=== PATIENT | female | born 1955 | race Caucasian/White ===

== ENCOUNTER 2016-09-22 21:54 | Inpatient (IN) | payer MEDICAID ==
[~2016-09-22] VITALS: Ht 162.6 cm; Wt 63.5 kg
[~2016-09-22 21:54] MED LIST: ADVAIR 100-501 EACH IH; ALBUTEROL2.5 MG/3 M INH; ALBUTEROL25 GM INH; CYCLOBENZAPRINE10 MG ORAL; LEVOTHYROXINE200 MCG PO; LEVOTHYROXINE25 MCG ORAL; TRAMADOL HCL50 MG ORAL; VICODIN ES 7.51 EACH PO
[2016-09-22 22:01] VITALS: BP 138/69
[2016-09-22 22:26] LABS: EOSINOPHILS % (AUTO) 0.8 % (0.0-3.0); LYMPHOCYTES % (AUTO) 44.9 % (20.0-45.0); MEAN CORPUSCULAR HEMOGLOBIN 31.4 PG (27.0-31.0); MEAN CORPUSCULAR VOLUME 95 FL (80-99); MEAN PLATELET VOLUME 6.4 FL (6.5-10.1); MONOCYTES % (AUTO) 6.9 % (1.0-10.0); NEUTROPHILS % (AUTO) 46.4 % (45.0-75.0); PLATELET COUNT 199 K/UL (150-450); RED BLOOD COUNT 4.17 M/UL (4.20-5.40); RED CELL DISTRIBUTION WIDTH 12.1 % (11.6-14.8); WHITE BLOOD COUNT 9.4 K/UL (4.8-10.8)
[2016-09-22] MEDS ORDERED: LORazepam Inj 2mg/ml 1ml IV ONE (22:30)
[2016-09-22] MEDS ORDERED: Ketorolac 30mg Inj IV ONE (22:30)
--- NOTE | 2016-09-22 22:43 | Emergency Room Report ---
History of Present Illness General Chief Complaint: Chest Pain Source: Patient, EMS Present Illness HPI Patient presents with complaints of chest pain and heaviness Patient was getting out of work and going into her car about 2 hours prior to arrival when she began having the heaviness Describes it as 5/10 Denies any shortness of breath there is some radiation to the left arm as well Patient denies any previous heart problems Is unaware of any previous testing Denies any vomiting or diarrhea denies any fall or trauma Denies any change of position Allergies: Coded Allergies: CODEINE (Verified Adverse Reaction, Intermediate, 05/05/12) N/V Patient History Past Medical History: see triage record Pertinent Family History: none Now: No Reviewed Nursing Documentation: PMH: Agreed, PSxH: Agreed Nursing Documentation-PMH Past Medical History: No History, Except For Hx Hypertension: No Hx Pacemaker: No Hx Asthma: Yes Hx COPD: Yes Hx Diabetes: No Hx Cancer: No Hx Gastrointestinal Problems: Yes - GASTRITIS Hx Dialysis: No Hx Neurological Problems: No Hx Cerebrovascular Accident: No Hx Seizures: No Review of Systems All Other Systems: negative except mentioned in HPI Physical Exam Vital Signs Date Time Temp Pulse Resp B/P Pulse Ox O2 Delivery O2 Flow Rate FiO2 09/22/16 21:47 98.2 65 16 143/91 99 Room Air Sp02 EP Interpretation: reviewed, normal General Appearance: no apparent distress - However patient appears mildly uncomfortable holding her chest somewhat tearful Head: normocephalic, atraumatic Eyes: bilateral eye EOMI, bilateral eye PERRL ENT: hearing grossly normal, normal pharynx, TMs + canals normal, uvula midline Neck: full range of motion, supple, no meningismus, no bony tend Respiratory: lungs clear, normal breath sounds, no rhonchi, no respiratory distress, no retraction, no accessory muscle use Cardiovascular #1: normal peripheral pulses, regular rate, rhythm, no edema, no gallop, no JVD, no murmur Gastrointestinal: normal bowel sounds, non tender, soft, no mass, no organomegaly, non-distended, no guarding, no hernia, no pulsatile mass, no rebound Genitourinary: no CVA tenderness Musculoskeletal: normal inspection Neurologic: oriented x3, 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, 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, motor strength/ tone normal, sensory intact Psychiatric: mood/affect normal Skin: normal color, no rash, warm/dry, palpation normal Lymphatic: normal inspection, no adenopathy Medical Decision Making Diagnostic Impression: Primary Impression: ACS (acute coronary syndrome) ER Course Patient is a fairly complex patient with multiple differential to consideration including but not limited to cardiac cardiopulmonary and vascular emergencies Patient's initial blood work along with chest x-ray and EKG are at baseline levels patient has done better at this time received aspirin in the field and admitted for further inpatient care Labs Test 09/22/16 22:07 White Blood Count 9.4 K/UL (4.8-10.8) Red Blood Count 4.17 M/UL (4.20-5.40) Hemoglobin 13.1 G/DL (12.0-16.0) Hematocrit 39.7 % (37.0-47.0) Mean Corpuscular Volume 95 FL (80-99) Mean Corpuscular Hemoglobin 31.4 PG (27.0-31.0) Mean Corpuscular Hemoglobin Concent 33.0 G/DL (32.0-36.0) Red Cell Distribution Width 12.1 % (11.6-14.8) Platelet Count 199 K/UL (150-450) Mean Platelet Volume 6.4 FL (6.5-10.1) Neutrophils (%) (Auto) 46.4 % (45.0-75.0) Lymphocytes (%) (Auto) 44.9 % (20.0-45.0) Monocytes (%) (Auto) 6.9 % (1.0-10.0) Eosinophils (%) (Auto) 0.8 % (0.0-3.0) Basophils (%) (Auto) 1.0 % (0.0-2.0) Sodium Level 142 mEQ/L (135-145) Potassium Level 3.8 mEQ/L (3.4-4.9) Chloride Level 100 mEQ/L (98-107) Carbon Dioxide Level 23 mEQ/L (20-30) Anion Gap 19 (5-15) Blood Urea Nitrogen 11 mg/dL (7-23) Creatinine 0.7 mg/dL (0.5-0.9) Estimat Glomerular Filtration Rate > 60 mL/min (>60) Glucose Level 102 mg/dL (74-106) Calcium Level 9.4 mg/dL (8.6-10.2) Total Bilirubin 0.6 mg/dL (0.0-1.2) Aspartate Amino Transf (AST/SGOT) 23 U/L (5-40) Alanine Aminotransferase (ALT/SGPT) 12 U/L (3-33) Alkaline Phosphatase 91 U/L (35-104) Total Creatine Kinase 253 U/L (26-140) Creatine Kinase MB 3.7 ng/mL (< 3.8) Creatine Kinase MB Relative Index 1.4 Troponin I < 0.30 ng/mL (<=0.30) Total Protein 7.5 g/dL (6.6-8.7) Albumin 4.3 g/dL (3.5-5.2) Globulin 3.2 g/dL Albumin/Globulin Ratio 1.3 (1.0-2.7) Lipase 31 U/L (< 60) EKG Diagnostic Results Rate: normal Rhythm: NSR ST Segments: other - Nonspecific ST and T-wave changes Rhythm Strip Diag. Results EP Interpretation: yes Rate: 65 Rhythm: NSR, no PVC's, no ectopy Chest X-Ray Diagnostic Results EP Interpretation: Yes Findings: no consolidation, no effusion, no pneumothorax Number of Views: 1 Last Vital Signs Date Time Temp Pulse Resp B/P Pulse Ox O2 Delivery O2 Flow Rate FiO2 09/22/16 22:36 57 12 Room Air 09/22/16 22:01 98.2 138/69 98 Status: improved Disposition: ADMITTED INPATIENT Condition: Serious DESIRAE LATHAM D.O. Sep 22, 2016 22:43
[2016-09-22 22:46] LABS: TROPONIN I < 0.30 ng/mL (<=0.30)
[2016-09-22 22:48] LABS: ALANINE AMINOTRANSFERASE 12 U/L (3-33); ALBUMIN/GLOBULIN RATIO 1.3 (1.0-2.7); ANION GAP 19 (5-15); ASPARTATE AMINO TRANSFERASE 23 U/L (5-40); CALCIUM 9.4 mg/dL (8.6-10.2); CARBON DIOXIDE 23 mEQ/L (20-30); CHLORIDE 100 mEQ/L (98-107); CREATININE 0.7 mg/dL (0.5-0.9); GLOMERULAR FILTRATION RATE > 60 mL/min (>60); HEMOLYSIS 36; LIPASE 31 U/L (< 60); POTASSIUM 3.8 mEQ/L (3.4-4.9); SODIUM 142 mEQ/L (135-145); TOTAL PROTEIN 7.5 g/dL (6.6-8.7)
[2016-09-22 22:55] LABS: CKMB 3.7 ng/mL (< 3.8)
[2016-09-23] VITALS (8 sets, daily range): BP systolic 120–182; BP diastolic 54–72
[2016-09-23] MEDS ORDERED: Cyclobenzaprine 10mg Tab ORAL PRN (05:45)
[2016-09-23] MEDS ORDERED: DuoNeb 0.5-3(2.5)mg/3ml neb HHN PRN (05:45)
[2016-09-23] MEDS ORDERED: Miralax 17gm pkt ORAL PRN (05:45)
[2016-09-23] MEDS ORDERED: Enalaprilat 2.5mg/2ml Inj IV PRN (05:45)
[2016-09-23] MEDS ORDERED: Diltiazem 25mg/5ml IV PRN (05:45)
[2016-09-23] MEDS ORDERED: traMADol 50mg tab ORAL PRN (05:45)
[2016-09-23] MEDS ORDERED: Ketorolac 30mg Inj IV PRN (05:45)
[2016-09-23] MEDS ORDERED: Aspirin Baby 81mg ORAL SCH (09:00)
[2016-09-23] MEDS: Levothyroxine 25mcg tab ORAL SCH (09:21)
[2016-09-23] MEDS: Heparin 5000 units/ml inj SUBQ SCH ×2 (09:22→23:11)
[2016-09-23 09:28] LABS: TROPONIN I < 0.30 ng/mL (<=0.30)
[2016-09-23] MEDS: Nitroglycerin Subl 0.4mg tab (Bottle Of 25) SL PRN ×2 (11:20→11:48)
[2016-09-23] MEDS: Morphine Sulfate 2mg/ml Inj IVP PRN ×3 (11:49→23:20)
--- NOTE | 2016-09-23 12:31 | Diagnostic Imaging Report ---
Indications: Chest pain Technique: Portable AP chest Findings: Comparison: 09/13/15 Cardiac silhouette remains normal in size. Pulmonary vasculature remains within normal limits. Small calcified nodule in right lung base unchanged. Lungs and pleura remain otherwise clear. Mild calcification and elongation of the thoracic aorta, fixation hardware in left humeral head again noted.. IMPRESSION: No evidence of acute disease, unchanged Stable chronic changes as described
--- NOTE | 2016-09-23 13:17 | History and Physical ---
History of Present Illness General Date patient seen: Sep 23, 2016 Reason for Hospitalization: Chest Pain Present Illness HPI 61 year old patient with hx of COPD, hypothyroid, presented to ER with complaints of shart chest pain and heaviness Patient was getting out of work and going into her car about 2 hours prior to arrival when she began having the heaviness She report that her SBP was 220. She doesn't have any history of HTN. Allergies: Coded Allergies: CODEINE (Verified Adverse Reaction, Intermediate, 05/05/12) N/V Medication History Scheduled Fluticasone/Salmeterol (Advair 100-50 Diskus), 1 EACH IH BID, (Reported) Levothyroxine Sodium* (Levothyroxine Sodium), 200 MCG PO DAILY, (Reported) Levothyroxine Sodium* (Levothyroxine Sodium*), 25 MCG ORAL DAILY, (Reported) Scheduled PRN Albuterol (Albuterol), 2 PUFFS INH Q4HR PRN, (Reported) Albuterol Sulfate* (Albuterol Sulfate Hhn*), 3 ML INH Q4H PRN for Shortness of Breath, (Reported) Cyclobenzaprine Hcl* (Flexeril*), 10 MG ORAL TID PRN for Muscle Spasm Tramadol Hcl* (Ultram*), 50 MG ORAL Q6H PRN for For Pain Patient History Healthcare decision maker Resuscitation status Advanced Directive on File Past Medical/Surgical History Past Medical/Surgical History: (1) Hypothyroidism Review of Systems Cardiovascular: Reports: chest pain Physical Exam General Appearance: WD/WN Lines, tubes and drains: peripheral HEENT: normocephalic, atraumatic Respiratory/Chest: chest wall non-tender, lungs clear Cardiovascular/Chest: normal peripheral pulses Abdomen: normal bowel sounds Genitourinary/Rectal: normal genital exam Last 24 Hour Vital Signs Date Time Temp Pulse Resp B/P Pulse Ox O2 Delivery O2 Flow Rate FiO2 09/23/16 12:52 98.1 53 18 126/62 97 Nasal Cannula 2.0 09/23/16 11:48 126/62 09/23/16 11:30 182/72 09/23/16 11:21 182/82 09/23/16 11:20 182/82 09/23/16 08:00 97.0 53 18 120/54 98 Room Air 09/23/16 08:00 52 09/23/16 04:34 53 09/23/16 04:20 97.2 55 18 122/58 98 Room Air 09/23/16 03:57 97.2 55 18 122/58 98 Room Air 09/23/16 01:22 97.2 71 16 145/60 99 Room Air 09/23/16 00:03 97.2 59 11 143/66 99 Room Air 09/22/16 22:52 98.2 09/22/16 22:36 57 12 Room Air 09/22/16 22:01 98.2 57 12 138/69 98 Room Air 09/22/16 21:47 98.2 65 16 143/91 99 Room Air Intake and Output 09/22/16 09/23/16 19:00 07:00 Intake Total 60 ml Balance 60 ml Intake Oral 60 ml Laboratory Tests Test 09/22/16 22:07 09/23/16 08:45 White Blood Count 9.4 K/UL (4.8-10.8) Red Blood Count 4.17 M/UL (4.20-5.40) L Hemoglobin 13.1 G/DL (12.0-16.0) Hematocrit 39.7 % (37.0-47.0) Mean Corpuscular Volume 95 FL (80-99) Mean Corpuscular Hemoglobin 31.4 PG (27.0-31.0) H Mean Corpuscular Hemoglobin Concent 33.0 G/DL (32.0-36.0) Red Cell Distribution Width 12.1 % (11.6-14.8) Platelet Count 199 K/UL (150-450) Mean Platelet Volume 6.4 FL (6.5-10.1) L Neutrophils (%) (Auto) 46.4 % (45.0-75.0) Lymphocytes (%) (Auto) 44.9 % (20.0-45.0) Monocytes (%) (Auto) 6.9 % (1.0-10.0) Eosinophils (%) (Auto) 0.8 % (0.0-3.0) Basophils (%) (Auto) 1.0 % (0.0-2.0) Sodium Level 142 mEQ/L (135-145) Potassium Level 3.8 mEQ/L (3.4-4.9) Chloride Level 100 mEQ/L (98-107) Carbon Dioxide Level 23 mEQ/L (20-30) Anion Gap 19 (5-15) H Blood Urea Nitrogen 11 mg/dL (7-23) Creatinine 0.7 mg/dL (0.5-0.9) Estimat Glomerular Filtration Rate > 60 mL/min (>60) Glucose Level 102 mg/dL (74-106) Calcium Level 9.4 mg/dL (8.6-10.2) Total Bilirubin 0.6 mg/dL (0.0-1.2) Aspartate Amino Transf (AST/SGOT) 23 U/L (5-40) Alanine Aminotransferase (ALT/SGPT) 12 U/L (3-33) Alkaline Phosphatase 91 U/L (35-104) Total Creatine Kinase 253 U/L (26-140) H Creatine Kinase MB 3.7 ng/mL (< 3.8) Creatine Kinase MB Relative Index 1.4 Troponin I < 0.30 ng/mL (<=0.30) < 0.30 ng/mL (<=0.30) Total Protein 7.5 g/dL (6.6-8.7) Albumin 4.3 g/dL (3.5-5.2) Globulin 3.2 g/dL Albumin/Globulin Ratio 1.3 (1.0-2.7) Lipase 31 U/L (< 60) Height (Feet): 5 Height (Inches): 4.00 Weight (Pounds): 140 Medications Current Medications Medications (Trade) Dose Ordered Sig/Angela Route PRN Reason Start Time Stop Time Status Last Admin Dose Admin Acetaminophen (Tylenol) 650 mg Q4H PRN ORAL FEVER 09/23/16 05:45 10/23/16 05:44 Albuterol/ Ipratropium (DuoNeb 0.5-3(2.5)mg/3ml) 3 ml EVERY 4 HOURS PRN HHN Shortness of Breath 09/23/16 05:45 09/28/16 05:44 Aspirin (ASA) 162 mg DAILY ORAL 09/23/16 09:00 10/23/16 08:59 09/23/16 09:21 Cyclobenzaprine HCl (Flexeril) 10 mg TID PRN ORAL Muscle Spasm 09/23/16 05:45 10/23/16 05:44 Diltiazem HCl (Cardizem) 10 mg EVERY HOUR PRN IV heart rate more than 120, 09/23/16 05:45 10/23/16 05:44 Enalaprilat (Vasotec) 2.5 mg EVERY 6 HOURS PRN IV sbp more than 160 09/23/16 05:45 10/23/16 05:44 09/23/16 11:21 Heparin Sodium (Porcine) (Heparin 5000 units/ml) 5,000 units EVERY 12 HOURS SUBQ 09/23/16 09:00 10/23/16 08:59 09/23/16 09:22 Ketorolac Tromethamine (Toradol 30mg) 30 mg Q6HR PRN IV moderate pain ( 4-6) 09/23/16 05:45 09/28/16 05:44 Levothyroxine Sodium (Synthroid) 25 mcg DAILY ORAL 09/23/16 09:00 10/23/16 08:59 09/23/16 09:21 Morphine Sulfate (Morphine Sulfate) 2 mg EVERY 4 HOURS PRN IVP severe Pain (Pain Scale 7-10) 09/23/16 05:45 09/30/16 05:44 09/23/16 11:49 Nitroglycerin (Ntg) 0.4 mg PRN PRN SL Prn Chest Pain 09/23/16 05:45 10/23/16 05:44 09/23/16 11:48 Ondansetron HCl (Zofran) 4 mg Q6H PRN IVP Nausea & Vomiting 09/23/16 05:45 10/23/16 05:44 09/23/16 12:06 Pantoprazole (Protonix) 40 mg DAILY ORAL 09/23/16 09:00 10/23/16 08:59 09/23/16 09:21 Polyethylene Glycol (Miralax) 17 gm DAILYPRN PRN ORAL Constipation 09/23/16 05:45 10/23/16 05:44 Temazepam (Restoril) 15 mg HSPRN PRN ORAL Insomnia 09/23/16 05:45 09/30/16 05:44 Tramadol HCl (Ultram) 50 mg Q6H PRN ORAL For Pain 09/23/16 05:45 09/30/16 05:44 Assessment/Plan Problem List: (1) Hypothyroidism ICD Codes: E03.9 - Hypothyroidism, unspecified SNOMED: 27476436 (2) ACS (acute coronary syndrome) ICD Codes: I24.9 - Acute ischemic heart disease, unspecified SNOMED: 042592143 (3) Costochondral chest pain ICD Codes: R07.1 - Chest pain on breathing SNOMED: 674220922 (4) Uncontrolled hypertension ICD Codes: I10 - Essential (primary) hypertension SNOMED: 66491286 Assessment/Plan serial ekg, troponin cardio/Gi evaluation monitor bp KATE DENT Sep 23, 2016 13:17
--- NOTE | 2016-09-23 16:44 | GI Initial Consult Note ---
History of Present Illness General Date patient seen: Sep 23, 2016 Time patient seen: 16:34 Reason for Hospitalization: Chest Pain Referring physician: KATE STOCKTON Reason for Consultation: NAUSEA Present Illness HPI Patient presents with complaints of chest pain and heaviness Patient was getting out of work and going into her car about 2 hours prior to arrival when she began having the heaviness Describes it as 5/10 Denies any shortness of breath there is some radiation to the left arm as well Patient denies any previous heart problems Is unaware of any previous testing Denies any vomiting or diarrhea denies any fall or trauma Denies any change of position GI CONSULT: HPI as noted above. GI consulted for nausea, pt denies vomiting. Pt seen on floor, awake A&Ox4 NAD with active signs of N/V at this time. According to the patient she had an episode prior to admission where she c/o of LUE numbness and pain that had radiated to left side of her neck and face. She continue to c/o of nausea inpatient with relief from zofran prn. Denies any vomiting. Denies any diarrhea/constipation or abdominal pain at this time. Pt is an ex tobacco user 50+ years quit x 1 year. Occasion ETOH use. Pt stated she had an EGD/colonoscopy last yea with dx of gastritis and 1 colonic polyp, unable to recall location of outpatient clinic. CBC, LFTS, lipase unremarkable. Troponin negative x 2. CXR unremarkable. Home Meds Active Scripts Cyclobenzaprine Hcl* (FLEXERIL*) 10 Mg Tablet, 10 MG ORAL TID Y for Muscle Spasm , #20 TAB Prov:MARIANO BECKFORD P.A. 09/13/15 Tramadol Hcl* (ULTRAM*) 50 Mg Tablet, 50 MG ORAL Q6H Y for For Pain, #20 TAB Prov:MARIANO BECKFORD P.A. 09/13/15 Reported Medications Albuterol Sulfate* (ALBUTEROL SULFATE HHN*) 2.5 Mg/3 Ml Vial.neb, 3 ML INH Q4H Y for Shortness of Breath, EA 09/22/16 Levothyroxine Sodium* (LEVOTHYROXINE SODIUM*) 25 Mcg Tablet, 25 MCG ORAL DAILY, TAB Take in the morning on an empty stomach, at least 30 minutes before food. 09/22/16 Levothyroxine Sodium* (LEVOTHYROXINE SODIUM) 200 Mcg Vial, 200 MCG PO DAILY 05/05/12 Albuterol (ALBUTEROL) 25 Gm Powder, 2 PUFFS INH Q4HR Y 05/05/12 Fluticasone/Salmeterol (Advair 100-50 Diskus) 1 Each Disk.w.dev, 1 EACH IH BID 05/05/12 Med list reviewed/reconciled: Yes Allergies: Coded Allergies: CODEINE (Verified Adverse Reaction, Intermediate, 05/05/12) N/V Patient History History Provided By: Patient, Medical Record PMH Narrative Past Medical History: see triage record Pertinent Family History: none Now: No Reviewed Nursing Documentation: PMH: Agreed, PSxH: Agreed Nursing Documentation-PMH Past Medical History: No History, Except For Hx Hypertension: No Hx Pacemaker: No Hx Asthma: Yes Hx COPD: Yes Hx Diabetes: No Hx Cancer: No Hx Gastrointestinal Problems: Yes - GASTRITIS Hx Dialysis: No Hx Neurological Problems: No Hx Cerebrovascular Accident: No Hx Seizures: No Social History: Reports: smoking - quit x 1 year Review of Systems All Other Systems: negative except mentioned in HPI Physical Exam Vital Signs Date Time Temp Pulse Resp B/P Pulse Ox O2 Delivery O2 Flow Rate FiO2 09/22/16 21:47 98.2 65 16 143/91 99 Room Air 09/23/16 12:52 2.0 Sp02 EP Interpretation: reviewed Labs Laboratory Tests Test 09/22/16 22:07 09/23/16 08:45 White Blood Count 9.4 K/UL (4.8-10.8) Red Blood Count 4.17 M/UL (4.20-5.40) L Hemoglobin 13.1 G/DL (12.0-16.0) Hematocrit 39.7 % (37.0-47.0) Mean Corpuscular Volume 95 FL (80-99) Mean Corpuscular Hemoglobin 31.4 PG (27.0-31.0) H Mean Corpuscular Hemoglobin Concent 33.0 G/DL (32.0-36.0) Red Cell Distribution Width 12.1 % (11.6-14.8) Platelet Count 199 K/UL (150-450) Mean Platelet Volume 6.4 FL (6.5-10.1) L Neutrophils (%) (Auto) 46.4 % (45.0-75.0) Lymphocytes (%) (Auto) 44.9 % (20.0-45.0) Monocytes (%) (Auto) 6.9 % (1.0-10.0) Eosinophils (%) (Auto) 0.8 % (0.0-3.0) Basophils (%) (Auto) 1.0 % (0.0-2.0) Sodium Level 142 mEQ/L (135-145) Potassium Level 3.8 mEQ/L (3.4-4.9) Chloride Level 100 mEQ/L (98-107) Carbon Dioxide Level 23 mEQ/L (20-30) Anion Gap 19 (5-15) H Blood Urea Nitrogen 11 mg/dL (7-23) Creatinine 0.7 mg/dL (0.5-0.9) Estimat Glomerular Filtration Rate > 60 mL/min (>60) Glucose Level 102 mg/dL (74-106) Calcium Level 9.4 mg/dL (8.6-10.2) Total Bilirubin 0.6 mg/dL (0.0-1.2) Aspartate Amino Transf (AST/SGOT) 23 U/L (5-40) Alanine Aminotransferase (ALT/SGPT) 12 U/L (3-33) Alkaline Phosphatase 91 U/L (35-104) Total Creatine Kinase 253 U/L (26-140) H Creatine Kinase MB 3.7 ng/mL (< 3.8) Creatine Kinase MB Relative Index 1.4 Troponin I < 0.30 ng/mL (<=0.30) < 0.30 ng/mL (<=0.30) Total Protein 7.5 g/dL (6.6-8.7) Albumin 4.3 g/dL (3.5-5.2) Globulin 3.2 g/dL Albumin/Globulin Ratio 1.3 (1.0-2.7) Lipase 31 U/L (< 60) General Appearance: no apparent distress, alert Head: normocephalic EENT: normal ENT inspection Neck: other - c/o of left neck numbness and sharp pain Respiratory: normal breath sounds, no respiratory distress Cardiovascular: normal rate Gastrointestinal: normal inspection, soft, normal bowel sounds, tenderness - mild epigastric tenderness on palpation Rectal: deferred Genitourinary: no CVA tenderness Musculoskeletal: normal inspection Neurologic: normal inspection, alert, oriented x3, responsive Psychiatric: normal inspection, judgement/insight normal Skin: normal inspection, normal color, no rash, warm/dry Lymphatic: normal inspection, no adenopathy Current Medications Current Medications Medications (Trade) Dose Ordered Sig/Angela Route PRN Reason Start Time Stop Time Status Last Admin Dose Admin Acetaminophen (Tylenol) 650 mg Q4H PRN ORAL FEVER 09/23/16 05:45 10/23/16 05:44 Albuterol/ Ipratropium (DuoNeb 0.5-3(2.5)mg/3ml) 3 ml EVERY 4 HOURS PRN HHN Shortness of Breath 09/23/16 05:45 09/28/16 05:44 Aspirin (ASA) 162 mg DAILY ORAL 09/23/16 09:00 10/23/16 08:59 09/23/16 09:21 Cyclobenzaprine HCl (Flexeril) 10 mg TID PRN ORAL Muscle Spasm 09/23/16 05:45 10/23/16 05:44 Diltiazem HCl (Cardizem) 10 mg EVERY HOUR PRN IV heart rate more than 120, 09/23/16 05:45 10/23/16 05:44 Enalaprilat (Vasotec) 2.5 mg EVERY 6 HOURS PRN IV sbp more than 160 09/23/16 05:45 10/23/16 05:44 09/23/16 11:21 Heparin Sodium (Porcine) (Heparin 5000 units/ml) 5,000 units EVERY 12 HOURS SUBQ 09/23/16 09:00 10/23/16 08:59 09/23/16 09:22 Ketorolac Tromethamine (Toradol 30mg) 30 mg Q6HR PRN IV moderate pain ( 4-6) 09/23/16 05:45 09/28/16 05:44 Levothyroxine Sodium (Synthroid) 25 mcg DAILY ORAL 09/23/16 09:00 10/23/16 08:59 09/23/16 09:21 Morphine Sulfate (Morphine Sulfate) 2 mg EVERY 4 HOURS PRN IVP severe Pain (Pain Scale 7-10) 09/23/16 05:45 09/30/16 05:44 09/23/16 11:49 Nitroglycerin (Ntg) 0.4 mg PRN PRN SL Prn Chest Pain 09/23/16 05:45 10/23/16 05:44 09/23/16 11:48 Ondansetron HCl (Zofran) 4 mg Q6H PRN IVP Nausea & Vomiting 09/23/16 05:45 10/23/16 05:44 09/23/16 12:06 Pantoprazole (Protonix) 40 mg DAILY ORAL 09/23/16 09:00 10/23/16 08:59 09/23/16 09:21 Polyethylene Glycol (Miralax) 17 gm DAILYPRN PRN ORAL Constipation 09/23/16 05:45 10/23/16 05:44 Temazepam (Restoril) 15 mg HSPRN PRN ORAL Insomnia 09/23/16 05:45 09/30/16 05:44 Tramadol HCl (Ultram) 50 mg Q6H PRN ORAL For Pain 09/23/16 05:45 09/30/16 05:44 GI: Plan Problems: (1) Nausea alone (2) Hypothyroidism (3) Uncontrolled hypertension (4) Acid reflux Plan nausea most likely from hypertensive crisis symptomatic treatment at this time zofran prn bp mgmt cont ppi regular diet fu thyroid panel fu labs Discussed with Dr. Nobles. Thank you for referring this patient, we will follow. Madelaine Luque N.P. Sep 23, 2016 16:44
--- NOTE | 2016-09-23 19:03 | Cardiology Progress Note ---
Assessment/Plan Assessment/Plan chest p ain likely shest wall syndrome asthma near syncope hypothyroid echo rib and sternla series nsaid for pain will follow [id number] Objective Last 24 Hour Vital Signs Date Time Temp Pulse Resp B/P Pulse Ox O2 Delivery O2 Flow Rate FiO2 09/23/16 16:00 97.9 52 18 141/66 Nasal Cannula 2.0 99 09/23/16 12:52 98.1 53 18 126/62 97 Nasal Cannula 2.0 09/23/16 11:48 126/62 09/23/16 11:30 182/72 09/23/16 11:21 182/82 09/23/16 11:20 182/82 09/23/16 08:00 97.0 53 18 120/54 98 Room Air 09/23/16 08:00 52 09/23/16 04:34 53 09/23/16 04:20 97.2 55 18 122/58 98 Room Air 09/23/16 03:57 97.2 55 18 122/58 98 Room Air 09/23/16 01:22 97.2 71 16 145/60 99 Room Air 09/23/16 00:03 97.2 59 11 143/66 99 Room Air 09/22/16 22:52 98.2 09/22/16 22:36 57 12 Room Air 09/22/16 22:01 98.2 57 12 138/69 98 Room Air 09/22/16 21:47 98.2 65 16 143/91 99 Room Air Intake and Output 09/22/16 09/23/16 19:00 07:00 Intake Total 60 ml Balance 60 ml Intake Oral 60 ml Laboratory Tests Test 09/22/16 22:07 09/23/16 08:45 White Blood Count 9.4 K/UL (4.8-10.8) Red Blood Count 4.17 M/UL (4.20-5.40) L Hemoglobin 13.1 G/DL (12.0-16.0) Hematocrit 39.7 % (37.0-47.0) Mean Corpuscular Volume 95 FL (80-99) Mean Corpuscular Hemoglobin 31.4 PG (27.0-31.0) H Mean Corpuscular Hemoglobin Concent 33.0 G/DL (32.0-36.0) Red Cell Distribution Width 12.1 % (11.6-14.8) Platelet Count 199 K/UL (150-450) Mean Platelet Volume 6.4 FL (6.5-10.1) L Neutrophils (%) (Auto) 46.4 % (45.0-75.0) Lymphocytes (%) (Auto) 44.9 % (20.0-45.0) Monocytes (%) (Auto) 6.9 % (1.0-10.0) Eosinophils (%) (Auto) 0.8 % (0.0-3.0) Basophils (%) (Auto) 1.0 % (0.0-2.0) Sodium Level 142 mEQ/L (135-145) Potassium Level 3.8 mEQ/L (3.4-4.9) Chloride Level 100 mEQ/L (98-107) Carbon Dioxide Level 23 mEQ/L (20-30) Anion Gap 19 (5-15) H Blood Urea Nitrogen 11 mg/dL (7-23) Creatinine 0.7 mg/dL (0.5-0.9) Estimat Glomerular Filtration Rate > 60 mL/min (>60) Glucose Level 102 mg/dL (74-106) Calcium Level 9.4 mg/dL (8.6-10.2) Total Bilirubin 0.6 mg/dL (0.0-1.2) Aspartate Amino Transf (AST/SGOT) 23 U/L (5-40) Alanine Aminotransferase (ALT/SGPT) 12 U/L (3-33) Alkaline Phosphatase 91 U/L (35-104) Total Creatine Kinase 253 U/L (26-140) H Creatine Kinase MB 3.7 ng/mL (< 3.8) Creatine Kinase MB Relative Index 1.4 Troponin I < 0.30 ng/mL (<=0.30) < 0.30 ng/mL (<=0.30) Total Protein 7.5 g/dL (6.6-8.7) Albumin 4.3 g/dL (3.5-5.2) Globulin 3.2 g/dL Albumin/Globulin Ratio 1.3 (1.0-2.7) Lipase 31 U/L (< 60) CHRISTOPHER JON Sep 23, 2016 19:03
[2016-09-23] MEDS: Meloxicam 15 MG TAB ORAL SCH (23:19)
[2016-09-24] VITALS: BP 142/57
[2016-09-24 04:30] VITALS: BP 122/56
[2016-09-24] MEDS: Morphine Sulfate 2mg/ml Inj IVP PRN ×2 (06:06→12:38)
[2016-09-24 07:06] LABS: PROTHROMBIN TIME 10.3 SEC (9.30-11.50)
[2016-09-24 07:13] LABS: MEAN CORPUSCULAR HEMOGLOBIN 32.9 PG (27.0-31.0); MEAN CORPUSCULAR HGB CONC 34.5 G/DL (32.0-36.0); MEAN CORPUSCULAR VOLUME 95 FL (80-99); MEAN PLATELET VOLUME 8.5 FL (6.5-10.1); PLATELET COUNT 204 K/UL (150-450); RED CELL DISTRIBUTION WIDTH 12.5 % (11.6-14.8); WHITE BLOOD COUNT 6.3 K/UL (4.8-10.8)
[2016-09-24 07:37] LABS: TROPONIN I < 0.30 ng/mL (<=0.30)
[2016-09-24 08:08] LABS: CHOLESTEROL 164 mg/dL (< 200); CRP QUANT < 0.3 mg/dL (< 0.5); HEMOLYSIS 6; LDL CHOLESTEROL (CALC.) 89 mg/dL (60-99)
[2016-09-24 08:41] VITALS: BP 144/69
[2016-09-24 09:45] LABS: ALANINE AMINOTRANSFERASE 9 U/L (3-33); ALBUMIN/GLOBULIN RATIO 1.7 (1.0-2.7); ANION GAP 20 (5-15); ASPARTATE AMINO TRANSFERASE 18 U/L (5-40); CALCIUM 8.9 mg/dL (8.6-10.2); CARBON DIOXIDE 22 mEQ/L (20-30); CHLORIDE 100 mEQ/L (98-107); CREATININE 0.7 mg/dL (0.5-0.9); GLOMERULAR FILTRATION RATE > 60 mL/min (>60); HEMOLYSIS 9; POTASSIUM 4.2 mEQ/L (3.4-4.9); SODIUM 142 mEQ/L (135-145); TOTAL PROTEIN 6.3 g/dL (6.6-8.7)
[2016-09-24 09:54] LABS: BAND NEUTROPHILS % (MANUAL) 1 % (0-8); BASOPHILS % (MANUAL) 0 % (0-2); EOSINOPHILS % (MANUAL) 2 % (0-3); LYMPHOCYTES % (MANUAL) 49 % (20-45); NEUTROPHILS % (MANUAL) 41 % (45-75); PLATELET ESTIMATE ADEQUATE; TOTAL CELLS COUNTED 100
[2016-09-24] MEDS: Meloxicam 15 MG TAB ORAL SCH (09:54)
[2016-09-24] MEDS: Levothyroxine 25mcg tab ORAL SCH (09:54)
[2016-09-24 09:55] LABS: PLATELET MORPHOLOGY NORMAL
[2016-09-24] MEDS: Heparin 5000 units/ml inj SUBQ SCH ×2 (09:55→22:21)
--- NOTE | 2016-09-24 10:29 | Diagnostic Imaging Report ---
Indication: Chest pain Technique: Multiple views of the sternum Comparison: None Findings: Sternum is intact. No evidence of retrosternal hematoma. Impression: Negative
--- NOTE | 2016-09-24 10:32 | Diagnostic Imaging Report ---
Indication: Chest pain Technique: Multiple views of the bilateral ribs Comparison: None Findings: No acute rib fracture demonstrated. No gross pneumothorax. There are cholecystectomy clips incidentally noted. A calcified granuloma is present at the right lung base. Impression: No acute process
--- NOTE | 2016-09-24 11:07 | Pulmonology Progress Note ---
Assessment/Plan Assessment/Plan ASSESSMENT chest pain r/o ACS chest wall pain costochondritis bradycardia near syncope- vasovagal /orthostatic changes /dehydration hypothyroidism with elevated TSH PLAN OF CARE tele hydrate with IVF, BP stable, still bardy, not on any blocking agents, tele-SB cardio follows ECHO pending check orthostatic x 1 now troponin 3 negative , ECG no ST change,s thus r/o for acute [place] chest pain appears to be chest wall pain, reproducible on palpation rib series and sternum X ray negative CXR negative O2 HHN prn, stable respiratory status pain management with NSAIDs continue ASA lipid panel stable increase Levothyroxine dose DVT, GI prophylaxis case discussed and evaluated by supervising physician Subjective Allergies: Coded Allergies: CODEINE (Verified Adverse Reaction, Intermediate, 05/05/12) N/V Subjective reports chest wall pain, no SOB, no dizziness, no palliations SB on tele no headache, no lightheadedness Objective Last 24 Hour Vital Signs Date Time Temp Pulse Resp B/P Pulse Ox O2 Delivery O2 Flow Rate FiO2 09/24/16 08:41 97.3 66 18 144/69 100 Nasal Cannula 3.0 09/24/16 08:00 49 09/24/16 06:51 68 16 Nasal Cannula 2.0 28 09/24/16 06:36 97.5 09/24/16 04:30 97.5 50 20 122/56 99 Room Air 09/24/16 04:00 51 09/24/16 00:00 97.9 51 20 142/57 100 Room Air 09/24/16 00:00 54 09/23/16 20:00 55 09/23/16 20:00 97.9 54 20 135/61 100 Room Air 09/23/16 16:00 57 09/23/16 16:00 97.9 52 18 141/66 Nasal Cannula 2.0 99 09/23/16 12:52 98.1 53 18 126/62 97 Nasal Cannula 2.0 09/23/16 11:48 126/62 09/23/16 11:30 182/72 09/23/16 11:21 182/82 09/23/16 11:20 182/82 Intake and Output 09/23/16 09/24/16 18:59 06:59 Intake Total 120 ml 765 ml Balance 120 ml 765 ml Intake Oral 120 ml IV Total 765 ml # Voids 1 1 General Appearance: WD/WN, no acute distress HEENT: normocephalic, atraumatic, anicteric, mucous membranes moist Respiratory/Chest: lungs clear, no respiratory distress, no accessory muscle use, other - chest wall TTP Cardiovascular: regular rhythm, no JVD, bradycardia Abdomen: normal bowel sounds, soft, non tender, non distended Genitourinary: normal external genitalia Extremities: no edema, pedal pulses normal Neurologic/Psychiatric: no motor/sensory deficits, alert, oriented x 3, responsive Lymphatic: no neck adenopathy Musculoskeletal: normal muscle bulk Laboratory Tests 09/24/16 06:25: White Blood Count 6.3, Red Blood Count 3.90L, Hemoglobin 12.8, Hematocrit 37.2, Mean Corpuscular Volume 95, Mean Corpuscular Hemoglobin 32.9H, Mean Corpuscular Hemoglobin Concent 34.5, Red Cell Distribution Width 12.5, Platelet Count 204, Mean Platelet Volume 8.5, Neutrophils (%) (Auto) , Lymphocytes (%) (Auto) , Monocytes (%) (Auto) , Eosinophils (%) (Auto) , Basophils (%) (Auto) , Differential Total Cells Counted 100, Neutrophils % (Manual) 41L, Lymphocytes % (Manual) 49H, Monocytes % (Manual) 7, Eosinophils % (Manual) 2, Basophils % ( Manual) 0, Band Neutrophils 1, Platelet Estimate Adequate, Platelet Morphology Normal, Red Blood Cell Morphology Normal, Prothrombin Time 10.3, Prothromb Time International Ratio 1.0, Activated Partial Thromboplast Time 28, Sodium Level 142, Potassium Level 4.2, Chloride Level 100, Carbon Dioxide Level 22, Anion Gap 20H, Blood Urea Nitrogen 10, Creatinine 0.7, Estimat Glomerular Filtration Rate > 60, Glucose Level 86, Calcium Level 8.9, Total Bilirubin 0.8, Aspartate Amino Transf (AST/SGOT) 18, Alanine Aminotransferase (ALT/SGPT) 9, Alkaline Phosphatase 78, Troponin I < 0.30, C-Reactive Protein, Quantitative < 0.3, Total Protein 6.3L, Albumin 4.0, Globulin 2.3, Albumin/Globulin Ratio 1.7, Triglycerides Level 106, Cholesterol Level 164, LDL Cholesterol 89, HDL Cholesterol 54, Cholesterol/HDL Ratio 3.0L, Thyroid Stimulating Hormone (TSH) 7.130H, Free Thyroxine 1.27 Current Medications Medications (Trade) Dose Ordered Sig/Angela Route PRN Reason Start Time Stop Time Status Last Admin Dose Admin Acetaminophen (Tylenol) 650 mg Q4H PRN ORAL FEVER 09/23/16 05:45 10/23/16 05:44 Albuterol/ Ipratropium (DuoNeb 0.5-3(2.5)mg/3ml) 3 ml EVERY 4 HOURS PRN HHN Shortness of Breath 09/23/16 05:45 09/28/16 05:44 Cyclobenzaprine HCl (Flexeril) 10 mg TID PRN ORAL Muscle Spasm 09/23/16 05:45 10/23/16 05:44 Diltiazem HCl (Cardizem) 10 mg EVERY HOUR PRN IV heart rate more than 120, 09/23/16 05:45 10/23/16 05:44 Enalaprilat (Vasotec) 2.5 mg EVERY 6 HOURS PRN IV sbp more than 160 09/23/16 05:45 10/23/16 05:44 09/23/16 11:21 Heparin Sodium (Porcine) (Heparin 5000 units/ml) 5,000 units EVERY 12 HOURS SUBQ 09/23/16 09:00 10/23/16 08:59 09/24/16 09:55 Ketorolac Tromethamine (Toradol 30mg) 30 mg Q6HR PRN IV moderate pain ( 4-6) 09/23/16 05:45 09/28/16 05:44 Levothyroxine Sodium (Synthroid) 25 mcg DAILY ORAL 09/23/16 09:00 10/23/16 08:59 09/24/16 09:54 Meloxicam 15 mg 15 mg DAILY ORAL 09/23/16 20:00 10/23/16 19:59 09/24/16 09:54 Morphine Sulfate (Morphine Sulfate) 2 mg EVERY 4 HOURS PRN IVP severe Pain (Pain Scale 7-10) 09/23/16 05:45 09/30/16 05:44 09/24/16 06:06 Nitroglycerin (Ntg) 0.4 mg PRN PRN SL Prn Chest Pain 09/23/16 05:45 10/23/16 05:44 09/23/16 11:48 Ondansetron HCl (Zofran) 4 mg Q6H PRN IVP Nausea & Vomiting 09/23/16 05:45 10/23/16 05:44 09/24/16 06:47 Pantoprazole (Protonix) 40 mg DAILY ORAL 09/23/16 09:00 10/23/16 08:59 09/24/16 09:54 Polyethylene Glycol (Miralax) 17 gm DAILYPRN PRN ORAL Constipation 09/23/16 05:45 10/23/16 05:44 Sodium Chloride (Sodium Chloride 1000ml bag) 1,000 ml @ 75 mls/hr [id number] IV 09/23/16 19:30 10/23/16 19:29 09/23/16 20:41 Temazepam (Restoril) 15 mg HSPRN PRN ORAL Insomnia 09/23/16 05:45 09/30/16 05:44 Tramadol HCl (Ultram) 50 mg Q6H PRN ORAL For Pain 09/23/16 05:45 09/30/16 05:44 [facility] NP Sep 24, 2016 11:07
[2016-09-24 12:00] VITALS: BP 136/59
--- NOTE | 2016-09-24 12:29 | GI Progress Note ---
Assessment/Plan Problems: (1) Acid reflux ICD Codes: K21.9 - Gastro-esophageal reflux disease without esophagitis SNOMED: 353155367 (2) Nausea alone ICD Codes: R11.0 - Nausea SNOMED: 948501163 (3) Uncontrolled hypertension ICD Codes: I10 - Essential (primary) hypertension SNOMED: 60543151 (4) Hypothyroidism ICD Codes: E03.9 - Hypothyroidism, unspecified SNOMED: 06877018 Status: unchanged Status Narrative Discussed with Dr. Nobles. Assessment/Plan nausea most likely from hypertensive crisis, improved with zofran symptomatic treatment at this time zofran prn bp mgmt cont ppi regular diet fu labs Subjective Gastrointestinal/Abdominal: Reports: nausea - improved Objective Last 24 Hour Vital Signs Date Time Temp Pulse Resp B/P Pulse Ox O2 Delivery O2 Flow Rate FiO2 09/24/16 09:10 56 09/24/16 09:05 57 09/24/16 09:00 54 09/24/16 08:41 97.3 66 18 144/69 100 Nasal Cannula 3.0 09/24/16 08:00 49 09/24/16 06:51 68 16 Nasal Cannula 2.0 28 09/24/16 06:36 97.5 09/24/16 04:30 97.5 50 20 122/56 99 Room Air 09/24/16 04:00 51 09/24/16 00:00 97.9 51 20 142/57 100 Room Air 09/24/16 00:00 54 09/23/16 20:00 55 09/23/16 20:00 97.9 54 20 135/61 100 Room Air 09/23/16 16:00 57 09/23/16 16:00 97.9 52 18 141/66 Nasal Cannula 2.0 99 09/23/16 12:52 98.1 53 18 126/62 97 Nasal Cannula 2.0 Intake and Output 09/23/16 09/24/16 19:00 07:00 Intake Total 120 ml 840 ml Balance 120 ml 840 ml Intake Oral 120 ml IV Total 840 ml # Voids 1 1 Laboratory Tests Test 09/24/16 06:25 White Blood Count 6.3 K/UL (4.8-10.8) Red Blood Count 3.90 M/UL (4.20-5.40) L Hemoglobin 12.8 G/DL (12.0-16.0) Hematocrit 37.2 % (37.0-47.0) Mean Corpuscular Volume 95 FL (80-99) Mean Corpuscular Hemoglobin 32.9 PG (27.0-31.0) H Mean Corpuscular Hemoglobin Concent 34.5 G/DL (32.0-36.0) Red Cell Distribution Width 12.5 % (11.6-14.8) Platelet Count 204 K/UL (150-450) Mean Platelet Volume 8.5 FL (6.5-10.1) Neutrophils (%) (Auto) % (45.0-75.0) Lymphocytes (%) (Auto) % (20.0-45.0) Monocytes (%) (Auto) % (1.0-10.0) Eosinophils (%) (Auto) % (0.0-3.0) Basophils (%) (Auto) % (0.0-2.0) Differential Total Cells Counted 100 Neutrophils % (Manual) 41 % (45-75) L Lymphocytes % (Manual) 49 % (20-45) H Monocytes % (Manual) 7 % (1-10) Eosinophils % (Manual) 2 % (0-3) Basophils % (Manual) 0 % (0-2) Band Neutrophils 1 % (0-8) Platelet Estimate Adequate Platelet Morphology Normal Red Blood Cell Morphology Normal Prothrombin Time 10.3 SEC (9.30-11.50) Prothromb Time International Ratio 1.0 (0.9-1.1) Activated Partial Thromboplast Time 28 SEC (23-33) Sodium Level 142 mEQ/L (135-145) Potassium Level 4.2 mEQ/L (3.4-4.9) Chloride Level 100 mEQ/L (98-107) Carbon Dioxide Level 22 mEQ/L (20-30) Anion Gap 20 (5-15) H Blood Urea Nitrogen 10 mg/dL (7-23) Creatinine 0.7 mg/dL (0.5-0.9) Estimat Glomerular Filtration Rate > 60 mL/min (>60) Glucose Level 86 mg/dL (74-106) Calcium Level 8.9 mg/dL (8.6-10.2) Total Bilirubin 0.8 mg/dL (0.0-1.2) Aspartate Amino Transf (AST/SGOT) 18 U/L (5-40) Alanine Aminotransferase (ALT/SGPT) 9 U/L (3-33) Alkaline Phosphatase 78 U/L (35-104) Troponin I < 0.30 ng/mL (<=0.30) C-Reactive Protein, Quantitative < 0.3 mg/dL (< 0.5) Total Protein 6.3 g/dL (6.6-8.7) L Albumin 4.0 g/dL (3.5-5.2) Globulin 2.3 g/dL Albumin/Globulin Ratio 1.7 (1.0-2.7) Triglycerides Level 106 mg/dL (< 150) Cholesterol Level 164 mg/dL (< 200) LDL Cholesterol 89 mg/dL (60-99) HDL Cholesterol 54 mg/dL (> 60) Cholesterol/HDL Ratio 3.0 (3.3-4.4) L Thyroid Stimulating Hormone (TSH) 7.130 uIU/mL (0.300-4.500) Free Thyroxine 1.27 ng/dL (0.86-1.85) Height (Feet): 5 Height (Inches): 4.00 Weight (Pounds): 140 General Appearance: no apparent distress, alert Cardiovascular: normal rate Respiratory/Chest: normal breath sounds, no respiratory distress Abdominal Exam: normal bowel sounds, non tender, soft Extremities: normal range of motion Madelaine Luque N.P. Sep 24, 2016 12:29
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
[2016-09-24 16:13] VITALS: BP 125/77
[2016-09-24 20:22] VITALS: BP 130/58
--- NOTE | 2016-09-24 20:42 | Cardiology Progress Note ---
Assessment/Plan Assessment/Plan chest p ain likely shest wall syndrome asthma near syncope hypothyroid echo rib and sternla series neg nsaid for pain seem better hoeprully damaris etomorrow to reviwee echo Subjective Cardiovascular: Reports: chest pain - but appear better , Denies: lightheadedness Gastrointestinal/Abdominal: Reports: nausea Genitourinary: Denies: burning Objective Last 24 Hour Vital Signs Date Time Temp Pulse Resp B/P Pulse Ox O2 Delivery O2 Flow Rate FiO2 09/24/16 20:22 98.6 52 19 130/58 94 Room Air 09/24/16 19:31 100 Nasal Cannula 3.0 09/24/16 19:30 Nasal Cannula 3.0 09/24/16 17:10 58 09/24/16 17:05 56 09/24/16 17:00 52 09/24/16 16:13 98.2 52 18 125/77 98 Nasal Cannula 3.0 09/24/16 12:00 58 09/24/16 12:00 97.5 54 18 136/59 100 Nasal Cannula 3.0 09/24/16 09:10 56 09/24/16 09:05 57 09/24/16 09:00 54 09/24/16 08:41 97.3 66 18 144/69 100 Nasal Cannula 3.0 09/24/16 08:00 49 09/24/16 06:51 68 16 Nasal Cannula 2.0 28 09/24/16 06:36 97.5 09/24/16 04:30 97.5 50 20 122/56 99 Room Air 09/24/16 04:00 51 09/24/16 00:00 97.9 51 20 142/57 100 Room Air 09/24/16 00:00 54 General Appearance: no apparent distress, alert, other - she is able to sit up faster in bed than yes Neck: supple Cardiovascular: normal rate, regular rhythm Respiratory/Chest: lungs clear, normal breath sounds, other - chest wll tender Abdomen: non tender, soft Extremities: no swelling Intake and Output 09/23/16 09/24/16 19:00 07:00 Intake Total 120 ml 840 ml Balance 120 ml 840 ml Intake Oral 120 ml IV Total 840 ml # Voids 1 1 Laboratory Tests Test 09/24/16 06:25 White Blood Count 6.3 K/UL (4.8-10.8) Red Blood Count 3.90 M/UL (4.20-5.40) L Hemoglobin 12.8 G/DL (12.0-16.0) Hematocrit 37.2 % (37.0-47.0) Mean Corpuscular Volume 95 FL (80-99) Mean Corpuscular Hemoglobin 32.9 PG (27.0-31.0) H Mean Corpuscular Hemoglobin Concent 34.5 G/DL (32.0-36.0) Red Cell Distribution Width 12.5 % (11.6-14.8) Platelet Count 204 K/UL (150-450) Mean Platelet Volume 8.5 FL (6.5-10.1) Neutrophils (%) (Auto) % (45.0-75.0) Lymphocytes (%) (Auto) % (20.0-45.0) Monocytes (%) (Auto) % (1.0-10.0) Eosinophils (%) (Auto) % (0.0-3.0) Basophils (%) (Auto) % (0.0-2.0) Differential Total Cells Counted 100 Neutrophils % (Manual) 41 % (45-75) L Lymphocytes % (Manual) 49 % (20-45) H Monocytes % (Manual) 7 % (1-10) Eosinophils % (Manual) 2 % (0-3) Basophils % (Manual) 0 % (0-2) Band Neutrophils 1 % (0-8) Platelet Estimate Adequate Platelet Morphology Normal Red Blood Cell Morphology Normal Prothrombin Time 10.3 SEC (9.30-11.50) Prothromb Time International Ratio 1.0 (0.9-1.1) Activated Partial Thromboplast Time 28 SEC (23-33) Sodium Level 142 mEQ/L (135-145) Potassium Level 4.2 mEQ/L (3.4-4.9) Chloride Level 100 mEQ/L (98-107) Carbon Dioxide Level 22 mEQ/L (20-30) Anion Gap 20 (5-15) H Blood Urea Nitrogen 10 mg/dL (7-23) Creatinine 0.7 mg/dL (0.5-0.9) Estimat Glomerular Filtration Rate > 60 mL/min (>60) Glucose Level 86 mg/dL (74-106) Calcium Level 8.9 mg/dL (8.6-10.2) Total Bilirubin 0.8 mg/dL (0.0-1.2) Aspartate Amino Transf (AST/SGOT) 18 U/L (5-40) Alanine Aminotransferase (ALT/SGPT) 9 U/L (3-33) Alkaline Phosphatase 78 U/L (35-104) Troponin I < 0.30 ng/mL (<=0.30) C-Reactive Protein, Quantitative < 0.3 mg/dL (< 0.5) Total Protein 6.3 g/dL (6.6-8.7) L Albumin 4.0 g/dL (3.5-5.2) Globulin 2.3 g/dL Albumin/Globulin Ratio 1.7 (1.0-2.7) Triglycerides Level 106 mg/dL (< 150) Cholesterol Level 164 mg/dL (< 200) LDL Cholesterol 89 mg/dL (60-99) HDL Cholesterol 54 mg/dL (> 60) Cholesterol/HDL Ratio 3.0 (3.3-4.4) L Thyroid Stimulating Hormone (TSH) 7.130 uIU/mL (0.300-4.500) Free Thyroxine 1.27 ng/dL (0.86-1.85) CHRISTOPHER JON Sep 24, 2016 20:42
[2016-09-25] VITALS: BP 139/50
[2016-09-25] MEDS: Morphine Sulfate 2mg/ml Inj IVP PRN ×2 (00:55→12:41)
[2016-09-25 04:00] VITALS: BP 118/51
[2016-09-25 08:00] VITALS: BP 131/56
[2016-09-25 08:07] LABS: BASOPHILS % (AUTO) 0.8 % (0.0-2.0); EOSINOPHILS % (AUTO) 1.2 % (0.0-3.0); LYMPHOCYTES % (AUTO) 42.9 % (20.0-45.0); MEAN CORPUSCULAR HEMOGLOBIN 31.8 PG (27.0-31.0); MEAN CORPUSCULAR HGB CONC 33.3 G/DL (32.0-36.0); MEAN CORPUSCULAR VOLUME 96 FL (80-99); MEAN PLATELET VOLUME 7.5 FL (6.5-10.1); MONOCYTES % (AUTO) 7.8 % (1.0-10.0); NEUTROPHILS % (AUTO) 47.2 % (45.0-75.0); PLATELET COUNT 188 K/UL (150-450); RED BLOOD COUNT 4.05 M/UL (4.20-5.40); RED CELL DISTRIBUTION WIDTH 12.9 % (11.6-14.8); WHITE BLOOD COUNT 6.1 K/UL (4.8-10.8)
[2016-09-25 08:33] LABS: ANION GAP 13 (5-15); CARBON DIOXIDE 26 mEQ/L (20-30); CHLORIDE 103 mEQ/L (98-107); CREATININE 0.6 mg/dL (0.5-0.9); GLOMERULAR FILTRATION RATE > 60 mL/min (>60); HEMOLYSIS 3; SODIUM 142 mEQ/L (135-145); TROPONIN I < 0.30 ng/mL (<=0.30)
[2016-09-25] MEDS: Heparin 5000 units/ml inj SUBQ SCH (09:17)
[2016-09-25] MEDS: Meloxicam 15 MG TAB ORAL SCH (09:21)
[2016-09-25 12:00] VITALS: BP 136/48
--- NOTE | 2016-09-25 12:05 | Pulmonology Progress Note ---
Assessment/Plan Assessment/Plan ASSESSMENT chest pain r/o ACS chest wall pain costochondritis bradycardia near syncope- vasovagal /orthostatic changes /dehydration hypothyroidism with elevated TSH PLAN OF CARE tele hydrate with IVF, BP stable, still calvin, not on any blocking agents, tele-SB cardio follows ECHO with preserved EF 50-55% and RVSP of 21, no evidence of LVH or valvular disease check orthostatic x 1 now troponin 3 negative , ECG no ST change,s thus r/o for acute [place] chest pain appears to be chest wall pain, reproducible on palpation rib series and sternum X ray negative CXR negative O2 HHN prn, stable respiratory status pain management with NSAIDs continue ASA lipid panel stable increased Levothyroxine dose ( elevated TSH) DVT, GI prophylaxis dc plan for today if cleared by cardio case discussed and evaluated by supervising physician Subjective Allergies: Coded Allergies: CODEINE (Verified Adverse Reaction, Intermediate, 05/05/12) N/V Subjective reports chest wall pain, no SOB, no dizziness, no palliations SB on tele no headache, no lightheadedness Objective Last 24 Hour Vital Signs Date Time Temp Pulse Resp B/P Pulse Ox O2 Delivery O2 Flow Rate FiO2 09/25/16 08:00 50 09/25/16 08:00 97.7 50 20 131/56 99 Room Air 09/25/16 07:30 100 Nasal Cannula 3.0 09/25/16 07:30 Nasal Cannula 3.0 32 09/25/16 04:00 53 09/25/16 04:00 97.7 65 20 118/51 100 Room Air 09/25/16 02:10 53 51 57 09/25/16 00:00 99.0 50 20 139/50 94 Room Air 09/25/16 00:00 54 09/24/16 20:22 98.6 52 19 130/58 94 Room Air 09/24/16 20:00 52 09/24/16 19:31 100 Nasal Cannula 3.0 09/24/16 19:30 Nasal Cannula 3.0 09/24/16 17:10 58 09/24/16 17:05 56 09/24/16 17:00 52 09/24/16 16:13 98.2 52 18 125/77 98 Nasal Cannula 3.0 09/24/16 16:00 55 Intake and Output 09/24/16 09/25/16 19:00 07:00 Intake Total 427 ml 430 ml Balance 427 ml 430 ml Intake Oral 240 ml IV Total 187 ml 430 ml # Voids 2 2 Objective General Appearance: WD/WN, no acute distress HEENT: normocephalic, atraumatic, anicteric, mucous membranes moist Respiratory/Chest: lungs clear, no respiratory distress, no accessory muscle use, other - chest wall TTP Cardiovascular: regular rhythm, no JVD, bradycardia Abdomen: normal bowel sounds, soft, non tender, non distended Genitourinary: normal external genitalia Extremities: no edema, pedal pulses normal Neurologic/Psychiatric: no motor/sensory deficits, alert, oriented x 3, responsive Lymphatic: no neck adenopathy Musculoskeletal: normal muscle bulk Laboratory Tests 09/25/16 07:25: White Blood Count 6.1, Red Blood Count 4.05L, Hemoglobin 12.9, Hematocrit 38.7, Mean Corpuscular Volume 96, Mean Corpuscular Hemoglobin 31.8H, Mean Corpuscular Hemoglobin Concent 33.3, Red Cell Distribution Width 12.9, Platelet Count 188, Mean Platelet Volume 7.5, Neutrophils (%) (Auto) 47.2, Lymphocytes (%) (Auto) 42.9, Monocytes (%) (Auto) 7.8, Eosinophils (%) (Auto) 1.2, Basophils (%) (Auto ) 0.8, Sodium Level 142, Potassium Level 4.0, Chloride Level 103, Carbon Dioxide Level 26, Anion Gap 13, Blood Urea Nitrogen 8, Creatinine 0.6, Estimat Glomerular Filtration Rate > 60, Glucose Level 89, Calcium Level 9.0, Troponin I < 0.30 Current Medications Medications (Trade) Dose Ordered Sig/Angela Route PRN Reason Start Time Stop Time Status Last Admin Dose Admin Acetaminophen (Tylenol) 650 mg Q4H PRN ORAL FEVER 09/23/16 05:45 10/23/16 05:44 Albuterol/ Ipratropium (DuoNeb 0.5-3(2.5)mg/3ml) 3 ml EVERY 4 HOURS PRN HHN Shortness of Breath 09/23/16 05:45 09/28/16 05:44 Cyclobenzaprine HCl (Flexeril) 10 mg TID PRN ORAL Muscle Spasm 09/23/16 05:45 10/23/16 05:44 Diltiazem HCl (Cardizem) 10 mg EVERY HOUR PRN IV heart rate more than 120, 09/23/16 05:45 10/23/16 05:44 Enalaprilat (Vasotec) 2.5 mg EVERY 6 HOURS PRN IV sbp more than 160 09/23/16 05:45 10/23/16 05:44 09/23/16 11:21 Heparin Sodium (Porcine) (Heparin 5000 units/ml) 5,000 units EVERY 12 HOURS SUBQ 09/23/16 09:00 10/23/16 08:59 09/25/16 09:17 Ketorolac Tromethamine (Toradol 30mg) 30 mg Q6HR PRN IV moderate pain ( 4-6) 09/23/16 05:45 09/28/16 05:44 09/25/16 09:15 Levothyroxine Sodium (Synthroid) 50 mcg DAILY@0630 ORAL 09/25/16 06:30 10/25/16 06:29 09/25/16 06:14 Meloxicam 15 mg 15 mg DAILY ORAL 09/23/16 20:00 10/23/16 19:59 09/25/16 09:21 Morphine Sulfate (Morphine Sulfate) 2 mg EVERY 4 HOURS PRN IVP severe Pain (Pain Scale 7-10) 09/23/16 05:45 09/30/16 05:44 09/25/16 00:55 Nitroglycerin (Ntg) 0.4 mg PRN PRN SL Prn Chest Pain 09/23/16 05:45 10/23/16 05:44 09/23/16 11:48 Ondansetron HCl (Zofran) 4 mg Q6H PRN IVP Nausea & Vomiting 09/23/16 05:45 10/23/16 05:44 09/25/16 09:15 Pantoprazole (Protonix) 40 mg DAILY ORAL 09/23/16 09:00 10/23/16 08:59 09/25/16 09:14 Polyethylene Glycol (Miralax) 17 gm DAILYPRN PRN ORAL Constipation 09/23/16 05:45 10/23/16 05:44 09/25/16 09:20 Sodium Chloride (Sodium Chloride 1000ml bag) 1,000 ml @ 75 mls/hr [id number] IV 09/23/16 19:30 3/4/17 19:29 09/24/16 22:16 Temazepam (Restoril) 15 mg HSPRN PRN ORAL Insomnia 09/23/16 05:45 09/30/16 05:44 09/24/16 22:17 Tramadol HCl (Ultram) 50 mg Q6H PRN ORAL For Pain 09/23/16 05:45 09/30/16 05:44 09/24/16 22:17 Luis ([facility])Carmita NP Sep 25, 2016 12:05
[2016-09-25] MEDS ORDERED: PROTONIX40 MG ORAL (12:08)
[2016-09-25] MEDS ORDERED: MELOXICAM15 MG ORAL (12:08)
--- NOTE | 2016-09-25 12:10 | Discharge Instructions ---
Discharge Instructions Discharge Instructions Follow up with: PMD Call MD/Return to Hospital if: SOB, chest pain, dizziness, lightheadness, blasckouts. diaphoresis, Diet: regular Activity: resume normal activities, as tolerated For Congestive Heart Failure Reminder Report to your physician any weight gain of 5 pounds or more in one week. Luis ([facility]),Carmita GELLER Sep 25, 2016 12:10
[2016-09-25] MEDS ORDERED: SYNTHROID125 MCG ORAL (13:19)
[2016-09-25] MEDS ORDERED: Influenza Virus Vaccine 0.5ml IM ONE (14:30)
[2016-09-25] MEDS ORDERED: NS 275ml ONE (14:34)
--- NOTE | 2016-09-25 16:08 | Cardiology Report ---
APPROVED REPORT EKG Measurement Heart [id number] Sinus bradycardia Cannot rule out Anterior infarct, age undetermined Abnormal ECG
--- NOTE | 2016-09-27 07:50 | Discharge Summary ---
Discharge Summary Hospital Course Date of Admission Sep 23, 2016 at 00:45 Date of Discharge Sep 25, 2016 at 14:35 Admitting Diagnosis ACS HPI Renee oJse is a 61 year old female who was admitted on Sep 23, 2016 at 00: 45 for Acute Coronary Syndrome Hospital Course dc summary dictated #[id number] Discharge Medications New Medications: Meloxicam* (Meloxicam*) 15 Mg Tablet 15 MG ORAL DAILY, #20 TAB Pantoprazole* (Protonix*) 40 Mg Tablet.dr 40 MG ORAL DAILY, #20 TAB Continued Medications: Levothyroxine Sodium* (Synthroid*) 125 Mcg Tablet 125 MCG ORAL DAILY, TAB Take in the morning on an empty stomach, at least 30 minutes before food. Discontinued Medications: Albuterol (Albuterol) 25 Gm Powder 2 PUFFS INH Q4HR PRN Albuterol Sulfate* (Albuterol Sulfate Hhn*) 2.5 Mg/3 Ml Vial.neb 3 ML INH Q4H PRN for Shortness of Breath, EA Cyclobenzaprine Hcl* (Flexeril*) 10 Mg Tablet 10 MG ORAL TID PRN for Muscle Spasm, #20 TAB Fluticasone/Salmeterol (Advair 100-50 Diskus) 1 Each Disk.w.dev 1 EACH IH BID Levothyroxine Sodium* (Levothyroxine Sodium) 200 Mcg Vial 200 MCG PO DAILY Levothyroxine Sodium* (Levothyroxine Sodium*) 25 Mcg Tablet 25 MCG ORAL DAILY, TAB Take in the morning on an empty stomach, at least 30 minutes before food. Tramadol Hcl* (Ultram*) 50 Mg Tablet 50 MG ORAL Q6H PRN for For Pain, #20 TAB Discharge Discharge Disposition Patient was discharged to Home () Discharge Diagnoses: Discharge Instructions Discharge Instructions Follow up with: PMD Call MD/Return to Hospital if: SOB, chest pain, dizziness, lightheadness, blasckouts. diaphoresis, Activity: resume normal activities, as tolerated Carmita Smith NP ([facility]) Sep 27, 2016 07:50
--- NOTE | 2016-09-27 20:59 | Discharge Summary 2 SIG ---
DATE OF ADMISSION: 09/23/2016 DATE OF DISCHARGE: 09/25/2016 REASON FOR ADMISSION AND HISTORY OF PRESENT ILLNESS: This is a 61 years old patient with a history of COPD and hypothyroidism, presented to the emergency room with a complaint of sharp chest pain and heaviness. The patient was about to get out of work and go to her car prior to arrival when she began having chest pain. She denied any trauma or injury. She denied any history of coronary artery disease. Pain was described as 5 to 10 and there was some radiation to the left arm. There was no shortness of breath and no dyspnea. At that time dizziness, lightheadedness, but denies passing out. In the emergency room, the patient's first troponin was negative. The patient had no leukocytosis. Hemoglobin and hematocrit were stable. Electrolytes were stable. EKG shows normal sinus rhythm with nonspecific ST and T-wave changes. No ectopy. No PVC. Chest x-ray shows no consolidation, no effusion, and no pneumothorax. The patient was admitted with the chest pain to rule out acute coronary syndrome. ADMITTING DIAGNOSIS: Chest pain rule out acute coronary syndrome. near syncope COURSE OF STAY: The patient was admitted on telemetry floor. The patient was hydrated with IV fluids. Patient felt better after IV hydration. Blood pressure was stable. On telemetry, she was sinus bradycardia. The patient at home not on any blocking agents. Heart rate was in 50s. Patient denied dizziness, no lightheadedness, no blackouts, and no diaphoresis. Compliance Lead followed the patient. Echocardiogram revealed preserved ejection fraction of 65% and right ventricular systolic pressure of 21. There was no evidence of left ventricular hypertrophy or valvular disease. Blood pressure was negative for orthostatic changes. Troponin x3 was negative. EKG revealed no ST-changes. Thus, she was ruled out for acute VT . Chest pain, appeared to be chest wall pain, reproducible upon palpation. Rib series and sternum x-rays were negative for any evidence of fracture or other trauma. Pulmonary toilet and supplemental oxygen were provided as needed. The respiratory status was stable. Pulse oximetry was stable on room air. Pain management was provided with nonsteroid anti-inflammatory agents. Lipid panel was stable. Levothyroxine continued, dose increased due to elevated TSH. DVT and GI prophylaxes were provided. Compliance Lead cleared for discharge. DISCHARGE DIAGNOSES: 1. Chest wall pain. 2. Costochondritis. 3. Bradycardia. 4. Near syncope likely -vasovagal, due to dehydration 5. Hypothyroidism with elevated thyroid-stimulating hormone. DISCHARGE MEDICATIONS: See medication reconciliation list. DISCHARGE INSTRUCTIONS: The patient is to follow up with the primary medical doctor. Reinforce compliance with medications. Alexandria Underwood M.D. Carmita RobertsCentral Islip Psychiatric CenterMagro NAjit DR: Pieter JOB#: [id number] CC: JESUS
--- NOTE | 2016-09-28 20:27 | Cardiology Report ---
APPROVED REPORT EKG Measurement Heart [id number] [place] [id number] Sinus bradycardia Otherwise normal ECG
--- NOTE | 2016-10-12 14:19 | Cardiology Report ---
APPROVED REPORT EXAM: Two-dimensional and M-mode echocardiogram with Doppler and color Doppler. INDICATION Left Ventricular Function M-Mode DIMENSIONS IVSd1.0 (0.7-1.1cm)Left Atrium (MM)3.2 (1.6-4.0cm) LVDd4.9 (3.5-5.6cm)Aortic Root2.6 (2.0-3.7cm) PWd.7 (0.7-1.1cm)Aortic Cusp Exc.1.7 (1.5-2.0cm) LVDs3.1 (2.5-4.0cm) PWs1.4 cm Normal left ventricular chamber size, systolic function and wall motion. Left ventricular ejection fraction estimated to be 60-65 %. No evidence of ventricular hypertrophy. Anterior Echo-free space, may be due to pericardial fat or effusion. No evidence of pericardial effusion. All other cardiac chamber sizes are within normal limits. Mild focal aortic valve sclerosis with adequate cusp excursion. Mildly thickened mitral valve leaflets with normal excursion. Mild mitral annulus and aortic root calcification. Pulmonic valve not well visualized. Normal tricuspid valve structure. IVC normal 2.1cm with physiologic collapse. A color flow and spectral Doppler study was performed and revealed: No aortic regurgitation. Trace mitral regurgitation. Mitral inflow velocities indicates normal left ventricular diastolic function. Trace tricuspid regurgitation. Tricuspid systolic velocities suggests peak right ventricular systolic pressure of 21 mmHg. No pulmonic regurgitation present.
== END 2016-09-25 14:35 | disposition home or self-care (01) | DRG 203 ==
LOC: EDBD 21:54 → EMR 23:48 → 2E 09-23 00:45 → EDBEDREQ 09-23 02:28 → 2E 09-23 03:59
DX: M94.0 Chondrocostal junction syndrome [Tietze] (principal); J44.9 Chronic obstructive pulmonary disease, unspecified; I16.9 Hypertensive crisis, unspecified; E03.9 Hypothyroidism, unspecified; R55 Syncope and collapse; R00.1 Bradycardia, unspecified; Z88.6 Allergy status to analgesic agent; K21.9 Gastro-esophageal reflux disease without esophagitis; R07.89 Other chest pain; J45.909 Unspecified asthma, uncomplicated
CPT/HCPCS: 36415; 71010; 71110; 71120; 80048; 80053; 80061; 82550; 82553; 83690; 84439; 84443; 84484; 85007; 85025; 85610; 85730; 86140; 93005; 93306; 94664; 94760; J2405; Q2036

== ENCOUNTER 2016-10-15 04:22 | Emergency (ER) | payer MEDICAID ==
[~2016-10-15] VITALS: Ht 165.1 cm; Wt 60.8 kg
[~2016-10-15 04:22] MED LIST changes: +MELOXICAM15 MG ORAL; +PROTONIX40 MG ORAL; +SYNTHROID125 MCG ORAL
--- NOTE | 2016-10-15 04:47 | Emergency Room Report ---
History of Present Illness General Chief Complaint: Fever Source: Patient Present Illness HPI 61 YO F presents with subjective fever at home, dysuria, "whole body pain." Took Tylenol. History of asthma. Denies chest pain, SOB, wheezing, abd pain, headache. Allergies: Coded Allergies: CODEINE (Verified Adverse Reaction, Intermediate, 05/05/12) N/V Patient History Past Medical History: asthma Past Surgical History: none Pertinent Family History: none Social History: Reports: smoking, Denies: alcohol use, drug use Now: No Immunizations: UTD Reviewed Nursing Documentation: PMH: Agreed, PSxH: Agreed Nursing Documentation-PMH Hx Cardiac Problems: Yes - Thyroid Problem Hx Hypertension: No Hx Pacemaker: No Hx Asthma: Yes Hx COPD: Yes Hx Diabetes: No Hx Cancer: No Hx Gastrointestinal Problems: Yes - GASTRITIS Hx Dialysis: No Hx Neurological Problems: No Hx Cerebrovascular Accident: No Hx Seizures: No Review of Systems All Other Systems: negative except mentioned in HPI Physical Exam Vital Signs Date Time Temp Pulse Resp B/P Pulse Ox O2 Delivery O2 Flow Rate FiO2 10/15/16 04:25 99.7 85 16 144/74 94 Room Air Sp02 EP Interpretation: reviewed, normal General Appearance: normal inspection, well appearing, no apparent distress, alert, GCS 15, non-toxic Head: normocephalic, atraumatic Eyes: bilateral eye EOMI, bilateral eye PERRL ENT: normal ENT inspection, hearing grossly normal, normal voice Neck: normal inspection, full range of motion, supple, no bony tend Respiratory: normal inspection, lungs clear, normal breath sounds, no respiratory distress, no retraction, no wheezing Cardiovascular #1: regular rate, rhythm, no edema Gastrointestinal: normal inspection, normal bowel sounds, non tender, soft, no guarding, no hernia Genitourinary: no CVA tenderness Musculoskeletal: normal inspection, back normal, normal range of motion, Ryder' s Sign negative Neurologic: normal inspection, alert, oriented x3, responsive, 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 10/15/16 RASTA SANCHEZ M.D. Oct 15, 2016 04:47
[2016-10-15 04:49] VITALS: BP 144/74
[2016-10-15 05:00] LABS: APPEARANCE,URINE CLEAR; KETONES,URINE NEGATIVE (NEGATIVE); NITRITE,URINE NEGATIVE (NEGATIVE); PH,URINE 6.5 (4.5-8.0); PROTEIN,URINE 1+ (NEGATIVE); UROBILINOGEN,URINE NORMAL MG/DL (0.0-1.0)
[2016-10-15 05:07] LABS: LEUKOCYTE ESTERASE ,URINE 1+ (NEGATIVE)
[2016-10-15 05:08] LABS: BACTERIA,URINE FEW /HPF; RBC,URINE TNTC /HPF (0 - 2); SQUAMOUS EPITHELIAL CELL,UR FEW /LPF (NONE/OCC)
[2016-10-15 05:09] LABS: MUCUS,URINE FEW /LPF (NONE/OCC)
[2016-10-15] MEDS ORDERED: NITROFURANTOIN100 M2 ORAL (05:16)
[2016-10-15 05:25] VITALS: BP 141/74
== END 2016-10-15 05:25 | disposition home or self-care (01) ==
LOC: EMR 04:50
DX: N39.0 Urinary tract infection, site not specified (principal); J44.9 Chronic obstructive pulmonary disease, unspecified; J45.909 Unspecified asthma, uncomplicated; Z87.19 Personal history of other diseases of the digestive system; F17.200 Nicotine dependence, unspecified, uncomplicated; Z88.6 Allergy status to analgesic agent
CPT/HCPCS: 81003; 99283

== ENCOUNTER 2017-01-03 09:09 | Emergency (ER) | payer MEDICAID ==
[~2017-01-03] VITALS: Ht 165.1 cm; Wt 59.0 kg
[~2017-01-03 09:09] MED LIST changes: +NITROFURANTOIN100 M2 ORAL
[2017-01-03 09:24] VITALS: BP 126/69
--- NOTE | 2017-01-03 09:28 | Emergency Room Report ---
History of Present Illness General Chief Complaint: Fever Source: Patient Present Illness HPI Patient presents with complaints of low-grade fever sore throat And left ear pain Denies any cough or congestion Denies any headache denies any visual changes Pain is 6/10 worse with swallowing Denies any posterior neck pain Denies any vomiting or diarrhea denies any recent travel Symptoms ongoing for the past several days Allergies: Coded Allergies: CODEINE (Verified Adverse Reaction, Intermediate, 05/05/12) N/V Patient History Past Medical History: see triage record Pertinent Family History: none Reviewed Nursing Documentation: PMH: Agreed, PSxH: Agreed Nursing Documentation-PMH Hx Hypertension: No Hx Pacemaker: No Hx Asthma: Yes Hx COPD: Yes Hx Diabetes: No Hx Cancer: No Hx Gastrointestinal Problems: Yes - GASTRITIS Hx Dialysis: No Hx Neurological Problems: No Hx Cerebrovascular Accident: No Hx Seizures: No Review of Systems All Other Systems: negative except mentioned in HPI Physical Exam Vital Signs Date Time Temp Pulse Resp B/P Pulse Ox O2 Delivery O2 Flow Rate FiO2 01/03/17 09:14 99.3 74 16 126/69 96 Room Air Sp02 EP Interpretation: reviewed, normal General Appearance: well appearing, no apparent distress Head: normocephalic, atraumatic Eyes: bilateral eye EOMI, bilateral eye PERRL ENT: no angioedema, TMs + canals normal, pharyngeal erythema Neck: supple, no meningismus Respiratory: lungs clear, normal breath sounds Cardiovascular #1: regular rate, rhythm, no edema Gastrointestinal: non tender, soft Musculoskeletal: normal inspection Neurologic: alert, oriented x3, responsive Skin: no rash, warm/dry Lymphatic: other - Tender lymph node left submental region Medical Decision Making Diagnostic Impression: Primary Impression: Pharyngitis ER Course Patient's clinical exam is in line with pharyngitis Given the erythematous findings and the patient's discomfort she is placed on oral antibiotics Is provided anti-inflammatory medicine and requires close outpatient followup Last Vital Signs Date Time Temp Pulse Resp B/P Pulse Ox O2 Delivery O2 Flow Rate FiO2 01/03/17 09:24 99.3 74 16 126/69 96 Room Air Status: unchanged Disposition: HOME, SELF-CARE Condition: Stable Additional Instructions: Patient is provided with the discharge instructions notified to follow up with primary doctor in the next 2-3 days otherwise return to the er with any worsening symptoms. Please note that this report is being documented using Tamago technology. This can lead to erroneous entry secondary to incorrect interpretation by the dictating instrument. DESIRAE LATHAM D.O. January 03, 2017 09:28
[2017-01-03] MEDS ORDERED: AMOXICILLIN500 MG ORAL (09:29)
[2017-01-03] MEDS ORDERED: IBUPROFEN600 MG ORAL (09:29)
[2017-01-03] MEDS ORDERED: PREDNISONE20 MG ORAL (09:29)
[2017-01-03 09:52] VITALS: BP 126/69
== END 2017-01-03 09:54 | disposition home or self-care (01) ==
LOC: EMR 09:26
DX: J02.9 Acute pharyngitis, unspecified (principal); Z88.6 Allergy status to analgesic agent; J45.909 Unspecified asthma, uncomplicated; J44.9 Chronic obstructive pulmonary disease, unspecified
CPT/HCPCS: 99284

== ENCOUNTER 2017-01-06 11:08 | Emergency (ER) | payer MEDICAID ==
[~2017-01-06] VITALS: Ht 165.1 cm; Wt 61.2 kg
[~2017-01-06 11:08] MED LIST changes: +AMOXICILLIN500 MG ORAL; +IBUPROFEN600 MG ORAL; +PREDNISONE20 MG ORAL
--- NOTE | 2017-01-06 11:33 | Emergency Room Report ---
History of Present Illness General Chief Complaint: knee pain Source: Patient Present Illness HPI Patient present with complaints of left knee pain She reports falling onto her knee yesterday while at work Essentially missing a step falling forward Pain is 8/10 localized to the left knee Worse with attempts of ambulation Patient feels the pain radiates up towards her left hip and down towards the ankle Denies any chest pain or shortness of breath denies any lapse of consciousness Allergies: Coded Allergies: CODEINE (Verified Adverse Reaction, Intermediate, 05/05/12) N/V Patient History Past Medical History: see triage record Pertinent Family History: none Reviewed Nursing Documentation: PMH: Agreed, PSxH: Agreed Nursing Documentation-PMH Hx Hypertension: No Hx Pacemaker: No Hx Asthma: Yes Hx COPD: Yes Hx Diabetes: No Hx Cancer: No Hx Gastrointestinal Problems: Yes - GASTRITIS Hx Dialysis: No Hx Neurological Problems: No Hx Cerebrovascular Accident: No Hx Seizures: No Review of Systems All Other Systems: negative except mentioned in HPI Physical Exam Sp02 EP Interpretation: reviewed - 99% on room air, normal General Appearance: well appearing, no apparent distress Head: normocephalic, atraumatic Eyes: bilateral eye EOMI, bilateral eye PERRL ENT: hearing grossly normal, normal pharynx, TMs + canals normal, uvula midline Neck: full range of motion, supple, no meningismus, no bony tend Respiratory: lungs clear, normal breath sounds, no rhonchi, no respiratory distress, no retraction, no accessory muscle use Cardiovascular #1: normal peripheral pulses, regular rate, rhythm, no edema, no gallop, no JVD, no murmur Gastrointestinal: normal bowel sounds, non tender, soft, no mass, no organomegaly, non-distended, no guarding, no hernia, no pulsatile mass, no rebound Genitourinary: no CVA tenderness Musculoskeletal: other - Arthritic appearing changes to the left knee, no obvious ecchymosis or bruising, tender on any palpation Neurologic: oriented x3, 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, 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, sensory intact Psychiatric: mood/affect normal Skin: warm/dry, palpation normal Lymphatic: normal inspection, no adenopathy Medical Decision Making Diagnostic Impression: Primary Impression: Contusion, knee ER Course Given the patient's history of fall x-ray imaging was obtained No obvious acute fractures are identified Patient had Aaron wrap applied for improved sensation This is not a splint And the patient is stable for close outpatient followup Other X-Ray Diagnostic Results Other X-Ray Diagnostic Results : EP Interpretation: Yes Findings: no fractures, no dislocation, no soft tissue swelling, other Number of Views: 4 - left knee Status: improved Disposition: HOME, SELF-CARE Condition: Improved Scripts Ibuprofen* (MOTRIN*) 600 Mg Tablet 600 MG ORAL Q8H Y for For Pain, #20 TAB 0 Refills Prov: DESIRAE LATHAM D.O. 01/06/17 Additional Instructions: Patient is provided with the discharge instructions notified to follow up with primary doctor in the next 2-3 days otherwise return to the er with any worsening symptoms. Please note that this report is being documented using DRAGON technology. This can lead to erroneous entry secondary to incorrect interpretation by the dictating instrument. DESIRAE LATHAM D.O. January 06, 2017 11:33
[2017-01-06] MEDS ORDERED: IBUPROFEN600 MG ORAL (12:19)
[2017-01-06 12:29] VITALS: BP 151/76
--- NOTE | 2017-01-06 13:05 | Diagnostic Imaging Report ---
Indications: Left knee pain Technique: 3 views left knee. Findings: Comparison: None Suprapatellar bursa is mildly distended and increased attenuation. No associated fat fluid level demonstrated. No fracture, dislocation, joint space widening , lytic destruction, periosteal reaction , surrounding soft tissue swelling/foreign body/gas, or other acute changes are identified. Small spurs emanate from the superior pole of patella in region of quadriceps tendon insertion in from the femoral medial epicondyles in region of medial collateral ligament insertion. No other chronic changes are demonstrated. IMPRESSION: Small suprapatellar effusion, nonspecific No other evidence of acute abnormality of the left knee Patellar and femoral enthesophytes.
== END 2017-01-06 12:31 | disposition home or self-care (01) ==
LOC: EMR 12:06
DX: S80.02XA Contusion of left knee, initial encounter (principal); W19.XXXA Unspecified fall, initial encounter; Y92.89 Other specified places as the place of occurrence of the external cause; M25.462 Effusion, left knee; Z88.6 Allergy status to analgesic agent; J45.909 Unspecified asthma, uncomplicated; J44.9 Chronic obstructive pulmonary disease, unspecified
CPT/HCPCS: 29530; 99283

== ENCOUNTER 2017-01-09 18:35 | Emergency (ER) | payer MEDICAID ==
[~2017-01-09] VITALS: Ht 165.1 cm; Wt 59.0 kg
--- NOTE | 2017-01-09 19:10 | Emergency Room Report ---
History of Present Illness General Chief Complaint: Multiple Trauma/Fall Source: Patient Present Illness HPI 61 y/o female c/o left sided body pain, neck pain and headache s/p fall out of a window at 5ft x 7 hours ago. Was in [place] and was told to go to the window to get a kings[place], lost her footing and fell down onto the grass patio 5ft below. States she laid down there and didn't remember what happened at first. Has pain all down left side of her body including her neck, ribs, and head as she landed on her left side. Worse with movement and no relieving factors. Has not taken any medication for her pain. Patient denies any numbness, tingling, pressure, paralysis, cyanosis, bruising, loss of sensation, or loss of range of motion. Allergies: Coded Allergies: CODEINE (Verified Adverse Reaction, Intermediate, 05/05/12) N/V Patient History Past Medical History: see triage record Past Surgical History: none Pertinent Family History: none Now: No Reviewed Nursing Documentation: PMH: Agreed, PSxH: Agreed Nursing Documentation-PMH Hx Hypertension: No Hx Pacemaker: No Hx Asthma: Yes Hx COPD: Yes Hx Diabetes: No Hx Cancer: No Hx Gastrointestinal Problems: Yes - GASTRITIS Hx Dialysis: No Hx Neurological Problems: No Hx Cerebrovascular Accident: No Hx Seizures: No Review of Systems All Other Systems: negative except mentioned in HPI Physical Exam Vital Signs Date Time Temp Pulse Resp B/P Pulse Ox O2 Delivery O2 Flow Rate FiO2 01/09/17 18:41 98.2 73 20 181/73 100 Room Air Sp02 EP Interpretation: reviewed, normal General Appearance: no apparent distress, alert, GCS 15, non-toxic Head: normocephalic, atraumatic Eyes: bilateral eye EOMI, bilateral eye PERRL, bilateral eye normal inspection ENT: hearing grossly normal, normal pharynx, no angioedema, normal voice, TMs + canals normal, other - turbinates normal w/o blood or fluid Neck: full range of motion, supple/symm/no masses, tender midline Respiratory: chest non-tender, lungs clear, normal breath sounds, speaking full sentences, other - left chest wall TTP w/o any signs of flail chest or echymosis Cardiovascular #1: regular rate, rhythm, no edema Musculoskeletal: normal range of motion, swelling - Left wrist and ankle, other - Antalgic gait, tender - alont left shoulder, left rib, left wrist, left femur, left ankle Neurologic: alert, oriented x3, responsive, 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 Medina my supervising physician with whom patient management has been discussed with. Diagnostic Impression: Primary Impression: Multiple injuries due to trauma ER Course Patient was given [place] 10 and sent for imaging. CT pending. Report was given to Dr. Medina who took over care for the patient. Last Vital Signs Date Time Temp Pulse Resp B/P Pulse Ox O2 Delivery O2 Flow Rate FiO2 01/09/17 18:41 98.2 73 20 181/73 100 Room Air CARLOS SHORE January 09, 2017 19:09
[2017-01-09 19:15] VITALS: BP 185/77
[2017-01-09] MEDS ORDERED: Norco 10mg/325mg tab ORAL ONE (19:15)
[2017-01-09 19:45] VITALS: BP 132/52
[2017-01-09] MEDS ORDERED: Morphine Sulfate 4mg/ml Inj IM ONE (21:30)
[2017-01-09] MEDS ORDERED: Ketorolac 30mg Inj IM ONE (21:30)
[2017-01-09] MEDS ORDERED: CYCLOBENZAPRINE10 MG ORAL (21:32)
[2017-01-09] MEDS ORDERED: IBUPROFEN600 MG ORAL (21:32)
[2017-01-09] MEDS ORDERED: NORCO 5-325 TA1 EACH ORAL (21:32)
[2017-01-09 21:45] VITALS: BP 145/58
--- NOTE | 2017-01-10 09:09 | Diagnostic Imaging Report ---
Indication: PAIN, status post 4 foot fall from a window to the ground Technique: Spiral acquisitions obtained through the cervical spine. No IV contrast utilized. Multiplanar reconstructions were generated. Total dose length product 237 mGycm. CTDIvol(s) 12 mGy. Dose reduction achieved using automated exposure control Comparison: 09/13/2015 Findings: Bony alignment is normal. No acute fractures. No dislocations. Vertebral body heights are preserved. Disc spaces are preserved. There is degenerative narrowing of the anterior axial joints. There is bilateral left greater than right facet degeneration at C2-3. No significant disc bulge or protrusion, spinal stenosis, or neural foraminal stenosis. At C3-4, there is bilateral right greater than left facet degeneration. There is severe neural foraminal stenosis on the right, mild/moderate on the left. No significant disc bulge or protrusion or spinal stenosis. At C4-5, there is bilateral mild facet degeneration. There is severe right and mild to moderate left neural foraminal stenosis. No significant disc bulge. At C5-6, there is moderate to severe bilateral neural foraminal stenosis due to facet degeneration. No significant disc bulge or protrusion or spinal stenosis. At C6-7 and C7-T1, no significant disc bulging or protrusion, spinal stenosis, or neural foraminal narrowing. The included extraspinal soft tissues are remarkable for some scarring at the lung apices. Compared to the prior exam, degenerative changes progressed slightly Impression: No acute bony trauma Degenerative changes, as detailed on a level by level basis above This agrees with the preliminary interpretation provided overnight by [facility]. The CT scanner at [facility] is accredited by the [employer] and the scans are performed using protocols designed to limit radiation exposure to as low as reasonably achievable to attain images of sufficient resolution adequate for diagnostic evaluation.
--- NOTE | 2017-01-10 09:39 | Diagnostic Imaging Report ---
Indication: PAIN, status post 4 foot fall from window to the ground, loss of consciousness for a few minutes, head trauma, blurry vision of left eye Technique: Continuous helical CT scanning of the head was performed without intravenous contrast material. Axial and coronal 5 mm sections were generated. Radiation dose was minimized using automated exposure control Dose: Total Dose Length Product - DLP [address] Dose Index - CTDIvol(s) 70.3 mGy. Comparison: 09/13/2015 Findings: The ventricular system is normal in size and configuration. There is no shift of midline structures. No abnormal extra-axial fluid collections are noted. There is no evidence of intracerebral bleeding. No other abnormal high or low density areas are noted within the brain. Impression: Normal CT scan of the head without contrast material. This agrees with the preliminary interpretation provided overnight by [facility]. The CT scanner at [facility] is accredited by the [employer] and the scans are performed using protocols designed to limit radiation exposure to as low as reasonably achievable to attain images of sufficient resolution adequate for diagnostic evaluation.
--- NOTE | 2017-01-10 09:39 | Diagnostic Imaging Report ---
Indication: PAIN, status post 4 foot fall from a window to the ground Technique: Noncontrast spiral acquisitions obtained through the pelvis. Multiplanar reconstructions generated. Total dose length product 316 mGycm. CTDIvol(s) 11 mGy. Dose reduction achieved using automated exposure control Comparison: None Findings: No acute fractures. No dislocations. There are mild degenerative changes of the lumbosacral junction. The joint spaces are preserved. No evidence of significant soft tissue contusion. The included pelvic viscera are remarkable for the presence of colonic diverticulosis. Impression: No acute bony trauma Incidental finding colonic diverticulosis This agrees with the preliminary interpretation provided overnight by [facility]erad[facility] service. The CT scanner at [facility] is accredited by the [employer] and the scans are performed using protocols designed to limit radiation exposure to as low as reasonably achievable to attain images of sufficient resolution adequate for diagnostic evaluation.
--- NOTE | 2017-01-10 10:21 | Diagnostic Imaging Report ---
Indications: PAIN, status post fall Technique: Two views of the left femur Comparison: None Findings: No acute fractures. No dislocations. Joint spaces are preserved Impression: Negative
--- NOTE | 2017-01-10 10:23 | Diagnostic Imaging Report ---
Indication: PAIN trauma, status post 4 foot fall out of the window Technique: 3 views of the left ankle Comparison: none Findings: No acute fractures. No dislocations. Joint spaces are preserved Impression: Negative This agrees with the preliminary interpretation provided by the emergency room physician
--- NOTE | 2017-01-10 10:25 | Diagnostic Imaging Report ---
Clinical Indication:PAIN, trauma, fell from a window to the ground 4 feet Technique: 3 views of the left wrist Comparison: None Findings: No acute fractures. No dislocations. Joint spaces are preserved Impression: Negative This agrees with the preliminary interpretation provided by the emergency room physician
--- NOTE | 2017-01-10 10:49 | Diagnostic Imaging Report ---
Indication: PAIN Technique: 3 views of the left shoulder Comparison: none Findings: There is evidence of prior rotator cuff repair. No acute fractures. No dislocations. Joint spaces are preserved. Impression:No acute process This agrees with the preliminary interpretation provided by the emergency room physician
--- NOTE | 2017-01-10 14:23 | Diagnostic Imaging Report ---
Indication: PAIN Technique: One view of the chest, multiple views of the left ribs Comparison: 09/23/2016 Findings: No evidence of acute fracture. No gross pneumothorax. Incidentally noted are cholecystectomy clips. The heart size is normal. Aorta is tortuous and calcified. There is a calcified granuloma in the right lung. Impression: No acute bony trauma Incidental finding of old granulomatous disease
== END 2017-01-09 21:45 | disposition home or self-care (01) ==
LOC: EMR 19:10
DX: S19.80XA Other specified injuries of unspecified part of neck, initial encounter (principal); S09.8XXA Other specified injuries of head, initial encounter; S60.212A Contusion of left wrist, initial encounter; S49.82XA Other specified injuries of left shoulder and upper arm, initial encounter; S29.8XXA Other specified injuries of thorax, initial encounter; S99.812A Other specified injuries of left ankle, initial encounter; W17.89XA Other fall from one level to another, initial encounter; Y92.89 Other specified places as the place of occurrence of the external cause; J44.9 Chronic obstructive pulmonary disease, unspecified; M48.02 Spinal stenosis, cervical region; M47.812 Spondylosis without myelopathy or radiculopathy, cervical region; K57.30 Diverticulosis of large intestine without perforation or abscess without bleeding; R51 Headache; Z88.6 Allergy status to analgesic agent
CPT/HCPCS: 70450; 71101; 72125; 72192; 73030; 73110; 73552; 73610; 96372; 99284; J1885; J2270

== ENCOUNTER 2017-11-08 07:20 | Emergency (ER) | payer MEDICAID ==
[~2017-11-08] VITALS: Ht 165.1 cm; Wt 63.5 kg
[~2017-11-08 07:20] MED LIST changes: +NORCO 5-325 TA1 EACH ORAL
[2017-11-08 07:35] VITALS: BP 118/80
--- NOTE | 2017-11-08 07:42 | Emergency Room Report ---
History of Present Illness General Chief Complaint: Dyspnea/Respdistress Source: Patient Present Illness HPI 62-year-old female with history of asthma p/w SOB and wheezing for 3 days. Patient states SOB began when she was exposed to her niece who has a cold. SOB occurs both at rest and on exertion. + non productive cough. Denies chest pain. Patient has been using albuterol inhaler and nebulizer every 6 hours. No recent steroid use. Pt states that this episode is similar to other episodes of asthma exacerbation. Denies fever, chills. Patient denies history of ICU admissions, intubations, or usage of BIPAP for asthma. Allergies: Coded Allergies: CODEINE (Verified Adverse Reaction, Intermediate, 05/05/12) N/V Patient History Past Medical History: see triage record Past Surgical History: none Pertinent Family History: none Last Menstrual Period: na Reviewed Nursing Documentation: PMH: Agreed, PSxH: Agreed Nursing Documentation-PMH Past Medical History: No History, Except For Hx Hypertension: No Hx Pacemaker: No Hx Asthma: Yes Hx COPD: Yes Hx Diabetes: No Hx Cancer: No Hx Gastrointestinal Problems: Yes - GASTRITIS, hysterectomy Hx Dialysis: No Hx Neurological Problems: No Hx Cerebrovascular Accident: No Hx Seizures: No Review of Systems All Other Systems: negative except mentioned in HPI Physical Exam Vital Signs Date Time Temp Pulse Resp B/P (MAP) Pulse Ox O2 Delivery O2 Flow Rate FiO2 11/08/17 07:22 98.9 74 18 149/69 95 Room Air 99.0 Sp02 EP Interpretation: reviewed, normal General Appearance: alert, GCS 15, non-toxic, mild distress Head: normocephalic, atraumatic Eyes: bilateral eye normal inspection, bilateral eye PERRL, bilateral eye EOMI ENT: normal ENT inspection, normal pharynx, normal voice, moist mucus membranes Neck: normal inspection, full range of motion, supple Respiratory: speaking full sentences, wheezing, expiration Cardiovascular #1: normal inspection, regular rate, rhythm, no edema, normal capillary refill Cardiovascular #2: 2+ radial (R), 2+ radial (L) Gastrointestinal: normal inspection, non tender, soft, non-distended, no guarding Musculoskeletal: normal inspection, back normal, normal range of motion, non- tender Neurologic: normal inspection, alert, oriented x3, responsive, motor strength/ tone normal, sensory intact, normal gait, speech normal Psychiatric: normal inspection, judgement/insight normal, memory normal Skin: normal inspection, normal color, no rash, warm/dry, well hydrated, normal turgor Medical Decision Making Diagnostic Impression: Primary Impression: Asthma exacerbation ER Course 62-year-old female with history of asthma p/w SOB DDX: Asthma exacerbation, pneumonia, upper respiratory infection/viral syndrome Plan: Combivent nebulizer treatment x 3, steroids ER Course: Patient has been treated with combivent x 3, steroids CXR reveals no acute infiltrate Patient's overall respiratory status has improved in ED. Patient states improvement of symptoms. Patient continues to speak in complete sentences and is not in respiratory distress. Repeat lung auscultation: good air entry with minimal/no wheezing. Repeat VS reveals normal RR and SpO2. Disposition: Patient will be discharged to home with course of steroids Patient is instructed to use albuterol inhaler as needed. Strict precautions are discussed with patient on when to emergently return to the ED including: persistent or worsening SOB, chest pain, fever, chills, which could indicate severe illness. Patient verbalized understanding. Patient is to follow up with her/his PMD within 5 days. Patient agrees with plan. Please note that this Emergency Department Report was dictated using [employer] advisor technology software, occasionally this can lead to erroneous entry secondary to interpretation by the dictation equipment. EKG Diagnostic Results EP Interpretation: Yes Rate: normal Rhythm: NSR ST Segments: No acute changes ASA given to patient: No Rhythm Strip EP Interpretation: Yes Rate: 70 Rhythm: NSR, no PVCs, no ectopy Chest X-ray CXR: Ordered: Yes 1 view Indication: SOB EP interpretation: Yes Interpretation: No consolidation, no effusion, no PTX, no acute cardiopulmonary disease Impression: No acute disease Electronically signed by Shabbir Carrasco MD Last Vital Signs Date Time Temp Pulse Resp B/P (MAP) Pulse Ox O2 Delivery O2 Flow Rate FiO2 11/08/17 07:35 65 18 Room Air 11/08/17 07:35 98.9 118/80 95 98.9 Disposition: HOME, SELF-CARE Condition: Improved Scripts Albuterol Sulfate* (ALBUTEROL SULFATE HHN*) 2.5 Mg/3 Ml Vial.neb 2.5 MG HHN Q4H Y for Shortness of Breath, #25 VIAL Prov: Shabbir Carrasco M.D. 11/08/17 Prednisone* (PREDNISONE*) 20 Mg Tablet 40 MG ORAL DAILY for 5 Days, #10 TAB Prov: Shabbir Carrasco M.D. 11/08/17 Referrals: [facility],REFERRING (PCP) Shabbir Carrasco M.D. Nov 08, 2017 07:42
[2017-11-08] MEDS ORDERED: VENTOLIN HFA18 GM INH (07:43)
[2017-11-08] MEDS: Ipratropium 0.02% Inh Soln 2.5ml UD HHN SCH ×2 (08:10→08:11)
[2017-11-08] MEDS: Albuterol ud Inhalation HHN SCH ×3 (08:11→10:29)
[2017-11-08] MEDS ORDERED: ALBUTEROL2.5 MG/3 M HHN (08:25)
[2017-11-08] MEDS ORDERED: PREDNISONE20 MG ORAL (08:25)
[2017-11-08 09:00] VITALS: BP 141/71
[2017-11-08 11:04] VITALS: BP 127/55
[2017-11-08 11:43] VITALS: BP 130/55
--- NOTE | 2017-11-08 12:07 | Diagnostic Imaging Report ---
Indication: Shortness of breath Technique: One view of the chest Comparison: To 09/10/2016 Findings: No acute infiltrates, effusions, or congestion. Calcific granuloma is seen in the right midlung. Tortuous calcified aorta. Normal heart size. Upper mediastinum unremarkable. Cholecystectomy clips are demonstrated Impression: No acute process.
--- NOTE | 2017-11-09 17:01 | Cardiology Report ---
APPROVED REPORT EKG Measurement Heart [id number] Sinus bradycardia Otherwise normal ECG
== END 2017-11-08 11:42 | disposition home or self-care (01) ==
LOC: EMR 07:31
DX: J45.901 Unspecified asthma with (acute) exacerbation (principal); J44.9 Chronic obstructive pulmonary disease, unspecified; Z88.5 Allergy status to narcotic agent
CPT/HCPCS: 71045; 93005; 94640; 94664; 99284; J7512

== ENCOUNTER 2017-12-12 11:01 | Emergency (ER) | payer MEDICAID ==
[~2017-12-12] VITALS: Ht 165.1 cm; Wt 63.5 kg
[~2017-12-12 11:01] MED LIST changes: +ALBUTEROL2.5 MG/3 M HHN; +VENTOLIN HFA18 GM INH
[2017-12-12 11:11] VITALS: BP 161/78
[2017-12-12] MEDS ORDERED: BACTRIM DS TAB1 EAC1 ORAL (12:25)
--- NOTE | 2017-12-12 12:29 | Emergency Room Report ---
History of Present Illness General Chief Complaint: Skin Rash/Abscess Source: Patient Present Illness HPI 62-year-old female complains of left superior gluteal region redness pain and swelling for the past couple weeks, she took a course of Bactrim but was sent by her doctor for abscess I&D Patient denies fevers, diarrhea, abdominal pain, any other complaints Allergies: Coded Allergies: CODEINE (Verified Adverse Reaction, Intermediate, 05/05/12) N/V Patient History Past Medical History: see triage record Last Menstrual Period: hyst Now: No Reviewed Nursing Documentation: PMH: Agreed; PSxH: Agreed Nursing Documentation-PMH Past Medical History: No History, Except For Hx Hypertension: No Hx Pacemaker: No Hx Asthma: Yes Hx COPD: Yes Hx Diabetes: No Hx Cancer: No Hx Gastrointestinal Problems: Yes - GASTRITIS, hysterectomy Hx Dialysis: No Hx Neurological Problems: No Hx Cerebrovascular Accident: No Hx Seizures: No Review of Systems All Other Systems: negative except mentioned in HPI Physical Exam Vital Signs Date Time Temp Pulse Resp B/P (MAP) Pulse Ox O2 Delivery O2 Flow Rate FiO2 12/12/17 11:04 98.5 63 18 161/78 98 Room Air 98.4 Sp02 EP Interpretation: reviewed, normal General Appearance: no apparent distress, alert, non-toxic Head: normocephalic Eyes: bilateral eye normal inspection, bilateral eye PERRL, bilateral eye EOMI ENT: normal ENT inspection, hearing grossly normal, normal pharynx, no angioedema, normal voice, moist mucus membranes Neck: normal inspection, full range of motion, supple, supple/symm/no masses Respiratory: chest non-tender, lungs clear, normal breath sounds, chest symmetrical, palpation of chest normal Cardiovascular #1: normal peripheral pulses, regular rate, rhythm Cardiovascular #2: 2+ radial (R), 2+ radial (L) Gastrointestinal: normal inspection, non tender, soft, no mass, no guarding, no rebound Rectal: deferred Genitourinary: normal inspection, no CVA tenderness Musculoskeletal: back normal, gait/station normal, normal range of motion, non- tender, no calf tenderness Neurologic: alert, responsive, reproduction machine loader III-XII nml as tested, motor strength/tone normal, sensory intact, speech normal Psychiatric: judgement/insight normal, memory normal, mood/affect normal, no suicidal/homicidal ideation Skin: normal color, no rash, warm/dry, normal turgor, other - Left superior gluteal fold with recent by 3 cm area erythema warmth and tenderness and fluctuance consistent with abscess And surrounding cellulitis Lymphatic: no adenopathy Procedures Incision and Drainage Incision and Drainage : Consent: Verbal Site: L buttock Blade Size: 11 I & D Procedure: betadine prep, sterile drapes applied, sterile dressing applied, gauze wick placed Wound Location: back Patient Tolerated: Well Complications: Other - ebl 1cc Medical Decision Making Reaction to Intervention: Improved Diagnostic Impression: Primary Impression: Abscess and cellulitis of gluteal region ER Course Abscess I&D performed, discharged with Bactrim DS 2 tabs by mouth twice a day for 7 days, packing placed patient tolerated procedure well, follow-up with PMD in 2-3 days Last Vital Signs Date Time Temp Pulse Resp B/P (MAP) Pulse Ox O2 Delivery O2 Flow Rate FiO2 12/12/17 11:11 98.4 18 161/78 98 Room Air 98.4 12/12/17 11:04 63 Disposition: HOME, SELF-CARE Condition: Improved Scripts Trimethoprim/Sulfamethoxazole 160/800* (BACTRIM DS TABLET*) 1 Each Tablet 2 TAB ORAL Q12H for 7 Days, #28 TAB 0 Refills Prov: PAUL MELTON M.D 12/12/17 Patient Instructions: Abscess PAUL MELTON M.D Dec 12, 2017 12:29
[2017-12-12 12:46] VITALS: BP 147/72
== END 2017-12-12 13:00 | disposition home or self-care (01) ==
LOC: EMR 11:40
DX: L02.31 Cutaneous abscess of buttock (principal); L03.317 Cellulitis of buttock; J44.9 Chronic obstructive pulmonary disease, unspecified
CPT/HCPCS: 10060; 99284

== ENCOUNTER 2018-02-05 11:31 | Emergency (ER) | payer MEDICAID ==
[~2018-02-05] VITALS: Ht 165.1 cm; Wt 63.5 kg
[~2018-02-05 11:31] MED LIST changes: +BACTRIM DS TAB1 EAC1 ORAL
[2018-02-05 11:41] VITALS: BP 164/74
[2018-02-05 11:45] VITALS: BP 164/74
--- NOTE | 2018-02-06 15:07 | Emergency Room Report ---
History of Present Illness General Chief Complaint: Pain Source: Patient Present Illness Allergies: Coded Allergies: CODEINE (Verified Adverse Reaction, Intermediate, 05/05/12) N/V Nursing Documentation-PMH Past Medical History: No History, Except For Hx Hypertension: No Hx Pacemaker: No Hx Asthma: Yes Hx COPD: Yes Hx Diabetes: No Hx Cancer: No Hx Gastrointestinal Problems: Yes - GASTRITIS, hysterectomy Hx Dialysis: No Hx Neurological Problems: No Hx Cerebrovascular Accident: No Hx Seizures: No Physical Exam Vital Signs Date Time Temp Pulse Resp B/P (MAP) Pulse Ox O2 Delivery O2 Flow Rate FiO2 02/05/18 11:35 98.1 65 22 164/74 95 Room Air 98.1 Medical Decision Making Diagnostic Impression: Primary Impression: Pain ER Course Patient left prior to being seen.patient was signed up for attempted to be seen within 14 minutes Last Vital Signs Date Time Temp Pulse Resp B/P (MAP) Pulse Ox O2 Delivery O2 Flow Rate FiO2 02/05/18 11:45 98.1 22 164/74 95 Room Air 98.1 02/05/18 11:35 65 Disposition: LEFT W/OUT BEING SEEN Condition: Unknown Referrals: NOT CHOSEN [facility],REFERRING (PCP) Esteban Thayer DO Feb 06, 2018 15:07
== END 2018-02-05 11:45 | disposition left against medical advice (07) ==
LOC: EMR 11:45
DX: R07.81 Pleurodynia (principal); Z53.21 Procedure and treatment not carried out due to patient leaving prior to being seen by health care provider
CPT/HCPCS: 99281

== ENCOUNTER 2018-03-03 10:05 | Inpatient (IN) | payer MEDICAID ==
[~2018-03-03] VITALS: Ht 162.6 cm; Wt 77.1 kg
[2018-03-03] MEDS ORDERED: Metoclopramide 10mg/2ml Inj IVP ONE (10:15)
[2018-03-03] MEDS ORDERED: DiphenhydrAMINE 50mg/ml Inj IVP ONE (10:15)
[2018-03-03 10:28] VITALS: BP 173/65
[2018-03-03 10:31] LABS: HEMATOCRIT 45.4 % (37.0-47.0); HEMOGLOBIN 15.3 G/DL (12.0-16.0); MEAN CORPUSCULAR VOLUME 92 FL (80-99); PLATELET COUNT 239 K/UL (150-450); RED BLOOD COUNT 4.92 M/UL (4.20-5.40); RED CELL DISTRIBUTION WIDTH 11.5 % (11.6-14.8)
--- NOTE | 2018-03-03 10:35 | Emergency Room Report ---
History of Present Illness General Chief Complaint: Dyspnea/Respdistress Source: Patient Present Illness HPI Patient presents via EMS for several complaints. One is vomiting and diarrhea. This been going on for several days. When paramedics got there the patient was less responsive. She states that she had passed out at that time. She was sitting and this was not preceded with nausea or vomiting. She claims that she' s been passing dark stool. She denies vomiting blood. She denies alcohol use. She says her doctors told her she has a hiatal hernia (post surgery). In the past she has also had colitis with rectal bleeding. Distribution of pain is more epigastric. The third problem is that she had bronchospasm and was treated with albuterol on the way in. She states this only arose when paramedics were present. She denies productive cough, chest pain, FRIED. She has a h/o asthma. She is improved after tx in field. She has epigastric pain which has been constant, not radiating, rated 5/10, sharp and pressure. No medicines taken for the pain. No dysuria, rashes, headache. Some depression and anxiety. Allergies: Coded Allergies: CODEINE (Verified Adverse Reaction, Intermediate, 05/05/12) N/V Patient History Past Medical History: see triage record Past Surgical History: margret, hysterectomy, other - hiatal hernia Social History: Denies: smoking - prior, alcohol use Social History Narrative at home Reviewed Nursing Documentation: PMH: Agreed; PSxH: Agreed Nursing Documentation-PMH Hx Cardiac Problems: Yes - thyroid Hx Hypertension: No Hx Pacemaker: No Hx Asthma: Yes Hx COPD: Yes Hx Diabetes: No Hx Cancer: No Hx Gastrointestinal Problems: Yes - GASTRITIS, hysterectomy Hx Dialysis: No Hx Neurological Problems: No Hx Cerebrovascular Accident: No Hx Seizures: No Review of Systems All Other Systems: negative except mentioned in HPI Physical Exam Vital Signs Date Time Temp Pulse Resp B/P (MAP) Pulse Ox O2 Delivery O2 Flow Rate FiO2 03/03/18 10:03 98.2 71 20 173/65 99 Room Air 98.2 Sp02 EP Interpretation: reviewed, normal General Appearance: alert, GCS 15, mild distress Head: normocephalic Eyes: bilateral eye normal inspection, bilateral eye PERRL ENT: moist mucus membranes Neck: supple Respiratory: wheezing, expiration - minimal - mostly clear Cardiovascular #1: regular rate, rhythm Cardiovascular #2: 2+ radial (R) Gastrointestinal: normal inspection, normal bowel sounds, no mass, non- distended, no rebound, guarding - epigastric and midline, tenderness Rectal: heme positive stool - brown and loose Genitourinary: no CVA tenderness Musculoskeletal: back normal, gait/station normal, normal range of motion, no calf tenderness Neurologic: alert, oriented x3, grossly normal Psychiatric: depressed affect Skin: normal inspection, warm/dry Medical Decision Making Diagnostic Impression: Primary Impression: GI bleed Qualified Codes: K92.2 - Gastrointestinal hemorrhage, unspecified Additional Impressions: Syncope Qualified Codes: R55 - Syncope and collapse Abdominal pain Qualified Codes: R10.9 - Unspecified abdominal pain NSTEMI (non-ST elevated myocardial infarction) Bronchospasm ER Course Patient presents with syncope, abdominal pain and bronchospasm. The latter has greatly improved with treatment in the field. With abdominal pain, consideration for possible vasovagal episode for syncope, however, arrhythmia and AMI need to be excluded. Patient has abdominal pain and evidence of GI bleed. Based on color of stool and lack of hematemesis, mid to lower GI bleed suspect with possible colitis, mass, diverticulitis/osis amongst others. Patient evaluated with EKG, CXR, labs. Treatment with hydration, reglan, benadryl and pepcid. Still vomiting. Zofran given as well as morphine. Improved with less pain with treatment. EKG without acute injury. CXR clear. WBC elevated. H/H normal or high suggesting some volume depletion. CMP essentially normal. + troponin called. Aspirin ordered. Because of GI bleed, lovenox/heparin not ordered. Consideration of metoprolol if BP elevated. Antibiotics begun for elevated WBC. CT abdomen pelvis ordered as pain persists. Discussed with Dr. Ghosh @ 13:00. Examined by him in ED. CT with dilated small bowel without evidence of SBO. No evidence of surgical pathology at this time. Improved with treatment. Admit SDU due to + troponin. Laboratory Tests Test 03/03/18 10:15 03/03/18 12:03 White Blood Count 17.0 K/UL (4.8-10.8) H Red Blood Count 4.92 M/UL (4.20-5.40) Hemoglobin 15.3 G/DL (12.0-16.0) Hematocrit 45.4 % (37.0-47.0) Mean Corpuscular Volume 92 FL (80-99) Mean Corpuscular Hemoglobin 31.1 PG (27.0-31.0) H Mean Corpuscular Hemoglobin Concent 33.7 G/DL (32.0-36.0) Red Cell Distribution Width 11.5 % (11.6-14.8) L Platelet Count 239 K/UL (150-450) Mean Platelet Volume 7.0 FL (6.5-10.1) Neutrophils (%) (Auto) % (45.0-75.0) Lymphocytes (%) (Auto) % (20.0-45.0) Monocytes (%) (Auto) % (1.0-10.0) Eosinophils (%) (Auto) % (0.0-3.0) Basophils (%) (Auto) % (0.0-2.0) Differential Total Cells Counted 100 Neutrophils % (Manual) 85 % (45-75) H Lymphocytes % (Manual) 8 % (20-45) L Monocytes % (Manual) 6 % (1-10) Eosinophils % (Manual) 0 % (0-3) Basophils % (Manual) 0 % (0-2) Band Neutrophils 1 % (0-8) Platelet Estimate Adequate Platelet Morphology Normal Prothrombin Time 10.7 SEC (9.30-11.50) Prothrombin Time INR 1.0 (0.9-1.1) PTT 27 SEC (23-33) Sodium Level 140 MMOL/L (136-145) Potassium Level 3.6 MMOL/L (3.5-5.1) Chloride Level 104 MMOL/L (98-107) Carbon Dioxide Level 26 MMOL/L (21-32) Anion Gap 10 mmol/L (5-15) Blood Urea Nitrogen 19 mg/dL (7-18) H Creatinine 0.6 MG/DL (0.55-1.30) Estimate Glomerular Filtration Rate > 60 mL/min (>60) Glucose Level 103 MG/DL (74-106) Calcium Level 9.1 MG/DL (8.5-10.1) Total Bilirubin 1.4 MG/DL (0.2-1.0) H Direct Bilirubin 0.2 MG/DL (0.0-0.3) Aspartate Amino Transferase (AST) 20 U/L (15-37) Alanine Aminotransferase (ALT) 21 U/L (12-78) Alkaline Phosphatase 81 U/L (46-116) Total Creatine Kinase 81 U/L (26-308) Troponin I 0.076 ng/mL (0.000-0.056) Pro-B-Type Natriuretic Peptide 154 pg/mL (0-125) H Total Protein 7.9 G/DL (6.4-8.2) Albumin 4.0 G/DL (3.4-5.0) Globulin 3.9 g/dL Albumin/Globulin Ratio 1.0 (1.0-2.7) Lipase 132 U/L (73-393) Thyroid Stimulating Hormone (TSH) 1.249 uiU/mL (0.358-3.740) Salicylates Level < 0.2 ug/mL (2.8-20) L Acetaminophen Level < 2 MCG/ML (10-30) L Serum Alcohol 3 mg/dL Urine Color Pale yellow Urine Appearance Clear Urine pH 6 (4.5-8.0) Urine Specific [place] 1.010 (1.005-1.035) Urine Protein Negative (NEGATIVE) Urine Glucose (UA) Negative (NEGATIVE) Urine Ketones Negative (NEGATIVE) Urine Occult Blood 4+ (NEGATIVE) H Urine Nitrite Negative (NEGATIVE) Urine Bilirubin Negative (NEGATIVE) Urine Urobilinogen Normal MG/DL (0.0-1.0) Urine Leukocyte Esterase Negative (NEGATIVE) Urine RBC 2-4 /HPF (0 - 2) H Urine WBC 0-2 /HPF (0 - 2) Urine Squamous Epithelial Cells Moderate /LPF (NONE/OCC) H Urine Bacteria Few /HPF (NONE) Urine Opiates Screen Negative (NEGATIVE) Urine Barbiturates Screen Negative (NEGATIVE) Phencyclidine (PCP) Screen Negative (NEGATIVE) Urine Amphetamines Screen Negative (NEGATIVE) Urine Benzodiazepines Screen Negative (NEGATIVE) Urine Cocaine Screen Negative (NEGATIVE) Urine Marijuana (THC) Screen Negative (NEGATIVE) EKG Diagnostic Results Rate: normal Rhythm: NSR ST Segments: no acute changes Rhythm Strip Diag. Results EP Interpretation: yes Rhythm: NSR, no PVC's, no ectopy Chest X-Ray Diagnostic Results Chest X-Ray Diagnostic Results : Chest X-Ray Ordered: Yes Indication: Other EP Interpretation: Yes Interpretation: no consolidation, no effusion, no pneumothorax, other - globular cor Impression: Other Electronically Signed by: Electronically signed by Fahad Conway MD CT/MRI/US Diagnostic Results CT/MRI/US Diagnostic Results : Imaging Test Ordered: abd/pelvis Impression Findings: Very mild dependent atelectasis noted in the lower lobes, left greater than right. Heart size within normal limits. No pericardial effusion. The patient is status post cholecystectomy. There is mild prominence of the common bile duct and some central intrahepatic ducts which is likely related to postcholecystectomy state. Hepatic contour is smooth. Hepatic veins and portal veins are patent. Spleen, adrenal glands and pancreas unremarkable. Kidneys enhance symmetrically. There is no urinary tract stone or hydronephrosis bilaterally. There is some small well-circumscribed subcentimeter lesions bilaterally which are too small to fully characterize but likely represent simple cysts. The bladder is unremarkable. Patient is status post hysterectomy. There is no free intraperitoneal air or fluid. The stomach is moderately distended. Duodenum is normal in caliber. There is mild distention of a proximal jejunal loop up to 2.2 cm diameter. An additional small bowel loop in the right mid abdomen measures up to 2.8 cm in diameter. Remainder of the small bowel loops are normal in caliber but contain fluid attenuation and there lumen and the smith are somewhat hyperenhancing. These findings may be related to a enteritis versus a very low- grade small bowel obstruction although no definitive transition point is identified. There is colonic diverticulosis without evidence to suggest acute diverticulitis. Atherosclerotic calcifications noted within a normal caliber abdominal aorta. No pathologically enlarged lymphadenopathy. Tiny fat-containing umbilical hernia. Mild degenerative change in the spine. No acute osseous abnormality. IMPRESSION: Mild distention and hyperenhancement of multiple small bowel loops with fluid attenuation in the lumens. Findings may be related to an enteritis/diarrheal illness. The possibility of a early/low-grade bowel obstruction not entirely excluded although no transition point is identified. Clinical correlation/follow-up recommended. Status post cholecystectomy. Mild prominence of the common bile duct up to 1 cm likely related to postcholecystectomy state. Correlate with LFTs. Diverticulosis without evidence of diverticulitis. Last Vital Signs Date Time Temp Pulse Resp B/P (MAP) Pulse Ox O2 Delivery O2 Flow Rate FiO2 03/03/18 16:32 Room Air 03/03/18 15:24 98.0 20 147/58 99 98.0 03/03/18 10:28 71 Status: improved Disposition: ADMITTED INPATIENT Condition: Serious Referrals: NON PHYSICIAN (PCP) Fahad Conway M.D. Mar 03, 2018 10:35
[2018-03-03] MEDS ORDERED: Morphine Sulfate 4mg/ml Inj IVP ONE ×2 (10:45→12:15)
[2018-03-03 11:01] LABS: ANION GAP 10 mmol/L (5-15); BLOOD UREA NITROGEN 19 mg/dL (7-18); CALCIUM 9.1 MG/DL (8.5-10.1); CARBON DIOXIDE 26 MMOL/L (21-32); CHLORIDE 104 MMOL/L (98-107); CREATININE 0.6 MG/DL (0.55-1.30); POTASSIUM 3.6 MMOL/L (3.5-5.1); SODIUM 140 MMOL/L (136-145)
[2018-03-03 11:13] LABS: ALANINE AMINOTRANSFERASE 21 U/L (12-78); ALKALINE PHOSPHATASE 81 U/L (46-116); ASPARTATE AMINO TRANSFERASE 20 U/L (15-37); BILIRUBIN,TOTAL 1.4 MG/DL (0.2-1.0); CREATINE KINASE 81 U/L (26-308)
[2018-03-03 11:15] LABS: BILIRUBIN,DIRECT 0.2 MG/DL (0.0-0.3)
[2018-03-03] MEDS ORDERED: Nitroglycerin 2% oint pkt TOPIC ONE (11:15)
[2018-03-03] MEDS ORDERED: Isovue-300 100ml vial INJ PRN (11:15)
[2018-03-03] MEDS ORDERED: Cefepime HCl 1 GM in D5W 55 ML IVPB ONE (11:15)
--- NOTE | 2018-03-03 11:54 | Diagnostic Imaging Report ---
Indication: Chest pain Technique: XRAY Chest 1v Comparison: None Findings: Heart size and mediastinal contours are within stable compared to the prior exam. Atherosclerotic calcifications again noted in the aorta. There is no focal consolidation, pneumothorax or pleural effusion. A calcified granulomas again noted in the right lung. Osseous structures demonstrate no acute abnormality. A suture anchor again noted projecting over the left humeral head. Impression: No radiographic evidence of acute cardiopulmonary disease.
[2018-03-03 12:29] LABS: APPEARANCE,URINE CLEAR; BILIRUBIN, URINE NEGATIVE (NEGATIVE); COLOR,URINE PALE YELLOW; GLUCOSE, URINE (UA) NEGATIVE (NEGATIVE); KETONES,URINE NEGATIVE (NEGATIVE); LEUKOCYTE ESTERASE ,URINE NEGATIVE (NEGATIVE); NITRITE,URINE NEGATIVE (NEGATIVE); PH,URINE 6 (4.5-8.0); PROTEIN,URINE NEGATIVE (NEGATIVE); UROBILINOGEN,URINE NORMAL MG/DL (0.0-1.0)
[2018-03-03 13:18] VITALS: BP 147/58
--- NOTE | 2018-03-03 14:11 | Diagnostic Imaging Report ---
Indication: Abdominal pain Technique: CT of the abdomen and pelvis utilizing automated exposure control with intravenous contrast. Venous scanning performed. Axial, sagittal and coronal reformats presented. CT dose: Total DLP 712.82 mGycm; CTDI vol 14.56 mGy Comparison: None Findings: Very mild dependent atelectasis noted in the lower lobes, left greater than right. Heart size within normal limits. No pericardial effusion. The patient is status post cholecystectomy. There is mild prominence of the common bile duct and some central intrahepatic ducts which is likely related to postcholecystectomy state. Hepatic contour is smooth. Hepatic veins and portal veins are patent. Spleen, adrenal glands and pancreas unremarkable. Kidneys enhance symmetrically. There is no urinary tract stone or hydronephrosis bilaterally. There is some small well-circumscribed subcentimeter lesions bilaterally which are too small to fully characterize but likely represent simple cysts. The bladder is unremarkable. Patient is status post hysterectomy. There is no free intraperitoneal air or fluid. The stomach is moderately distended. Duodenum is normal in caliber. There is mild distention of a proximal jejunal loop up to 2.2 cm diameter. An additional small bowel loop in the right mid abdomen measures up to 2.8 cm in diameter. Remainder of the small bowel loops are normal in caliber but contain fluid attenuation and there lumen and the smith are somewhat hyperenhancing. These findings may be related to a enteritis versus a very low-grade small bowel obstruction although no definitive transition point is identified. There is colonic diverticulosis without evidence to suggest acute diverticulitis. Atherosclerotic calcifications noted within a normal caliber abdominal aorta. No pathologically enlarged lymphadenopathy. Tiny fat-containing umbilical hernia. Mild degenerative change in the spine. No acute osseous abnormality. IMPRESSION: Mild distention and hyperenhancement of multiple small bowel loops with fluid attenuation in the lumens. Findings may be related to an enteritis/diarrheal illness. The possibility of a early/low-grade bowel obstruction not entirely excluded although no transition point is identified. Clinical correlation/follow-up recommended. Status post cholecystectomy. Mild prominence of the common bile duct up to 1 cm likely related to postcholecystectomy state. Correlate with LFTs. Diverticulosis without evidence of diverticulitis. Additional incidental findings as above. The CT scanner at [facility] is accredited by the [employer] and the scans are performed using protocols designed to limit radiation exposure to as low as reasonably achievable to attain images of sufficient resolution adequate for diagnostic evaluation.
[2018-03-03] MEDS ORDERED: Morphine Sulfate 4mg/ml Inj IVP PRN (14:15)
--- NOTE | 2018-03-03 14:50 | Infectious Diseases Prog Note ---
Assessment/Plan Problems: (1) Leukocytosis Assessment & Plan: rule out sepsis , will send blood culture, start ceftriaxone and metronidazole (2) Colitis with rectal bleeding Assessment & Plan: ischemic bowel VS GI BLD , will send stool culture and C diff toxin, start ceftriaxone and metronidazole , recommend GI consult (3) GI bleed Assessment & Plan: monitor H/H transfuse as needed , consult GI (4) Abdominal pain Assessment & Plan: due to the above, continue paian management as per primary Subjective Allergies: Coded Allergies: CODEINE (Verified Adverse Reaction, Intermediate, 05/05/12) N/V Objective Vital Signs Last 24 Hour Vital Signs Date Time Temp Pulse Resp B/P (MAP) Pulse Ox O2 Delivery O2 Flow Rate FiO2 03/03/18 13: 98.0 20 147/58 99 Room Air 98.0 03/03/18 12:31 98.2 03/03/18 11:54 172/99 03/03/18 10:38 98.2 03/03/18 10:28 98.2 20 173/65 99 Room Air 98.2 03/03/18 10:28 71 20 Room Air 03/03/18 10:03 98.2 71 20 173/65 99 Room Air 98.2 Height (Feet): 5 Height (Inches): 5.00 Weight (Pounds): 170 Laboratory Tests Test 03/03/18 10:15 03/03/18 12:03 White Blood Count 17.0 K/UL (4.8-10.8) H Red Blood Count 4.92 M/UL (4.20-5.40) Hemoglobin 15.3 G/DL (12.0-16.0) Hematocrit 45.4 % (37.0-47.0) Mean Corpuscular Volume 92 FL (80-99) Mean Corpuscular Hemoglobin 31.1 PG (27.0-31.0) H Mean Corpuscular Hemoglobin Concent 33.7 G/DL (32.0-36.0) Red Cell Distribution Width 11.5 % (11.6-14.8) L Platelet Count 239 K/UL (150-450) Mean Platelet Volume 7.0 FL (6.5-10.1) Neutrophils (%) (Auto) % (45.0-75.0) Lymphocytes (%) (Auto) % (20.0-45.0) Monocytes (%) (Auto) % (1.0-10.0) Eosinophils (%) (Auto) % (0.0-3.0) Basophils (%) (Auto) % (0.0-2.0) Differential Total Cells Counted 100 Neutrophils % (Manual) 85 % (45-75) H Lymphocytes % (Manual) 8 % (20-45) L Monocytes % (Manual) 6 % (1-10) Eosinophils % (Manual) 0 % (0-3) Basophils % (Manual) 0 % (0-2) Band Neutrophils 1 % (0-8) Platelet Estimate Adequate Platelet Morphology Normal Prothrombin Time 10.7 SEC (9.30-11.50) Prothromb Time International Ratio 1.0 (0.9-1.1) Activated Partial Thromboplast Time 27 SEC (23-33) Sodium Level 140 MMOL/L (136-145) Potassium Level 3.6 MMOL/L (3.5-5.1) Chloride Level 104 MMOL/L (98-107) Carbon Dioxide Level 26 MMOL/L (21-32) Anion Gap 10 mmol/L (5-15) Blood Urea Nitrogen 19 mg/dL (7-18) H Creatinine 0.6 MG/DL (0.55-1.30) Estimat Glomerular Filtration Rate > 60 mL/min (>60) Glucose Level 103 MG/DL (74-106) Calcium Level 9.1 MG/DL (8.5-10.1) Total Bilirubin 1.4 MG/DL (0.2-1.0) H Direct Bilirubin 0.2 MG/DL (0.0-0.3) Aspartate Amino Transf (AST/SGOT) 20 U/L (15-37) Alanine Aminotransferase (ALT/SGPT) 21 U/L (12-78) Alkaline Phosphatase 81 U/L (46-116) Total Creatine Kinase 81 U/L (26-308) Troponin I 0.076 ng/mL (0.000-0.056) Pro-B-Type Natriuretic Peptide 154 pg/mL (0-125) H Total Protein 7.9 G/DL (6.4-8.2) Albumin 4.0 G/DL (3.4-5.0) Globulin 3.9 g/dL Albumin/Globulin Ratio 1.0 (1.0-2.7) Lipase 132 U/L (73-393) Thyroid Stimulating Hormone (TSH) 1.249 uiU/mL (0.358-3.740) Salicylates Level < 0.2 ug/mL (2.8-20) L Acetaminophen Level < 2 MCG/ML (10-30) L Serum Alcohol 3 mg/dL Urine Color Pale yellow Urine Appearance Clear Urine pH 6 (4.5-8.0) Urine Specific [place] 1.010 (1.005-1.035) Urine Protein Negative (NEGATIVE) Urine Glucose (UA) Negative (NEGATIVE) Urine Ketones Negative (NEGATIVE) Urine Occult Blood 4+ (NEGATIVE) H Urine Nitrite Negative (NEGATIVE) Urine Bilirubin Negative (NEGATIVE) Urine Urobilinogen Normal MG/DL (0.0-1.0) Urine Leukocyte Esterase Negative (NEGATIVE) Urine RBC 2-4 /HPF (0 - 2) H Urine WBC 0-2 /HPF (0 - 2) Urine Squamous Epithelial Cells Moderate /LPF (NONE/OCC) H Urine Bacteria Few /HPF (NONE) Urine Opiates Screen Negative (NEGATIVE) Urine Barbiturates Screen Negative (NEGATIVE) Phencyclidine (PCP) Screen Negative (NEGATIVE) Urine Amphetamines Screen Negative (NEGATIVE) Urine Benzodiazepines Screen Negative (NEGATIVE) Urine Cocaine Screen Negative (NEGATIVE) Urine Marijuana (THC) Screen Negative (NEGATIVE) Current Medications Medications (Trade) Dose Ordered Sig/Angela Route PRN Reason Start Time Stop Time Status Last Admin Dose Admin Acetaminophen (Tylenol) 650 mg Q4H PRN ORAL Mild Pain (Pain Scale 1-3) 03/03/18 14:15 04/02/18 14:14 Barium Sulfate (Readi-Cat 2) 450 ea NOW PRN ORAL Radiology Procedure 03/03/18 11:15 03/05/18 11:13 Dextrose (Dextrose 50%) 25 ml STAT PRN IV Hypoglycemia 03/03/18 14:15 04/02/18 14:14 Dextrose (Dextrose 50%) 50 ml STAT PRN IV Hypoglycemia 03/03/18 14:15 04/02/18 14:14 Enoxaparin Sodium (Lovenox) 40 mg Q24H SUBQ 03/03/18 15:15 04/02/18 15:14 Iopamidol (Isovue-300 100ml) 100 ml NOW PRN INJ Radiology Procedure 03/03/18 11:15 Levothyroxine Sodium (Synthroid) 125 mcg DAILY@0630 ORAL 03/04/18 06:30 04/03/18 06:29 Sodium Chloride 1,000 ml @ 75 mls/hr [id number] IVLG 03/03/18 15:08 04/02/18 15:07 Vimal Arias M.D. Mar 03, 2018 14:50
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
[2018-03-03] MEDS ORDERED: Enoxaparin 40mg Inj SUBQ SCH (15:15)
--- NOTE | 2018-03-03 15:18 | GI Initial Consult Note ---
History of Present Illness General Date patient seen: Mar 03, 2018 Time patient seen: 15:15 Reason for Hospitalization: Dyspnea/Respdistress Referring physician: DARRYL AGUILERA Reason for Consultation: N/V/D Present Illness HPI Patient presents via EMS for several complaints. One is vomiting and diarrhea. This been going on for several days. When paramedics got there the patient was less responsive. She states that she had passed out at that time. She claims that she's been passing dark stool. She denies vomiting blood. She denies alcohol use. She says her doctors told her she has a hiatal hernia. The third problem is that she had bronchospasm and was treated with albuterol on the way in. GI consulted for N/V/D. Pt seen, awake A&Ox4 NAD with no active s/sx of N/V/D. Per patient, had semi solid stool formed this morning. Patient had previous admission with N/V 2/2 to hypertensive crisis back in September this year. 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 At this time, she has c/o of nausea only. Epigastric tenderness. No abdominal distention. Labs reviewed >> leukocytosis and troponin elevation. No anemia, no transaminitis, no lipase elevation. Denies any IVDA/ETOH/drug use. No recent travels. No sudden weight loss. Last EGD/colonoscopy stated was done approximately 2 years ago at an endoscopy center with normal results. Home Meds Active Scripts Trimethoprim/Sulfamethoxazole 160/800* (BACTRIM DS TABLET*) 1 Each Tablet, 2 TAB ORAL Q12H for 7 Days, #28 TAB 0 Refills Prov:PAUL MELTON M.D 12/12/17 Albuterol Sulfate* (ALBUTEROL SULFATE HHN*) 2.5 Mg/3 Ml Vial.neb, 2.5 MG HHN Q4H PRN for Shortness of Breath, #25 VIAL Prov:Retino,Clairose M.D. 11/08/17 Prednisone* (PREDNISONE*) 20 Mg Tablet, 40 MG ORAL DAILY for 5 Days, #10 TAB Prov:Retino,Clairose M.D. 11/08/17 Reported Medications Albuterol Sulfate (VENTOLIN HFA) 18 Gm Hfa.aer.ad, 2 PUFFS INH EVERY 6 HOURS, # 18 GM 0 Refills 11/08/17 Levothyroxine Sodium* (SYNTHROID*) 125 Mcg Tablet, 125 MCG ORAL DAILY, TAB Take in the morning on an empty stomach, at least 30 minutes before food. 09/25/16 Med list reviewed/reconciled: Yes Allergies: Coded Allergies: CODEINE (Verified Adverse Reaction, Intermediate, 05/05/12) N/V Patient History History Provided By: Patient, Medical Record PMH Narrative Past Medical History: see triage record Social History: Denies: smoking - prior, alcohol use Social History Narrative at home Reviewed Nursing Documentation: PMH: Agreed; PSxH: Agreed Nursing Documentation-PMH Hx Cardiac Problems: Yes - thyroid Hx Hypertension: No Hx Pacemaker: No Hx Asthma: Yes Hx COPD: Yes Hx Diabetes: No Hx Cancer: No Hx Gastrointestinal Problems: Yes - GASTRITIS, hysterectomy Hx Dialysis: No Hx Neurological Problems: No Hx Cerebrovascular Accident: No Hx Seizures: No Social History: Denies: smoking, alcohol use, drug use, other Review of Systems All Other Systems: negative except mentioned in HPI Physical Exam Vital Signs Date Time Temp Pulse Resp B/P (MAP) Pulse Ox O2 Delivery O2 Flow Rate FiO2 03/03/18 10:03 98.2 71 20 173/65 99 Room Air 98.2 Sp02 EP Interpretation: reviewed, normal Labs Laboratory Tests Test 03/03/18 10:15 03/03/18 12:03 White Blood Count 17.0 K/UL (4.8-10.8) H Red Blood Count 4.92 M/UL (4.20-5.40) Hemoglobin 15.3 G/DL (12.0-16.0) Hematocrit 45.4 % (37.0-47.0) Mean Corpuscular Volume 92 FL (80-99) Mean Corpuscular Hemoglobin 31.1 PG (27.0-31.0) H Mean Corpuscular Hemoglobin Concent 33.7 G/DL (32.0-36.0) Red Cell Distribution Width 11.5 % (11.6-14.8) L Platelet Count 239 K/UL (150-450) Mean Platelet Volume 7.0 FL (6.5-10.1) Neutrophils (%) (Auto) % (45.0-75.0) Lymphocytes (%) (Auto) % (20.0-45.0) Monocytes (%) (Auto) % (1.0-10.0) Eosinophils (%) (Auto) % (0.0-3.0) Basophils (%) (Auto) % (0.0-2.0) Differential Total Cells Counted 100 Neutrophils % (Manual) 85 % (45-75) H Lymphocytes % (Manual) 8 % (20-45) L Monocytes % (Manual) 6 % (1-10) Eosinophils % (Manual) 0 % (0-3) Basophils % (Manual) 0 % (0-2) Band Neutrophils 1 % (0-8) Platelet Estimate Adequate Platelet Morphology Normal Prothrombin Time 10.7 SEC (9.30-11.50) Prothromb Time International Ratio 1.0 (0.9-1.1) Activated Partial Thromboplast Time 27 SEC (23-33) Sodium Level 140 MMOL/L (136-145) Potassium Level 3.6 MMOL/L (3.5-5.1) Chloride Level 104 MMOL/L (98-107) Carbon Dioxide Level 26 MMOL/L (21-32) Anion Gap 10 mmol/L (5-15) Blood Urea Nitrogen 19 mg/dL (7-18) H Creatinine 0.6 MG/DL (0.55-1.30) Estimat Glomerular Filtration Rate > 60 mL/min (>60) Glucose Level 103 MG/DL (74-106) Calcium Level 9.1 MG/DL (8.5-10.1) Total Bilirubin 1.4 MG/DL (0.2-1.0) H Direct Bilirubin 0.2 MG/DL (0.0-0.3) Aspartate Amino Transf (AST/SGOT) 20 U/L (15-37) Alanine Aminotransferase (ALT/SGPT) 21 U/L (12-78) Alkaline Phosphatase 81 U/L (46-116) Total Creatine Kinase 81 U/L (26-308) Troponin I 0.076 ng/mL (0.000-0.056) Pro-B-Type Natriuretic Peptide 154 pg/mL (0-125) H Total Protein 7.9 G/DL (6.4-8.2) Albumin 4.0 G/DL (3.4-5.0) Globulin 3.9 g/dL Albumin/Globulin Ratio 1.0 (1.0-2.7) Lipase 132 U/L (73-393) Thyroid Stimulating Hormone (TSH) 1.249 uiU/mL (0.358-3.740) Salicylates Level < 0.2 ug/mL (2.8-20) L Acetaminophen Level < 2 MCG/ML (10-30) L Serum Alcohol 3 mg/dL Urine Color Pale yellow Urine Appearance Clear Urine pH 6 (4.5-8.0) Urine Specific [place] 1.010 (1.005-1.035) Urine Protein Negative (NEGATIVE) Urine Glucose (UA) Negative (NEGATIVE) Urine Ketones Negative (NEGATIVE) Urine Occult Blood 4+ (NEGATIVE) H Urine Nitrite Negative (NEGATIVE) Urine Bilirubin Negative (NEGATIVE) Urine Urobilinogen Normal MG/DL (0.0-1.0) Urine Leukocyte Esterase Negative (NEGATIVE) Urine RBC 2-4 /HPF (0 - 2) H Urine WBC 0-2 /HPF (0 - 2) Urine Squamous Epithelial Cells Moderate /LPF (NONE/OCC) H Urine Bacteria Few /HPF (NONE) Urine Opiates Screen Negative (NEGATIVE) Urine Barbiturates Screen Negative (NEGATIVE) Phencyclidine (PCP) Screen Negative (NEGATIVE) Urine Amphetamines Screen Negative (NEGATIVE) Urine Benzodiazepines Screen Negative (NEGATIVE) Urine Cocaine Screen Negative (NEGATIVE) Urine Marijuana (THC) Screen Negative (NEGATIVE) General Appearance: well appearing, no apparent distress, alert, obese Head: normocephalic EENT: PERRL/EOMI, normal ENT inspection Neck: supple Respiratory: normal breath sounds, no respiratory distress Cardiovascular: normal rate Gastrointestinal: normal inspection, non tender, soft, normal bowel sounds, non -distended Rectal: deferred Genitourinary: no CVA tenderness Musculoskeletal: normal inspection, back normal Neurologic: normal inspection, alert, oriented x3, responsive Psychiatric: normal inspection, judgement/insight normal, memory normal Skin: normal inspection, normal color, no rash, warm/dry, palpation normal, well hydrated Lymphatic: normal inspection, no adenopathy Current Medications Current Medications Medications (Trade) Dose Ordered Sig/Angela Route PRN Reason Start Time Stop Time Status Last Admin Dose Admin Acetaminophen (Tylenol) 650 mg Q4H PRN ORAL Mild Pain (Pain Scale 1-3) 03/03/18 14:15 04/02/18 14:14 Barium Sulfate (Readi-Cat 2) 450 ea NOW PRN ORAL Radiology Procedure 03/03/18 11:15 03/05/18 11:13 Ceftriaxone Sodium 2 gm/ Dextrose 55 ml @ 110 mls/hr Q24H IVPB 03/03/18 17:00 03/10/18 16:59 Dextrose (Dextrose 50%) 25 ml STAT PRN IV Hypoglycemia 03/03/18 14:15 04/02/18 14:14 Dextrose (Dextrose 50%) 50 ml STAT PRN IV Hypoglycemia 03/03/18 14:15 04/02/18 14:14 Enoxaparin Sodium (Lovenox) 40 mg Q24H SUBQ 03/03/18 15:15 04/02/18 15:14 Iopamidol (Isovue-300 100ml) 100 ml NOW PRN INJ Radiology Procedure 03/03/18 11:15 Levothyroxine Sodium (Synthroid) 125 mcg DAILY@0630 ORAL 03/04/18 06:30 04/03/18 06:29 Metronidazole 100 ml @ 100 mls/hr Q8H IVPB 03/03/18 20:00 03/10/18 19:59 Sodium Chloride 1,000 ml @ 75 mls/hr [id number] IVLG 03/03/18 15:08 04/02/18 15:07 GI: Plan Problems: (1) GERD (gastroesophageal reflux disease) (2) Uncontrolled hypertension (3) Abdominal pain (4) Leukocytosis (5) Acid reflux Plan nausea most likely from hypertensive crisis symptomatic treatment at this time zofran prn, compazine for severe nausea cdiff / stool culture >> abx prophylaxis per ID bp mgmt PPI cardiac diet fu labs needs repeat GI procedures in [address] Nobles. Thank you for this patient referral, we will follow. The patient was seen and examined at bedside and all new and available data was reviewed in the patients chart. I agree with the above findings, impression and plan. (Patient seen earlier today. Signature stamp does not reflect patient encounter time.). - MD Ene Wei,Diamond Children'S Medical CenterMaude IT PORTFOLIO MANAGER Mar 03, 2018 15:17
[2018-03-03] MEDS ORDERED: Prochlorperazine 10mg tab ORAL PRN (15:30)
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
[2018-03-03] MEDS ORDERED: cefTRIAXone 2 GM in D5W 55 ML IVPB SCH (17:00)
[2018-03-03 20:00] VITALS: BP 143/68
--- NOTE | 2018-03-03 22:16 | History and Physical Report ---
DATE OF ADMISSION: 03/03/2018 REASON FOR ADMISSION: 1. Nausea and vomiting with diarrhea. 2. Abdominal pain. HISTORY OF PRESENT ILLNESS: The patient presented emergency room complaining of nausea, vomiting, and diarrhea since last evening. The patient has had abdominal pain chronically in the past and has been diagnosed with a hiatal hernia. However, she says since she started having nausea and vomiting, this abdominal pain has gotten worse than comparable to what was once diagnosed for hiatal hernia. She is just returning from CT scan for evaluation of her abdominal pain. She noted that possibly passing some darker color stools than before. She has no current chest pain. Troponins are elevated. ALLERGIES: Codeine. PAST MEDICAL HISTORY: 1. Hiatal hernia. 2. Hypothyroidism. SOCIAL HISTORY: The patient denies tobacco, alcohol, or illicit drug use. FAMILY HISTORY: Noncontributory. REVIEW OF SYSTEMS: NEUROLOGIC: The patient denies headache, change in vision, syncope, or presyncopal episodes. CARDIOVASCULAR: No current chest pain, palpitations, or angina. PULMONARY: No difficulty breathing, productive cough, or sputum. GASTROINTESTINAL/GENITOURINARY: The patient is having nausea, vomiting, and diarrhea. ENDOCRINOLOGY: No night sweats, fevers, or chills. MUSCULOSKELETAL: The patient is feeling weak, tired, and fatigued with abdominal pain. PHYSICAL EXAMINATION: VITAL SIGNS: Blood pressure 147/58, respiratory rate 20, temperature 98.0, and 99% oxygen on room air. GENERAL: The patient is awake, alert, not otherwise in distress. HEENT: Extraocular muscles intact. No lymphadenopathy noted. CARDIOVASCULAR: S1, S2. No rubs or gallops. PULMONARY: Clear to auscultation bilaterally. No rales, rhonchi, or wheezes. ABDOMEN: Nondistended, nontender. Good bowel sounds EXTREMITIES: No edema noted. LABORATORY DATA: Laboratories dated 03/03/2018, troponin 0.076. Sodium 140, potassium 3.6, BUN 19, and creatinine 0.6. Normal LFTs. Hemoglobin 15.3, white cell count 17.8, and platelet count 239,000. Calcium 7.2. ASSESSMENT AND PLAN: 1. Acute coronary syndrome, non ST-segment elevation infarction with elevated troponin. At this time, Cardiology has been consulted. We will trend troponins and defer management to Cardiology. 2. Abdominal pain, nausea, vomiting, and diarrhea. Await CT scan results. General Surgery, Dr. Kenny has been consulted for further evaluation and management. Possible enteristis vs PSBO 3. Diarrhea with nausea and vomiting. At this time with elevated white count, antibiotics have been initiated with consultation for Infectious Disease to manage antibiotics and Gastroenterology to make recommendations. 4. Hypothyroidism. Continue Synthroid. 5. DVT prophylaxis with Lovenox. Philip Durham MD DR: GREGORIO JOB#: [id number] CC: JESUS
[2018-03-04] VITALS: BP 136/63
--- NOTE | 2018-03-04 01:01 | Consultation ---
DATE OF CONSULTATION: 03/03/2018 INFECTIOUS DISEASE CONSULTATION REQUESTING PHYSICIAN: Philip Durham M.D. REASON FOR CONSULTATION: Leukocytosis and possible sepsis with colitis. Recommendation for antibiotics treatment. HISTORY OF PRESENT ILLNESS: The patient is a 62-year-old female with past medical history of cardiac disease, hypertension, asthma, COPD, gastritis, and thyroid problem, presented to [facility] for abdominal pain, nausea, vomiting, and diarrhea with melena. It all started yesterday when she ate hamburger from [employer]. She started having abdominal pain and vomited all what she ate. There was no blood in her vomits, but she developed diarrhea multiple episodes, which looked dark, tarry stools to her. Did not see fresh blood though she had vomiting several times yesterday and became dehydrated. She was less responsive when the paramedics arrived and almost passed out. The patient was brought into the emergency room at [facility] for further evaluation and management. She was found to be in the emergency room with temperature of 98.2 degrees. Her white count was elevated around 17,000. CT scan of the abdomen and pelvis showed evidence of colitis and enteritis. So, Infectious Disease consultation was requested for antibiotics treatment and further management. The patient denied any recent travel or sick contact. PAST MEDICAL HISTORY: Significant for coronary artery disease, thyroid problem, asthma, COPD, and gastritis. PAST SURGICAL HISTORY: Significant for hysterectomy. MEDICATIONS: The patient received cefepime and metronidazole in the emergency room. For the rest of her medications, please refer to [facility]. ALLERGIES: She is allergic to codeine with nausea and vomiting. SOCIAL HISTORY: The patient lives at home. Denied using any drugs, tobacco, or alcohol. REVIEW OF SYSTEMS: A 14-point of system reviewed were all negative apart from the one I mentioned above in my History and Physical. PHYSICAL EXAMINATION: VITAL SIGNS: Temperature 98 degrees, pulse 71, respirations 20, blood pressure 147/58, and saturation 99% on room air. GENERAL: A middle-aged female, obese, lying in bed, awake, alert, oriented, not in acute distress. HEENT: Normocephalic and atraumatic. Pupils are reactive to light equally. Moist oral mucosa. No exudate. NECK: Supple. No lymphadenopathy. CARDIOVASCULAR: She has regular rate and rhythm. Mild systolic murmur in the mitral valve area. LUNGS: She had wheezing at the bases with diminished breathing sound. Normal breathing effort. ABDOMEN: Soft, obese, distended, tender mainly on the left side. No rebound. No organomegaly. EXTREMITIES: No edema. No cyanosis. SKIN: No rash. No hives. LABORATORY AND DIAGNOSTIC DATA: Showed white count of 17,000, hemoglobin of 15.3, and platelet count of 239,000. BUN of 19 and creatinine of 0.6. Urinalysis showed negative leukocyte esterase, negative nitrate, and bacteria few. Imaging, chest x-ray showed no radiographic evidence of acute cardiopulmonary disease. CT scan abdomen and pelvis showed distention and hyperenhancement of multiple small bowel loops with fluid attenuation in the lumen. Finding may be related to enteritis, diarrheal illness with possible early low-grade bowel obstruction, status post cholecystectomy, mild prominence of the common bile duct up to 1 cm, and diverticulosis without evidence of diverticulitis. ASSESSMENT AND RECOMMENDATION: 1. Leukocytosis, rule out sepsis. We will send blood culture. Start ceftriaxone and metronidazole empiric coverage pending culture. 2. Colitis with rectal bleeding, ischemic bowel versus gastrointestinal bleeding. We will send stool culture and Clostridium difficile toxin. Start ceftriaxone and metronidazole. Recommend GI consult. 3. Gastrointestinal bleeding, source unclear. Monitor hemoglobin and hematocrit. Transfuse as needed. Consult Gastroenterology for endoscopy. 4. Abdominal pain due to the above. Continue pain management as per primary team. Thank you for the consultation. Infectious Disease will continue to follow. Vimal Arias M.D. DR: Rosemarie JOB#: [id number] CC:
[2018-03-04 04:00] VITALS: BP 150/78
[2018-03-04 04:30] LABS: BASOPHILS % (AUTO) 1.3 % (0.0-2.0); EOSINOPHILS % (AUTO) 0.8 % (0.0-3.0); HEMATOCRIT 40.5 % (37.0-47.0); HEMOGLOBIN 14.2 G/DL (12.0-16.0); LYMPHOCYTES % (AUTO) 29.9 % (20.0-45.0); MEAN CORPUSCULAR VOLUME 93 FL (80-99); MONOCYTES % (AUTO) 7.4 % (1.0-10.0); NEUTROPHILS % (AUTO) 60.6 % (45.0-75.0); PLATELET COUNT 208 K/UL (150-450); RED BLOOD COUNT 4.35 M/UL (4.20-5.40); RED CELL DISTRIBUTION WIDTH 11.8 % (11.6-14.8); WHITE BLOOD COUNT 6.5 K/UL (4.8-10.8)
[2018-03-04 04:48] LABS: ANION GAP 5 mmol/L (5-15); BLOOD UREA NITROGEN 10 mg/dL (7-18); CALCIUM 8.3 MG/DL (8.5-10.1); CARBON DIOXIDE 28 MMOL/L (21-32); CHLORIDE 106 MMOL/L (98-107); CREATININE 0.7 MG/DL (0.55-1.30); SODIUM 139 MMOL/L (136-145)
[2018-03-04] MEDS ORDERED: Levothyroxine 125mcg tab ORAL SCH (06:30)
[2018-03-04 08:00] VITALS: BP 136/63
--- NOTE | 2018-03-04 08:17 | Nephrology Progress Note ---
Assessment/Plan Assessment/Plan 1. Abd Pain- enteritis - NPO, IVF's and Abx - monitor. Appreciate Gen surg 2. Diarrhea- secondary to enteritis. Abx per ID 3. Hypokalemia- IV replacement 4. DVT prophylaxsis with lovenox 5. Elevated Trop I- trend, appreciate cardiology evaluation Subjective Date patient seen: Mar 04, 2018 Time patient seen: 08:15 ROS Limited/Unobtainable: No Gastrointestinal/Abdominal: Reports: abdominal pain Allergies: Coded Allergies: CODEINE (Verified Adverse Reaction, Intermediate, 05/05/12) N/V All Systems: reviewed and negative except above Subjective Patient still having abdominal pain and diarrhea Objective Last 24 Hour Vital Signs Date Time Temp Pulse Resp B/P (MAP) Pulse Ox O2 Delivery O2 Flow Rate FiO2 03/04/18 04:00 58 03/04/18 04:00 Room Air 03/04/18 04:00 98.2 58 20 150/78 (102) 98 98.2 03/04/18 00:00 65 03/04/18 00:00 97.5 60 20 136/63 (87) 98 97.5 03/04/18 00:00 Room Air 03/03/18 20:00 73 03/03/18 20:00 Room Air 03/03/18 20:00 98.1 70 20 143/68 (93) 98 98.1 03/03/18 16:32 Room Air 03/03/18 16:00 76 03/03/18 15:28 Room Air 03/03/18 15:24 98.0 20 147/58 99 Room Air 98.0 03/03/18 13:18 98.0 20 147/58 99 Room Air 98.0 03/03/18 12:31 98.2 03/03/18 11:54 172/99 03/03/18 10:38 98.2 03/03/18 10:28 98.2 20 173/65 99 Room Air 98.2 03/03/18 10:28 71 20 Room Air 03/03/18 10:03 98.2 71 20 173/65 99 Room Air 98.2 Intake and Output 03/03/18 03/04/18 19:00 07:00 Intake Total 315 ml 1355 ml Output Total 161 ml Balance 154 ml 1355 ml Intake Oral 240 ml 200 ml IV Total 75 ml 1155 ml Output Stool Total 1 ml Emesis 160 ml # Voids 1 5 # Bowel Movements 2 6 Laboratory Tests 03/03/18 10:15: White Blood Count 17.0H, Red Blood Count 4.92, Hemoglobin 15.3, Hematocrit 45.4 , Mean Corpuscular Volume 92, Mean Corpuscular Hemoglobin 31.1H, Mean Corpuscular Hemoglobin Concent 33.7, Red Cell Distribution Width 11.5L, Platelet Count 239, Mean Platelet Volume 7.0, Neutrophils (%) (Auto) , Lymphocytes (%) (Auto) , Monocytes (%) (Auto) , Eosinophils (%) (Auto) , Basophils (%) (Auto) , Differential Total Cells Counted 100, Neutrophils % ( Manual) 85H, Lymphocytes % (Manual) 8L, Monocytes % (Manual) 6, Eosinophils % ( Manual) 0, Basophils % (Manual) 0, Band Neutrophils 1, Platelet Estimate Adequate, Platelet Morphology Normal, Prothrombin Time 10.7, Prothromb Time International Ratio 1.0, Activated Partial Thromboplast Time 27, Sodium Level 140, Potassium Level 3.6, Chloride Level 104, Carbon Dioxide Level 26, Anion Gap 10, Blood Urea Nitrogen 19H, Creatinine 0.6, Estimat Glomerular Filtration Rate > 60, Glucose Level 103, Calcium Level 9.1, Total Bilirubin 1.4H, Direct Bilirubin 0.2, Aspartate Amino Transf (AST/SGOT) 20, Alanine Aminotransferase ( ALT/SGPT) 21, Alkaline Phosphatase 81, Total Creatine Kinase 81, Troponin I 0.076H, Pro-B-Type Natriuretic Peptide 154H, Total Protein 7.9, Albumin 4.0, Globulin 3.9, Albumin/Globulin Ratio 1.0, Lipase 132, Thyroid Stimulating Hormone (TSH) 1.249, Salicylates Level < 0.2L, Acetaminophen Level < 2L, Serum Alcohol 3 03/03/18 12:03: Urine Color Pale yellow, Urine Appearance Clear, Urine pH 6, Urine Specific [place] 1.010, Urine Protein Negative, Urine Glucose (UA) Negative, Urine Ketones Negative, Urine Occult Blood 4+H, Urine Nitrite Negative, Urine Bilirubin Negative, Urine Urobilinogen Normal, Urine Leukocyte Esterase Negative , Urine RBC 2-4H, Urine WBC 0-2, Urine Squamous Epithelial Cells ModerateH, Urine Bacteria Few, Urine Opiates Screen Negative, Urine Barbiturates Screen Negative, Phencyclidine (PCP) Screen Negative, Urine Amphetamines Screen Negative, Urine Benzodiazepines Screen Negative, Urine Cocaine Screen Negative, Urine Marijuana (THC) Screen Negative 03/04/18 03:40: White Blood Count 6.5#, Red Blood Count 4.35, Hemoglobin 14.2, Hematocrit 40.5, Mean Corpuscular Volume 93, Mean Corpuscular Hemoglobin 32.7H, Mean Corpuscular Hemoglobin Concent 35.1, Red Cell Distribution Width 11.8, Platelet Count 208, Mean Platelet Volume 7.2, Neutrophils (%) (Auto) 60.6, Lymphocytes (%) (Auto) 29.9, Monocytes (%) (Auto) 7.4, Eosinophils (%) (Auto) 0.8, Basophils (%) (Auto ) 1.3, Sodium Level 139, Potassium Level 3.0L, Chloride Level 106, Carbon Dioxide Level 28, Anion Gap 5, Blood Urea Nitrogen 10, Creatinine 0.7, Estimat Glomerular Filtration Rate > 60, Glucose Level 87, Calcium Level 8.3L, Thyroid Stimulating Hormone (TSH) 1.762 Height (Feet): 5 Height (Inches): 4.00 Weight (Pounds): 170 General Appearance: no apparent distress, alert EENT: normal ENT inspection Neck: non-tender, normal alignment, supple Cardiovascular: normal rate, regular rhythm Respiratory/Chest: lungs clear, normal breath sounds Abdomen: non tender, soft Edema: no edema noted Arm (L), no edema noted Arm (R), no edema noted Leg (L), no edema noted Leg (R), no edema noted Pedal (L), no edema noted Pedal (R), no edema noted Generalized Philip Durham M.D. Mar 04, 2018 08:17
[2018-03-04] MEDS ORDERED: Pantoprazole Inj IVP SCH (09:00)
[2018-03-04] MEDS ORDERED: Isovue-300 100ml vial INJ PRN (11:30)
[2018-03-04 12:00] VITALS: BP 145/69
[2018-03-04] MEDS ORDERED: Albuterol/Ipratropium 3ml neb HHN PRN (14:30)
--- NOTE | 2018-03-04 15:03 | Infectious Diseases Prog Note ---
Assessment/Plan Problems: (1) Leukocytosis Assessment & Plan: rule out sepsis , await blood culture, continue ceftriaxone and metronidazole empirically (2) Colitis with rectal bleeding Assessment & Plan: ischemic bowel VS GI BLD due to diverticulosis , will send stool culture and C diff toxin, start ceftriaxone and metronidazole , GI is following (3) GI bleed Assessment & Plan: monitor H/H transfuse as needed , may need endoscopy, GI is following (4) Abdominal pain Assessment & Plan: due to the above, continue paian management as per primary Subjective Constitutional: Reports: fatigue, anorexia HEENT: Reports: no symptoms Respiratory: Reports: no symptoms Breasts: Reports: no symptoms Cardiovascular: Reports: no symptoms Gastrointestinal/Abdominal: Reports: diarrhea, bloating Genitourinary: Reports: no symptoms Neurologic: Reports: headache Psychiatric: Reports: no symptoms Skin: Reports: no symptoms Endocrine: Reports: no symptoms Hematologic: Reports: no symptoms Musculoskeletal: Reports: no symptoms Allergies: Coded Allergies: CODEINE (Verified Adverse Reaction, Intermediate, 05/05/12) N/V Objective Vital Signs Last 24 Hour Vital Signs Date Time Temp Pulse Resp B/P (MAP) Pulse Ox O2 Delivery O2 Flow Rate FiO2 03/04/18 12:00 98.9 60 20 145/69 (94) 96 98.9 03/04/18 08:00 97.7 55 20 136/63 (87) 98 97.7 03/04/18 08:00 Room Air 03/04/18 08:00 56 03/04/18 04:00 58 03/04/18 04:00 Room Air 03/04/18 04:00 98.2 58 20 150/78 (102) 98 98.2 03/04/18 00:00 65 03/04/18 00:00 97.5 60 20 136/63 (87) 98 97.5 03/04/18 00:00 Room Air 03/03/18 20:00 73 03/03/18 20:00 Room Air 03/03/18 20:00 98.1 70 20 143/68 (93) 98 98.1 03/03/18 16:32 Room Air 03/03/18 16:00 76 03/03/18 15:28 Room Air 03/03/18 15:24 98.0 20 147/58 99 Room Air 98.0 Height (Feet): 5 Height (Inches): 4.00 Weight (Pounds): 170 General Appearance: WD/WN, no acute distress HEENT: normocephalic, atraumatic, anicteric, mucous membranes moist, PERRL Respiratory/Chest: chest wall non-tender, lungs clear, normal breath sounds, no respiratory distress, no accessory muscle use Cardiovascular: normal peripheral pulses, normal rate, regular rhythm, no gallop/murmur, no JVD Abdomen: no organomegaly, no mass, hyperactive bowel sounds, distended, tender Genitourinary: normal external genitalia Extremities: no cyanosis, no clubbing Skin: no rash, no lesions, no ulcers Neurologic/Psychiatric: alert, oriented x 3 Lymphatic: no neck adenopathy, no groin adenopathy Laboratory Tests Test 03/04/18 03:40 White Blood Count 6.5 K/UL (4.8-10.8) # Red Blood Count 4.35 M/UL (4.20-5.40) Hemoglobin 14.2 G/DL (12.0-16.0) Hematocrit 40.5 % (37.0-47.0) Mean Corpuscular Volume 93 FL (80-99) Mean Corpuscular Hemoglobin 32.7 PG (27.0-31.0) H Mean Corpuscular Hemoglobin Concent 35.1 G/DL (32.0-36.0) Red Cell Distribution Width 11.8 % (11.6-14.8) Platelet Count 208 K/UL (150-450) Mean Platelet Volume 7.2 FL (6.5-10.1) Neutrophils (%) (Auto) 60.6 % (45.0-75.0) Lymphocytes (%) (Auto) 29.9 % (20.0-45.0) Monocytes (%) (Auto) 7.4 % (1.0-10.0) Eosinophils (%) (Auto) 0.8 % (0.0-3.0) Basophils (%) (Auto) 1.3 % (0.0-2.0) Sodium Level 139 MMOL/L (136-145) Potassium Level 3.0 MMOL/L (3.5-5.1) L Chloride Level 106 MMOL/L (98-107) Carbon Dioxide Level 28 MMOL/L (21-32) Anion Gap 5 mmol/L (5-15) Blood Urea Nitrogen 10 mg/dL (7-18) Creatinine 0.7 MG/DL (0.55-1.30) Estimat Glomerular Filtration Rate > 60 mL/min (>60) Glucose Level 87 MG/DL (74-106) Calcium Level 8.3 MG/DL (8.5-10.1) L Thyroid Stimulating Hormone (TSH) 1.762 uiU/mL (0.358-3.740) Current Medications Medications (Trade) Dose Ordered Sig/Angela Route PRN Reason Start Time Stop Time Status Last Admin Dose Admin Acetaminophen (Tylenol) 650 mg Q4H PRN ORAL Mild Pain (Pain Scale 1-3) 03/04/18 14:15 04/02/18 14:14 Albuterol/ Ipratropium (Albuterol/ Ipratropium) 3 ml Q6HRT PRN HHN Shortness of Breath 03/04/18 14:30 03/09/18 14:29 Barium Sulfate (Readi-Cat 2) 450 ea 03/05/18 PRN ORAL Radiology Procedure 03/04/18 11:30 03/05/18 11:13 Ceftriaxone Sodium 2 gm/ Dextrose 55 ml @ 110 mls/hr Q24H IVPB 03/04/18 17:00 03/10/18 16:59 Dextrose (Dextrose 50%) 25 ml STAT PRN IV Hypoglycemia 03/04/18 14:15 04/02/18 14:14 Dextrose (Dextrose 50%) 50 ml STAT PRN IV Hypoglycemia 03/04/18 14:15 04/02/18 14:14 Enoxaparin Sodium (Lovenox) 40 mg Q24H SUBQ 03/04/18 15:15 04/02/18 15:14 Iopamidol (Isovue-300 100ml) 100 ml 03/05/18 PRN INJ Radiology Procedure 03/04/18 11:30 03/05/18 11:14 Levothyroxine Sodium (Synthroid) 125 mcg DAILY@0630 ORAL 03/05/18 06:30 04/03/18 06:29 Metronidazole 100 ml @ 100 mls/hr Q8H IVPB 03/04/18 12:00 03/10/18 19:59 03/04/18 12:55 Ondansetron HCl (Zofran) 4 mg Q6H PRN IVP Nausea & Vomiting 7/14/18 15:30 04/02/18 15:29 Pantoprazole (Protonix) 40 mg DAILY IVP 03/05/18 09:00 04/03/18 08:59 Prochlorperazine (Compazine) 10 mg Q6H PRN ORAL Severe Nausea or vomiting 03/04/18 15:30 04/02/18 15:29 Sodium Chloride 1,000 ml @ 75 mls/hr [id number] IVLG 03/04/18 12:00 04/02/18 11:59 03/04/18 12:32 Vimal Arias M.D. Mar 04, 2018 15:03
[2018-03-04] MEDS ORDERED: Tubing IV Secondary IV ONE (15:20)
[2018-03-04] MEDS: Enoxaparin 40mg Inj SUBQ SCH (15:28)
[2018-03-04] MEDS ORDERED: Prochlorperazine 10mg tab ORAL PRN (15:30)
[2018-03-04 15:37] VITALS: BP 139/78
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
[2018-03-04] MEDS: cefTRIAXone 2 GM in D5W 55 ML IVPB SCH (17:35)
[2018-03-04] MEDS: Morphine Sulfate 2mg/ml Inj IVP PRN (19:02)
[2018-03-04 20:00] VITALS: BP 132/64
[2018-03-05] VITALS: BP 133/66
[2018-03-05 04:00] VITALS: BP 111/54
[2018-03-05] MEDS: Levothyroxine 125mcg tab ORAL SCH (05:44)
[2018-03-05 08:00] VITALS: BP 132/62
[2018-03-05] MEDS: Pantoprazole Inj IVP SCH (08:26)
[2018-03-05 08:41] LABS: BASOPHILS % (AUTO) 0.5 % (0.0-2.0); EOSINOPHILS % (AUTO) 0.6 % (0.0-3.0); HEMATOCRIT 38.2 % (37.0-47.0); HEMOGLOBIN 13.3 G/DL (12.0-16.0); LYMPHOCYTES % (AUTO) 34.1 % (20.0-45.0); MEAN CORPUSCULAR VOLUME 92 FL (80-99); MONOCYTES % (AUTO) 10.2 % (1.0-10.0); NEUTROPHILS % (AUTO) 54.6 % (45.0-75.0); PLATELET COUNT 197 K/UL (150-450); RED BLOOD COUNT 4.17 M/UL (4.20-5.40); RED CELL DISTRIBUTION WIDTH 11.7 % (11.6-14.8); WHITE BLOOD COUNT 6.7 K/UL (4.8-10.8)
[2018-03-05 09:09] LABS: ANION GAP 12 mmol/L (5-15); BLOOD UREA NITROGEN 8 mg/dL (7-18); CALCIUM 8.6 MG/DL (8.5-10.1); CARBON DIOXIDE 24 MMOL/L (21-32); CHLORIDE 103 MMOL/L (98-107); CREATININE 0.6 MG/DL (0.55-1.30); POTASSIUM 3.2 MMOL/L (3.5-5.1); SODIUM 139 MMOL/L (136-145)
--- NOTE | 2018-03-05 10:33 | Nephrology Progress Note ---
Assessment/Plan Assessment/Plan 1. Abd Pain- enteritis/diverticulitis - NPO, IVF's and Abx until cleared by GI to advance diet 2. Diarrhea- secondary to enteritis/diverticulitis. Abx per ID - WBC much improved 3. Hypokalemia- IV replacement today again. Due to diarrhea 4. DVT prophylaxsis with lovenox 5. Elevated Trop I- trend, appreciate cardiology assistance 6. ? AAA- US ordered - abd pain and hernia also assisted by Gen surgery Subjective Date patient seen: Mar 05, 2018 Time patient seen: 10:30 ROS Limited/Unobtainable: No Gastrointestinal/Abdominal: Reports: abdominal pain Allergies: Coded Allergies: CODEINE (Verified Adverse Reaction, Intermediate, 05/05/12) N/V All Systems: reviewed and negative except above Subjective Patient abd pain better and diarrhea improved Objective Last 24 Hour Vital Signs Date Time Temp Pulse Resp B/P (MAP) Pulse Ox O2 Delivery O2 Flow Rate FiO2 03/05/18 08:11 Room Air 03/05/18 08:00 98.1 55 20 132/62 (85) 97 98.1 03/05/18 04:00 97.0 54 20 111/54 (73) 97 97.0 03/05/18 00:00 98.1 61 19 133/66 (88) 98 98.1 03/04/18 21:00 Room Air 03/04/18 20:40 68 18 Room Air 03/04/18 20:00 98.6 67 18 132/64 (86) 96 98.6 03/04/18 18:48 99.6 03/04/18 16:15 64 20 95 Room Air 03/04/18 16:13 64 20 Room Air 03/04/18 15:37 99.6 61 19 139/78 (98) 96 99.6 03/04/18 12:00 98.9 60 20 145/69 (94) 96 98.9 Intake and Output 03/04/18 03/05/18 19:00 07:00 Intake Total 455 ml 945 ml Balance 455 ml 945 ml IV Total 455 ml 945 ml # Voids 3 2 # Bowel Movements 4 3 Laboratory Tests 03/05/18 06:52: White Blood Count 6.7, Red Blood Count 4.17L, Hemoglobin 13.3, Hematocrit 38.2, Mean Corpuscular Volume 92, Mean Corpuscular Hemoglobin 32.0H, Mean Corpuscular Hemoglobin Concent 34.8, Red Cell Distribution Width 11.7, Platelet Count 197, Mean Platelet Volume 7.3, Neutrophils (%) (Auto) 54.6, Lymphocytes (%) (Auto) 34.1, Monocytes (%) (Auto) 10.2H, Eosinophils (%) (Auto) 0.6, Basophils (%) ( Auto) 0.5, Sodium Level 139, Potassium Level 3.2L, Chloride Level 103, Carbon Dioxide Level 24, Anion Gap 12, Blood Urea Nitrogen 8, Creatinine 0.6, Estimat Glomerular Filtration Rate > 60, Glucose Level 75, Calcium Level 8.6 Height (Feet): 5 Height (Inches): 4.00 Weight (Pounds): 170 General Appearance: no apparent distress, alert EENT: normal ENT inspection Neck: non-tender, normal alignment, supple Cardiovascular: normal rate, regular rhythm Respiratory/Chest: lungs clear, normal breath sounds Abdomen: guarding Edema: no edema noted Arm (L), no edema noted Arm (R), no edema noted Leg (L), no edema noted Leg (R), no edema noted Pedal (L), no edema noted Pedal (R), no edema noted Generalized Philip Durham M.D. Mar 05, 2018 10:33
[2018-03-05] MEDS: Morphine Sulfate 2mg/ml Inj IVP PRN ×2 (10:47→18:56)
[2018-03-05 12:00] VITALS: BP 152/68
--- NOTE | 2018-03-05 13:06 | General Surgery Progress Note ---
General Surgery-Progress Note Subjective Symptoms: improved Additional Comments no acute events. comfortable. pain improved. no n/v/f/c. passing flatus. only pain today is left sided rib/muscle pain Objective Last 24 Hour Vital Signs Date Time Temp Pulse Resp B/P (MAP) Pulse Ox O2 Delivery O2 Flow Rate FiO2 03/05/18 12:00 98.6 58 20 152/68 (96) 97 98.6 03/05/18 11:17 98.1 03/05/18 10:47 98.1 03/05/18 08:11 Room Air 03/05/18 08:00 98.1 55 20 132/62 (85) 97 98.1 03/05/18 04:00 97.0 54 20 111/54 (73) 97 97.0 03/05/18 00:00 98.1 61 19 133/66 (88) 98 98.1 03/04/18 21:00 Room Air 03/04/18 20:40 68 18 Room Air 03/04/18 20:00 98.6 67 18 132/64 (86) 96 98.6 03/04/18 18:48 99.6 03/04/18 16:15 64 20 95 Room Air 03/04/18 16:13 64 20 Room Air 03/04/18 15:37 99.6 61 19 139/78 (98) 96 99.6 I&O Intake and Output 03/04/18 03/05/18 19:00 07:00 Intake Total 455 ml 945 ml Balance 455 ml 945 ml IV Total 455 ml 945 ml # Voids 3 2 # Bowel Movements 4 3 Drains: none Cardiovascular: RSR Respiratory: clear Abdomen: soft, flat, non-tender, present bowel sounds Extremities: no cyanosis Laboratory Tests Test 03/05/18 06:52 White Blood Count 6.7 K/UL (4.8-10.8) Red Blood Count 4.17 M/UL (4.20-5.40) L Hemoglobin 13.3 G/DL (12.0-16.0) Hematocrit 38.2 % (37.0-47.0) Mean Corpuscular Volume 92 FL (80-99) Mean Corpuscular Hemoglobin 32.0 PG (27.0-31.0) H Mean Corpuscular Hemoglobin Concent 34.8 G/DL (32.0-36.0) Red Cell Distribution Width 11.7 % (11.6-14.8) Platelet Count 197 K/UL (150-450) Mean Platelet Volume 7.3 FL (6.5-10.1) Neutrophils (%) (Auto) 54.6 % (45.0-75.0) Lymphocytes (%) (Auto) 34.1 % (20.0-45.0) Monocytes (%) (Auto) 10.2 % (1.0-10.0) H Eosinophils (%) (Auto) 0.6 % (0.0-3.0) Basophils (%) (Auto) 0.5 % (0.0-2.0) Sodium Level 139 MMOL/L (136-145) Potassium Level 3.2 MMOL/L (3.5-5.1) L Chloride Level 103 MMOL/L (98-107) Carbon Dioxide Level 24 MMOL/L (21-32) Anion Gap 12 mmol/L (5-15) Blood Urea Nitrogen 8 mg/dL (7-18) Creatinine 0.6 MG/DL (0.55-1.30) Estimat Glomerular Filtration Rate > 60 mL/min (>60) Glucose Level 75 MG/DL (74-106) Calcium Level 8.6 MG/DL (8.5-10.1) Plan Problems: (1) Abdominal pain Assessment & Plan: 62F with abdominal pain, nausea, emesis, diarrhea and presenting symptoms. afebrile, HD stable, leukocytosis. exam with distention and tenderness but no acute abdomen CT with dilated loops but no definitive obstruction likely enteritis vs early SBO but favoring the former. small umbilical hernia asymptomatic and incidental finding on CT patient has letter from PCP about MRI done prior and needing eval for ramila- aortic inflammation? this was referral to be done as an outpatient and she will need to follow up with PCP for referral to CT Surgeon as outpatient. -trial clear liquids -iv fluids -abx as per ID -trend labs -serial exams -will follow with recs. thank you for this consultation Lee Kenny Mar 05, 2018 13:06
--- NOTE | 2018-03-05 13:33 | Cardiology Report ---
APPROVED REPORT EKG Measurement Heart [id number] Sinus rhythm with short TN Nonspecific T wave abnormality Abnormal ECG
[2018-03-05] MEDS: Enoxaparin 40mg Inj SUBQ SCH (14:58)
[2018-03-05 16:00] VITALS: BP 132/87
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
[2018-03-05] MEDS: cefTRIAXone 2 GM in D5W 55 ML IVPB SCH (16:55)
[2018-03-05 20:00] VITALS: BP 139/69
--- NOTE | 2018-03-05 20:21 | Infectious Diseases Prog Note ---
Assessment/Plan Problems: (1) Leukocytosis Assessment & Plan: no evidence of sepsis , with negative blood culture, continue ceftriaxone and metronidazole empirically pending stool culture (2) Colitis with rectal bleeding Assessment & Plan: ischemic bowel VS GI BLD due to diverticulosis , await stool culture, C diff is negative , continue ceftriaxone and metronidazole empirically for now , GI is following (3) GI bleed Assessment & Plan: monitor H/H transfuse as needed , may need endoscopy, GI is following (4) Abdominal pain Assessment & Plan: due to the above, continue paian management as per primary Subjective Constitutional: Reports: anorexia HEENT: Reports: no symptoms Respiratory: Reports: no symptoms Breasts: Reports: no symptoms Cardiovascular: Reports: no symptoms Gastrointestinal/Abdominal: Reports: nausea, bloating Genitourinary: Reports: no symptoms Neurologic: Reports: no symptoms Psychiatric: Reports: no symptoms Skin: Reports: no symptoms Endocrine: Reports: no symptoms Hematologic: Reports: no symptoms Musculoskeletal: Reports: no symptoms Allergies: Coded Allergies: CODEINE (Verified Adverse Reaction, Intermediate, 05/05/12) N/V Objective Vital Signs Last 24 Hour Vital Signs Date Time Temp Pulse Resp B/P (MAP) Pulse Ox O2 Delivery O2 Flow Rate FiO2 03/05/18 20:16 63 16 Room Air 03/05/18 19:26 96.8 03/05/18 18:56 96.8 03/05/18 16:00 96.8 68 20 132/87 (102) 100 96.8 03/05/18 12:00 98.6 58 20 152/68 (96) 97 98.6 03/05/18 10:47 98.1 03/05/18 08:11 Room Air 03/05/18 08:00 98.1 55 20 132/62 (85) 97 98.1 03/05/18 07:00 58 16 Room Air 03/05/18 04:00 97.0 54 20 111/54 (73) 97 97.0 03/05/18 00:00 98.1 61 19 133/66 (88) 98 98.1 03/04/18 21:00 Room Air 03/04/18 20:40 68 18 Room Air Height (Feet): 5 Height (Inches): 4.00 Weight (Pounds): 170 General Appearance: WD/WN, no acute distress HEENT: normocephalic, atraumatic, anicteric, mucous membranes moist, PERRL Respiratory/Chest: chest wall non-tender, lungs clear, normal breath sounds, no respiratory distress, no accessory muscle use Cardiovascular: normal peripheral pulses, normal rate, regular rhythm, no gallop/murmur, no JVD Abdomen: no organomegaly, no mass, no scars, hypoactive bowel sounds, distended , tender Genitourinary: normal external genitalia Extremities: no cyanosis, no clubbing Skin: no rash, no lesions, no ulcers Neurologic/Psychiatric: alert, oriented x 3, responsive Microbiology Date/Time Source Procedure Growth Status 03/03/18 03:50 Blood Blood Culture - Preliminary NO GROWTH AFTER 24 HOURS Resulted 03/03/18 03:40 Blood Blood Culture - Preliminary NO GROWTH AFTER 24 HOURS Resulted 03/04/18 20:45 Stool Clostridium difficile Toxin Assay - Final Complete Laboratory Tests Test 03/05/18 06:52 White Blood Count 6.7 K/UL (4.8-10.8) Red Blood Count 4.17 M/UL (4.20-5.40) L Hemoglobin 13.3 G/DL (12.0-16.0) Hematocrit 38.2 % (37.0-47.0) Mean Corpuscular Volume 92 FL (80-99) Mean Corpuscular Hemoglobin 32.0 PG (27.0-31.0) H Mean Corpuscular Hemoglobin Concent 34.8 G/DL (32.0-36.0) Red Cell Distribution Width 11.7 % (11.6-14.8) Platelet Count 197 K/UL (150-450) Mean Platelet Volume 7.3 FL (6.5-10.1) Neutrophils (%) (Auto) 54.6 % (45.0-75.0) Lymphocytes (%) (Auto) 34.1 % (20.0-45.0) Monocytes (%) (Auto) 10.2 % (1.0-10.0) H Eosinophils (%) (Auto) 0.6 % (0.0-3.0) Basophils (%) (Auto) 0.5 % (0.0-2.0) Sodium Level 139 MMOL/L (136-145) Potassium Level 3.2 MMOL/L (3.5-5.1) L Chloride Level 103 MMOL/L (98-107) Carbon Dioxide Level 24 MMOL/L (21-32) Anion Gap 12 mmol/L (5-15) Blood Urea Nitrogen 8 mg/dL (7-18) Creatinine 0.6 MG/DL (0.55-1.30) Estimat Glomerular Filtration Rate > 60 mL/min (>60) Glucose Level 75 MG/DL (74-106) Calcium Level 8.6 MG/DL (8.5-10.1) Current Medications Medications (Trade) Dose Ordered Sig/Angela Route PRN Reason Start Time Stop Time Status Last Admin Dose Admin Acetaminophen (Tylenol) 650 mg Q4H PRN ORAL Mild Pain (Pain Scale 1-3) 03/04/18 14:15 04/02/18 14:14 03/04/18 17:49 Albuterol/ Ipratropium (Albuterol/ Ipratropium) 3 ml Q6HRT PRN HHN Shortness of Breath 03/04/18 14:30 03/09/18 14:29 03/04/18 16:15 Ceftriaxone Sodium 2 gm/ Dextrose 55 ml @ 110 mls/hr Q24H IVPB 03/04/18 17:00 03/10/18 16:59 03/05/18 16:55 Dextrose (Dextrose 50%) 25 ml STAT PRN IV Hypoglycemia 03/04/18 14:15 04/02/18 14:14 Dextrose (Dextrose 50%) 50 ml STAT PRN IV Hypoglycemia 03/04/18 14:15 04/02/18 14:14 Enoxaparin Sodium (Lovenox) 40 mg Q24H SUBQ 03/04/18 15:15 04/02/18 15:14 03/05/18 14:58 Levothyroxine Sodium (Synthroid) 125 mcg DAILY@0630 ORAL 03/05/18 06:30 04/03/18 06:29 03/05/18 05:44 Metronidazole 100 ml @ 100 mls/hr Q8H IVPB 03/04/18 12:00 03/10/18 19:59 03/05/18 11:31 Morphine Sulfate (Morphine Sulfate) 0.5 mg Q6H PRN IVP Moderate Pain (Pain Scale 4-6) 03/04/18 18:15 03/11/18 18:14 03/05/18 18:56 Ondansetron HCl (Zofran) 4 mg Q6H PRN IVP Nausea & Vomiting 03/04/18 15:30 04/02/18 15:29 03/05/18 07:03 Pantoprazole (Protonix) 40 mg DAILY IVP 03/05/18 09:00 04/03/18 08:59 03/05/18 08:26 Prochlorperazine (Compazine) 10 mg Q6H PRN ORAL Severe Nausea or vomiting 03/04/18 15:30 04/02/18 15:29 Sodium Chloride 1,000 ml @ 75 mls/hr [id number] IVLG 03/04/18 12:00 04/02/18 11:59 03/05/18 14:55 Vimal Arias M.D. Mar 05, 2018 20:21
[2018-03-06] VITALS: BP 126/70
[2018-03-06] MEDS: Morphine Sulfate 2mg/ml Inj IVP PRN (01:08)
[2018-03-06 04:00] VITALS: BP 147/72
[2018-03-06] MEDS: Levothyroxine 125mcg tab ORAL SCH (05:51)
[2018-03-06 07:19] LABS: BASOPHILS % (AUTO) 0.8 % (0.0-2.0); EOSINOPHILS % (AUTO) 0.9 % (0.0-3.0); HEMATOCRIT 38.4 % (37.0-47.0); HEMOGLOBIN 13.9 G/DL (12.0-16.0); LYMPHOCYTES % (AUTO) 37.4 % (20.0-45.0); MEAN CORPUSCULAR VOLUME 92 FL (80-99); MONOCYTES % (AUTO) 10.6 % (1.0-10.0); NEUTROPHILS % (AUTO) 50.3 % (45.0-75.0); PLATELET COUNT 196 K/UL (150-450); RED BLOOD COUNT 4.19 M/UL (4.20-5.40); RED CELL DISTRIBUTION WIDTH 11.5 % (11.6-14.8)
[2018-03-06 07:54] LABS: ANION GAP 6 mmol/L (5-15); BLOOD UREA NITROGEN 8 mg/dL (7-18); CALCIUM 8.3 MG/DL (8.5-10.1); CARBON DIOXIDE 28 MMOL/L (21-32); CHLORIDE 106 MMOL/L (98-107); CREATININE 0.6 MG/DL (0.55-1.30); POTASSIUM 3.7 MMOL/L (3.5-5.1); SODIUM 139 MMOL/L (136-145)
[2018-03-06 08:00] VITALS: BP 134/65
[2018-03-06] MEDS: Pantoprazole Inj IVP SCH (08:30)
--- NOTE | 2018-03-06 08:56 | Nephrology Progress Note ---
Assessment/Plan Assessment/Plan 1. Abd Pain- enteritis/diverticulitis - NPO, IVF's and Abx. Advance diet later today 2. Diarrhea- secondary to enteritis/diverticulitis. Abx per ID - WBC mproved 3. Hypokalemia- corrected 4. DVT prophylaxsis with lovenox 5. Elevated Trop I- trend, appreciate cardiology assistance. resolved 6. ? AAA- US ordered - abd pain and hernia also assisted by Gen surgery DC patient home tomorrow after tolerating po diet Subjective Date patient seen: Mar 06, 2018 Time patient seen: 08:55 ROS Limited/Unobtainable: No Gastrointestinal/Abdominal: Reports: abdominal pain Allergies: Coded Allergies: CODEINE (Verified Adverse Reaction, Intermediate, 05/05/12) N/V Subjective Patient abd pain resolving and diarrhea improved Objective Last 24 Hour Vital Signs Date Time Temp Pulse Resp B/P (MAP) Pulse Ox O2 Delivery O2 Flow Rate FiO2 03/06/18 08:00 98.8 55 18 134/65 (88) 98 98.8 03/06/18 04:00 97.7 58 19 147/72 (97) 97 97.7 03/06/18 00:00 97.3 59 20 126/70 (88) 95 97.3 03/05/18 21:00 Room Air 03/05/18 20:16 63 16 Room Air 03/05/18 20:00 99.9 64 18 139/69 (92) 98 99.9 03/05/18 19:26 96.8 03/05/18 18:56 96.8 03/05/18 16:00 96.8 68 20 132/87 (102) 100 96.8 03/05/18 12:00 98.6 58 20 152/68 (96) 97 98.6 03/05/18 10:47 98.1 Intake and Output 03/05/18 03/06/18 19:00 07:00 Intake Total 1235.0 ml 350 ml Balance 1235.0 ml 350 ml Intake Oral 480 ml IV Total 755.0 ml 350 ml # Voids 2 3 # Bowel Movements 1 3 Laboratory Tests 03/06/18 05:05: White Blood Count 7.0, Red Blood Count 4.19L, Hemoglobin 13.9, Hematocrit 38.4, Mean Corpuscular Volume 92, Mean Corpuscular Hemoglobin 33.2H, Mean Corpuscular Hemoglobin Concent 36.2H, Red Cell Distribution Width 11.5L, Platelet Count 196 , Mean Platelet Volume 6.7, Neutrophils (%) (Auto) 50.3, Lymphocytes (%) (Auto) 37.4, Monocytes (%) (Auto) 10.6H, Eosinophils (%) (Auto) 0.9, Basophils (%) ( Auto) 0.8, Sodium Level 139, Potassium Level 3.7, Chloride Level 106, Carbon Dioxide Level 28, Anion Gap 6, Blood Urea Nitrogen 8, Creatinine 0.6, Estimat Glomerular Filtration Rate > 60, Glucose Level 86, Calcium Level 8.3L Height (Feet): 5 Height (Inches): 4.00 Weight (Pounds): 170 General Appearance: WD/WN, no apparent distress EENT: PERRL/EOMI Neck: non-tender, normal alignment Cardiovascular: normal peripheral pulses, normal rate Respiratory/Chest: chest wall non-tender, lungs clear Abdomen: normal bowel sounds, non tender Edema: no edema noted Arm (L), no edema noted Arm (R), no edema noted Leg (L), no edema noted Leg (R), no edema noted Pedal (L), no edema noted Pedal (R), no edema noted Generalized Philip Durham M.D. Mar 06, 2018 08:56
--- NOTE | 2018-03-06 11:36 | GI Progress Note ---
Assessment/Plan Problems: (1) GI bleed ICD Codes: K92.2 - Gastrointestinal hemorrhage, unspecified SNOMED: 63551538 Qualifiers: Qualified Codes: K92.2 - Gastrointestinal hemorrhage, unspecified (2) Abdominal pain ICD Codes: R10.9 - Unspecified abdominal pain SNOMED: 48433525 Qualifiers: Qualified Codes: R10.9 - Unspecified abdominal pain (3) GERD (gastroesophageal reflux disease) ICD Codes: K21.9 - Gastro-esophageal reflux disease without esophagitis SNOMED: 146729374 (4) Uncontrolled hypertension ICD Codes: I10 - Essential (primary) hypertension SNOMED: 96592228 (5) Acid reflux ICD Codes: K21.9 - Gastro-esophageal reflux disease without esophagitis SNOMED: 564331760 (6) Leukocytosis ICD Codes: D72.829 - Elevated white blood cell count, unspecified SNOMED: 045642808, 644468924 Status: stable Status Narrative Discussed with Dr. Nobles. Assessment/Plan nausea most likely from hypertensive crisis CT reviewed >> enteritis cdiff negative symptomatic treatment at this time zofran prn, compazine for severe nausea abx prophylaxis per ID bp mgmt PPI cardiac diet fu labs needs repeat GI procedures in 3 years dc planning Subjective Subjective nausea / vomiting resolved Objective Last 24 Hour Vital Signs Date Time Temp Pulse Resp B/P (MAP) Pulse Ox O2 Delivery O2 Flow Rate FiO2 03/06/18 09:39 66 15 Room Air 03/06/18 09:00 Room Air 03/06/18 08:00 98.8 55 18 134/65 (88) 98 98.8 03/06/18 04:00 97.7 58 19 147/72 (97) 97 97.7 03/06/18 00:00 97.3 59 20 126/70 (88) 95 97.3 03/05/18 21:00 Room Air 03/05/18 20:16 63 16 Room Air 03/05/18 20:00 99.9 64 18 139/69 (92) 98 99.9 03/05/18 19:26 96.8 03/05/18 18:56 96.8 03/05/18 16:00 96.8 68 20 132/87 (102) 100 96.8 03/05/18 12:00 98.6 58 20 152/68 (96) 97 98.6 Intake and Output 03/05/18 03/06/18 19:00 07:00 Intake Total 1235.0 ml 350 ml Balance 1235.0 ml 350 ml Intake Oral 480 ml IV Total 755.0 ml 350 ml # Voids 2 3 # Bowel Movements 1 3 Laboratory Tests Test 03/06/18 05:05 White Blood Count 7.0 K/UL (4.8-10.8) Red Blood Count 4.19 M/UL (4.20-5.40) L Hemoglobin 13.9 G/DL (12.0-16.0) Hematocrit 38.4 % (37.0-47.0) Mean Corpuscular Volume 92 FL (80-99) Mean Corpuscular Hemoglobin 33.2 PG (27.0-31.0) H Mean Corpuscular Hemoglobin Concent 36.2 G/DL (32.0-36.0) H Red Cell Distribution Width 11.5 % (11.6-14.8) L Platelet Count 196 K/UL (150-450) Mean Platelet Volume 6.7 FL (6.5-10.1) Neutrophils (%) (Auto) 50.3 % (45.0-75.0) Lymphocytes (%) (Auto) 37.4 % (20.0-45.0) Monocytes (%) (Auto) 10.6 % (1.0-10.0) H Eosinophils (%) (Auto) 0.9 % (0.0-3.0) Basophils (%) (Auto) 0.8 % (0.0-2.0) Sodium Level 139 MMOL/L (136-145) Potassium Level 3.7 MMOL/L (3.5-5.1) Chloride Level 106 MMOL/L (98-107) Carbon Dioxide Level 28 MMOL/L (21-32) Anion Gap 6 mmol/L (5-15) Blood Urea Nitrogen 8 mg/dL (7-18) Creatinine 0.6 MG/DL (0.55-1.30) Estimat Glomerular Filtration Rate > 60 mL/min (>60) Glucose Level 86 MG/DL (74-106) Calcium Level 8.3 MG/DL (8.5-10.1) L Height (Feet): 5 Height (Inches): 4.00 Weight (Pounds): 170 General Appearance: WD/WN, no apparent distress, alert, obese Cardiovascular: normal rate Respiratory/Chest: normal breath sounds, no respiratory distress Abdominal Exam: normal bowel sounds, non tender, soft Extremities: normal range of motion, non-tender Pradip Luque NP Mar 06, 2018 11:36
[2018-03-06 12:00] VITALS: BP 137/65
[2018-03-06] MEDS: Enoxaparin 40mg Inj SUBQ SCH (15:06)
[2018-03-06] MEDS ORDERED: Tubing IV Secondary IV ONE (15:29)
--- NOTE | 2018-03-06 15:57 | General Surgery Progress Note ---
General Surgery-Progress Note Subjective Symptoms: improved, tolerating diet, passing flatus Objective Last 24 Hour Vital Signs Date Time Temp Pulse Resp B/P (MAP) Pulse Ox O2 Delivery O2 Flow Rate FiO2 03/06/18 12:00 98.7 54 16 137/65 (89) 98 98.7 03/06/18 09:39 66 15 Room Air 03/06/18 09:00 Room Air 03/06/18 08:00 98.8 55 18 134/65 (88) 98 98.8 03/06/18 04:00 97.7 58 19 147/72 (97) 97 97.7 03/06/18 00:00 97.3 59 20 126/70 (88) 95 97.3 03/05/18 21:00 Room Air 03/05/18 20:16 63 16 Room Air 03/05/18 20:00 99.9 64 18 139/69 (92) 98 99.9 03/05/18 19:26 96.8 03/05/18 18:56 96.8 03/05/18 16:00 96.8 68 20 132/87 (102) 100 96.8 I&O Intake and Output 03/05/18 03/06/18 19:00 07:00 Intake Total 1235.0 ml 425 ml Balance 1235.0 ml 425 ml Intake Oral 480 ml IV Total 755.0 ml 425 ml # Voids 2 3 # Bowel Movements 1 3 Drains: none Cardiovascular: RSR Respiratory: clear Abdomen: soft, flat, non-tender Extremities: no edema, no tenderness Laboratory Tests Test 03/06/18 05:05 White Blood Count 7.0 K/UL (4.8-10.8) Red Blood Count 4.19 M/UL (4.20-5.40) L Hemoglobin 13.9 G/DL (12.0-16.0) Hematocrit 38.4 % (37.0-47.0) Mean Corpuscular Volume 92 FL (80-99) Mean Corpuscular Hemoglobin 33.2 PG (27.0-31.0) H Mean Corpuscular Hemoglobin Concent 36.2 G/DL (32.0-36.0) H Red Cell Distribution Width 11.5 % (11.6-14.8) L Platelet Count 196 K/UL (150-450) Mean Platelet Volume 6.7 FL (6.5-10.1) Neutrophils (%) (Auto) 50.3 % (45.0-75.0) Lymphocytes (%) (Auto) 37.4 % (20.0-45.0) Monocytes (%) (Auto) 10.6 % (1.0-10.0) H Eosinophils (%) (Auto) 0.9 % (0.0-3.0) Basophils (%) (Auto) 0.8 % (0.0-2.0) Sodium Level 139 MMOL/L (136-145) Potassium Level 3.7 MMOL/L (3.5-5.1) Chloride Level 106 MMOL/L (98-107) Carbon Dioxide Level 28 MMOL/L (21-32) Anion Gap 6 mmol/L (5-15) Blood Urea Nitrogen 8 mg/dL (7-18) Creatinine 0.6 MG/DL (0.55-1.30) Estimat Glomerular Filtration Rate > 60 mL/min (>60) Glucose Level 86 MG/DL (74-106) Calcium Level 8.3 MG/DL (8.5-10.1) L Plan Problems: (1) Abdominal pain Assessment & Plan: 62F with abdominal pain, nausea, emesis, diarrhea and presenting symptoms. afebrile, HD stable, leukocytosis. exam with distention and tenderness but no acute abdomen CT with dilated loops but no definitive obstruction likely enteritis vs early SBO but favoring the former. small umbilical hernia asymptomatic and incidental finding on CT patient has letter from PCP about MRI done prior and needing eval for ramila- aortic inflammation? this was referral to be done as an outpatient and she will need to follow up with PCP for referral to CT Surgeon as outpatient. -diet as tolerated -abx as per ID -okay to d/c from surgical standpoint -will follow with recs. thank you for this consultation Lee Kenny Mar 06, 2018 15:57
--- NOTE | 2018-03-06 16:28 | Infectious Diseases Prog Note ---
Assessment/Plan Problems: (1) Leukocytosis Assessment & Plan: no evidence of sepsis , with negative blood culture, and negative stool for C diff . continue ceftriaxone and metronidazole empirically pending stool culture (2) Colitis with rectal bleeding Assessment & Plan: ischemic bowel VS GI BLD due to diverticulosis , await stool culture, C diff is negative , continue ceftriaxone and metronidazole empirically for now , GI is following (3) Abdominal pain Assessment & Plan: due to the above, continue pain management as per primary Subjective Constitutional: Reports: fatigue HEENT: Reports: no symptoms Respiratory: Reports: no symptoms Breasts: Reports: no symptoms Cardiovascular: Reports: no symptoms Gastrointestinal/Abdominal: Reports: diarrhea, bloating Genitourinary: Reports: no symptoms Neurologic: Reports: no symptoms Psychiatric: Reports: no symptoms Skin: Reports: no symptoms Endocrine: Reports: no symptoms Hematologic: Reports: no symptoms Musculoskeletal: Reports: no symptoms Allergies: Coded Allergies: CODEINE (Verified Adverse Reaction, Intermediate, 05/05/12) N/V Subjective she feels hungry , waiting for the abdominal US to be done , no nausea or vomiting, no fever or chills Objective Vital Signs Last 24 Hour Vital Signs Date Time Temp Pulse Resp B/P (MAP) Pulse Ox O2 Delivery O2 Flow Rate FiO2 03/06/18 12:00 98.7 54 16 137/65 (89) 98 98.7 03/06/18 09:39 66 15 Room Air 03/06/18 09:00 Room Air 03/06/18 08:00 98.8 55 18 134/65 (88) 98 98.8 03/06/18 04:00 97.7 58 19 147/72 (97) 97 97.7 03/06/18 00:00 97.3 59 20 126/70 (88) 95 97.3 03/05/18 21:00 Room Air 03/05/18 20:16 63 16 Room Air 03/05/18 20:00 99.9 64 18 139/69 (92) 98 99.9 03/05/18 19:26 96.8 03/05/18 18:56 96.8 Height (Feet): 5 Height (Inches): 4.00 Weight (Pounds): 170 General Appearance: WD/WN, no acute distress HEENT: normocephalic, atraumatic, anicteric, mucous membranes moist Respiratory/Chest: chest wall non-tender, lungs clear, normal breath sounds, no respiratory distress, no accessory muscle use Cardiovascular: normal peripheral pulses, normal rate, regular rhythm, no gallop/murmur, no JVD Abdomen: normal bowel sounds, soft, non tender, no organomegaly, non distended , no mass, no scars Extremities: no cyanosis, no clubbing Skin: no rash, no lesions, no ulcers Neurologic/Psychiatric: alert, oriented x 3, responsive Lymphatic: no neck adenopathy, no groin adenopathy Musculoskeletal: normal muscle bulk, no effusion Microbiology Date/Time Source Procedure Growth Status 03/04/18 20:45 Stool Stool Culture - Preliminary Resulted 03/04/18 20:45 Stool Clostridium difficile Toxin Assay - Final Complete Laboratory Tests Test 03/06/18 05:05 White Blood Count 7.0 K/UL (4.8-10.8) Red Blood Count 4.19 M/UL (4.20-5.40) L Hemoglobin 13.9 G/DL (12.0-16.0) Hematocrit 38.4 % (37.0-47.0) Mean Corpuscular Volume 92 FL (80-99) Mean Corpuscular Hemoglobin 33.2 PG (27.0-31.0) H Mean Corpuscular Hemoglobin Concent 36.2 G/DL (32.0-36.0) H Red Cell Distribution Width 11.5 % (11.6-14.8) L Platelet Count 196 K/UL (150-450) Mean Platelet Volume 6.7 FL (6.5-10.1) Neutrophils (%) (Auto) 50.3 % (45.0-75.0) Lymphocytes (%) (Auto) 37.4 % (20.0-45.0) Monocytes (%) (Auto) 10.6 % (1.0-10.0) H Eosinophils (%) (Auto) 0.9 % (0.0-3.0) Basophils (%) (Auto) 0.8 % (0.0-2.0) Sodium Level 139 MMOL/L (136-145) Potassium Level 3.7 MMOL/L (3.5-5.1) Chloride Level 106 MMOL/L (98-107) Carbon Dioxide Level 28 MMOL/L (21-32) Anion Gap 6 mmol/L (5-15) Blood Urea Nitrogen 8 mg/dL (7-18) Creatinine 0.6 MG/DL (0.55-1.30) Estimat Glomerular Filtration Rate > 60 mL/min (>60) Glucose Level 86 MG/DL (74-106) Calcium Level 8.3 MG/DL (8.5-10.1) L Current Medications Medications (Trade) Dose Ordered Sig/Angela Route PRN Reason Start Time Stop Time Status Last Admin Dose Admin Acetaminophen (Tylenol) 650 mg Q4H PRN ORAL Mild Pain (Pain Scale 1-3) 03/04/18 14:15 04/02/18 14:14 03/04/18 17:49 Albuterol/ Ipratropium (Albuterol/ Ipratropium) 3 ml Q6HRT PRN HHN Shortness of Breath 03/04/18 14:30 03/09/18 14:29 03/04/18 16:15 Ceftriaxone Sodium 2 gm/ Dextrose 55 ml @ 110 mls/hr Q24H IVPB 03/04/18 17:00 03/10/18 16:59 03/05/18 16:55 Dextrose (Dextrose 50%) 25 ml STAT PRN IV Hypoglycemia 03/04/18 14:15 04/02/18 14:14 Dextrose (Dextrose 50%) 50 ml STAT PRN IV Hypoglycemia 03/04/18 14:15 04/02/18 14:14 Enoxaparin Sodium (Lovenox) 40 mg Q24H SUBQ 03/04/18 15:15 04/02/18 15:14 03/06/18 15:06 Levothyroxine Sodium (Synthroid) 125 mcg DAILY@0630 ORAL 03/05/18 06:30 04/03/18 06:29 03/05/18 05:44 Metronidazole 100 ml @ 100 mls/hr Q8H IVPB 03/04/18 12:00 03/10/18 19:59 03/06/18 11:40 Morphine Sulfate (Morphine Sulfate) 0.5 mg Q6H PRN IVP Moderate Pain (Pain Scale 4-6) 03/04/18 18:15 03/11/18 18:14 03/06/18 01:08 Ondansetron HCl (Zofran) 4 mg Q6H PRN IVP Nausea & Vomiting 03/04/18 15:30 04/02/18 15:29 03/06/18 11:36 Pantoprazole (Protonix) 40 mg DAILY IVP 03/05/18 09:00 04/03/18 08:59 03/06/18 08:30 Prochlorperazine (Compazine) 10 mg Q6H PRN ORAL Severe Nausea or vomiting 03/04/18 15:30 04/02/18 15:29 Sodium Chloride 1,000 ml @ 75 mls/hr [id number] IVLG 03/04/18 12:00 04/02/18 11:59 03/06/18 04:33 Vimal Arias M.D. Mar 06, 2018 16:28
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
--- NOTE | 2018-03-07 13:42 | Discharge Summary ---
Discharge Summary Discharge Summary _ DATE OF ADMISSION: 03/03/2018 DATE OF DISCHARGE: 03/06/2018. Patient signed AGAINST MEDICAL ADVISE REASON FOR ADMISSION: [] 62 years old female presented with the vomiting and diarrhea for several days upon arrival to paramedics she was less responsive she reported passing out just before on the right. She reported passing dark stool no vomiting block no use of alcohol patient off had a prior history of colitis with rectal bleeding. On improved patient developed bronchospasm was treated with the nebulizing treatment is a bronchodilator with bronchodilator on after which she symptomatically improved. On upon evaluation by vital signs reveal hypertension 173/65 no fever pulse oximetry stable. WBC 17. Troponin 0.07. ProBNP 254. Urine toxicology screen negative Chest x-ray revealed no acute cardiopulmonary pathology G reveals sinus regional acute ischemic changes. WBC elevated CMP assessment essentially normal elevated troponin CT of the abdomen and pelvis revealed dilated small bowel without evidence of small bowel obstruction no evidence of surgical pathology patient started on antibiotic patient was given off. Patient may for further management diagnosis of elevated troponin possible non-Stamey bronchospasm abdominal pain syncope GI bleed CONSULTANTS: power system operator dr. Suarez neurologist pulmonary ID specialist Dr. alarcon GI specialist was camille supply manager assistant center director/oncologist surgery after being Volodymyr psychiatrist HOSPITAL COURSE: [] Patient admitted. Patient initially kept nothing by mouth patient started on IV fluids and empiric antibiotics. Cultures were negative stool for C. difficile was negative supportive care provided GI and ID and surgery closely follow. Per surgeon on closely review CT of the abdomen and pelvis indicate indicative of dilated loops but no definite obstruction.. On likely enteritis Surgeon in therapeutic early small bowel obstruction small umbilical hernia with a symptomatic incidental finding on the CT 10. On surgeon recommended start diet as tolerated and advance continue antibiotic and if tolerate diet proceed with the discharge. ID specialist follow. Patient had leukocytosis which resolved but no evidence of sepsis. Blood culture negative on antibiotics were continued.. On pain management provided provided on Patient noted to have elevated troponin. Cardiology consult was requested. EKG revealed no acute ischemic changes. According to power system operator he recommended outpatient stress test for evaluation in [facility] outpatient. No need for cardiac catheterization. On renal parameters electrolytes were closely monitored electrolytes were corrected as needed nephrotoxins were avoided on DVT prophylaxis with Lovenox continued elevated troponin was on possibly due to costochondral chest pain possibly non-Stamey type II due to demand on patient apparently had aortic abdominal aneurysm and noted abdominal ultrasound to evaluate the size however patient didn't want any didn't want to wait for about ultrasound to be done and wanted to sign again medical advice the Sylvia came to picking belt operator the patient's recent consequences of signing the eighth medical advice were discussed with the patient and her daughter be both verbalized understanding and patient signed the consent. Supplemental oxygen pulmonary toilet was on board as needed. Pulse oximetry stable in room air on no further episodes of bronchospasm chest x-ray as mentioned above revealed no acute cardiopulmonary pathology On TSH was within normal limits current dose of levothyroxine was continued. FINAL DIAGNOSES: 1. ID specialist follow. Abdominal pain Enteritis Diarrhea secondary to enteritis GI bleeding Hypertension uncontrolled Hypokalemia Elevated troponin There GERD Hypothyroidism Elevated troponin possible non-Stamey: No chest pain DISCHARGE MEDICATIONS: See Medication Reconciliation list. DISCHARGE INSTRUCTIONS: [] I have been assigned to dictate discharge summary for this account. I was not involved in the patient's management. Carmita Smith NP Mar 07, 2018 13:42
== END 2018-03-06 15:30 | disposition left against medical advice (07) | DRG 253 ==
LOC: EDBD 10:05 → EMR 10:28 → 2W 10:56 → EDBEDREQ 11:25 → EDBEDREQSVC 11:25 → EDBEDREQ 12:26 → 2W 16:00 → 4E 03-04 11:44
DX: K92.2 Gastrointestinal hemorrhage, unspecified (principal); I21.4 Non-ST elevation (NSTEMI) myocardial infarction; E87.6 Hypokalemia; I10 Essential (primary) hypertension; K52.9 Noninfective gastroenteritis and colitis, unspecified; K21.9 Gastro-esophageal reflux disease without esophagitis; E03.9 Hypothyroidism, unspecified; Z88.6 Allergy status to analgesic agent; K44.9 Diaphragmatic hernia without obstruction or gangrene; I25.10 Atherosclerotic heart disease of native coronary artery without angina pectoris; J44.9 Chronic obstructive pulmonary disease, unspecified
CPT/HCPCS: 36415; 71045; 74177; 80048; 80053; 80307; 80329; 81003; 82248; 82550; 83690; 83880; 84443; 84484; 85007; 85025; 85610; 85730; 86850; 86900; 86901; 87040; 87045; 87324; 93005; 94640; 94664; 99285; J2405; J2765; J7620; J8499

== ENCOUNTER 2018-06-04 09:40 | Emergency (ER) | payer MEDICAID ==
[~2018-06-04] VITALS: Ht 165.1 cm; Wt 63.5 kg
[2018-06-04 09:50] VITALS: BP 136/77
--- NOTE | 2018-06-04 09:55 | Emergency Room Report ---
History of Present Illness General Chief Complaint: Eye Problems Source: Patient Present Illness HPI Patient is a 62-year-old female presented after increased right eye and facial discomfort. Patient had the flu shot the given yesterday. The patient had prior history of asthma. She reports having increased right-sided facial swelling. She noticed increased swelling to her right eyelid. She denies any fever. She had not been vomiting. She reports having increased blurred vision. Patient was noted be asthmatic. She denies any difficulty breathing. Allergies: Coded Allergies: CODEINE (Verified Adverse Reaction, Intermediate, 05/05/12) N/V Patient History Past Medical History: see triage record Now: No Reviewed Nursing Documentation: PMH: Agreed; PSxH: Agreed Nursing Documentation-PMH Hx Cardiac Problems: No Hx Hypertension: No Hx Pacemaker: No Hx Asthma: Yes Hx COPD: Yes Hx Diabetes: No Hx Cancer: No Hx Gastrointestinal Problems: Yes Hx Dialysis: No Hx Neurological Problems: No Hx Cerebrovascular Accident: No Hx Seizures: No Review of Systems All Other Systems: negative except mentioned in HPI Physical Exam Vital Signs Date Time Temp Pulse Resp B/P (MAP) Pulse Ox O2 Delivery O2 Flow Rate FiO2 06/04/18 09:43 99.1 67 18 136/77 96 Room Air 99.1 General Appearance: well appearing, no apparent distress, alert, GCS 15, non- toxic Head: normocephalic, atraumatic Eyes: bilateral eye PERRL ENT: hearing grossly normal, normal voice Neck: full range of motion, supple Respiratory: chest non-tender, lungs clear, no respiratory distress, speaking full sentences Cardiovascular #1: normal inspection, regular rate, rhythm, no edema, no gallop Gastrointestinal: normal inspection Musculoskeletal: normal inspection, no calf tenderness Neurologic: normal inspection, alert, oriented x3, responsive, normal gait Psychiatric: normal inspection, mood/affect normal Skin: no rash Medical Decision Making Diagnostic Impression: Primary Impression: Allergic reaction Additional Impression: Facial edema ER Course Patient was sent for right eye swelling. Differential diagnosis included was not limited to conjunctivitis, foreign body, stye, allergic reaction and among others. The patient has what appears to be some mild dependent edema to her facial area. The patient states that she sleeps with [id number]. The left side of the face appears normal.The patient had no evidence of fluorescein dye uptake.The patient is advised to follow up with ophthalmology in 1-2 days. Patient is advised to return if any worsening condition or if any changes in status that are concerning. This report is dictated with [employer] progressive care unit registered nurse software which may occasionally lead to discrepancies related to use of this software. Last Vital Signs Date Time Temp Pulse Resp B/P (MAP) Pulse Ox O2 Delivery O2 Flow Rate FiO2 06/04/18 09:50 99.1 81 18 136/77 96 Room Air 99.1 Status: improved Disposition: HOME, SELF-CARE Condition: Stable Scripts Diphenhydramine Hcl* (BENADRYL*) 25 Mg Capsule 25 MG ORAL Q6H PRN for Itching, #20 CAP Prov: Kyle Epperson MD 06/04/18 Olopatadine HCl (Olopatadine HCl) 5 Ml Drops 5 ML OP DAILY, #5 ML Prov: Kyle Epperson MD 06/04/18 Referrals: [facility],REFERRING (PCP) Kyle Epperson MD Jun 04, 2018 09:55
[2018-06-04] MEDS ORDERED: Tetracaine 0.5% Opth 4ml Soln RIGHT EYE ONE (10:00)
[2018-06-04] MEDS ORDERED: Fluorescein Strips RIGHT EYE ONE (10:00)
[2018-06-04] MEDS ORDERED: BENADRYL25 MG ORAL (10:05)
[2018-06-04] MEDS ORDERED: OLOPATADINE HCL5 ML OP (10:05)
[2018-06-04 10:08] VITALS: BP 136/77
== END 2018-06-04 10:09 | disposition home or self-care (01) ==
LOC: EMR 09:52
DX: T78.40XA Allergy, unspecified, initial encounter (principal); X58.XXXA Exposure to other specified factors, initial encounter; R60.0 Localized edema; J44.9 Chronic obstructive pulmonary disease, unspecified; Z88.5 Allergy status to narcotic agent
CPT/HCPCS: 99283

== ENCOUNTER 2018-07-15 17:44 | Emergency (ER) | payer MEDICAID ==
[~2018-07-15] VITALS: Ht 165.1 cm; Wt 63.5 kg
[~2018-07-15 17:44] MED LIST changes: +BENADRYL25 MG ORAL; +OLOPATADINE HCL5 ML OP
[2018-07-15 18:11] VITALS: BP 146/85
--- NOTE | 2018-07-15 18:13 | Emergency Room Report ---
History of Present Illness General Chief Complaint: Shoulder Injury Source: Patient Present Illness HPI Patient reports with complaints of pain to her left shoulder and right knee Reports the last night after getting out of the passenger side of her car Patient tripped over a curb, reports that there is some unevenness in the area Falling to the ground and also putting her left arm out Patient has increased pain with trying to move the left shoulder Also localized to the right knee when trying to walk Denies any lapse of consciousness denies any facial injury Allergies: Coded Allergies: CODEINE (Verified Adverse Reaction, Intermediate, 05/05/12) N/V Patient History Past Medical History: see triage record Pertinent Family History: none Last Menstrual Period: 5 years ago. Now: No Reviewed Nursing Documentation: PMH: Agreed; PSxH: Agreed Nursing Documentation-PMH Hx Cardiac Problems: No Hx Hypertension: No Hx Pacemaker: No Hx Asthma: Yes Hx COPD: Yes Hx Diabetes: No Hx Cancer: No Hx Gastrointestinal Problems: Yes Hx Dialysis: No Hx Neurological Problems: Yes - thyroid problem Hx Cerebrovascular Accident: No Hx Seizures: No Review of Systems All Other Systems: negative except mentioned in HPI Physical Exam Vital Signs Date Time Temp Pulse Resp B/P (MAP) Pulse Ox O2 Delivery O2 Flow Rate FiO2 07/15/18 17:57 98.4 71 18 166/74 97 Room Air Sp02 EP Interpretation: reviewed, normal General Appearance: well appearing Head: normocephalic, atraumatic Eyes: bilateral eye PERRL, bilateral eye EOMI ENT: hearing grossly normal, normal pharynx Neck: full range of motion, supple Respiratory: lungs clear, normal breath sounds Cardiovascular #1: regular rate, rhythm Gastrointestinal: non tender, soft Musculoskeletal: other - Tender with any touch of the left shoulder, no edema or ecchymosis, also tender on the right knee, discomfort is out of proportion to the exam, there is no evidence of ecchymosis or bruising or abrasion Neurologic: alert, oriented x3, responsive Skin: normal color, no rash Lymphatic: no adenopathy Medical Decision Making Diagnostic Impression: Primary Impression: Shoulder injury Additional Impressions: Shoulder sprain Knee contusion ER Course Given the patient's history and presentation Multiple imaging studies are obtained Patient's shoulder x-ray did not show any acute disease Knee x-ray revealed a small artifact just above the patella However review with x-ray from May reveal similar finding Patient was provided with a sling for her left arm And is stable for close outpatient follow-up Other X-Ray Diagnostic Results Other X-Ray Diagnostic Results #1: X-Ray ordered: Left shoulder # of Views/Limited Vs Complete: 3 View Indication: Pain EP Interpretation: Yes Interpretation: no dislocation, no soft tissue swelling, no fractures Impression: No acute disease Electronically Signed by: Esteban Thayer DO Other X-Ray Diagnostic Results #2: X-Ray ordered: Right knee # of Views/Limited Vs Complete: 3 View Indication: Pain EP Interpretation: Yes Interpretation: no dislocation, no soft tissue swelling, no fractures, other - Small area above patella, question avulsion, however similar to previous Impression: No acute disease Electronically Signed by: Esteban Thayer DO Last Vital Signs Date Time Temp Pulse Resp B/P (MAP) Pulse Ox O2 Delivery O2 Flow Rate FiO2 07/15/18 17:57 98.4 71 18 166/74 97 Room Air Status: improved Disposition: HOME, SELF-CARE Condition: Improved Scripts Methocarbamol* (ROBAXIN-750*) 750 Mg Tablet 750 MG PO TID, #21 TAB 0 Refills Prov: Esteban Thayer DO 07/15/18 Ibuprofen* (MOTRIN*) 600 Mg Tablet 600 MG ORAL Q8H PRN for For Pain, #20 TAB 0 Refills Prov: Esteban Thayer DO 07/15/18 Referrals: Balaji Box MD (PCP) Additional Instructions: Patient is provided with the discharge instructions notified to follow up with primary doctor in the next 2-3 days otherwise return to the er with any worsening symptoms. Please note that this report is being documented using [employer] technology. This can lead to erroneous entry secondary to incorrect interpretation by the dictating instrument. Esteban Thayer DO Jul 15, 2018 18:13
[2018-07-15] MEDS ORDERED: Ketorolac 60mg Inj IM ONE (18:15)
--- NOTE | 2018-07-15 18:49 | Diagnostic Imaging Report ---
EXAM: XR Left Shoulder Complete, 2 or More Views CLINICAL HISTORY: TRAUMA TECHNIQUE: Two or more views of the left shoulder. COMPARISON: No relevant prior studies available. FINDINGS: Bones/joints: No acute displaced fracture or dislocation. Rotator cuff repair chronic postop changes. Soft tissues: Unremarkable. IMPRESSION: No acute displaced fracture or dislocation.
--- NOTE | 2018-07-15 18:52 | Diagnostic Imaging Report ---
EXAM: XR Right Knee, 3 views CLINICAL HISTORY: TRAUMA TECHNIQUE: Three views of the right knee. COMPARISON: No relevant prior studies available. FINDINGS: Bones/joints: Tiny density projected superior to the patella seen on lateral view likely chronic or artifactual. Cannot entirely exclude quadriceps tendon small avulsion fracture. No acute dislocation. No significant joint effusion. Soft tissues: Unremarkable. IMPRESSION: Tiny density projected superior to the patella seen on lateral view likely chronic or artifactual. Cannot entirely exclude quadriceps tendon small avulsion fracture.
[2018-07-15] MEDS ORDERED: ROBAXIN-750750 MG PO (19:12)
[2018-07-15] MEDS ORDERED: IBUPROFEN600 MG ORAL (19:12)
[2018-07-15 19:38] VITALS: BP 146/85
== END 2018-07-15 19:39 | disposition home or self-care (01) ==
LOC: EMR 18:03
DX: S43.402A Unspecified sprain of left shoulder joint, initial encounter (principal); S80.01XA Contusion of right knee, initial encounter; W01.0XXA Fall on same level from slipping, tripping and stumbling without subsequent striking against object, initial encounter; Y92.480 Sidewalk as the place of occurrence of the external cause; J44.9 Chronic obstructive pulmonary disease, unspecified; Z88.5 Allergy status to narcotic agent
CPT/HCPCS: 96372; 99284

== ENCOUNTER 2018-07-19 13:49 | Inpatient (IN) | payer MEDICAID ==
[~2018-07-19] VITALS: Ht 165.1 cm; Wt 63.5 kg
[~2018-07-19 13:49] MED LIST changes: +ROBAXIN-750750 MG PO
[2018-07-19 14:00] VITALS: BP 183/67
[2018-07-19] MEDS ORDERED: Morphine Sulfate 4mg/ml Inj (IV/IM USE ONLY) IVP ONE (14:15)
--- NOTE | 2018-07-19 14:18 | Emergency Room Report ---
History of Present Illness General Chief Complaint: Abdominal Pain Source: Patient Present Illness HPI Patient has a history of hernia repair. Patient also has history of hypothyroidism. Patient states that she strained herself when she fell couple days ago and since then has had abdominal pain. The pain is worse in the epigastrium. Patient complains of intermittent vomiting. She states her abdomen is getting more distended. She is complaining of abdominal pain. She states that she had a bowel movement yesterday but was fairly difficult and very hard. Patient states that she is not sure if she stopped passing flatus. Patient has any fever. No other complaints are noted. Symptoms noted to be moderate to severe. No other modifying factors. No other associated signs and symptoms. No other complaints were noted. Allergies: Coded Allergies: CODEINE (Verified Adverse Reaction, Intermediate, 05/05/12) N/V Patient History Past Medical History: asthma, COPD, other - Hypothyroidism Past Surgical History: other - Hernia repair Social History: Reports: smoking Now: No Reviewed Nursing Documentation: PMH: Agreed; PSxH: Agreed Nursing Documentation-PMH Hx Cardiac Problems: No Hx Hypertension: No Hx Pacemaker: No Hx Asthma: Yes Hx COPD: Yes Hx Diabetes: No Hx Cancer: No Hx Gastrointestinal Problems: Yes - hernia Hx Dialysis: No Hx Neurological Problems: Yes - thyroid problem Hx Cerebrovascular Accident: No Hx Seizures: No Review of Systems All Other Systems: negative except mentioned in HPI Physical Exam Vital Signs Date Time Temp Pulse Resp B/P (MAP) Pulse Ox O2 Delivery O2 Flow Rate FiO2 07/19/18 13:51 98.4 73 22 172/68 96 Room Air Sp02 EP Interpretation: reviewed, normal General Appearance: alert, mild distress Head: atraumatic Eyes: bilateral eye normal inspection ENT: normal ENT inspection, hearing grossly normal, normal voice Neck: normal inspection, full range of motion, supple, no bony tend Respiratory: normal inspection, lungs clear, normal breath sounds, no respiratory distress, no retraction, no wheezing Cardiovascular #1: regular rate, rhythm, no edema Gastrointestinal: soft, tenderness - Mildly to palpation Genitourinary: no CVA tenderness Musculoskeletal: normal inspection, back normal, normal range of motion Neurologic: normal inspection, alert, responsive, speech normal Psychiatric: normal inspection, judgement/insight normal, anxious Skin: normal inspection, normal color, no rash Medical Decision Making Diagnostic Impression: Primary Impression: Abdominal pain Additional Impressions: Vomiting Dehydration Constipation Fecal impaction ER Course Patient presents to the emergency department today complaining of abdominal pain. Differential considerations include acute pancreatitis, cholecystitis, gastritis, hepatitis, appendicitis just to name a few. Given the severity of the patient's presentation I felt this is a highly complex patient. This patient required extensive workup. Patient laboratory workup was not impressive. However severe he patient's abdominal pain x-ray results suggest and severe constipation I felt the patient require admission to the hospital further treatment. Patient needed to also be rule out for bowel obstruction. Case was discussed with Dr. Durham. Patient will be admitted to [facility] further treatment. Labs Test 07/19/18 14:00 07/19/18 14:23 Urine Color Pale yellow Urine Appearance Clear Urine pH 8 (4.5-8.0) Urine Specific Sandwich 1.010 (1.005-1.035) Urine Protein Negative (NEGATIVE) Urine Glucose (UA) Negative (NEGATIVE) Urine Ketones Negative (NEGATIVE) Urine Blood 4+ (NEGATIVE) Urine Nitrite Negative (NEGATIVE) Urine Bilirubin Negative (NEGATIVE) Urine Urobilinogen Normal MG/DL (0.0-1.0) Urine Leukocyte Esterase 1+ (NEGATIVE) Urine RBC 10-15 /HPF (0 - 2) Urine WBC 2-4 /HPF (0 - 2) Urine Squamous Epithelial Cells Occasional /LPF Urine Bacteria Occasional /HPF (NONE) White Blood Count 8.3 K/UL (4.8-10.8) Red Blood Count 4.59 M/UL (4.20-5.40) Hemoglobin 14.1 G/DL (12.0-16.0) Hematocrit 41.4 % (37.0-47.0) Mean Corpuscular Volume 90 FL (80-99) Mean Corpuscular Hemoglobin 30.8 PG (27.0-31.0) Mean Corpuscular Hemoglobin Concent 34.1 G/DL (32.0-36.0) Red Cell Distribution Width 11.5 % (11.6-14.8) Platelet Count 222 K/UL (150-450) Mean Platelet Volume 6.9 FL (6.5-10.1) Neutrophils (%) (Auto) 47.3 % (45.0-75.0) Lymphocytes (%) (Auto) 42.7 % (20.0-45.0) Monocytes (%) (Auto) 7.0 % (1.0-10.0) Eosinophils (%) (Auto) 1.8 % (0.0-3.0) Basophils (%) (Auto) 1.2 % (0.0-2.0) Prothrombin Time 10.0 SEC (9.30-11.50) Prothromb Time International Ratio 0.9 (0.9-1.1) Activated Partial Thromboplast Time 27 SEC (23-33) Sodium Level 143 MMOL/L (136-145) Potassium Level 3.4 MMOL/L (3.5-5.1) Chloride Level 103 MMOL/L (98-107) Carbon Dioxide Level 30 MMOL/L (21-32) Anion Gap 10 mmol/L (5-15) Blood Urea Nitrogen 13 mg/dL (7-18) Creatinine 0.7 MG/DL (0.55-1.30) Estimat Glomerular Filtration Rate > 60 mL/min (>60) Glucose Level 105 MG/DL (74-106) Calcium Level 8.9 MG/DL (8.5-10.1) Total Bilirubin 0.8 MG/DL (0.2-1.0) Aspartate Amino Transf (AST/SGOT) 19 U/L (15-37) Alanine Aminotransferase (ALT/SGPT) 23 U/L (12-78) Alkaline Phosphatase 93 U/L (46-116) Troponin I 0.000 ng/mL (0.000-0.056) Total Protein 7.9 G/DL (6.4-8.2) Albumin 3.7 G/DL (3.4-5.0) Globulin 4.2 g/dL Albumin/Globulin Ratio 0.9 (1.0-2.7) Lipase 119 U/L (73-393) EKG Diagnostic Results Rate: normal Rhythm: NSR ST Segments: no acute changes Rhythm Strip Diag. Results EP Interpretation: yes Rate: 68 Rhythm: NSR, no PVC's, no ectopy Last Vital Signs Date Time Temp Pulse Resp B/P (MAP) Pulse Ox O2 Delivery O2 Flow Rate FiO2 07/19/18 13:51 98.4 73 22 172/68 96 Room Air Status: improved Disposition: ADMITTED INPATIENT Condition: Serious Referrals: Balaji Box MD (PCP) Marcelino Cancino MD Jul 19, 2018 14:18
[2018-07-19 14:34] LABS: APPEARANCE,URINE CLEAR; BILIRUBIN, URINE NEGATIVE (NEGATIVE); COLOR,URINE PALE YELLOW; GLUCOSE, URINE (UA) NEGATIVE (NEGATIVE); KETONES,URINE NEGATIVE (NEGATIVE); LEUKOCYTE ESTERASE ,URINE 1+ (NEGATIVE); NITRITE,URINE NEGATIVE (NEGATIVE); PH,URINE 8 (4.5-8.0); PROTEIN,URINE NEGATIVE (NEGATIVE); UROBILINOGEN,URINE NORMAL MG/DL (0.0-1.0)
[2018-07-19 14:35] LABS: BASOPHILS % (AUTO) 1.2 % (0.0-2.0); EOSINOPHILS % (AUTO) 1.8 % (0.0-3.0); HEMATOCRIT 41.4 % (37.0-47.0); HEMOGLOBIN 14.1 G/DL (12.0-16.0); LYMPHOCYTES % (AUTO) 42.7 % (20.0-45.0); MEAN CORPUSCULAR VOLUME 90 FL (80-99); NEUTROPHILS % (AUTO) 47.3 % (45.0-75.0); PLATELET COUNT 222 K/UL (150-450); RED BLOOD COUNT 4.59 M/UL (4.20-5.40); RED CELL DISTRIBUTION WIDTH 11.5 % (11.6-14.8); WHITE BLOOD COUNT 8.3 K/UL (4.8-10.8)
[2018-07-19 14:44] LABS: ANION GAP 10 mmol/L (5-15); BLOOD UREA NITROGEN 13 mg/dL (7-18); CALCIUM 8.9 MG/DL (8.5-10.1); CARBON DIOXIDE 30 MMOL/L (21-32); CHLORIDE 103 MMOL/L (98-107); CREATININE 0.7 MG/DL (0.55-1.30); POTASSIUM 3.4 MMOL/L (3.5-5.1); SODIUM 143 MMOL/L (136-145)
[2018-07-19 14:45] LABS: INR 0.9 (0.9-1.1)
[2018-07-19 14:48] LABS: ALANINE AMINOTRANSFERASE 23 U/L (12-78); ALBUMIN 3.7 G/DL (3.4-5.0); ALBUMIN/GLOBULIN RATIO 0.9 (1.0-2.7); ALKALINE PHOSPHATASE 93 U/L (46-116); ASPARTATE AMINO TRANSFERASE 19 U/L (15-37); BILIRUBIN,TOTAL 0.8 MG/DL (0.2-1.0)
[2018-07-19 15:00] VITALS: BP 182/73
--- NOTE | 2018-07-19 15:51 | Diagnostic Imaging Report ---
Indication: Abdominal pain Comparison: None Single view of the abdomen obtained Findings: Bowel gas pattern is nonspecific. No mass, ectopic calcifications, or abnormal gas collections are identified. The bones are unremarkable. Cholecystectomy clips noted. Osteopenia noted. Degenerative changes imaging of the lower lumbar spine. Impression: No acute findings
[2018-07-19 16:00] VITALS: BP 151/68
[2018-07-19 17:00] VITALS: BP 136/64
[2018-07-19] MEDS ORDERED: Enoxaparin 40mg Inj SUBQ SCH (18:00)
[2018-07-19 20:00] VITALS: BP 125/67
[2018-07-19] MEDS: Docusate 100mg cap ORAL SCH (21:04)
--- NOTE | 2018-07-19 22:15 | History and Physical Report ---
DATE OF ADMISSION: 07/19/2018 REASON FOR ADMISSION: Abdominal pain. HISTORY OF PRESENT ILLNESS: The patient is a 63-year-old female who presented to the emergency room for evaluation and care of chronic abdominal pain. The patient states she has been having this pain for approximately one month. However, the last week, it has progressively got worse and worse. The patient has felt slightly nauseous. No diarrhea. The patient did have bowel movement yesterday; however, she said having her bowel movement was very difficult at that time. She also did have a hernia repair in the past and was being treated for hypothyroidism. No current chest pain or shortness of breath. ALLERGIES: Allergies to Codeine. PAST MEDICAL HISTORY: 1. Asthma. 2. COPD. 3. Hypothyroidism. PAST SURGICAL HISTORY: Hernia repair. SOCIAL HISTORY: Positive for tobacco. No alcohol or illicit drug use. FAMILY HISTORY: Positive for hypertension. REVIEW OF SYSTEMS: NEUROLOGIC: The patient denies headache, change in vision, syncope, or presyncopal episodes. CARDIOVASCULAR: No current chest pain, palpitations, or angina. PULMONARY: No difficulty breathing, cough, or sputum. GASTROINTESTINAL/GENITOURINARY: The patient complaining of nausea and difficulty defecating. MUSCULOSKELETAL: The patient feeling weak, tired, and fatigued. PSYCHIATRIC: No suicidal ideation and depression. LABORATORY DATA: Labs dated 07/19/2018, sodium 143, potassium 3.4, chloride 103, creatinine 0.7, and BUN 13. AST and ALT 23 and 19 respectively. Lipase 119. Hemoglobin 14.1, white cell count 8.3, and platelet count 222,000. PHYSICAL EXAMINATION: VITAL SIGNS: Blood pressure 183/67, pulse oximetry 96% on room air, pulse 75, and temperature 98.5. GENERAL: The patient is awake and alert, in no overt distress. HEENT: Extraocular muscles intact. No lymphadenopathy noted. CARDIOVASCULAR: S1 and S2. No rubs or gallops. PULMONARY: Clear to auscultation bilaterally. No rales, rhonchi, or wheeze. ABDOMEN: Soft and nontender. EXTREMITIES: No edema noted. ASSESSMENT AND PLAN: 1. Abdominal pain. At this time, no overt pathology identified. CT scan of the abdomen and pelvis pending. The patient is having difficulty defecating. Could be due to fecal impaction. We will check a TSH level as well. Gastroenterology and General Surgery have been consulted. 2. Hypothyroidism. Continue Synthroid and check TSH levels. 3. DVT prophylaxis with heparin subcutaneous. 4. Dehydration. We will initiate IV fluids. Philip Durham MD DR: ALVIN JOB#: [id number] CC: [email or web address]
[2018-07-20] VITALS: BP 133/62
[2018-07-20 04:00] VITALS: BP 131/52
[2018-07-20] MEDS ORDERED: Levothyroxine 125mcg tab ORAL SCH (06:30)
[2018-07-20 07:27] LABS: ANION GAP 8 mmol/L (5-15); BLOOD UREA NITROGEN 10 mg/dL (7-18); CALCIUM 8.7 MG/DL (8.5-10.1); CARBON DIOXIDE 27 MMOL/L (21-32); CHLORIDE 106 MMOL/L (98-107); CREATININE 0.6 MG/DL (0.55-1.30); POTASSIUM 3.8 MMOL/L (3.5-5.1); SODIUM 141 MMOL/L (136-145)
[2018-07-20 08:00] VITALS: BP 124/65
[2018-07-20] MEDS: Docusate 100mg cap ORAL SCH (08:31)
--- NOTE | 2018-07-20 08:48 | Nephrology Progress Note ---
Assessment/Plan Assessment/Plan A/P 1) Abd Pain- CT ABD complete awaiting results - GI and Gen Surg to evaluate - poss narcotic seeking behaviour 2) Hypothyroid- synthroid 3) DVT prophylaxsis- lovenox Subjective Date patient seen: Jul 20, 2018 Time patient seen: 08:46 ROS Limited/Unobtainable: No Gastrointestinal/Abdominal: Reports: abdominal pain Allergies: Coded Allergies: CODEINE (Verified Adverse Reaction, Intermediate, 05/05/12) N/V Subjective Patient c/o abd pain constant Objective Last 24 Hour Vital Signs Date Time Temp Pulse Resp B/P (MAP) Pulse Ox O2 Delivery O2 Flow Rate FiO2 07/20/18 08:00 97.9 65 20 124/65 (84) 98 07/20/18 04:00 98.0 63 20 131/52 (78) 95 07/20/18 00:00 97.9 60 20 133/62 (85) 94 07/19/18 21:00 Room Air 07/19/18 20:00 98.2 73 20 125/67 (86) 96 07/19/18 17:30 98.7 64 17 136/64 98 Room Air 07/19/18 17:30 Room Air 07/19/18 17:00 98.7 64 17 136/64 98 Room Air 07/19/18 16:00 98.7 63 16 151/68 98 Room Air 07/19/18 15:00 98.6 65 15 182/73 99 Room Air 07/19/18 14:00 98.5 75 18 183/67 96 Room Air 07/19/18 14:00 75 18 Room Air 07/19/18 13:51 98.4 73 22 172/68 96 Room Air Intake and Output 07/19/18 07/20/18 19:00 07:00 Intake Total 1000 ml 50 ml Balance 1000 ml 50 ml Intake IV Total 1000 ml 50 ml # Voids 1 # Bowel Movements 1 Laboratory Tests 07/19/18 14:00: Urine Color Pale yellow, Urine Appearance Clear, Urine pH 8, Urine Specific [place] 1.010, Urine Protein Negative, Urine Glucose (UA) Negative, Urine Ketones Negative, Urine Blood 4+H, Urine Nitrite Negative, Urine Bilirubin Negative, Urine Urobilinogen Normal, Urine Leukocyte Esterase 1+H, Urine RBC 10- 15H, Urine WBC 2-4, Urine Squamous Epithelial Cells Occasional, Urine Bacteria Occasional 07/19/18 14:23: White Blood Count 8.3, Red Blood Count 4.59, Hemoglobin 14.1, Hematocrit 41.4, Mean Corpuscular Volume 90, Mean Corpuscular Hemoglobin 30.8, Mean Corpuscular Hemoglobin Concent 34.1, Red Cell Distribution Width 11.5L, Platelet Count 222, Mean Platelet Volume 6.9, Neutrophils (%) (Auto) 47.3, Lymphocytes (%) (Auto) 42.7, Monocytes (%) (Auto) 7.0, Eosinophils (%) (Auto) 1.8, Basophils (%) (Auto ) 1.2, Prothrombin Time 10.0, Prothromb Time International Ratio 0.9, Activated Partial Thromboplast Time 27, Sodium Level 143, Potassium Level 3.4L, Chloride Level 103, Carbon Dioxide Level 30, Anion Gap 10, Blood Urea Nitrogen 13, Creatinine 0.7, Estimat Glomerular Filtration Rate > 60, Glucose Level 105, Calcium Level 8.9, Total Bilirubin 0.8, Aspartate Amino Transf (AST/SGOT) 19, Alanine Aminotransferase (ALT/SGPT) 23, Alkaline Phosphatase 93, Troponin I 0.000, Total Protein 7.9, Albumin 3.7, Globulin 4.2, Albumin/Globulin Ratio 0.9L , Lipase 119, Thyroid Stimulating Hormone (TSH) 2.887 07/20/18 04:15: Urine Opiates Screen Negative, Urine Barbiturates Screen Negative, Phencyclidine (PCP) Screen Negative, Urine Amphetamines Screen Negative, Urine Benzodiazepines Screen Negative, Urine Cocaine Screen Negative, Urine Marijuana (THC) Screen Negative 07/20/18 06:47: Sodium Level 141, Potassium Level 3.8, Chloride Level 106, Carbon Dioxide Level 27, Anion Gap 8, Blood Urea Nitrogen 10, Creatinine 0.6, Estimat Glomerular Filtration Rate > 60, Glucose Level 85, Calcium Level 8.7 Height (Feet): 5 Height (Inches): 5.00 Weight (Pounds): 140 General Appearance: no apparent distress, alert EENT: normal ENT inspection Neck: normal alignment, supple Cardiovascular: normal rate, regular rhythm Respiratory/Chest: lungs clear, normal breath sounds Abdomen: normal bowel sounds, non tender, soft Edema: no edema noted Arm (L), no edema noted Arm (R), no edema noted Leg (L), no edema noted Leg (R), no edema noted Pedal (L), no edema noted Pedal (R), no edema noted Generalized Philip Durham MD Jul 20, 2018 08:48
--- NOTE | 2018-07-20 09:50 | Diagnostic Imaging Report ---
Indication: Abdominal pain x3 weeks Technique: Spiral acquisitions obtained through the abdomen and pelvis. No oral contrast utilized, per emergency room physician request No IV contrast utilized, per referring physician request.. Multiplanar reconstructions were generated. Total dose length product 714.19 mGycm. CTDIvol(s) 13.88 mGy. Dose reduction achieved using automated exposure control Comparison: 03/03/2018 Findings: There is fairly extensive colonic diverticulosis again demonstrated. No findings to suggest acute diverticulitis are evident. The appendix is not visualized. No small bowel distention. Previously demonstrated small bowel fluid and small bowel wall thickening and perienteric fat stranding are no longer evident psoas: Small bowel is now normal in appearance and caliber. The distal esophagus, stomach, duodenum are unremarkable. No free or loculated intraperitoneal gas or fluid is evident. The gallbladder is surgically absent. Lack of IV contrast limits assessment of the solid organs. The liver, bile ducts, pancreas, spleen, adrenals, kidneys are unremarkable. Previously demonstrated subcentimeter low-attenuation renal lesions are not evident currently given the absence of IV contrast. The uterus is absent, presumably postsurgically. No pelvic mass or adenopathy demonstrated. No retroperitoneal or mesenteric mass or adenopathy. The included lung bases demonstrate some scarring in the inferior lingula. Some subpleural opacities on the right are probably postinflammatory, some possibly calcified. There are dependent posterior atelectatic changes, left greater than right. The bones are unremarkable. Gas bubbles are seen in the right abdominal wall anteriorly, consistent with prior subcutaneous injections. Impression: No acute abnormality Colonic diverticulosis. No evidence of diverticulitis Evidence of prior hysterectomy and cholecystectomy Atelectasis and presumed postinflammatory changes at the lung bases Anterior abdominal wall gas bubbles, presumably on the basis of recent subcutaneous injections This agrees with the preliminary interpretation provided overnight by Dr. Powell The CT scanner at [facility] is accredited by the [employer] and the scans are performed using protocols designed to limit radiation exposure to as low as reasonably achievable to attain images of sufficient resolution adequate for diagnostic evaluation.
[2018-07-20 12:00] VITALS: BP 138/71
[2018-07-20] MEDS ORDERED: Magnesium Citrate Liq Btl ORAL SCH (16:00)
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
--- NOTE | 2018-07-21 03:30 | Consultation ---
DATE OF CONSULTATION: 07/19/2018 NOTE: POOR AUDIO GASTROENTEROLOGY CONSULTATION CHIEF COMPLAINT: I was asked to see this patient by Dr. Philip Durham for evaluation of abdominal pain. HISTORY OF PRESENT ILLNESS: The patient is a pleasant 63-year-old woman who complained of several months of abdominal pain. The patient had a colonoscopy in 2017 at the outside hospital showing polyps and diverticulosis, but otherwise study. The patient also had a CT imaging today, which did not show any evidence of diverticulitis, but did show . The CBC did not show an elevated white count. Her bowel movements are somewhat on the constipated side. She denies any nausea or vomiting. No fevers or chills. PAST MEDICAL HISTORY: History of hypothyroidism and history of reactive airway disease. MEDICATIONS: As an outpatient include inhalers and levothyroxine. FAMILY HISTORY: Negative. SOCIAL HISTORY: The patient does smoke, but does not drink alcohol. REVIEW OF SYSTEMS: Negative. PHYSICAL EXAMINATION: GENERAL: A pleasant woman, seen in her room. HEENT: Normocephalic and atraumatic. Sclerae anicteric. Oropharynx is clear. NECK: Supple. CHEST: Clear to auscultation. CARDIOVASCULAR: Regular rate. ABDOMEN: Soft. There is some mild posterior lower quadrant tenderness. EXTREMITIES: No edema. LABORATORY DATA: Noted. ASSESSMENT: This patient presents with left-sided abdominal pain evidence of diverticulitis give her some lactulose. She was advised to see Gastroenterology as an outpatient to follow up her symptoms. She may have some form of functional disorder or possibly microscopic colitis that may require further evaluation and treatment. RECOMMENDATIONS: Per above discussion and per orders written in the chart. Thank you for asking me to participate in the care of this patient. Shaun Nath M.D. DR: MARIE JOB#: [id number] CC:
--- NOTE | 2018-07-21 06:53 | Discharge Summary ---
Discharge Summary Discharge Summary _ DATE OF ADMISSION: 07/19/2018 DATE OF DISCHARGE: 07/20/2018 CONSULTANTS: Dr. Shaun Kenny BRIEF HOSPITAL COURSE: Patient is a 63-year-old female, who presented to the emergency room for evaluation and care of chronic abdominal pain. Patient had been having the pain for approximately a month. During the past week, symptoms had progressively gotten worse. She was slightly nauseous. There was no diarrhea. Patient had a bowel movement the day prior to admission however had difficulty moving her bowels. She had a history of hernia repair and is being treated for hypothyroidism. On evaluation at ED, blood work did not show any leukocytoses, hemoglobin and hematocrit were stable. Electrolytes were normal. Troponin was negative. Urinalysis showed 4+ blood, 1+ leukocyte esterase, 10-15 RBC, 2-4 WBC. Urine drug screen was negative. CT of the abdomen and pelvis did not show any acute abnormality. There was no evidence of diverticulitis. Evidence of prior hysterectomy and cholecystectomy. She was admitted for evaluation of abdominal pain. Surgery and GI consults were called. Patient was placed on nothing by mouth and was given IV hydration. KUB showed nonspecific bowel gas pattern. She was given Pepcid. She was ordered Magnesium citrate. Full workup was not carried out as patient left AGAINST MEDICAL ADVICE. FINAL DIAGNOSES: Abdominal pain DISPOSITION: Patient left AMA. I have been assigned to dictate discharge summary on this account, and I was not involved in the patient's management. Arlet Navarro NP Jul 21, 2018 06:53
== END 2018-07-20 15:45 | disposition left against medical advice (07) | DRG 251 ==
LOC: EMR 14:15 → 3E 15:18 → EDBEDREQ 16:43
DX: R10.9 Unspecified abdominal pain (principal); E03.9 Hypothyroidism, unspecified; Z88.6 Allergy status to analgesic agent; J44.9 Chronic obstructive pulmonary disease, unspecified; E86.0 Dehydration; K57.90 Diverticulosis of intestine, part unspecified, without perforation or abscess without bleeding; Z86.010 Personal history of colon polyps; F17.200 Nicotine dependence, unspecified, uncomplicated
CPT/HCPCS: 36415; 74019; 74176; 80048; 80053; 80307; 81003; 83690; 84443; 84484; 85025; 85610; 85730; 93005; 96361; 96374; 96375; 99285; J2405; J8499

== ENCOUNTER 2018-08-24 08:08 | Emergency (ER) | payer MEDICAID ==
[~2018-08-24] VITALS: Ht 165.1 cm; Wt 63.5 kg
[2018-08-24 08:30] VITALS: BP 144/64
--- NOTE | 2018-08-24 08:38 | Emergency Room Report ---
History of Present Illness General Chief Complaint: Upper Respiratory Illness Source: Patient Present Illness HPI 63-year-old female presents ED for evaluation. Complaining of cough and wheezing 2 days. History of asthma. Cough is productive with yellowish phlegm. Denies chest pain. Notes pain in chest with coughing in her back. Dull, 7 out of 10, nonradiating. Denies fevers or chills. Denies sick contacts or recent travel. No other aggravating relieving factors. Denies any other associated symptoms Allergies: Coded Allergies: CODEINE (Verified Adverse Reaction, Intermediate, 05/05/12) N/V Patient History Past Medical History: asthma, COPD, other - hernia Past Surgical History: none Pertinent Family History: none Social History: Denies: smoking, alcohol use, drug use Now: No Immunizations: UTD Reviewed Nursing Documentation: PMH: Agreed; PSxH: Agreed Nursing Documentation-PMH Past Medical History: No History, Except For Hx Cardiac Problems: No Hx Hypertension: No Hx Pacemaker: No Hx Asthma: Yes Hx COPD: Yes Hx Diabetes: No Hx Cancer: No Hx Gastrointestinal Problems: Yes - hernia Hx Dialysis: No Hx Neurological Problems: Yes - thyroid problem Hx Cerebrovascular Accident: No Hx Seizures: No Review of Systems All Other Systems: negative except mentioned in HPI Physical Exam Vital Signs Date Time Temp Pulse Resp B/P (MAP) Pulse Ox O2 Delivery O2 Flow Rate FiO2 08/24/18 08:15 98.1 92 20 144/73 96 Room Air Sp02 EP Interpretation: reviewed, normal General Appearance: no apparent distress, alert, GCS 15, non-toxic Head: normocephalic, atraumatic Eyes: bilateral eye normal inspection, bilateral eye PERRL ENT: hearing grossly normal, normal pharynx, no angioedema, normal voice Neck: full range of motion, supple/symm/no masses Respiratory: chest non-tender, decreased breath sounds, speaking full sentences , wheezing Cardiovascular #1: regular rate, rhythm, no edema Cardiovascular #2: 2+ carotid (R), 2+ carotid (L), 2+ radial (R), 2+ radial (L) , 2+ dorsalis pedis (R), 2+ dorsalis pedis (L) Gastrointestinal: normal bowel sounds, non tender, soft, non-distended, no guarding, no rebound Rectal: deferred Genitourinary: normal inspection, no CVA tenderness Musculoskeletal: back normal, gait/station normal, normal range of motion, non- tender Neurologic: alert, oriented x3, responsive, motor strength/tone normal, sensory intact, speech normal Psychiatric: judgement/insight normal, memory normal, mood/affect normal, no suicidal/homicidal ideation Reflexes: 3+ bicep (R), 3+ bicep (L), 3+ tricep (R), 3+ tricep (L), 3+ knee (R) , 3+ knee (L) Skin: normal color, no rash, warm/dry, well hydrated Lymphatic: no adenopathy Medical Decision Making Diagnostic Impression: Primary Impression: Bronchitis ER Course Hospital Course 63-year-old male presents to ED complaining of cough, SOB, bodyaches Differential diagnoses include: URI, bronchitis, asthma/COPD, pneumonia Clinical course Patient placed on stretcher. After initial history and physical I ordered prednisone, CXR and nebulizer treatment. Chest x-rayno consolidation or acute infiltrate Patient continues to have pain in her back. Given Toradol, Robaxin here Upon reassessment patient states cough and symptoms have improved. Findings consistent with bronchitis. Discussed findings with patient. Course is viral and self-limited. We'll treat with cough medication, prednisone, inhaler. Patient states she has a PMD. Safe for discharge close outpatient follow-up Diagnosis - bronchitis Stable and discharged home with prescriptions for Rx promethazine, prednisone, albuterol, tylenol. Instructed to followup with PMD. Return to ED if symptoms recur or worsen Chest X-Ray Diagnostic Results Chest X-Ray Diagnostic Results : Chest X-Ray Ordered: Yes # of Views/Limited/Complete: 1 View Indication: Shortness of Breath EP Interpretation: Yes Interpretation: no consolidation, no effusion, no pneumothorax, no acute cardiopulmonary disease Impression: No acute disease Electronically Signed by: Electronically signed by Chet Medina MD Last Vital Signs Date Time Temp Pulse Resp B/P (MAP) Pulse Ox O2 Delivery O2 Flow Rate FiO2 08/24/18 08:15 98.1 92 20 144/73 96 Room Air Status: improved Disposition: HOME, SELF-CARE Condition: Stable Scripts Acetaminophen* (TYLENOL EXTRA STRENGTH*) 500 Mg Tablet 500 MG ORAL Q8H PRN for Prn Headache/Temp > 101, #30 TAB 0 Refills Prov: Chet Medina MD 08/24/18 Promethazine Hcl (PROMETHAZINE HCL*) 6.25 Mg/5 Ml Syrup 5 ML ORAL Q8H, #120 ML 0 Refills Prov: Chet Medina MD 08/24/18 Prednisone* (PREDNISONE*) 20 Mg Tablet 40 MG ORAL DAILY, #10 TAB Prov: Chet Medina MD 08/24/18 Albuterol Sulfate (VENTOLIN HFA) 18 Gm Hfa.aer.ad 2 PUFFS INH EVERY 6 HOURS, #18 GM 0 Refills Prov: Chet Medina MD 08/24/18 Chet Mednia MD Aug 24, 2018 08:38
[2018-08-24] MEDS: Ipratropium 0.02% Inh Soln 2.5ml UD HHN SCH ×3 (08:39→09:17)
[2018-08-24] MEDS: Albuterol ud Inhalation HHN SCH ×3 (08:39→09:17)
--- NOTE | 2018-08-24 08:45 | NUR ---
ED Nurse Note: Received report from Pallavi CORLEY. Pt A&Ox4, complaining of asthma, SOB, chest pain and body aches for 2 days. VS taken. Pt stable. Addendum: 08/24/18 at 0857 by TEVELYN pt ambulatory; wheezing noted on expiratory breathing. skin intact and consistent with background.
[2018-08-24] MEDS: Acetaminophen 500mg (ES) tab ORAL ONE ×2 (09:08→09:19)
--- NOTE | 2018-08-24 09:37 | NUR ---
ED Nurse Note: Pt receiving breathing treatment. Pt stable and resting.
[2018-08-24] MEDS ORDERED: PREDNISONE20 MG ORAL (09:38)
[2018-08-24] MEDS ORDERED: TYLENOL EXTRA500 MG ORAL (09:38)
[2018-08-24] MEDS ORDERED: VENTOLIN HFA18 GM INH (09:38)
[2018-08-24] MEDS ORDERED: PROMETHAZI6.25 MG/1 ORAL (09:38)
[2018-08-24] MEDS ORDERED: Methocarbamol 750mg tab ORAL ONE (09:45)
[2018-08-24] MEDS ORDERED: Ketorolac 30mg Inj IM ONE (09:45)
[2018-08-24 10:05] VITALS: BP 142/83
--- NOTE | 2018-08-24 10:10 | NUR ---
ED Nurse Note: Pt still complaining of chest and back pain associated with difficulty breathing. MD ordered muscle relaxer and pain Rx that was administered. Pt said family will call for transportation to pick her up. Pt stable and left ER ambulatory.
--- NOTE | 2018-08-24 10:15 | Diagnostic Imaging Report ---
Indication: Cough Comparison: 03/03/2018 A single view chest radiograph was obtained. Findings: No definite infiltrate or pulmonary vascular congestion identified. The heart is normal in size. The aorta is mildly enlarged consistent with atherosclerotic vascular disease. The bones are osteopenic. Impression: No acute disease
== END 2018-08-24 10:05 | disposition home or self-care (01) ==
LOC: EMR 08:35
DX: J40 Bronchitis, not specified as acute or chronic (principal); J44.9 Chronic obstructive pulmonary disease, unspecified; Z88.5 Allergy status to narcotic agent
CPT/HCPCS: 71045; 94640; 96372; 99284; J1885; J7512

== ENCOUNTER → 2018-10-25 | Emergency (ER) | payer MEDICAID ==
[~2018-10-25] VITALS: Ht 165.1 cm; Wt 63.5 kg
[~2018-10-25] MED LIST changes: +LEVOTHYROXINE125 MCG ORAL; +PROMETHAZI6.25 MG/1 ORAL; +TYLENOL EXTRA500 MG ORAL
[2018-10-25 15:28] VITALS: BP 149/76
--- NOTE | 2018-10-25 16:18 | NUR ---
ED Nurse Note: PT./ AAOX4. AMBULATORY. CAME IN TO ER DUE TO GROWING, PAINFUL, LEFT ANKLE ABSCESS X 2 WEEKS AGO. DID NOT TAKE ANY PAIN MEDS PRIOR TO ER ARRIVAL. REDNESS AND SWELLING OTED ON THE L ANKLE. TENDERNESS NOTED
--- NOTE | 2018-10-25 17:15 | Emergency Room Report ---
History of Present Illness General Chief Complaint: Skin Rash/Abscess Source: Patient Present Illness HPI This patient left prior to evaluation by medical provider. Allergies: Coded Allergies: CODEINE (Verified Adverse Reaction, Intermediate, 10/25/18) N/V Patient History Last Menstrual Period: 2013 Now: No Nursing Documentation-PMH Past Medical History: No History, Except For Hx Cardiac Problems: No - HYPOTHYROIDISM Hx Hypertension: No Hx Pacemaker: No Hx Asthma: Yes Hx COPD: Yes Hx Diabetes: No Hx Cancer: No Hx Gastrointestinal Problems: Yes - hernia Hx Dialysis: No Hx Neurological Problems: Yes - thyroid problem Hx Cerebrovascular Accident: No Hx Seizures: No Physical Exam Vital Signs Date Time Temp Pulse Resp B/P (MAP) Pulse Ox O2 Delivery O2 Flow Rate FiO2 10/25/18 15:28 98.2 74 16 149/76 96 Room Air Medical Decision Making PA Attestation Dr. Epperson is my supervising Physician whom patient management has been discussed with. ER Course This patient left prior to evaluation by medical provider. Last Vital Signs Date Time Temp Pulse Resp B/P (MAP) Pulse Ox O2 Delivery O2 Flow Rate FiO2 10/25/18 15:28 98.2 74 16 149/76 96 Room Air Disposition: LEFT W/OUT BEING SEEN Condition: Unknown Bruna Darling Oct 25, 2018 17:15
== END | disposition left against medical advice (07) ==
LOC: EMR 16:00
DX: R21 Rash and other nonspecific skin eruption (principal); Z53.21 Procedure and treatment not carried out due to patient leaving prior to being seen by health care provider

== ENCOUNTER 2018-10-28 12:43 | Emergency (ER) | payer MEDICAID ==
[~2018-10-28] VITALS: Ht 165.1 cm; Wt 63.5 kg
[2018-10-28 13:06] VITALS: BP 163/72
[2018-10-28 13:15] VITALS: BP 154/79
[2018-10-28] MEDS ORDERED: IBUPROFEN600 MG ORAL (13:40)
--- NOTE | 2018-10-28 13:41 | Emergency Room Report ---
History of Present Illness General Chief Complaint: Skin Rash/Abscess Present Illness HPI 63-year-old female patient presents ER complaining of bump in her left foot for the past 2 weeks. Patient was previously presented here in the ER however eloped prior to being seen. Reports that she followed up with her primary care provider last week which gave her ibuprofen told to follow-up in the ED to have it removed. States she was not told what it was at that time. Reports tender to palpation. Reports slowly increasing in size. Denies overlying redness or erythema. Denies drainage. Denies other aggravating or relieving factors. Denies acute injury or trauma. Allergies: Coded Allergies: CODEINE (Verified Adverse Reaction, Intermediate, 10/25/18) N/V Patient History Past Medical History: see triage record Now: No Reviewed Nursing Documentation: PMH: Agreed; PSxH: Agreed Nursing Documentation-PMH Hx Cardiac Problems: No - HYPOTHYROIDISM Hx Hypertension: No Hx Pacemaker: No Hx Asthma: Yes Hx COPD: Yes Hx Diabetes: No Hx Cancer: No Hx Gastrointestinal Problems: Yes - hernia Hx Dialysis: No Hx Neurological Problems: Yes - thyroid problem Hx Cerebrovascular Accident: No Hx Seizures: No Review of Systems All Other Systems: negative except mentioned in HPI Physical Exam Vital Signs Date Time Temp Pulse Resp B/P (MAP) Pulse Ox O2 Delivery O2 Flow Rate FiO2 10/28/18 13:06 99.0 81 15 163/72 96 Room Air Sp02 EP Interpretation: reviewed, normal General Appearance: well appearing, no apparent distress, alert, GCS 15, non- toxic Head: normocephalic, atraumatic Eyes: bilateral eye normal inspection, bilateral eye PERRL ENT: hearing grossly normal, normal pharynx, no angioedema, normal voice, uvula midline, moist mucus membranes Neck: full range of motion Respiratory: lungs clear, normal breath sounds, no rhonchi, no respiratory distress, no accessory muscle use, no wheezing, speaking full sentences Cardiovascular #1: regular rate, rhythm, no edema Cardiovascular #2: 2+ dorsalis pedis (R), 2+ dorsalis pedis (L) Musculoskeletal: back normal, digits/nails normal, gait/station normal, normal range of motion, non-tender Psychiatric: mood/affect normal Skin: other - left lateral ankle distal to lateral malleolus: ganglion cyst Medical Decision Making PA Attestation Dr. Epperson is my supervising Physician whom patient management has been discussed with. Diagnostic Impression: Primary Impression: Ganglion cyst of foot ER Course Pt. presents to the ED c/o bump on left foot. Ddx considered but are not limited to ganglion cyst, scar tissue, cellulitis, abscess. Vital signs: are WNL, pt. is afebrile ER COURSE: Physical exam consistent with ganglion cyst. Advised patient follow-up with import specialist for surgical drainage and removal. No overlying erythema or edema, does not require I&D at this time, low suspicion for abscess. Denies acute injury or trauma, low suspicion for fracture, does not require x- ray at this time. Patient foot wrapped in Aaron wrap. Checked afterwards by me showing good alignment and neurovascularly intact. ER precautions given. Patient declined need for crutches. Seen and evaluated by Dr. Epperson, agrees with assessment treatment plan. DISCHARGE: At this time pt is stable for d/c to home. Patient is resting comfortably, in no acute distress, nontoxic appearing, talking without difficulty. Patient to take medications as instructed Will provide with patient care instructions and any necessary prescriptions. Care plan and follow-up instructions provided. Patient instructed to follow-up with primary care provider in 3 - 5 days. Patient questions asked and answered. Patient reports understanding and agreement to treatment plan. ER precautions given. Patient instructed to return to ER immediately for any new or worsening of symptoms including but not limited to increasing SOB, persistent fever, chest pain, intractable vomiting. - Please note that this Emergency Department Report was dictated using [facility] clinic assistant technology software, occasionally this can lead to erroneous entry secondary to interpretation by the dictation equipment. Last Vital Signs Date Time Temp Pulse Resp B/P (MAP) Pulse Ox O2 Delivery O2 Flow Rate FiO2 10/28/18 13:06 99.0 81 15 163/72 96 Room Air Disposition: HOME, SELF-CARE Condition: Stable Scripts Ibuprofen* (MOTRIN*) 600 Mg Tablet 600 MG ORAL Q8H PRN for For Pain, #30 TAB 0 Refills Prov: Tolu Huffman PGerard 10/28/18 Patient Instructions: Ganglion Cyst Additional Instructions: Follow-up with import specialist to discuss surgical removal. Patient instructed to follow up with primary care provider and discuss further referral to orthopedics. If unable to followup with PCP, followup with orthopedic urgent care in 5-7 days , call to schedule appointment. Patient instructed on HIRAM method: rest, ice, compression, elevation. Patient instructed to WBAT. Take medications as directed. Patient questions asked and answered. ER precautions given, patient instructed to return to ER immediately for any new or worsening of symptoms. [facility] [address] [facility] [address] [facility], [address] [email or web address] Tolu Huffman Oct 28, 2018 13:41
--- NOTE | 2018-10-28 13:52 | NUR ---
ER DISCHARGE NOTE: Patient is cleared to be discharged per ERMD, pt is aox4, on room air, with stable vital signs. pt was given dc and prescription instructions, pt was able to verbalize understanding, pt id band removed. pt is able to ambulate with steady gait. pt took all belongings.
== END 2018-10-28 13:52 | disposition home or self-care (01) ==
LOC: EMR 13:39
DX: M67.472 Ganglion, left ankle and foot (principal); E07.9 Disorder of thyroid, unspecified
CPT/HCPCS: 99281

== ENCOUNTER 2018-11-01 15:24 | Inpatient (IN) | payer MEDICAID ==
[~2018-11-01] VITALS: Ht 165.1 cm; Wt 70.3 kg
[2018-11-01 15:45] VITALS: BP 158/69
[2018-11-01] MEDS ORDERED: Ipratropium 0.02% Inh Soln 2.5ml UD HHN ONE (15:45)
--- NOTE | 2018-11-01 15:45 | NUR ---
ED Nurse Note: patient came from home with steady gait, complaining of SOB, astma attack. patient's O2 sat at 98%. AAO x4, skin is dry, intakt, warm to touch. connected to the monitor, will continue to monitor.
--- NOTE | 2018-11-01 15:51 | Emergency Room Report ---
History of Present Illness General Chief Complaint: Asthma Source: Patient, Medical Record Present Illness HPI Patient presents with complaints of shortness of breath Patient reports that she had an endoscopy 2 days ago Reports that since then she has had increased shortness of breath and feels that her asthma has been exacerbated Patient reports that today she had gone up a flight of steps and felt so short of breath she felt she might pass out Also reports feeling lightheaded and nauseous Mild epigastric discomfort Denies any chest pain Denies any vomiting or diarrhea Allergies: Coded Allergies: CODEINE (Verified Adverse Reaction, Intermediate, 10/25/18) N/V Patient History Past Medical History: see triage record Pertinent Family History: none Reviewed Nursing Documentation: PMH: Agreed; PSxH: Agreed Nursing Documentation-PMH Past Medical History: No History, Except For Hx Cardiac Problems: No - HYPOTHYROIDISM Hx Hypertension: No Hx Pacemaker: No Hx Asthma: Yes Hx COPD: Yes Hx Diabetes: No Hx Cancer: No Hx Gastrointestinal Problems: Yes - hernia Hx Dialysis: No Hx Neurological Problems: Yes - thyroid problem Hx Cerebrovascular Accident: No Hx Seizures: No Review of Systems All Other Systems: negative except mentioned in HPI Physical Exam Vital Signs Date Time Temp Pulse Resp B/P (MAP) Pulse Ox O2 Delivery O2 Flow Rate FiO2 11/01/18 15:29 98.4 83 20 152/101 98 Room Air Sp02 EP Interpretation: reviewed, normal General Appearance: mild distress - Tearful Head: normocephalic, atraumatic Eyes: bilateral eye PERRL, bilateral eye EOMI ENT: hearing grossly normal, normal pharynx, TMs + canals normal, uvula midline Neck: full range of motion, supple, no meningismus, no bony tend Respiratory: no rhonchi, no respiratory distress, no retraction, no accessory muscle use, wheezing - Bilaterally Cardiovascular #1: normal peripheral pulses, regular rate, rhythm, no edema, no gallop, no JVD, no murmur Gastrointestinal: normal bowel sounds, non tender, soft, no mass, no organomegaly, non-distended, no guarding, no hernia, no pulsatile mass, no rebound Genitourinary: no CVA tenderness Musculoskeletal: normal inspection Neurologic: oriented x3, responsive, planner III-XII nml as tested, motor strength/ tone normal, sensory intact Psychiatric: mood/affect normal Skin: normal color, no rash, warm/dry, palpation normal Lymphatic: normal inspection, no adenopathy Procedures Critical Care Time Critical Care Time 35 minutes for multiple reexaminations concern for deterioration and respiratory failure not including any procedural time, Medical Decision Making Diagnostic Impression: Primary Impression: Asthma Additional Impressions: Asthma attack Dyspnea ER Course Patient is a fairly complex patient with multiple differential to consideration including but not limited to cardiac cardiopulmonary and vascular emergencies Patient's blood work and imaging is appropriate Patient however requiring multiple breathing treatments now requiring steroids and magnesium Patient continues to feel uncomfortable at this point requires further inpatient care Labs Test 11/01/18 16:00 11/02/18 05:00 White Blood Count 11.2 K/UL (4.8-10.8) 9.6 K/UL (4.8-10.8) Red Blood Count 4.67 M/UL (4.20-5.40) 4.30 M/UL (4.20-5.40) Hemoglobin 14.9 G/DL (12.0-16.0) 13.8 G/DL (12.0-16.0) Hematocrit 43.3 % (37.0-47.0) 40.1 % (37.0-47.0) Mean Corpuscular Volume 93 FL (80-99) 93 FL (80-99) Mean Corpuscular Hemoglobin 32.0 PG (27.0-31.0) 32.0 PG (27.0-31.0) Mean Corpuscular Hemoglobin Concent 34.4 G/DL (32.0-36.0) 34.3 G/DL (32.0-36.0) Red Cell Distribution Width 12.3 % (11.6-14.8) 12.6 % (11.6-14.8) Platelet Count 170 K/UL (150-450) 185 K/UL (150-450) Mean Platelet Volume 6.1 FL (6.5-10.1) 6.6 FL (6.5-10.1) Neutrophils (%) (Auto) % (45.0-75.0) % (45.0-75.0) Lymphocytes (%) (Auto) % (20.0-45.0) % (20.0-45.0) Monocytes (%) (Auto) % (1.0-10.0) % (1.0-10.0) Eosinophils (%) (Auto) % (0.0-3.0) % (0.0-3.0) Basophils (%) (Auto) % (0.0-2.0) % (0.0-2.0) Differential Total Cells Counted 100 100 Neutrophils % (Manual) 93 % (45-75) 91 % (45-75) Lymphocytes % (Manual) 6 % (20-45) 7 % (20-45) Monocytes % (Manual) 0 % (1-10) 2 % (1-10) Eosinophils % (Manual) 0 % (0-3) 0 % (0-3) Basophils % (Manual) 0 % (0-2) 0 % (0-2) Band Neutrophils 1 % (0-8) 0 % (0-8) Platelet Estimate Adequate Adequate Platelet Morphology Normal Normal Red Blood Cell Morphology Normal Sodium Level 140 MMOL/L (136-145) 139 MMOL/L (136-145) Potassium Level 3.9 MMOL/L (3.5-5.1) 3.6 MMOL/L (3.5-5.1) Chloride Level 102 MMOL/L (98-107) 101 MMOL/L (98-107) Carbon Dioxide Level 25 MMOL/L (21-32) 27 MMOL/L (21-32) Anion Gap 13 mmol/L (5-15) 11 mmol/L (5-15) Blood Urea Nitrogen 13 mg/dL (7-18) 12 mg/dL (7-18) Creatinine 0.9 MG/DL (0.55-1.30) 0.9 MG/DL (0.55-1.30) Estimat Glomerular Filtration Rate > 60 mL/min (>60) > 60 mL/min (>60) Glucose Level 142 MG/DL (74-106) 146 MG/DL (74-106) Calcium Level 9.7 MG/DL (8.5-10.1) 9.4 MG/DL (8.5-10.1) Total Bilirubin 0.9 MG/DL (0.2-1.0) Aspartate Amino Transf (AST/SGOT) 25 U/L (15-37) Alanine Aminotransferase (ALT/SGPT) 32 U/L (12-78) Alkaline Phosphatase 71 U/L (46-116) Total Creatine Kinase 168 U/L (26-308) Creatine Kinase MB 2.1 NG/ML (0.0-3.6) Creatine Kinase MB Relative Index 1.2 Troponin I 0.005 ng/mL (0.000-0.056) 0.000 ng/mL (0.000-0.056) Pro-B-Type Natriuretic Peptide 74 pg/mL (0-125) Total Protein 8.4 G/DL (6.4-8.2) Albumin 4.4 G/DL (3.4-5.0) Globulin 4.0 g/dL Albumin/Globulin Ratio 1.1 (1.0-2.7) Lipase 118 U/L (73-393) EKG Diagnostic Results Rate: normal Rhythm: NSR ST Segments: no acute changes Rhythm Strip Diag. Results EP Interpretation: yes Rate: 66 Rhythm: NSR, no PVC's, no ectopy Chest X-Ray Diagnostic Results Chest X-Ray Diagnostic Results : Chest X-Ray Ordered: Yes # of Views/Limited/Complete: 1 View Indication: Chest Pain EP Interpretation: Yes Interpretation: no consolidation, no effusion, no pneumothorax Impression: No acute disease Electronically Signed by: Esteban Thayer DO Last Vital Signs Date Time Temp Pulse Resp B/P (MAP) Pulse Ox O2 Delivery O2 Flow Rate FiO2 11/01/18 15:29 98.4 83 20 152/101 98 Room Air Status: improved Disposition: ADMITTED INPATIENT Condition: Serious Scripts Methocarbamol* (METHOCARBAMOL*) 750 Mg Tablet 750 MG ORAL TID for 60 Days, TAB Prov: Alexandria Underwood MD 11/02/18 Esteban Thayer DO Nov 01, 2018 15:50
[2018-11-01] MEDS ORDERED: Solu-MEDROL 125mg Inj IVP ONE (16:00)
[2018-11-01] MEDS: Albuterol ud Inhalation HHN SCH ×3 (16:16→16:39)
[2018-11-01 16:21] LABS: HEMATOCRIT 43.3 % (37.0-47.0); HEMOGLOBIN 14.9 G/DL (12.0-16.0); MEAN CORPUSCULAR VOLUME 93 FL (80-99); PLATELET COUNT 170 K/UL (150-450); RED BLOOD COUNT 4.67 M/UL (4.20-5.40); RED CELL DISTRIBUTION WIDTH 12.3 % (11.6-14.8); WHITE BLOOD COUNT 11.2 K/UL (4.8-10.8)
[2018-11-01 16:34] LABS: ANION GAP 13 mmol/L (5-15); BLOOD UREA NITROGEN 13 mg/dL (7-18); CALCIUM 9.7 MG/DL (8.5-10.1); CARBON DIOXIDE 25 MMOL/L (21-32); CHLORIDE 102 MMOL/L (98-107); CREATININE 0.9 MG/DL (0.55-1.30); POTASSIUM 3.9 MMOL/L (3.5-5.1); SODIUM 140 MMOL/L (136-145)
[2018-11-01 16:47] LABS: ALANINE AMINOTRANSFERASE 32 U/L (12-78); ALBUMIN 4.4 G/DL (3.4-5.0); ALBUMIN/GLOBULIN RATIO 1.1 (1.0-2.7); ALKALINE PHOSPHATASE 71 U/L (46-116); ASPARTATE AMINO TRANSFERASE 25 U/L (15-37); BILIRUBIN,TOTAL 0.9 MG/DL (0.2-1.0); CKMB 2.1 NG/ML (0.0-3.6); CREATINE KINASE 168 U/L (26-308)
[2018-11-01 17:00] VITALS: BP 157/70
[2018-11-01 18:34] VITALS: BP 162/80
[2018-11-01] MEDS ORDERED: Morphine Sulfate 4mg/ml Inj (IV USE ONLY) IVP ONE (18:45)
--- NOTE | 2018-11-01 19:08 | NUR ---
ED Nurse Note: attemped to give report to Tele, RN's taking report
--- NOTE | 2018-11-01 19:19 | NUR ---
NURSE NOTES: Report called from ER by Babs CORLEY. Estimated time of arrival on unit is 15 - 20 minutes.
--- NOTE | 2018-11-01 19:20 | NUR ---
ED Nurse Note: telephone report given to JORY Cruz. Pt and pt's family member are aware of the transfer.
--- NOTE | 2018-11-01 19:21 | NUR ---
HAND-OFF: Report given to JORY Boyce.
--- NOTE | 2018-11-01 19:50 | NUR ---
ED Nurse Note: RECIEVED REPORT TO RESUME CARE, PT IS CURRENTLY ADMITTED TO HOSPITAL, REPORT HAS BEEN GIVEN, PT IS ON PORTABLE MONITORING AND WAITING FOR TRANSPORT, PT IS AWAKE, ALERT AND ORIETED X 4, IV SITE PATENT, BELONGINGS LIST COMPLETED, PT RECENTLY MEDICATED FOR PAIN, STATES MEDS SLIGHTLY EFFECTIVE, PT BEING TAKEN TO FLOOR BED VIA GURNEY AND ACLS PROTOCOLS, NAD NOTED DURING PT TRANSPORT.
[2018-11-01 20:00] VITALS: BP 171/77
[2018-11-01] MEDS: Albuterol/Ipratropium 3ml neb HHN SCH (20:00)
[2018-11-01] MEDS ORDERED: Miralax 17gm pkt ORAL PRN (20:00)
[2018-11-01] MEDS ORDERED: Albuterol/Ipratropium 3ml neb HHN PRN (20:00)
--- NOTE | 2018-11-01 20:00 | NUR ---
NURSE NOTES: Pt transferred from ER via gurney and assisted to bed by staff members without incidence. compliance monitor applied. Belongings list checked with patient and transferring RN at bedside. Pt is awake, alert, and oriented x4. Pt placed on 2L O2 via nasal cannula and breathing is even and unlabored. Bilateral upper lobe expiratory wheezes noted. IV site is asymptomatic, patent, and intact. Pt provided with orientation to surroundings and hospital policies. Bed placed in lowest position with brake engaged, side rails up x3, and bed alarm on. Call light and side table placed within reach. Will continue to monitor.
--- NOTE | 2018-11-01 20:42 | NUR ---
NURSE NOTES: Pt c/o 03/31 sharp stabbing pain in the L chest with radiation to beneath the L breast. Pt states that she takes aleve at home and received morphine in ER but that neither has helped her pain. MD Simon notified. Per , order lidocaine 1 patch transdermal PRN daily on L chest for pain, Delano 5/325 Q4HR PRN for moderate pain, and norco 10/325 Q4HR for severe pain. Also per , order troponin for tomorrow AM and 2D Echo for AM.
[2018-11-01] MEDS ORDERED: HYDROcodone/Acetamin 5/325 tab ORAL PRN (20:45)
[2018-11-01] MEDS ORDERED: HydrALAZINE 10mg Tab ORAL PRN (20:45)
--- NOTE | 2018-11-01 20:49 | NUR ---
NURSE NOTES: Per jason Almeida to continue home medication of levothyroxine 125mcg PO daily. Orders noted and carried out.
--- NOTE | 2018-11-01 21:00 | NUR ---
NURSE NOTES: Pt BP elevated to 171/77. Pt visibly anxious and in pain. Will continue to monitor and retake prn. MD Simon notified of elevated BP. Per MD Simon, order hydralazine 10mg PO Q6HR PRN for SBP >160 and do EKG. Also order troponin for today at 2200 per . Orders noted and carried out.
[2018-11-01] MEDS: Docusate 100mg cap ORAL SCH (22:14)
[2018-11-02] VITALS: BP 146/70
[2018-11-02] MEDS: Albuterol/Ipratropium 3ml neb HHN SCH ×2 (01:49→07:30)
[2018-11-02] MEDS: HYDROcodone/Acetamin 10/325 tab ORAL PRN ×2 (02:44→07:28)
[2018-11-02 04:00] VITALS: BP 136/64
[2018-11-02] MEDS ORDERED: Levothyroxine 125mcg tab ORAL SCH ×2 (06:30→09:00)
[2018-11-02 06:42] LABS: HEMATOCRIT 40.1 % (37.0-47.0); HEMOGLOBIN 13.8 G/DL (12.0-16.0); MEAN CORPUSCULAR VOLUME 93 FL (80-99); PLATELET COUNT 185 K/UL (150-450); RED CELL DISTRIBUTION WIDTH 12.6 % (11.6-14.8); WHITE BLOOD COUNT 9.6 K/UL (4.8-10.8)
[2018-11-02 07:06] LABS: ANION GAP 11 mmol/L (5-15); BLOOD UREA NITROGEN 12 mg/dL (7-18); CALCIUM 9.4 MG/DL (8.5-10.1); CARBON DIOXIDE 27 MMOL/L (21-32); CHLORIDE 101 MMOL/L (98-107); CREATININE 0.9 MG/DL (0.55-1.30); POTASSIUM 3.6 MMOL/L (3.5-5.1); SODIUM 139 MMOL/L (136-145)
--- NOTE | 2018-11-02 07:13 | NUR ---
CASE MANAGEMENT:REVIEW 63 YR OLD FEMALE FROM HOME CC: SOB SI: ASTHMA EXACERBATION. 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
--- NOTE | 2018-11-02 07:35 | NUR ---
HAND-OFF: Report given to Nery CORLEY and Preston CORLEY. Pt is resting in bed in stable condition. No acute distress noted. Endorsed plan of care.
--- NOTE | 2018-11-02 07:37 | NUR ---
NURSE NOTES: Received report from Melodie CORLEY, Patient awake, alert and oriented x4. No distress/SOB noted. Bed in low position, call light and belonging within reach. Will continue plan of care.
[2018-11-02 08:00] VITALS: BP 123/89
--- NOTE | 2018-11-02 08:24 | History and Physical ---
History of Present Illness General Date patient seen: Nov 02, 2018 Reason for Hospitalization: Asthma Present Illness HPI 63 year old female with hx of Asthma presented to ER with complaints of shortness of breath and chest pain. States chest pain is left sided, worse with movement, resolved with sitting still, no radiation or associated nausea or vomiting. She feels that her asthma has been exacerbated She also c/o mild epigastric discomfort and pain below her ribs at left side. Allergies: Coded Allergies: CODEINE (Verified Adverse Reaction, Intermediate, 10/25/18) N/V Medication History Scheduled Albuterol Sulfate (Ventolin Hfa), 2 PUFFS INH EVERY 6 HOURS Levothyroxine Sodium* (Synthroid*), 125 MCG ORAL DAILY, (Reported) Levothyroxine Sodium* (Levothyroxine Sodium*), 125 MCG ORAL DAILY, (Reported) Methocarbamol* (Methocarbamol*), 750 MG ORAL TID Olopatadine HCl (Olopatadine HCl), 5 ML OP DAILY Prednisone* (Prednisone*), 40 MG ORAL DAILY Promethazine Hcl (Promethazine Hcl*), 5 ML ORAL Q8H Scheduled PRN Acetaminophen* (Tylenol Extra Strength*), 500 MG ORAL Q8H PRN for Prn Headache/ Temp > 101 Albuterol Sulfate* (Albuterol Sulfate Hhn*), 2.5 MG HHN Q4H PRN for Shortness of Breath Diphenhydramine Hcl* (Benadryl*), 25 MG ORAL Q6H PRN for Itching Ibuprofen* (Motrin*), 600 MG ORAL Q8H PRN for For Pain Ibuprofen* (Motrin*), 600 MG ORAL Q8H PRN for For Pain Discontinued Medications Methocarbamol* (Robaxin-750*), 750 MG PO TID Discontinued Reason: Pt had allergic rxn Patient History Healthcare decision maker Resuscitation status Full Code Advanced Directive on File Past Medical/Surgical History Past Medical/Surgical History: (1) Hypothyroidism (2) Contusion, knee (3) GERD (gastroesophageal reflux disease) (4) Uncontrolled hypertension (5) Costochondral chest pain (6) Asthma exacerbation Review of Systems Constitutional: Reports: no symptoms Eye: Reports: no symptoms ENT: Reports: no symptoms Respiratory: Reports: shortness of breath Cardiovascular: Reports: chest pain Gastrointestinal: Reports: no symptoms Genitourinary: Reports: no symptoms Musculoskeletal: Reports: no symptoms Skin: Reports: no symptoms Psychiatric: Reports: no symptoms Neurological: Reports: no symptoms Endocrine: Reports: no symptoms Hematologic/Lymphatic: Reports: no symptoms Physical Exam General Appearance: WD/WN, no apparent distress, alert Lines, tubes and drains: peripheral HEENT: normocephalic, atraumatic, anicteric, mucous membranes moist Neck: non-tender, normal alignment, supple, normal inspection Respiratory/Chest: chest wall non-tender, lungs clear, normal breath sounds, no respiratory distress, no accessory muscle use Cardiovascular/Chest: normal peripheral pulses, normal rate, regular rhythm, no gallop/murmur Abdomen: normal bowel sounds, non tender, soft, no organomegaly Extremities: normal range of motion Skin Exam: normal pigmentation 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 Last 24 Hour Vital Signs Date Time Temp Pulse Resp B/P (MAP) Pulse Ox O2 Delivery O2 Flow Rate FiO2 11/02/18 08:00 98.1 83 20 123/89 (100) 96 11/02/18 07:41 70 18 99 Nasal Cannula 2.0 28 11/02/18 07:32 97 Nasal Cannula 2.0 28 11/02/18 07:32 Nasal Cannula 2.0 28 11/02/18 07:30 65 18 97 Nasal Cannula 2.0 28 11/02/18 04:00 74 11/02/18 04:00 97.1 73 19 136/64 (88) 98 11/02/18 01:50 74 18 99 Nasal Cannula 2.0 28 11/02/18 01:39 70 20 97 Nasal Cannula 2.0 28 11/02/18 00:00 79 11/02/18 00:00 97.0 64 18 146/70 (95) 100 11/01/18 23:21 64 18 99 Nasal Cannula 2.0 28 11/01/18 23:19 Nasal Cannula 2.0 28 11/01/18 23:19 97 Nasal Cannula 2.0 28 11/01/18 23:17 63 20 Nasal Cannula 2.0 28 11/01/18 23:16 63 20 Nasal Cannula 2.0 28 11/01/18 23:10 62 18 98 Nasal Cannula 2.0 28 11/01/18 22:45 Nasal Cannula 2.0 11/01/18 20:00 98.3 68 18 171/77 (108) 98 11/01/18 20:00 68 11/01/18 19:22 98.0 73 22 162/80 96 Nasal Cannula 2.0 28 11/01/18 18:34 98.0 73 22 162/80 96 Nasal Cannula 2.0 28 11/01/18 17:00 98.0 81 14 157/70 100 Nasal Cannula 2.0 28 11/01/18 16:38 8 16 100 Nasal Cannula 2.0 28 11/01/18 16:30 88 16 10 Nasal Cannula 2.0 28 11/01/18 16:21 74 14 100 Nasal Cannula 2.0 28 11/01/18 16:15 73 14 Nasal Cannula 2.0 28 11/01/18 16:15 80 14 99 Nasal Cannula 2.0 28 11/01/18 15:45 80 20 Nasal Cannula 2.0 11/01/18 15:45 97.9 80 20 158/69 98 Nasal Cannula 2.0 11/01/18 15:29 98.4 83 20 152/101 98 Room Air Intake and Output 11/01/18 11/02/18 19:00 07:00 # Voids 1 1 Laboratory Tests Test 11/01/18 16:00 11/02/18 05:00 White Blood Count 11.2 K/UL (4.8-10.8) H 9.6 K/UL (4.8-10.8) Red Blood Count 4.67 M/UL (4.20-5.40) 4.30 M/UL (4.20-5.40) Hemoglobin 14.9 G/DL (12.0-16.0) 13.8 G/DL (12.0-16.0) Hematocrit 43.3 % (37.0-47.0) 40.1 % (37.0-47.0) Mean Corpuscular Volume 93 FL (80-99) 93 FL (80-99) Mean Corpuscular Hemoglobin 32.0 PG (27.0-31.0) H 32.0 PG (27.0-31.0) H Mean Corpuscular Hemoglobin Concent 34.4 G/DL (32.0-36.0) 34.3 G/DL (32.0-36.0) Red Cell Distribution Width 12.3 % (11.6-14.8) 12.6 % (11.6-14.8) Platelet Count 170 K/UL (150-450) 185 K/UL (150-450) Mean Platelet Volume 6.1 FL (6.5-10.1) L 6.6 FL (6.5-10.1) Neutrophils (%) (Auto) % (45.0-75.0) % (45.0-75.0) Lymphocytes (%) (Auto) % (20.0-45.0) % (20.0-45.0) Monocytes (%) (Auto) % (1.0-10.0) % (1.0-10.0) Eosinophils (%) (Auto) % (0.0-3.0) % (0.0-3.0) Basophils (%) (Auto) % (0.0-2.0) % (0.0-2.0) Differential Total Cells Counted 100 Neutrophils % (Manual) 93 % (45-75) H Pending Lymphocytes % (Manual) 6 % (20-45) L Pending Monocytes % (Manual) 0 % (1-10) L Eosinophils % (Manual) 0 % (0-3) Basophils % (Manual) 0 % (0-2) Band Neutrophils 1 % (0-8) Platelet Estimate Adequate Pending Platelet Morphology Normal Pending Red Blood Cell Morphology Normal Sodium Level 140 MMOL/L (136-145) 139 MMOL/L (136-145) Potassium Level 3.9 MMOL/L (3.5-5.1) 3.6 MMOL/L (3.5-5.1) Chloride Level 102 MMOL/L (98-107) 101 MMOL/L (98-107) Carbon Dioxide Level 25 MMOL/L (21-32) 27 MMOL/L (21-32) Anion Gap 13 mmol/L (5-15) 11 mmol/L (5-15) Blood Urea Nitrogen 13 mg/dL (7-18) 12 mg/dL (7-18) Creatinine 0.9 MG/DL (0.55-1.30) 0.9 MG/DL (0.55-1.30) Estimat Glomerular Filtration Rate > 60 mL/min (>60) > 60 mL/min (>60) Glucose Level 142 MG/DL (74-106) H 146 MG/DL (74-106) H Calcium Level 9.7 MG/DL (8.5-10.1) 9.4 MG/DL (8.5-10.1) Total Bilirubin 0.9 MG/DL (0.2-1.0) Aspartate Amino Transf (AST/SGOT) 25 U/L (15-37) Alanine Aminotransferase (ALT/SGPT) 32 U/L (12-78) Alkaline Phosphatase 71 U/L (46-116) Total Creatine Kinase 168 U/L (26-308) Creatine Kinase MB 2.1 NG/ML (0.0-3.6) Creatine Kinase MB Relative Index 1.2 Troponin I 0.005 ng/mL (0.000-0.056) 0.000 ng/mL (0.000-0.056) Pro-B-Type Natriuretic Peptide 74 pg/mL (0-125) Total Protein 8.4 G/DL (6.4-8.2) H Albumin 4.4 G/DL (3.4-5.0) Globulin 4.0 g/dL Albumin/Globulin Ratio 1.1 (1.0-2.7) Lipase 118 U/L (73-393) Height (Feet): 5 Height (Inches): 5.00 Weight (Pounds): 155 Medications Current Medications Medications (Trade) Dose Ordered Sig/Angela Route PRN Reason Start Time Stop Time Status Last Admin Dose Admin Acetaminophen (Tylenol) 650 mg Q4H PRN ORAL FEVER (temp>100.5F) 11/01/18 20:00 12/01/18 19:59 Acetaminophen (Tylenol) 650 mg Q4H PRN ORAL Mild Pain (Pain Scale 1-3) 11/01/18 20:00 12/01/18 19:59 Acetaminophen/ Hydrocodone Bitart (Knott 10/325) 1 tab Q4H PRN ORAL Severe Pain (Pain Scale 7-10) 11/01/18 20:45 11/08/18 20:44 11/02/18 07:28 Acetaminophen/ Hydrocodone Bitart (Knott 5/325) 1 tab Q4H PRN ORAL Moderate Pain (Pain Scale 4-6) 11/01/18 20:45 11/08/18 20:44 11/01/18 22:14 Albuterol/ Ipratropium (Albuterol/ Ipratropium) 3 ml Q4H PRN HHN Shortness of Breath 11/01/18 20:00 11/06/18 19:59 11/01/18 23:16 Albuterol/ Ipratropium (Albuterol/ Ipratropium) 3 ml Q6HRT HHN 11/01/18 20:00 11/06/18 19:59 11/02/18 07:30 Docusate Sodium (Colace) 100 mg EVERY 12 HOURS ORAL 11/01/18 21:00 12/01/18 20:59 11/01/18 22:14 Heparin Sodium (Porcine) (Heparin 5000 units/ml) 5,000 units EVERY 12 HOURS SUBQ 11/02/18 09:00 12/02/18 08:59 Hydralazine HCl (Apresoline) 10 mg Q6H PRN ORAL SBP >160 11/01/18 20:45 12/01/18 20:44 Levothyroxine Sodium (Synthroid) 125 mcg DAILY@0630 ORAL 11/02/18 06:30 12/02/18 06:29 11/02/18 06:14 Lidocaine (Lidoderm 5% PATCH) 1 patch DAILYPRN PRN TDERMAL For Pain 11/01/18 21:45 12/01/18 21:44 11/01/18 22:14 Ondansetron HCl (Zofran) 4 mg Q6H PRN IVP Nausea & Vomiting 11/01/18 20:00 12/01/18 19:59 Polyethylene Glycol (Miralax) 17 gm DAILYPRN PRN ORAL Constipation 11/01/18 20:00 12/01/18 19:59 Assessment/Plan Assessment/Plan 63 year old female with PMH of costochondritis and asthma admitted for asthma exacerbation and r/o ACS #Chest pain likely costochondritis unlikly ACS -Serial troponin and ekg - negative -Echo with no wall motion abnormalities -Cardiology consult appreciated -Mobic 15mg #Mild Asthma exacerbation -s/p solumedrol in ed -Albuterol Q6hrs -PO prednisone started -NCO2 PRN -Pulmonary consult appreciated I spent 75 min on this patients care, and 40 min was dedicated to counseling and /or care coordination Yuliet Davis MD Nov 02, 2018 08:24
[2018-11-02] MEDS ORDERED: Heparin 5000 units/ml inj SUBQ SCH (09:00)
[2018-11-02] MEDS: Docusate 100mg cap ORAL SCH (09:11)
--- NOTE | 2018-11-02 09:29 | Consultation ---
History of Present Illness General Date patient seen: Nov 02, 2018 Time patient seen: 09:24 Chief Complaint: Asthma Present Illness HPI 63 year old female with chest pain, multiple episodes of pain with no hx of ACS. Troponin negative, echocardiogram at bedside with normal LV function, mild AI, normal PA pressures. Chest pain is precordial, radiates to left side. She has a hx of hypothyroidism and costochondritis, no fever no trauma. She has a lidocaine patch on for pain. She has a hx of vasovagal syncope. No smoking no travel hx but she has a history of asthma/copd. Allergies: Coded Allergies: CODEINE (Verified Adverse Reaction, Intermediate, 10/25/18) N/V Medication History Scheduled Albuterol Sulfate (Ventolin Hfa), 2 PUFFS INH EVERY 6 HOURS Levothyroxine Sodium* (Synthroid*), 125 MCG ORAL DAILY, (Reported) Levothyroxine Sodium* (Levothyroxine Sodium*), 125 MCG ORAL DAILY, (Reported) Methocarbamol* (Robaxin-750*), 750 MG PO TID Olopatadine HCl (Olopatadine HCl), 5 ML OP DAILY Prednisone* (Prednisone*), 40 MG ORAL DAILY Promethazine Hcl (Promethazine Hcl*), 5 ML ORAL Q8H Scheduled PRN Acetaminophen* (Tylenol Extra Strength*), 500 MG ORAL Q8H PRN for Prn Headache/ Temp > 101 Albuterol Sulfate* (Albuterol Sulfate Hhn*), 2.5 MG HHN Q4H PRN for Shortness of Breath Diphenhydramine Hcl* (Benadryl*), 25 MG ORAL Q6H PRN for Itching Ibuprofen* (Motrin*), 600 MG ORAL Q8H PRN for For Pain Ibuprofen* (Motrin*), 600 MG ORAL Q8H PRN for For Pain Patient History Healthcare decision maker Resuscitation status Full Code Advanced Directive on File Review of Systems Constitutional: Reports: no symptoms Eye: Reports: no symptoms ENT: Reports: no symptoms Respiratory: Reports: shortness of breath, wheezing Cardiovascular: Reports: chest pain Gastrointestinal: Reports: no symptoms Genitourinary: Reports: no symptoms Musculoskeletal: Reports: no symptoms Skin: Reports: no symptoms Psychiatric: Reports: no symptoms Neurological: Reports: no symptoms Endocrine: Reports: no symptoms Hematologic/Lymphatic: Reports: no symptoms Physical Exam General Appearance: no apparent distress, alert Lines, tubes and drains: peripheral HEENT: normocephalic, atraumatic Neck: non-tender, normal alignment, supple Respiratory/Chest: chest wall non-tender, lungs clear, normal breath sounds Cardiovascular/Chest: normal peripheral pulses, normal rate, regular rhythm Abdomen: normal bowel sounds, non tender, soft, no organomegaly Extremities: normal range of motion, non-tender Skin Exam: normal pigmentation 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 Last 24 Hour Vital Signs Date Time Temp Pulse Resp B/P (MAP) Pulse Ox O2 Delivery O2 Flow Rate FiO2 11/02/18 08:00 98.1 83 20 123/89 (100) 96 11/02/18 07:41 70 18 99 Nasal Cannula 2.0 28 11/02/18 07:32 97 Nasal Cannula 2.0 28 11/02/18 07:32 Nasal Cannula 2.0 28 11/02/18 07:30 65 18 97 Nasal Cannula 2.0 28 11/02/18 04:00 74 11/02/18 04:00 97.1 73 19 136/64 (88) 98 11/02/18 01:50 74 18 99 Nasal Cannula 2.0 28 11/02/18 01:39 70 20 97 Nasal Cannula 2.0 28 11/02/18 00:00 79 11/02/18 00:00 97.0 64 18 146/70 (95) 100 11/01/18 23:21 64 18 99 Nasal Cannula 2.0 28 11/01/18 23:19 Nasal Cannula 2.0 28 11/01/18 23:19 97 Nasal Cannula 2.0 28 11/01/18 23:17 63 20 Nasal Cannula 2.0 28 11/01/18 23:16 63 20 Nasal Cannula 2.0 28 11/01/18 23:10 62 18 98 Nasal Cannula 2.0 28 11/01/18 22:45 Nasal Cannula 2.0 11/01/18 20:00 98.3 68 18 171/77 (108) 98 11/01/18 20:00 68 11/01/18 19:22 98.0 73 22 162/80 96 Nasal Cannula 2.0 28 11/01/18 18:34 98.0 73 22 162/80 96 Nasal Cannula 2.0 28 11/01/18 17:00 98.0 81 14 157/70 100 Nasal Cannula 2.0 28 11/01/18 16:38 8 16 100 Nasal Cannula 2.0 28 11/01/18 16:30 88 16 10 Nasal Cannula 2.0 28 11/01/18 16:21 74 14 100 Nasal Cannula 2.0 28 11/01/18 16:15 73 14 Nasal Cannula 2.0 28 11/01/18 16:15 80 14 99 Nasal Cannula 2.0 28 11/01/18 15:45 80 20 Nasal Cannula 2.0 11/01/18 15:45 97.9 80 20 158/69 98 Nasal Cannula 2.0 11/01/18 15:29 98.4 83 20 152/101 98 Room Air Intake and Output 11/01/18 11/02/18 19:00 07:00 # Voids 1 1 Laboratory Tests Test 11/01/18 16:00 11/02/18 05:00 White Blood Count 11.2 K/UL (4.8-10.8) H 9.6 K/UL (4.8-10.8) Red Blood Count 4.67 M/UL (4.20-5.40) 4.30 M/UL (4.20-5.40) Hemoglobin 14.9 G/DL (12.0-16.0) 13.8 G/DL (12.0-16.0) Hematocrit 43.3 % (37.0-47.0) 40.1 % (37.0-47.0) Mean Corpuscular Volume 93 FL (80-99) 93 FL (80-99) Mean Corpuscular Hemoglobin 32.0 PG (27.0-31.0) H 32.0 PG (27.0-31.0) H Mean Corpuscular Hemoglobin Concent 34.4 G/DL (32.0-36.0) 34.3 G/DL (32.0-36.0) Red Cell Distribution Width 12.3 % (11.6-14.8) 12.6 % (11.6-14.8) Platelet Count 170 K/UL (150-450) 185 K/UL (150-450) Mean Platelet Volume 6.1 FL (6.5-10.1) L 6.6 FL (6.5-10.1) Neutrophils (%) (Auto) % (45.0-75.0) % (45.0-75.0) Lymphocytes (%) (Auto) % (20.0-45.0) % (20.0-45.0) Monocytes (%) (Auto) % (1.0-10.0) % (1.0-10.0) Eosinophils (%) (Auto) % (0.0-3.0) % (0.0-3.0) Basophils (%) (Auto) % (0.0-2.0) % (0.0-2.0) Differential Total Cells Counted 100 Neutrophils % (Manual) 93 % (45-75) H Pending Lymphocytes % (Manual) 6 % (20-45) L Pending Monocytes % (Manual) 0 % (1-10) L Eosinophils % (Manual) 0 % (0-3) Basophils % (Manual) 0 % (0-2) Band Neutrophils 1 % (0-8) Platelet Estimate Adequate Pending Platelet Morphology Normal Pending Red Blood Cell Morphology Normal Sodium Level 140 MMOL/L (136-145) 139 MMOL/L (136-145) Potassium Level 3.9 MMOL/L (3.5-5.1) 3.6 MMOL/L (3.5-5.1) Chloride Level 102 MMOL/L (98-107) 101 MMOL/L (98-107) Carbon Dioxide Level 25 MMOL/L (21-32) 27 MMOL/L (21-32) Anion Gap 13 mmol/L (5-15) 11 mmol/L (5-15) Blood Urea Nitrogen 13 mg/dL (7-18) 12 mg/dL (7-18) Creatinine 0.9 MG/DL (0.55-1.30) 0.9 MG/DL (0.55-1.30) Estimat Glomerular Filtration Rate > 60 mL/min (>60) > 60 mL/min (>60) Glucose Level 142 MG/DL (74-106) H 146 MG/DL (74-106) H Calcium Level 9.7 MG/DL (8.5-10.1) 9.4 MG/DL (8.5-10.1) Total Bilirubin 0.9 MG/DL (0.2-1.0) Aspartate Amino Transf (AST/SGOT) 25 U/L (15-37) Alanine Aminotransferase (ALT/SGPT) 32 U/L (12-78) Alkaline Phosphatase 71 U/L (46-116) Total Creatine Kinase 168 U/L (26-308) Creatine Kinase MB 2.1 NG/ML (0.0-3.6) Creatine Kinase MB Relative Index 1.2 Troponin I 0.005 ng/mL (0.000-0.056) 0.000 ng/mL (0.000-0.056) Pro-B-Type Natriuretic Peptide 74 pg/mL (0-125) Total Protein 8.4 G/DL (6.4-8.2) H Albumin 4.4 G/DL (3.4-5.0) Globulin 4.0 g/dL Albumin/Globulin Ratio 1.1 (1.0-2.7) Lipase 118 U/L (73-393) Height (Feet): 5 Height (Inches): 5.00 Weight (Pounds): 155 Medications Current Medications Medications (Trade) Dose Ordered Sig/Angela Route PRN Reason Start Time Stop Time Status Last Admin Dose Admin Acetaminophen (Tylenol) 650 mg Q4H PRN ORAL FEVER (temp>100.5F) 11/01/18 20:00 12/01/18 19:59 Acetaminophen (Tylenol) 650 mg Q4H PRN ORAL Mild Pain (Pain Scale 1-3) 11/01/18 20:00 12/01/18 19:59 Acetaminophen/ Hydrocodone Bitart (Chloe 10/325) 1 tab Q4H PRN ORAL Severe Pain (Pain Scale 7-10) 11/01/18 20:45 11/08/18 20:44 11/02/18 07:28 Acetaminophen/ Hydrocodone Bitart (Chloe 5/325) 1 tab Q4H PRN ORAL Moderate Pain (Pain Scale 4-6) 11/01/18 20:45 11/08/18 20:44 11/01/18 22:14 Albuterol/ Ipratropium (Albuterol/ Ipratropium) 3 ml Q4H PRN HHN Shortness of Breath 11/01/18 20:00 11/06/18 19:59 11/01/18 23:16 Albuterol/ Ipratropium (Albuterol/ Ipratropium) 3 ml Q6HRT HHN 11/01/18 20:00 11/06/18 19:59 11/02/18 07:30 Docusate Sodium (Colace) 100 mg EVERY 12 HOURS ORAL 11/01/18 21:00 12/01/18 20:59 11/02/18 09:11 Heparin Sodium (Porcine) (Heparin 5000 units/ml) 5,000 units EVERY 12 HOURS SUBQ 11/02/18 09:00 12/02/18 08:59 11/02/18 09:17 Hydralazine HCl (Apresoline) 10 mg Q6H PRN ORAL SBP >160 11/01/18 20:45 12/01/18 20:44 Levothyroxine Sodium (Synthroid) 125 mcg DAILY@0630 ORAL 11/02/18 06:30 12/02/18 06:29 11/02/18 06:14 Lidocaine (Lidoderm 5% PATCH) 1 patch DAILYPRN PRN TDERMAL For Pain 11/01/18 21:45 12/01/18 21:44 11/01/18 22:14 Methocarbamol (Robaxin) 750 mg TID ORAL 11/02/18 09:00 12/02/18 08:59 Ondansetron HCl (Zofran) 4 mg Q6H PRN IVP Nausea & Vomiting 11/01/18 20:00 12/01/18 19:59 Polyethylene Glycol (Miralax) 17 gm DAILYPRN PRN ORAL Constipation 11/01/18 20:00 12/01/18 19:59 Prednisone (predniSONE) 40 mg DAILY ORAL 11/02/18 09:00 11/06/18 08:59 11/02/18 09:11 Assessment/Plan Status: stable Assessment/Plan Assessment: chest pain r/o ACS chest wall pain costochondritis bradycardia near syncope- vasovagal /orthostatic changes /dehydration hypothyroidism with elevated TSH Plan: Chest pain is not typical for ACS, the pain has been present for one week and her troponin is negative and wall motion on Echo is normal She has a hx of costochondritis. Recommend trial of strong NSAID like mobic 15 mg daily Defer stress testing at this time. Monitor thyroid function and telemetry for hx of bradycardia and syncope. Check ESR/CRP to evaluate for pericarditis/pleurisy Fahad Suarez MD Nov 02, 2018 09:29
--- NOTE | 2018-11-02 09:33 | Diagnostic Imaging Report ---
Indication: Chest pain Technique: One view of the chest Comparison: 08/24/2018 Findings: Normal heart size. Elongated tortuous calcified aorta. Upper mediastinum is unremarkable. Impression: No acute process
[2018-11-02] MEDS: Methocarbamol 750mg tab ORAL SCH ×2 (10:13→12:40)
--- NOTE | 2018-11-02 11:02 | Consultation ---
History of Present Illness General Date patient seen: Nov 02, 2018 Chief Complaint: Asthma Present Illness HPI 63 year old female with hx of Asthma presented to ER with complaints of shortness of breath. She feels that her asthma has been exacerbated She also c/o mild epigastric discomfort and pain below her ribs at left side. Allergies: Coded Allergies: CODEINE (Verified Adverse Reaction, Intermediate, 10/25/18) N/V Medication History Scheduled Albuterol Sulfate (Ventolin Hfa), 2 PUFFS INH EVERY 6 HOURS Levothyroxine Sodium* (Synthroid*), 125 MCG ORAL DAILY, (Reported) Levothyroxine Sodium* (Levothyroxine Sodium*), 125 MCG ORAL DAILY, (Reported) Methocarbamol* (Robaxin-750*), 750 MG PO TID Olopatadine HCl (Olopatadine HCl), 5 ML OP DAILY Prednisone* (Prednisone*), 40 MG ORAL DAILY Promethazine Hcl (Promethazine Hcl*), 5 ML ORAL Q8H Scheduled PRN Acetaminophen* (Tylenol Extra Strength*), 500 MG ORAL Q8H PRN for Prn Headache/ Temp > 101 Albuterol Sulfate* (Albuterol Sulfate Hhn*), 2.5 MG HHN Q4H PRN for Shortness of Breath Diphenhydramine Hcl* (Benadryl*), 25 MG ORAL Q6H PRN for Itching Ibuprofen* (Motrin*), 600 MG ORAL Q8H PRN for For Pain Ibuprofen* (Motrin*), 600 MG ORAL Q8H PRN for For Pain Patient History Healthcare decision maker Resuscitation status Full Code Advanced Directive on File Past Medical/Surgical History Past Medical/Surgical History: (1) Hypothyroidism (2) Asthma Review of Systems All Other Systems: negative except mentioned in HPI Physical Exam General Appearance: WD/WN, no apparent distress Lines, tubes and drains: peripheral HEENT: normocephalic, atraumatic Neck: non-tender, normal alignment Respiratory/Chest: chest wall non-tender, lungs clear Cardiovascular/Chest: normal peripheral pulses, normal rate Abdomen: normal bowel sounds, non tender Genitourinary/Rectal: normal genital exam, normal rectal exam Extremities: normal range of motion, non-tender Skin Exam: normal pigmentation Last 24 Hour Vital Signs Date Time Temp Pulse Resp B/P (MAP) Pulse Ox O2 Delivery O2 Flow Rate FiO2 11/02/18 08:00 98.1 83 20 123/89 (100) 96 11/02/18 08:00 76 11/02/18 07:58 98.1 11/02/18 07:41 70 18 99 Nasal Cannula 2.0 28 11/02/18 07:32 97 Nasal Cannula 2.0 28 11/02/18 07:32 Nasal Cannula 2.0 28 11/02/18 07:30 65 18 97 Nasal Cannula 2.0 28 11/02/18 04:00 74 11/02/18 04:00 97.1 73 19 136/64 (88) 98 11/02/18 01:50 74 18 99 Nasal Cannula 2.0 28 11/02/18 01:39 70 20 97 Nasal Cannula 2.0 28 11/02/18 00:00 79 11/02/18 00:00 97.0 64 18 146/70 (95) 100 11/01/18 23:21 64 18 99 Nasal Cannula 2.0 28 11/01/18 23:19 Nasal Cannula 2.0 28 11/01/18 23:19 97 Nasal Cannula 2.0 28 11/01/18 23:17 63 20 Nasal Cannula 2.0 28 11/01/18 23:16 63 20 Nasal Cannula 2.0 28 11/01/18 23:10 62 18 98 Nasal Cannula 2.0 28 11/01/18 22:45 Nasal Cannula 2.0 11/01/18 20:00 98.3 68 18 171/77 (108) 98 11/01/18 20:00 68 11/01/18 19:22 98.0 73 22 162/80 96 Nasal Cannula 2.0 28 11/01/18 18:34 98.0 73 22 162/80 96 Nasal Cannula 2.0 28 11/01/18 17:00 98.0 81 14 157/70 100 Nasal Cannula 2.0 28 11/01/18 16:38 8 16 100 Nasal Cannula 2.0 28 11/01/18 16:30 88 16 10 Nasal Cannula 2.0 28 11/01/18 16:21 74 14 100 Nasal Cannula 2.0 28 11/01/18 16:15 73 14 Nasal Cannula 2.0 28 11/01/18 16:15 80 14 99 Nasal Cannula 2.0 28 3/13/19 15:45 80 20 Nasal Cannula 2.0 11/01/18 15:45 97.9 80 20 158/69 98 Nasal Cannula 2.0 11/01/18 15:29 98.4 83 20 152/101 98 Room Air Intake and Output 11/01/18 11/02/18 19:00 07:00 # Voids 1 1 Laboratory Tests Test 11/01/18 16:00 11/02/18 05:00 White Blood Count 11.2 K/UL (4.8-10.8) H 9.6 K/UL (4.8-10.8) Red Blood Count 4.67 M/UL (4.20-5.40) 4.30 M/UL (4.20-5.40) Hemoglobin 14.9 G/DL (12.0-16.0) 13.8 G/DL (12.0-16.0) Hematocrit 43.3 % (37.0-47.0) 40.1 % (37.0-47.0) Mean Corpuscular Volume 93 FL (80-99) 93 FL (80-99) Mean Corpuscular Hemoglobin 32.0 PG (27.0-31.0) H 32.0 PG (27.0-31.0) H Mean Corpuscular Hemoglobin Concent 34.4 G/DL (32.0-36.0) 34.3 G/DL (32.0-36.0) Red Cell Distribution Width 12.3 % (11.6-14.8) 12.6 % (11.6-14.8) Platelet Count 170 K/UL (150-450) 185 K/UL (150-450) Mean Platelet Volume 6.1 FL (6.5-10.1) L 6.6 FL (6.5-10.1) Neutrophils (%) (Auto) % (45.0-75.0) % (45.0-75.0) Lymphocytes (%) (Auto) % (20.0-45.0) % (20.0-45.0) Monocytes (%) (Auto) % (1.0-10.0) % (1.0-10.0) Eosinophils (%) (Auto) % (0.0-3.0) % (0.0-3.0) Basophils (%) (Auto) % (0.0-2.0) % (0.0-2.0) Differential Total Cells Counted 100 100 Neutrophils % (Manual) 93 % (45-75) H 91 % (45-75) H Lymphocytes % (Manual) 6 % (20-45) L 7 % (20-45) L Monocytes % (Manual) 0 % (1-10) L 2 % (1-10) Eosinophils % (Manual) 0 % (0-3) 0 % (0-3) Basophils % (Manual) 0 % (0-2) 0 % (0-2) Band Neutrophils 1 % (0-8) 0 % (0-8) Platelet Estimate Adequate Adequate Platelet Morphology Normal Normal Red Blood Cell Morphology Normal Sodium Level 140 MMOL/L (136-145) 139 MMOL/L (136-145) Potassium Level 3.9 MMOL/L (3.5-5.1) 3.6 MMOL/L (3.5-5.1) Chloride Level 102 MMOL/L (98-107) 101 MMOL/L (98-107) Carbon Dioxide Level 25 MMOL/L (21-32) 27 MMOL/L (21-32) Anion Gap 13 mmol/L (5-15) 11 mmol/L (5-15) Blood Urea Nitrogen 13 mg/dL (7-18) 12 mg/dL (7-18) Creatinine 0.9 MG/DL (0.55-1.30) 0.9 MG/DL (0.55-1.30) Estimat Glomerular Filtration Rate > 60 mL/min (>60) > 60 mL/min (>60) Glucose Level 142 MG/DL (74-106) H 146 MG/DL (74-106) H Calcium Level 9.7 MG/DL (8.5-10.1) 9.4 MG/DL (8.5-10.1) Total Bilirubin 0.9 MG/DL (0.2-1.0) Aspartate Amino Transf (AST/SGOT) 25 U/L (15-37) Alanine Aminotransferase (ALT/SGPT) 32 U/L (12-78) Alkaline Phosphatase 71 U/L (46-116) Total Creatine Kinase 168 U/L (26-308) Creatine Kinase MB 2.1 NG/ML (0.0-3.6) Creatine Kinase MB Relative Index 1.2 Troponin I 0.005 ng/mL (0.000-0.056) 0.000 ng/mL (0.000-0.056) Pro-B-Type Natriuretic Peptide 74 pg/mL (0-125) Total Protein 8.4 G/DL (6.4-8.2) H Albumin 4.4 G/DL (3.4-5.0) Globulin 4.0 g/dL Albumin/Globulin Ratio 1.1 (1.0-2.7) Lipase 118 U/L (73-393) Height (Feet): 5 Height (Inches): 5.00 Weight (Pounds): 155 Medications Current Medications Medications (Trade) Dose Ordered Sig/Angela Route PRN Reason Start Time Stop Time Status Last Admin Dose Admin Acetaminophen (Tylenol) 650 mg Q4H PRN ORAL FEVER (temp>100.5F) 11/01/18 20:00 12/01/18 19:59 Acetaminophen (Tylenol) 650 mg Q4H PRN ORAL Mild Pain (Pain Scale 1-3) 11/01/18 20:00 12/01/18 19:59 Acetaminophen/ Hydrocodone Bitart ([place] 10/325) 1 tab Q4H PRN ORAL Severe Pain (Pain Scale 7-10) 11/01/18 20:45 11/08/18 20:44 11/02/18 07:28 Acetaminophen/ Hydrocodone Bitart ([place] 5/325) 1 tab Q4H PRN ORAL Moderate Pain (Pain Scale 4-6) 11/01/18 20:45 11/08/18 20:44 11/01/18 22:14 Albuterol/ Ipratropium (Albuterol/ Ipratropium) 3 ml Q4H PRN HHN Shortness of Breath 11/01/18 20:00 11/06/18 19:59 11/01/18 23:16 Albuterol/ Ipratropium (Albuterol/ Ipratropium) 3 ml Q6HRT HHN 11/01/18 20:00 11/06/18 19:59 11/02/18 07:30 Docusate Sodium (Colace) 100 mg EVERY 12 HOURS ORAL 11/01/18 21:00 12/01/18 20:59 11/02/18 09:11 Heparin Sodium (Porcine) (Heparin 5000 units/ml) 5,000 units EVERY 12 HOURS SUBQ 11/02/18 09:00 12/02/18 08:59 11/02/18 09:17 Hydralazine HCl (Apresoline) 10 mg Q6H PRN ORAL SBP >160 11/01/18 20:45 12/01/18 20:44 Levothyroxine Sodium (Synthroid) 125 mcg DAILY@0630 ORAL 11/02/18 06:30 12/02/18 06:29 11/02/18 06:14 Lidocaine (Lidoderm 5% PATCH) 1 patch DAILYPRN PRN TDERMAL For Pain 11/01/18 21:45 12/01/18 21:44 11/01/18 22:14 Methocarbamol (Robaxin) 750 mg TID ORAL 11/02/18 09:00 12/02/18 08:59 11/02/18 10:13 Ondansetron HCl (Zofran) 4 mg Q6H PRN IVP Nausea & Vomiting 11/01/18 20:00 12/01/18 19:59 Polyethylene Glycol (Miralax) 17 gm DAILYPRN PRN ORAL Constipation 11/01/18 20:00 12/01/18 19:59 Prednisone (predniSONE) 40 mg DAILY ORAL 11/02/18 09:00 11/06/18 08:59 11/02/18 09:11 Assessment/Plan Problem List: (1) Asthma exacerbation ICD Codes: J45.901 - Unspecified asthma with (acute) exacerbation SNOMED: 897140744 (2) Costochondral chest pain ICD Codes: R07.1 - Chest pain on breathing SNOMED: 876548937 (3) Hypothyroidism ICD Codes: E03.9 - Hypothyroidism, unspecified SNOMED: 23187548 Assessment/Plan respiratory treatment analgesics cardiology notes reviewed symptomatic treatment. Alexandria Underwood MD Nov 02, 2018 11:02
[2018-11-02] MEDS ORDERED: METHOCARBAMOL750 MG ORAL (11:51)
[2018-11-02 12:00] VITALS: BP 147/68
--- NOTE | 2018-11-02 13:30 | NUR ---
NURSE NOTES: Discharge instruction given and patient verbalized understanding. Inventory check done, IV and heart monitor removed, no sign of distress/SOB noted. Patient is in stable condition. Patient left with Daughter via private Vehicle.
--- NOTE | 2018-11-02 14:33 | NUR ---
*-* INSURANCE *-* ALL CLINICALS AND REVIEWS HAVE BEEN FAXED TO: [facility] OFFICER: ANN MARIE Joyner#: [phone] F#: [phone]
--- NOTE | 2018-11-02 23:36 | General Progress Note ---
Advance Care Planning Advance Care Planning Advance Care Planning [facility] An independent Hospitalist group, where every patient is our [facility] Internal Medicine Hospitalist Advanced Care Planning Note Please contact us at Date of Discussion: A [id number] discussion with the pt regarding the patient's advanced care planning took place during this hospitalization on the above date. The discussion included the explanation and discussion of advance directives and associated forms/documents, as well as the patient's current code status. We also discussed at length the patient's medical conditions (both acute and chronic), general prognosis, treatment options, and goals of care. The following summarizes the discussion: Advance Care Planning/Goals of Care: - Will attempt to fill out an AD and/or POLST with the patient prior to discharge, if not already completed - Continue current evaluation and management of any acute and chronic medical issues - Will continue to support the patient/family - Will continue to discuss both short- and long-term goals of care DPOA-HC/Surrogate Decision Maker: None currently appointed Code Status: Full Code Advanced Care Planning Forms/Documents Completed: Deferred until later encounter/visit A total of 17 minutes was spent on this discussion, including counseling, answering questions, and completing, if any, pertinent advanced care planning forms/documents. Time of note may not reflect time of encounter. Yuliet Davis MD Nov 02, 2018 23:36
--- NOTE | 2018-11-02 23:36 | Discharge Summary ---
Discharge Summary Hospital Course Date of Admission Nov 01, 2018 at 17:54 Date of Discharge Nov 02, 2018 at 13:30 Admitting Diagnosis reactive airway dz, asthma exacerbation HPI Renee Jose is a 63 year old female who was admitted on Nov 01, 2018 at 17:54 for Reactive Airway Dz/ Asthma Exacerbation Consultations Pulmonary Cardiology Hospital Course 63 year old female with PMH of costochondritis and asthma admitted for asthma exacerbation and r/o ACS. Pt admitted to medicine service for treatment of mild asthma exacerbation, symptoms resolved with solumedrol and albuterol nebulizers. Chest pain unlikley ACS, evaluated by cardiology, serial troponin and ekg negative, Echo with no wall motion abnormalities. Chest pain likely 2/2 costochondritis, states has NSAIDs at home and will cont that. On discharge, pt ambulating with a stable gait, hemodynamically stable, speaking in full sentences and tolerating PO diet. Physical exam on DC General Appearance: WD/WN, no apparent distress, alert Lines, tubes and drains: peripheral HEENT: normocephalic, atraumatic, anicteric, mucous membranes moist Neck: non-tender, normal alignment, supple, normal inspection Respiratory/Chest: chest wall non-tender, lungs clear, normal breath sounds, no respiratory distress, no accessory muscle use Cardiovascular/Chest: normal peripheral pulses, normal rate, regular rhythm, no gallop/murmur Abdomen: normal bowel sounds, non tender, soft, no organomegaly Extremities: normal range of motion Skin Exam: normal pigmentation Neurologic: specialist physicians II-XII grossly normal I spent 35 min on this pts discharge Discharge Medications New Medications: Methocarbamol* (Methocarbamol*) 750 Mg Tablet 750 MG ORAL TID for 60 Days, TAB Continued Medications: Acetaminophen* (Tylenol Extra Strength*) 500 Mg Tablet 500 MG ORAL Q8H PRN for Prn Headache/Temp > 101, #30 TAB 0 Refills Albuterol Sulfate (Ventolin Hfa) 18 Gm Hfa.aer.ad 2 PUFFS INH EVERY 6 HOURS, #18 GM 0 Refills Ibuprofen* (Motrin*) 600 Mg Tablet 600 MG ORAL Q8H PRN for For Pain, #20 TAB 0 Refills Levothyroxine Sodium* (Synthroid*) 125 Mcg Tablet 125 MCG ORAL DAILY, TAB (This prescription has been renewed) Take in the morning on an empty stomach, at least 30 minutes before food. Discontinued Medications: Methocarbamol* (Robaxin-750*) 750 Mg Tablet 750 MG PO TID, #21 TAB 0 Refills Discharge Condition Upon Discharge: stable Discharge Disposition Patient was discharged to home Discharge Diagnoses: (1) Hypothyroidism (2) GERD (gastroesophageal reflux disease) (3) Costochondral chest pain (4) Asthma exacerbation Yuliet Davis MD Nov 02, 2018 23:36
== END 2018-11-02 13:30 | disposition home or self-care (01) | DRG 141 ==
LOC: EMR 15:58 → 2E 17:54 → EDBEDREQ 19:06 → SDSOVERFLO 11-02 12:19 → 2E 11-02 12:20
DX: J45.901 Unspecified asthma with (acute) exacerbation (principal); E03.9 Hypothyroidism, unspecified; M94.0 Chondrocostal junction syndrome [Tietze]; Z88.6 Allergy status to analgesic agent; R00.1 Bradycardia, unspecified; R55 Syncope and collapse; E86.0 Dehydration
CPT/HCPCS: 36415; 71045; 80048; 80053; 82550; 82553; 83690; 83880; 84484; 85007; 85025; 93005; 93306; 94640; 94664; 94760; 96365; 96366; 96375; 99285; J2405; J7620

== ENCOUNTER 2018-12-09 20:38 | Emergency (ER) | payer MEDICAID ==
[~2018-12-09] VITALS: Ht 165.1 cm; Wt 63.5 kg
[~2018-12-09 20:38] MED LIST changes: +METHOCARBAMOL750 MG ORAL
[2018-12-09] MEDS ORDERED: Solu-MEDROL 125mg Inj IVP ONE (20:45)
[2018-12-09] MEDS ORDERED: Ipratropium 0.02% Inh Soln 2.5ml UD HHN ONE (20:45)
[2018-12-09] MEDS ORDERED: Albuterol ud Inhalation HHN ONE ×2 (20:45→23:30)
--- NOTE | 2018-12-09 20:56 | Emergency Room Report ---
History of Present Illness General Chief Complaint: Asthma Source: Patient Present Illness HPI Patient presents with 3 days of worsening asthma. She has a cough is nonproductive. She denies any fevers or chills. She's also had some chest pain that's left posterior and also substernal. This is worsened with coughing. She's not taken medication for the pain however she's been treating herself with her inhaler. She states it is not working at this time. She's had prednisone in the past. She says this is not her worst attack. She denies any vomiting, diarrhea or nausea. She also denies dysuria. No edema or pain in her calfs. The patient was recently admitted in October. Discharge November 02. Discharge diagnoses: (1) Hypothyroidism (2) GERD (gastroesophageal reflux disease) (3) Costochondral chest pain (4) Asthma exacerbation Allergies: Coded Allergies: CODEINE (Verified Adverse Reaction, Intermediate, 10/25/18) N/V Patient History Past Medical History: see triage record Social History: Denies: smoking - Former Social History Narrative from home Last Menstrual Period: UMM Now: No Reviewed Nursing Documentation: PMH: Agreed; PSxH: Agreed Nursing Documentation-PMH Hx Cardiac Problems: No - hypothyroid Hx Hypertension: No Hx Pacemaker: No Hx Asthma: Yes Hx COPD: Yes Hx Diabetes: No Hx Cancer: No Hx Gastrointestinal Problems: Yes - hernia Hx Dialysis: No Hx Neurological Problems: No Hx Cerebrovascular Accident: No Hx Seizures: No Review of Systems All Other Systems: negative except mentioned in HPI Physical Exam Vital Signs Date Time Temp Pulse Resp B/P (MAP) Pulse Ox O2 Delivery O2 Flow Rate FiO2 12/09/18 20:44 98.4 79 22 174/78 95 Room Air Sp02 EP Interpretation: reviewed, normal General Appearance: well appearing, no apparent distress, GCS 15 Head: normocephalic Eyes: bilateral eye normal inspection, bilateral eye PERRL ENT: moist mucus membranes Neck: supple Respiratory: no respiratory distress, no retraction, wheezing, expiration - Prolonged expiratory phase Cardiovascular #1: regular rate, rhythm, no edema Cardiovascular #2: 2+ radial (R) Gastrointestinal: normal inspection, normal bowel sounds, non tender, no mass, non-distended Genitourinary: no CVA tenderness Musculoskeletal: back normal, gait/station normal, normal range of motion, no calf tenderness, Ryder's Sign negative Neurologic: alert, oriented x3, grossly normal Psychiatric: mood/affect normal Skin: normal inspection, warm/dry Medical Decision Making Diagnostic Impression: Primary Impression: Asthma exacerbation Qualified Codes: J45.41 - Moderate persistent asthma with (acute) exacerbation ER Course Patient presents with 3 days of worsening cough with wheezing and chest pain. Differential includes acute myocardial infarction, asthma exacerbation, bronchitis, pneumonia amongst others. She'll be evaluated with EKG, chest x- ray and labs. The patient will be treated with IV hydration, breathing treatments, Solu Medrol and Tylenol. EKG was normal sinus rhythm normal EKG with rate of 75. CXR no infiltrates. Still with wheezing. Repeat albuterol. Exercised and exp wheezes. Await magnesium and will repeat tx. After repeat albuterol patient is improved. She feels well enough to go home. She does not want to be hospitalized at this time. We discussed outpatient observation and that if she was not doing well to return to the emergency department. Patient stable for outpatient observation and treatment.. Laboratory Tests Test 12/09/18 21:00 White Blood Count 9.6 K/UL (4.8-10.8) Red Blood Count 4.19 M/UL (4.20-5.40) L Hemoglobin 13.2 G/DL (12.0-16.0) Hematocrit 38.1 % (37.0-47.0) Mean Corpuscular Volume 91 FL (80-99) Mean Corpuscular Hemoglobin 31.5 PG (27.0-31.0) H Mean Corpuscular Hemoglobin Concent 34.6 G/DL (32.0-36.0) Red Cell Distribution Width 12.2 % (11.6-14.8) Platelet Count 217 K/UL (150-450) Mean Platelet Volume 6.2 FL (6.5-10.1) L Neutrophils (%) (Auto) 44.5 % (45.0-75.0) L Lymphocytes (%) (Auto) 39.7 % (20.0-45.0) Monocytes (%) (Auto) 8.7 % (1.0-10.0) Eosinophils (%) (Auto) 5.5 % (0.0-3.0) H Basophils (%) (Auto) 1.6 % (0.0-2.0) Prothrombin Time 9.9 SEC (9.30-11.50) Prothrombin Time INR 0.9 (0.9-1.1) PTT 26 SEC (23-33) Sodium Level 143 MMOL/L (136-145) Potassium Level 3.2 MMOL/L (3.5-5.1) L Chloride Level 105 MMOL/L (98-107) Carbon Dioxide Level 30 MMOL/L (21-32) Anion Gap 8 mmol/L (5-15) Blood Urea Nitrogen 9 mg/dL (7-18) Creatinine 0.8 MG/DL (0.55-1.30) Estimate Glomerular Filtration Rate > 60 mL/min (>60) Glucose Level 98 MG/DL (74-106) Calcium Level 9.5 MG/DL (8.5-10.1) Magnesium Level 1.9 MG/DL (1.8-2.4) Total Bilirubin 0.7 MG/DL (0.2-1.0) Aspartate Amino Transferase (AST) 24 U/L (15-37) Alanine Aminotransferase (ALT) 34 U/L (12-78) Alkaline Phosphatase 90 U/L (46-116) Troponin I 0.000 ng/mL (0.000-0.056) Pro-B-Type Natriuretic Peptide 56 pg/mL (0-125) Total Protein 7.1 G/DL (6.4-8.2) Albumin 3.9 G/DL (3.4-5.0) Globulin 3.2 g/dL Albumin/Globulin Ratio 1.2 (1.0-2.7) EKG Diagnostic Results Rate: normal Rhythm: NSR ST Segments: no acute changes Rhythm Strip Diag. Results EP Interpretation: yes Rhythm: NSR, no PVC's, no ectopy Chest X-Ray Diagnostic Results Chest X-Ray Diagnostic Results : Chest X-Ray Ordered: Yes # of Views/Limited/Complete: 1 View Indication: Shortness of Breath EP Interpretation: Yes Interpretation: no consolidation, no effusion, no pneumothorax Impression: No acute disease Electronically Signed by: Electronically signed by Fahad Conway MD Last Vital Signs Date Time Temp Pulse Resp B/P (MAP) Pulse Ox O2 Delivery O2 Flow Rate FiO2 12/10/18 01:10 98.4 81 20 136/83 100 Room Air 21 Status: improved Disposition: HOME, SELF-CARE Condition: Improved Scripts Prednisone* (PREDNISONE*) 10 Mg Tablet 10 MG ORAL DAILY, #21 TAB 0 Refills 4 po QD X 2, 3 po QD X 2, 2 po QD X 2, 1 po QD X 4 Prov: Fahad Conway MD 12/09/18 Albuterol Sulfate* (ALBUTEROL SULFATE MDI*) 8.5 Gm Hfa.aer.ad 2 PUFF INH Q6H, #1 EA 0 Refills Prov: Fahad Conway MD 12/09/18 Hydrocodone Bit/Acetaminophen 5-325* ([place] 5-325*) 1 Each Tablet 1 TAB ORAL Q6H PRN for For Pain, #6 TAB 0 Refills Prov: Fahad Conway MD 12/09/18 Fahad Conway MD Dec 09, 2018 20:56
--- NOTE | 2018-12-09 21:00 | NUR ---
ED Nurse Note: RECIEVED PT FROM HOME, AWAKE, ALERT AND ORIENTED X 4, PT HERE WITH C/O ASTHMA AND SOB, PT STATES HER HHN TREATMENTS AND INHALER ARE NOT WORKING X 2 DAYS, PT DENIES FEVERS, EMESIS, VOMITING, OR ANY OTHR DISCOMFORTS, MILD SOB NOTED ON EXERTION AND DENIES CP, PT IS AMBULATORY, ASSISTED TO GOWNING, CARDIAC MONITORING AND IV LINE PLACED, WILL RESUME CARE ORDERD AND CLOSELY MONITOR.
[2018-12-09 21:41] LABS: BASOPHILS % (AUTO) 1.6 % (0.0-2.0); EOSINOPHILS % (AUTO) 5.5 % (0.0-3.0); HEMATOCRIT 38.1 % (37.0-47.0); HEMOGLOBIN 13.2 G/DL (12.0-16.0); LYMPHOCYTES % (AUTO) 39.7 % (20.0-45.0); MEAN CORPUSCULAR VOLUME 91 FL (80-99); MONOCYTES % (AUTO) 8.7 % (1.0-10.0); NEUTROPHILS % (AUTO) 44.5 % (45.0-75.0); PLATELET COUNT 217 K/UL (150-450); RED BLOOD COUNT 4.19 M/UL (4.20-5.40); RED CELL DISTRIBUTION WIDTH 12.2 % (11.6-14.8); WHITE BLOOD COUNT 9.6 K/UL (4.8-10.8)
[2018-12-09 21:44] LABS: ANION GAP 8 mmol/L (5-15); BLOOD UREA NITROGEN 9 mg/dL (7-18); CALCIUM 9.5 MG/DL (8.5-10.1); CARBON DIOXIDE 30 MMOL/L (21-32); CHLORIDE 105 MMOL/L (98-107); CREATININE 0.8 MG/DL (0.55-1.30); POTASSIUM 3.2 MMOL/L (3.5-5.1); SODIUM 143 MMOL/L (136-145)
[2018-12-09 21:48] LABS: INR 0.9 (0.9-1.1)
[2018-12-09] MEDS: Albuterol ud Inhalation HHN SCH ×4 (21:51→22:30)
[2018-12-09 21:55] LABS: ALANINE AMINOTRANSFERASE 34 U/L (12-78); ALBUMIN 3.9 G/DL (3.4-5.0); ALBUMIN/GLOBULIN RATIO 1.2 (1.0-2.7); ALKALINE PHOSPHATASE 90 U/L (46-116); ASPARTATE AMINO TRANSFERASE 24 U/L (15-37); BILIRUBIN,TOTAL 0.7 MG/DL (0.2-1.0)
[2018-12-09 22:00] VITALS: BP 140/69
[2018-12-09 23:30] VITALS: BP 136/83
--- NOTE | 2018-12-09 23:30 | NUR ---
ED Nurse Note: PT COMPLETED SERIES OF BREATHING TREATMENTS, TOLERATED WELL AND BREATHING EFFORT IS LESS, PT DENIES CP OR ANY PAIN, IV SITE PATENT, PT REMAINS ON CARDIAC MONITORING, WILL RESUME CARE ORDERED AND CONTINUE TO CLOSELY MONITOR.
[2018-12-09] MEDS ORDERED: ALBUTEROL SULF8.5 GM INH (23:38)
[2018-12-09] MEDS ORDERED: PREDNISONE10 MG ORAL (23:38)
[2018-12-09] MEDS ORDERED: NORCO 5-325 TA1 EACH ORAL (23:38)
[2018-12-10 00:45] VITALS: BP 131/79
--- NOTE | 2018-12-10 01:00 | NUR ---
ER DISCHARGE NOTE: Patient is cleared to be discharged per ERMD, pt is aox4, on room air, with stable vital signs. pt was given dc and prescription instructions, pt was able to verbalize understanding, pt id band and iv site removed without complications. pt is able to ambulate with steady gait. pt took all belongings. Family arrived for pt transport.
[2018-12-10 01:10] VITALS: BP 136/83
== END 2018-12-10 01:00 | disposition home or self-care (01) ==
LOC: EMR 21:05
DX: J45.41 Moderate persistent asthma with (acute) exacerbation (principal); R07.9 Chest pain, unspecified; E03.9 Hypothyroidism, unspecified; K21.9 Gastro-esophageal reflux disease without esophagitis; Z88.6 Allergy status to analgesic agent; J44.9 Chronic obstructive pulmonary disease, unspecified
CPT/HCPCS: 36415; 71045; 80053; 83735; 83880; 84484; 85025; 85610; 85730; 93005; 94640; 94664; 96374; 99284; J2930

== ENCOUNTER 2019-01-09 09:11 | Emergency (ER) | payer MEDICAID ==
[~2019-01-09] VITALS: Ht 165.1 cm; Wt 68.0 kg
[~2019-01-09 09:11] MED LIST changes: +ALBUTEROL SULF8.5 GM INH; +PREDNISONE10 MG ORAL
[2019-01-09 09:14] VITALS: BP 147/66
--- NOTE | 2019-01-09 09:20 | NUR ---
ED Nurse Note: Patient walked into ED c/o pain on the left ankle cyst. patient reports the cyst has been there for 2 months getting bigger. patient reports her PMD referred her to ED for I/D tx. patient is alert awake ambulatory, breathing unlabored and even.
--- NOTE | 2019-01-09 10:09 | NUR ---
ED Nurse Note: patient went to MRI
--- NOTE | 2019-01-09 10:13 | Diagnostic Imaging Report ---
Indication: left ankle pain Comparison: None Findings: 3 views of the left ankle obtained. No acute fracture, malalignment, periostitis, or osteochondral defects are identified. Soft tissues are unremarkable. Impression: No acute findings
--- NOTE | 2019-01-09 10:50 | NUR ---
ED Nurse Note: patient came back from MRI resting comfortably in bed
--- NOTE | 2019-01-09 11:15 | Diagnostic Imaging Report ---
Indication: Palpable mass. Pain Technique: Left ankle/hindfoot imaging utilizing multiplanar T1 fast spin-echo, T2 fast spin-echo with fat saturation, and STIR. Comparison: None Findings: There is a well-circumscribed ovoid T1 hypointense/T2 hyperintense ganglion cyst posterior to the peroneal tendons as the tendons course from a relatively vertical orientation to slightly oblique orientation just below the lateral malleolus. Cyst has approximate measurement of 2.8 x 2.5 x 1.4 cm. The adjacent peroneus longus and brevis tendons may be slightly enlarged due to tendonosis or inflammation. Bone marrow signal appears normal within the lateral malleolus. The Achilles tendon and plantar aponeurosis appears normal. Subtalar joint and tibiotalar joint appear unremarkable. The study was not ideally performed for evaluation of internal derangement. Having said that, no obvious abnormalities of the anterior and posterior talofibular ligaments or tibiofibular ligaments identified. The calcaneofibular ligament is not well seen and may be disrupted or attenuated due to the cyst which is in this location. The contents of the tarsal tunnel including flexor hallucis longus, flexor digitorum longus and posterior tibialis tendons appear grossly normal. The deltoid ligamentous complex is grossly normal. IMPRESSION: 2.8 x 2.4 x 1.4 cm cyst, likely a ganglion cyst posterior to the common peroneal tendon sheath in the lateral part ankle. There may be a mild tendinosis or tendinopathy involving the peroneus longus and/or brevis tendons.
--- NOTE | 2019-01-09 11:23 | NUR ---
ED Nurse Note: HYUN GILES WRAP ON THE L ANKLE. PT STATED " IT FEELS GOOD"
--- NOTE | 2019-01-09 11:29 | Emergency Room Report ---
History of Present Illness General Chief Complaint: Skin Rash/Abscess Source: Patient, Medical Record Present Illness HPI This patient states that she has developed an area of swelling, tenderness and pain on her left lateral ankle. She denies injury or trauma to the area. She states that over the past few months this area has become larger. She did see her primary care physician for this and he was concerned there could be a cyst and sent her to the emergency department for drainage of the cyst. She denies recent illness. She denies fever or chills. She denies redness. She denies skin changes. She has no other complaints. Allergies: Coded Allergies: CODEINE (Verified Adverse Reaction, Intermediate, 10/25/18) N/V Patient History Past Medical History: asthma, GERD, other - Hypothyroid Past Surgical History: margret Social History: Denies: smoking, alcohol use, drug use Reviewed Nursing Documentation: PMH: Agreed; PSxH: Agreed Nursing Documentation-PMH Past Medical History: No History, Except For Hx Cardiac Problems: No - hypothyroid Hx Hypertension: No Hx Pacemaker: No Hx Asthma: Yes Hx COPD: Yes Hx Diabetes: No Hx Cancer: No Hx Gastrointestinal Problems: Yes - hernia Hx Dialysis: No Hx Neurological Problems: No Hx Cerebrovascular Accident: No Hx Seizures: No Review of Systems All Other Systems: negative except mentioned in HPI Physical Exam Vital Signs Date Time Temp Pulse Resp B/P (MAP) Pulse Ox O2 Delivery O2 Flow Rate FiO2 01/09/19 09:14 98.1 80 16 95 Room Air 01/09/19 09:14 147/66 Sp02 EP Interpretation: reviewed, normal General Appearance: no apparent distress, alert, GCS 15, non-toxic Head: normocephalic, atraumatic ENT: hearing grossly normal, no angioedema, normal voice Neck: full range of motion, supple/symm/no masses Respiratory: no respiratory distress, no retraction, no accessory muscle use, speaking full sentences Rectal: deferred Musculoskeletal: back normal, gait/station normal, normal range of motion, other - 2cmx1 area of swelling and tenderness in a kidney shape posterior to the Lateral malleolus of the L. ankle. No fluctuance. No erythema or warmth. Neurologic: alert, oriented x3, responsive, motor strength/tone normal, sensory intact, speech normal Psychiatric: judgement/insight normal, memory normal, mood/affect normal, no suicidal/homicidal ideation Skin: normal color, no rash, warm/dry, well hydrated Medical Decision Making Diagnostic Impression: Primary Impression: Peroneal tendinitis of left lower extremity Additional Impression: Ganglion cyst of foot ER Course This patient has findings consistent with perineal tendinitis vs Ganlion cyst. This is based on history and physical exam and consultation with Dr. Potter of orthopedics. The patient's primary care physician was concerned about an abscess, however, there is no evidence of this on physical exam. This is not a cutaneous abscess. This is along the tendon sheath just posterior to the lateral malleolus. I did obtain a plain film ankle x-ray which was unremarkable. I also obtain an MRI of the ankle as a precaution which showed findings of a 2.8 x 2.4 x 1.4 cm cyst, likely ganglion cyst posterior common perineal tendon sheath in the lateral part ankle. The patient was given these results and instructed to follow-up with an ankle/irrigation installation specialist. At this time, I did not identify an emergency medical condition. The patient was given an Aaron wrap for comfort. She is given close return precautions and follow -up instructions. Other X-Ray Diagnostic Results Other X-Ray Diagnostic Results : X-Ray ordered: L. ankle # of Views/Limited Vs Complete: Complete Indication: Pain EP Interpretation: Yes Interpretation: no dislocation, no fractures Impression: No acute disease Electronically Signed by: Leonor Milian DO CT/MRI/US Diagnostic Results CT/MRI/US Diagnostic Results : Imaging Test Ordered: MRI L. ankle Impression 2.8 x 2.4 x 1.4 cm cyst, likely a ganglion cyst posterior to the common peroneal tendon sheath in the lateral part ankle. There may be a mild tendinosis or tendinopathy involving the peroneus longus and/or brevis tendons. Last Vital Signs Date Time Temp Pulse Resp B/P (MAP) Pulse Ox O2 Delivery O2 Flow Rate FiO2 01/09/19 09:14 98.1 80 16 147/66 95 Room Air Status: improved Disposition: HOME, SELF-CARE Condition: Improved Referrals: NON PHYSICIAN (PCP) Leonor Milian DO January 09, 2019 11:29
[2019-01-09 11:47] VITALS: BP_SYST 10; BP_SYST 140; BP_DIAS 67
--- NOTE | 2019-01-09 11:47 | NUR ---
ER DISCHARGE NOTE: Patient is cleared to be discharged per ERMD, pt is aox4, on room air, with stable vital signs. pt was given dc and prescription instructions, pt was able to verbalize understanding pt is able to ambulate with steady gait. pt took all belongings.
== END 2019-01-09 11:45 | disposition home or self-care (01) ==
LOC: EMR 09:25
DX: M76.72 Peroneal tendinitis, left leg (principal); M67.472 Ganglion, left ankle and foot; Z88.6 Allergy status to analgesic agent; K21.9 Gastro-esophageal reflux disease without esophagitis; E03.9 Hypothyroidism, unspecified; J44.9 Chronic obstructive pulmonary disease, unspecified
CPT/HCPCS: 99284

== ENCOUNTER 2019-02-23 11:33 | Emergency (ER) | payer MEDICAID ==
[~2019-02-23] VITALS: Ht 165.1 cm; Wt 72.6 kg
[2019-02-23] MEDS ORDERED: Acetaminophen 500mg (ES) tab PO ONE (11:45)
[2019-02-23] MEDS ORDERED: Methocarbamol 750mg tab ORAL ONE (11:45)
--- NOTE | 2019-02-23 11:45 | NUR ---
ED Nurse Note: Pt came in from home due to lower back pain and burning sensation while urinating x 2 days. Pt slipped and fell yesterday around 1100. No head injury or LOC. Pain 10/10 connor. AOx4, VSS. Will cont to monitor.
[2019-02-23 12:28] LABS: APPEARANCE,URINE CLEAR; COLOR,URINE PALE YELLOW; PH,URINE 5 (4.5-8.0); PROTEIN,URINE NEGATIVE (NEGATIVE)
[2019-02-23 12:29] LABS: BILIRUBIN, URINE NEGATIVE (NEGATIVE); GLUCOSE, URINE (UA) NEGATIVE (NEGATIVE); KETONES,URINE NEGATIVE (NEGATIVE); LEUKOCYTE ESTERASE ,URINE 1+ (NEGATIVE); NITRITE,URINE NEGATIVE (NEGATIVE); UROBILINOGEN,URINE NORMAL MG/DL (0.0-1.0)
--- NOTE | 2019-02-23 12:35 | Diagnostic Imaging Report ---
Indication: Back pain Comparison: None Findings: 3 views of the lumbar spine were obtained. Multilevel narrowing of intervertebral disks and associated endplate and facet osteophytes are present. No malalignment identified. Bones are diffusely osteopenic. No acute fracture definitely seen. Aorta is calcified. Impression: Mild spondylosis. No acute injury appreciated.
[2019-02-23 12:45] VITALS: BP 151/79
[2019-02-23] MEDS ORDERED: ROBAXIN-750750 MG PO (14:01)
[2019-02-23] MEDS ORDERED: TYLENOL EXTRA500 MG ORAL (14:01)
[2019-02-23] MEDS ORDERED: LIDODERM700 M1 TOPIC (14:01)
[2019-02-23 14:03] VITALS: BP 149/82
[2019-02-23 14:04] VITALS: BP 151/79
--- NOTE | 2019-02-24 07:27 | Emergency Room Report ---
History of Present Illness General Chief Complaint: Lower Back Pain or Injury Source: Patient, Medical Record Present Illness HPI 63-year-old female presents ED for evaluation. Complaining of back pain which started 2 days ago. Described as flank pain on the right side. States she was having some dysuria. Denies hematuria. Denies fevers or chills. Denies nausea or vomiting. States that she then fell yesterday on her back. Denies hitting her head or LOC. Complaining of pain to her lower back since the fall. Throbbing, 8 out of 10, nonradiating. Denies any other injuries. No other aggravating relieving factors. Denies any other associated symptoms Allergies: Coded Allergies: CODEINE (Verified Adverse Reaction, Intermediate, 10/25/18) N/V Patient History Past Medical History: asthma Past Surgical History: other - hernia Pertinent Family History: none Social History: Denies: smoking, alcohol use, drug use Last Menstrual Period: menopause Now: No Immunizations: UTD Reviewed Nursing Documentation: PMH: Agreed; PSxH: Agreed Nursing Documentation-PMH Past Medical History: No History, Except For Hx Cardiac Problems: No - hypothyroid Hx Hypertension: No Hx Pacemaker: No Hx Asthma: Yes Hx COPD: Yes Hx Diabetes: No Hx Cancer: No Hx Gastrointestinal Problems: Yes - hernia Hx Dialysis: No Hx Neurological Problems: No Hx Cerebrovascular Accident: No Hx Seizures: No Review of Systems All Other Systems: negative except mentioned in HPI Physical Exam Vital Signs Date Time Temp Pulse Resp B/P (MAP) Pulse Ox O2 Delivery O2 Flow Rate FiO2 02/23/19 11:37 98.1 72 18 159/79 (105) 96 Room Air Sp02 EP Interpretation: reviewed, normal General Appearance: no apparent distress, alert, GCS 15, non-toxic Head: normocephalic Eyes: bilateral eye normal inspection, bilateral eye PERRL ENT: normal ENT inspection Neck: normal inspection Respiratory: normal inspection Cardiovascular #1: normal inspection Gastrointestinal: normal bowel sounds, non tender, soft, non-distended, no guarding, no rebound Rectal: deferred Genitourinary: CVA tenderness (R), vertebral tenderness Musculoskeletal: normal inspection Neurologic: alert, oriented x3, responsive, motor strength/tone normal, sensory intact, speech normal Psychiatric: judgement/insight normal, memory normal, mood/affect normal, no suicidal/homicidal ideation Skin: normal color Lymphatic: normal inspection Medical Decision Making Diagnostic Impression: Primary Impression: Back pain Qualified Codes: M54.5 - Low back pain ER Course Hospital Course 63-year-old F presents to ED complaining of R flankl pain and back s/p trip and fall Differential diagnoses include: Fracture, dislocation, sprain, contusion Clinical course Patient placed on stretcher. After initial history and physical, I ordered pain medications, UA and Xrays of L spine UA negative X-ray of L-spine shows no acute fracture discussed findings with patient. On reassessment pain improved. Safe for discharge for close outpatient follow-up. States she has a PMD Diagnosis - back pain Stable and discharged to home with prescription for tylenol, robaxin, lidoderm. weight bear as tolerated. Followup with PMD. Return to ED if symptoms recur or worsen Labs Test 02/23/19 11:43 Urine Color Pale yellow Urine Appearance Clear Urine pH 5 (4.5-8.0) Urine Specific [place] 1.025 (1.005-1.035) Urine Protein Negative (NEGATIVE) Urine Glucose (UA) Negative (NEGATIVE) Urine Ketones Negative (NEGATIVE) Urine Blood 5+ (NEGATIVE) Urine Nitrite Negative (NEGATIVE) Urine Bilirubin Negative (NEGATIVE) Urine Urobilinogen Normal MG/DL (0.0-1.0) Urine Leukocyte Esterase 1+ (NEGATIVE) Urine RBC 2-4 /HPF (0 - 2) Urine WBC 0-2 /HPF (0 - 2) Urine Squamous Epithelial Cells Occasional /LPF Urine Bacteria None /HPF (NONE) Other X-Ray Diagnostic Results Other X-Ray Diagnostic Results : X-Ray ordered: L spine # of Views/Limited Vs Complete: 3 View Indication: Pain EP Interpretation: Yes Interpretation: no dislocation, no soft tissue swelling, no fractures Impression: No acute disease Electronically Signed by: Electronically signed by Chet Medina MD Last Vital Signs Date Time Temp Pulse Resp B/P (MAP) Pulse Ox O2 Delivery O2 Flow Rate FiO2 02/23/19 14:04 98.1 77 18 151/79 98 Room Air Status: improved Disposition: HOME, SELF-CARE Condition: Stable Scripts Methocarbamol* (ROBAXIN-750*) 750 Mg Tablet 750 MG PO TID, #21 TAB 0 Refills Prov: Chet Medina MD 02/23/19 Lidocaine (Lidoderm) 1 Each Adh..patch 1 PATCH TOPIC DAILY, #7 PATCH 0 Refills Patch(es) may remain in place for up to 12 hours in any 24-hour period. Prov: Chet Medina MD 02/23/19 Acetaminophen* (TYLENOL EXTRA STRENGTH*) 500 Mg Tablet 500 MG ORAL Q8H PRN for Prn Headache/Temp > 101, #30 TAB 0 Refills Prov: Chet Medina MD 02/23/19 Patient Instructions: Low Back Sprain With Rehab-Sports[facility] Chet Medina MD Feb 24, 2019 07:27
== END 2019-02-23 14:04 | disposition home or self-care (01) ==
LOC: EMR 12:00
DX: M54.5 Low back pain (principal); Z88.5 Allergy status to narcotic agent; J45.909 Unspecified asthma, uncomplicated; J44.9 Chronic obstructive pulmonary disease, unspecified
CPT/HCPCS: 72020; 81001; 99283

== ENCOUNTER 2019-03-01 11:49 | Emergency (ER) | payer MEDICAID ==
[~2019-03-01] VITALS: Ht 165.1 cm; Wt 72.6 kg
[~2019-03-01 11:49] MED LIST changes: +LIDODERM700 M1 TOPIC
[2019-03-01 11:55] VITALS: BP 158/65
--- NOTE | 2019-03-01 12:36 | NUR ---
ED Nurse Note: Pt. AAOx4. Pt. c/o low back pain and difficulty in walking; reports no loss of bowel or bladder control; reports no numbness or tingling in BLE. s/p fall on 02/22/2019
[2019-03-01] MEDS ORDERED: traMADol 50mg tab ORAL ONE (12:45)
--- NOTE | 2019-03-01 13:09 | NUR ---
ED Nurse Note: Pt. refused the lidocaine patch. TAVON Mcfarland made aware. wasted the patch
--- NOTE | 2019-03-01 13:30 | Diagnostic Imaging Report ---
Indication: Back pain Technique: Continuous helical transaxial imaging of the lumbar spine was obtained. No IV contrast was administered. Coronal 2-D reformats were also obtained. Study obtained in a Siemens sensation [address] Total Dose length Product (DLP): 460.[address] Dose Index Volume (CTDIvol): 15.81 mGy Comparison: None Findings: There is no evidence of an acute fracture or malalignment. There is mild loss of height of some of the vertebral bodies due to compression fracture deformities the although these are probably old including L4 and L2. Superimposed degenerative osteophytes noted at the endplates. The facets notable for mild hypertrophy. There is no soft tissue swelling. Aorta is calcified. Impression: No evidence of acute injury. Mild degenerative changes. Compression fracture deformities involving superior endplates of L2 on L4 probably old. Arterial vascular disease The CT scanner at [facility] is accredited by the [employer] and the scans are performed using dose optimization techniques as appropriate to a performed exam including Automatic Exposure control.
--- NOTE | 2019-03-01 14:15 | Emergency Room Report ---
History of Present Illness General Chief Complaint: Lower Back Pain or Injury Source: Patient Present Illness HPI 63-year-old female presents to the emergency department complaining of 7 out of 10 severity low back pain that is been persistent for almost 1 week. Patient states she had a fall and was evaluated here in the emergency department and discharged with muscle relaxers and anti-inflammatories after x-ray imaging was performed. Patient states that she has been taking her medications as directed but has had no relief of her symptoms. reports intermittent sharp shooting pain down the right leg posteriorly with sitting and standing certain ways. pt. is ambulatory. reports difficulty finding POC. She denies new trauma or fall. Denies recent spinal procedures or history of neoplastic disease. Denies numbness tingling or loss of sensation or gross motor movements of the extremities, incontinence of bowel or bladder. Denies CP, Palpitations, LOC, AMS , dizziness, Changes in Vision, weakness or a sudden severe headache. Allergies: Coded Allergies: CODEINE (Verified Adverse Reaction, Intermediate, 10/25/18) N/V Patient History Past Medical History: see triage record Past Surgical History: none Pertinent Family History: none Now: No Reviewed Nursing Documentation: PMH: Agreed; PSxH: Agreed Nursing Documentation-PMH Past Medical History: No History, Except For Hx Hypertension: No Hx Pacemaker: No Hx Asthma: Yes Hx COPD: Yes Hx Diabetes: No Hx Cancer: No Hx Gastrointestinal Problems: Yes - hernia Hx Dialysis: No Hx Neurological Problems: No Hx Cerebrovascular Accident: No Hx Seizures: No Review of Systems All Other Systems: negative except mentioned in HPI Physical Exam Vital Signs Date Time Temp Pulse Resp B/P (MAP) Pulse Ox O2 Delivery O2 Flow Rate FiO2 03/01/19 11:55 98.2 64 18 158/65 (96) 96 Room Air Sp02 EP Interpretation: reviewed, normal General Appearance: no apparent distress, alert, GCS 15, non-toxic Head: normocephalic, atraumatic Eyes: bilateral eye normal inspection, bilateral eye PERRL ENT: hearing grossly normal, normal voice Neck: full range of motion Respiratory: chest non-tender, lungs clear, normal breath sounds, speaking full sentences Cardiovascular #1: regular rate, rhythm, no edema Gastrointestinal: normal bowel sounds, non tender, soft Rectal: deferred Genitourinary: normal inspection Musculoskeletal: back normal, gait/station normal, normal range of motion, tender - Tenderness to palpation to paraspinal muscles of the lower back (lumbar ) with some midline tenderness. No obvious deformity, step-off, bruises. No exacerbation of sciatica symptoms upon exam. Neurologic: alert, oriented x3, responsive, motor strength/tone normal, sensory intact, speech normal, grossly normal Psychiatric: judgement/insight normal Lymphatic: no adenopathy Medical Decision Making PA Attestation Dr. Medina is my supervising Physician whom patient management has been discussed with. Diagnostic Impression: Primary Impression: Low back pain Qualified Codes: M54.41 - Lumbago with sciatica, right side Additional Impression: Compression fracture ER Course 63-year-old female presents to the emergency department complaining of 7 out of 10 severity low back pain that is been persistent for almost 1 week. Patient states she had a fall and was evaluated here in the emergency department and discharged with muscle relaxers and anti-inflammatories after x-ray imaging was performed. Patient states that she has been taking her medications as directed but has had no relief of her symptoms. reports intermittent sharp shooting pain down the right leg posteriorly with sitting and standing certain ways. pt. is ambulatory. reports difficulty finding POC. She denies new trauma or fall. Denies recent spinal procedures or history of neoplastic disease. Denies numbness tingling or loss of sensation or gross motor movements of the extremities, incontinence of bowel or bladder. Denies CP, Palpitations, LOC, AMS , dizziness, Changes in Vision, weakness or a sudden severe headache. Ddx considered: epidural abscess, fracture, sprain/strain, meningitis, spinal chord injury, sciatica, cauda equina, Pyelonephritis, renal calculi just to name a few. Vital signs reviewed and are WNL during ED visit. Pt. is afebrile with no signs of infection No new symptoms, and denies recent trauma. No saddle anesthesia noted, Pt. denies incontinence Neurovascular is intact ROM is limited due to pain * Tenderness to palpation to paraspinal muscles of the lower back (lumbar) with some midline tenderness. *Pt. describes pain today as moderate and radiates across the lower back. ORDERS: -CT L-Spine: old compression fractures of L4, and L2 otherwise unremarkable-per official radiology report- Please see report for specific details. INTERVENTIONS: l -Tramadol PO D/W Pt. that for further pain management is it recommended to consult PCP or a Chronic Pain management doctor. A provider who can safely prescribe controlled substances with close follow up. DISCHARGE: At this time pt. is stable for d/c to home. Will provide printed patient care instructions, and any necessary prescriptions. Care plan and follow up instructions have been discussed with the patient prior to discharge. CT/MRI/US Diagnostic Results CT/MRI/US Diagnostic Results : Imaging Test Ordered: CT L-Spine Impression Old compression fractures of L4, and L2 otherwise unremarkable-per official radiology report- Please see report for specific details. Last Vital Signs Date Time Temp Pulse Resp B/P (MAP) Pulse Ox O2 Delivery O2 Flow Rate FiO2 03/01/19 11:55 98.2 64 18 158/65 96 Room Air Disposition: HOME, SELF-CARE Condition: Stable Scripts Tramadol Hcl* (ULTRAM*) 50 Mg Tablet 50 MG ORAL Q6H PRN for For Pain, #12 TAB 0 Refills Prov: Bruna Darling 03/01/19 Referrals: NON PHYSICIAN (PCP) Patient Instructions: Back Pain, Adult, Spinal Compression Fracture Additional Instructions: Take medications as directed. Follow up with a Primary Care Provider in 3-5 days, even if your symptoms have resolved. You are stable to receive an MRI as needed in the outpatient setting. Return sooner to ED if new symptoms occur, or current symptoms become worse. Do not drink alcohol, drive, or operate heavy machinery while taking Tramadol as this may cause drowsiness. - Please note that this Emergency Department Report was dictated using [employer] rail signal technician technology software, occasionally this can lead to erroneous entry secondary to interpretation by the dictation equipment. Bruna Darling Mar 01, 2019 14:15
[2019-03-01] MEDS ORDERED: TRAMADOL HCL50 MG ORAL (14:21)
[2019-03-01 14:27] VITALS: BP 148/69
--- NOTE | 2019-03-01 14:27 | NUR ---
ER DISCHARGE NOTE: Patient is cleared to be discharged per PA, pt is aox4, on room air, with stable vital signs. pt was given dc and prescription instructions, pt was able to verbalize understanding, pt id band removed. pt is able to ambulate with steady gait. pt took all belongings.
== END 2019-03-01 14:27 | disposition home or self-care (01) ==
LOC: EMR 13:00
DX: M54.5 Low back pain (principal); M48.56XA Collapsed vertebra, not elsewhere classified, lumbar region, initial encounter for fracture; Z88.5 Allergy status to narcotic agent; J44.9 Chronic obstructive pulmonary disease, unspecified
CPT/HCPCS: 72131; 99284

== ENCOUNTER 2019-03-05 22:54 | Emergency (ER) | payer MEDICAID ==
[~2019-03-05] VITALS: Ht 165.1 cm; Wt 68.0 kg
[2019-03-05 23:05] VITALS: BP 200/65
--- NOTE | 2019-03-05 23:05 | NUR ---
ED Nurse Note: Pt ambulated to ED from home c/o feeling like her throat is closing, triaged at bedside. Pt spo2 is 98% on RA, no stridor heard, lung sounds clear, no agonal breathing noticed at rest. Pt states she has asthman. No signs of resp distress
--- NOTE | 2019-03-05 23:42 | NUR ---
ED Nurse Note: Pt not found in room, not found in bathroom or waiting room. Pt left without being seen. MD and charge gang weigher notified
[2019-03-05 23:43] VITALS: BP 200/65
--- NOTE | 2019-03-06 00:56 | Emergency Room Report ---
Physical Exam Vital Signs Date Time Temp Pulse Resp B/P (MAP) Pulse Ox O2 Delivery O2 Flow Rate FiO2 03/05/19 23:03 99.0 68 21 200/65 (110) 98 Room Air Medical Decision Making Diagnostic Impression: Primary Impression: Patient left without being seen ER Course Patient left prior to MD evaluation. Observed exiting ED without distress. Last Vital Signs Date Time Temp Pulse Resp B/P (MAP) Pulse Ox O2 Delivery O2 Flow Rate FiO2 03/05/19 23:43 99.0 68 21 200/65 98 Room Air Status: improved Disposition: LEFT W/OUT BEING SEEN Condition: Stable Referrals: [facility],REFERRING (PCP) Chet Medina MD Mar 06, 2019 00:56
== END 2019-03-05 23:40 | disposition left against medical advice (07) ==
LOC: EMR 23:13
DX: Z53.21 Procedure and treatment not carried out due to patient leaving prior to being seen by health care provider (principal)

== ENCOUNTER 2019-04-11 12:27 | Emergency (ER) | payer MEDICAID, OTHER ==
[~2019-04-11] VITALS: Ht 165.1 cm; Wt 72.6 kg
[2019-04-11 12:36] VITALS: BP 170/86
--- NOTE | 2019-04-11 12:46 | NUR ---
ED Nurse Note: Pt came in from home due to generalized abdominal pain with nausea and constipation x 2 weeks, last bowel movement was 3 days ago. Abdomen rigid, firm, bowel sounds on all quadrants. Pain 10/10 connor. AOx4, HTN at this triage. Will cont to monitor.
[2019-04-11] MEDS ORDERED: Isovue-300 100ml vial INJ PRN (13:15)
[2019-04-11] MEDS ORDERED: Ketorolac 30mg Inj IV ONE (13:15)
--- NOTE | 2019-04-11 13:18 | Emergency Room Report ---
History of Present Illness General Chief Complaint: Abdominal Pain Source: Patient Present Illness HPI Patient is a 63-year-old female presented after increased diffuse abdominal pain. Patient reports having increased abdominal distention. She reports recently having been seen over at [facility]. She had CT imaging performed at that time which showed some diverticulosis. Patient had prior history of hysterectomy as well as cholecystectomy. She had prior . Patient also had prior hernia repair. She was noted to have adhesions in the past. Patient reports having increased abdominal distention. She states she has been having decreased bowel movements. She reports having increased crampy pain. Patient reports having prior history of hypothyroidism and asthma. Allergies: Coded Allergies: CODEINE (Verified Adverse Reaction, Intermediate, 10/25/18) N/V Patient History Past Medical History: see triage record Now: No Reviewed Nursing Documentation: PMH: Agreed; PSxH: Agreed Nursing Documentation-PMH Past Medical History: No History, Except For Hx Hypertension: No Hx Pacemaker: No Hx Asthma: Yes Hx COPD: Yes Hx Diabetes: No Hx Cancer: No Hx Gastrointestinal Problems: Yes - hernia Hx Dialysis: No Hx Neurological Problems: No Hx Cerebrovascular Accident: No Hx Seizures: No Review of Systems All Other Systems: negative except mentioned in HPI Physical Exam Vital Signs Date Time Temp Pulse Resp B/P (MAP) Pulse Ox O2 Delivery O2 Flow Rate FiO2 04/11/19 12:31 98.8 72 20 170/86 (114) 94 Room Air Sp02 EP Interpretation: reviewed, normal General Appearance: normal inspection, no apparent distress, alert, GCS 15, non -toxic, Chronically Ill Head: atraumatic ENT: normal ENT inspection, hearing grossly normal, normal voice Neck: normal inspection, full range of motion, supple, no bony tend Respiratory: normal inspection, lungs clear, normal breath sounds, no respiratory distress, no retraction, no wheezing Cardiovascular #1: regular rate, rhythm, no edema Gastrointestinal: soft, no guarding, no hernia, tenderness - mild diffuse, other - obese Genitourinary: no CVA tenderness Musculoskeletal: normal inspection, back normal, normal range of motion Neurologic: normal inspection, alert, oriented x3, responsive, leach cell operator III-XII nml as tested, speech normal Psychiatric: normal inspection, judgement/insight normal, memory normal, mood/ affect normal Skin: no rash Medical Decision Making Diagnostic Impression: Primary Impression: Nonspecific abdominal pain ER Course Presented for abdominal pain. Differential diagnosis include is not limited to perforation, bowel obstruction, fecal impaction, myxedema among others. Because of complexity of patient's case laboratory testing and imaging studies were ordered. Based on the patient's clinical picture at this time and the workup as performed above, I see no evidence for more malignant underlying processes. The patient's CBC showed no evidence for clinically significant anemia based on hemoglobin level. There is also no marked leukocytosis or neutrophilia making significant infectious etiology less likely barring immunocompromise. There is no overt evidence for immune compromise as the patient is not leukopenic. The patient's red blood cell indices were also not markedly abnormal. Analysis of patients electrolytes reveals no clinically significant abnormalities that contribute to the patient's presenting complaint. There is no significant evidence for dehydration. There is no evidence for renal dysfunction/abnormality at this time. Urinalysis is negative for signs of infection or dehydration. CT imaging showed no acute process. See radiology report for full details. Patient was given medications for symptomatic relief. Patient was advised to follow up with primary care physician. Patient to return if worse or any concerns. Labs Test 04/11/19 13:23 White Blood Count 8.3 K/UL (4.8-10.8) Red Blood Count 4.10 M/UL (4.20-5.40) Hemoglobin 12.7 G/DL (12.0-16.0) Hematocrit 37.5 % (37.0-47.0) Mean Corpuscular Volume 91 FL (80-99) Mean Corpuscular Hemoglobin 30.9 PG (27.0-31.0) Mean Corpuscular Hemoglobin Concent 33.8 G/DL (32.0-36.0) Red Cell Distribution Width 12.1 % (11.6-14.8) Platelet Count 229 K/UL (150-450) Mean Platelet Volume 6.3 FL (6.5-10.1) Neutrophils (%) (Auto) 47.8 % (45.0-75.0) Lymphocytes (%) (Auto) 38.4 % (20.0-45.0) Monocytes (%) (Auto) 9.5 % (1.0-10.0) Eosinophils (%) (Auto) 3.3 % (0.0-3.0) Basophils (%) (Auto) 1.0 % (0.0-2.0) Prothrombin Time 9.9 SEC (9.30-11.50) Prothromb Time International Ratio 0.9 (0.9-1.1) Activated Partial Thromboplast Time 26 SEC (23-33) Urine Color Yellow Urine Appearance Clear Urine pH 5 (4.5-8.0) Urine Specific [place] 1.025 (1.005-1.035) Urine Protein Negative (NEGATIVE) Urine Glucose (UA) Negative (NEGATIVE) Urine Ketones Negative (NEGATIVE) Urine Blood 4+ (NEGATIVE) Urine Nitrite Negative (NEGATIVE) Urine Bilirubin Negative (NEGATIVE) Urine Urobilinogen Normal MG/DL (0.0-1.0) Urine Leukocyte Esterase Negative (NEGATIVE) Urine RBC 5-10 /HPF (0 - 2) Urine WBC 0 /HPF (0 - 2) Urine Squamous Epithelial Cells Occasional /LPF Urine Bacteria Occasional /HPF (NONE) Urine Mucus Many /LPF (NONE/OCC) Sodium Level 143 MMOL/L (136-145) Potassium Level 3.2 MMOL/L (3.5-5.1) Chloride Level 107 MMOL/L (98-107) Carbon Dioxide Level 26 MMOL/L (21-32) Anion Gap 10 mmol/L (5-15) Blood Urea Nitrogen 13 mg/dL (7-18) Creatinine 0.7 MG/DL (0.55-1.30) Estimat Glomerular Filtration Rate > 60 mL/min (>60) Glucose Level 117 MG/DL (74-106) Calcium Level 9.0 MG/DL (8.5-10.1) Total Bilirubin 0.8 MG/DL (0.2-1.0) Aspartate Amino Transf (AST/SGOT) 23 U/L (15-37) Alanine Aminotransferase (ALT/SGPT) 31 U/L (12-78) Alkaline Phosphatase 81 U/L (46-116) Troponin I 0.000 ng/mL (0.000-0.056) Total Protein 7.1 G/DL (6.4-8.2) Albumin 3.5 G/DL (3.4-5.0) Globulin 3.6 g/dL Albumin/Globulin Ratio 1.0 (1.0-2.7) Lipase 78 U/L (73-393) Thyroid Stimulating Hormone (TSH) 1.449 uiU/mL (0.358-3.740) Last Vital Signs Date Time Temp Pulse Resp B/P (MAP) Pulse Ox O2 Delivery O2 Flow Rate FiO2 04/11/19 12:36 98.8 72 20 170/86 94 Room Air Status: improved Disposition: HOME, SELF-CARE Condition: Stable Scripts Docusate Sodium* (COLACE*) 100 Mg Capsule 100 MG ORAL TWICE A DAY, #20 CAP Prov: Kyle Epperson MD 04/11/19 Dicyclomine Hcl* (DICYCLOMINE HCL*) 10 Mg Capsule 10 MG ORAL QID, #20 CAP Prov: Kyle Epperson MD 04/11/19 Omeprazole (OMEPRAZOLE) 20 Mg Capsule.dr 20 MG ORAL DAILY, #30 CAP Prov: Kyle Epperson MD 04/11/19 Referrals: [facility]ERR[facility] (PCP) Kyle Epperson MD Apr 11, 2019 13:18
--- NOTE | 2019-04-11 13:31 | NUR ---
ED Nurse Note: labs sent.
[2019-04-11 13:51] LABS: APPEARANCE,URINE CLEAR; BILIRUBIN, URINE NEGATIVE (NEGATIVE); GLUCOSE, URINE (UA) NEGATIVE (NEGATIVE); KETONES,URINE NEGATIVE (NEGATIVE); LEUKOCYTE ESTERASE ,URINE NEGATIVE (NEGATIVE); NITRITE,URINE NEGATIVE (NEGATIVE); PH,URINE 5 (4.5-8.0); PROTEIN,URINE NEGATIVE (NEGATIVE); UROBILINOGEN,URINE NORMAL MG/DL (0.0-1.0)
[2019-04-11 13:52] LABS: EOSINOPHILS % (AUTO) 3.3 % (0.0-3.0); HEMATOCRIT 37.5 % (37.0-47.0); HEMOGLOBIN 12.7 G/DL (12.0-16.0); LYMPHOCYTES % (AUTO) 38.4 % (20.0-45.0); MEAN CORPUSCULAR VOLUME 91 FL (80-99); MONOCYTES % (AUTO) 9.5 % (1.0-10.0); NEUTROPHILS % (AUTO) 47.8 % (45.0-75.0); PLATELET COUNT 229 K/UL (150-450); RED CELL DISTRIBUTION WIDTH 12.1 % (11.6-14.8); WHITE BLOOD COUNT 8.3 K/UL (4.8-10.8)
[2019-04-11 13:58] LABS: COLOR,URINE YELLOW
[2019-04-11 14:04] LABS: ANION GAP 10 mmol/L (5-15); BLOOD UREA NITROGEN 13 mg/dL (7-18); CARBON DIOXIDE 26 MMOL/L (21-32); CHLORIDE 107 MMOL/L (98-107); CREATININE 0.7 MG/DL (0.55-1.30); POTASSIUM 3.2 MMOL/L (3.5-5.1); SODIUM 143 MMOL/L (136-145)
[2019-04-11 14:05] LABS: INR 0.9 (0.9-1.1)
[2019-04-11 14:16] LABS: ALANINE AMINOTRANSFERASE 31 U/L (12-78); ALBUMIN 3.5 G/DL (3.4-5.0); ALKALINE PHOSPHATASE 81 U/L (46-116); ASPARTATE AMINO TRANSFERASE 23 U/L (15-37); BILIRUBIN,TOTAL 0.8 MG/DL (0.2-1.0)
--- NOTE | 2019-04-11 15:08 | Diagnostic Imaging Report ---
Clinical Indication: Increased diffuse abdominal pain and increased abdominal distention Technique: No oral contrast utilized, per emergency room physician request IV administration nonionic contrast. Venous phase spiral acquisition obtained through the abdomen and pelvis. Multiplanar reconstructions were generated. Total dose length product 868.6 mGycm. CTDIvol(s) 18.4 mGy. Dose reduction achieved using automated exposure control Comparison: 03/03/2018 contrast study, 07/11/2018 noncontrast exam Findings: Lack of enteric contrast limits assessment of the GI tract. There is colonic diverticulosis. No evidence of diverticulitis. The appendix is not visualized, but no findings to suggest acute appendicitis are evident. No small bowel distention. No free or loculated intraperitoneal gas or fluid is evident. The distal esophagus, stomach, duodenum are unremarkable. The liver is diffusely low in attenuation, as previously. No focal abnormality. There are cholecystectomy clips noted. No biliary ductal dilatation. The pancreas, spleen, adrenals are unremarkable. The kidneys demonstrate bilateral subcentimeter low-attenuation lesions which are too small to characterize, unchanged since prior exam. No renal or ureteral calculi, hydronephrosis, or hydroureter. The bladder is distended, otherwise unremarkable. No pelvic mass or adenopathy. The uterus is not visualized, presumed surgically absent. The lung bases demonstrate a 3 mm nodule in the right middle lobe on the highest cut, also evident previously and appearing calcified on the prior exam there is some scarring in the inferior lingula. On the highest cut is a 2 mm nodule in the left lower lobe, unchanged from prior and multiple earlier exams. The bones demonstrate a superior endplate compression fracture deformity of the L2 vertebral body which was not evident previously, but was described on a lumbar spine CT of 03/01/2019. Impression: Limited assessment of the GI tract, due to lack of enteric contrast demonstration No definite acute process Mild fatty liver Stable basilar lung nodules L2 vertebral body superior endplate compression fracture, new since prior exam of 07/19/2018, but also reported on lumbar CT scanner of 03/01/2019 Subcentimeter low-attenuation renal lesions, presumably small renal cortical cysts. No further follow-up necessary Other findings as noted, including evidence of prior cholecystectomy, evidence of prior hysterectomy The CT scanner at [facility] is accredited by the [employer] and the scans are performed using protocols designed to limit radiation exposure to as low as reasonably achievable to attain images of sufficient resolution adequate for diagnostic evaluation.
[2019-04-11] MEDS ORDERED: OMEPRAZOLE20 M2 ORAL (15:10)
[2019-04-11] MEDS ORDERED: DICYCLOMINE HCL10 MG ORAL (15:10)
[2019-04-11] MEDS ORDERED: COLACE100 MG ORAL (15:10)
[2019-04-11 15:16] VITALS: BP 170/86
== END 2019-04-11 15:16 | disposition home or self-care (01) ==
LOC: EMR 12:46
DX: R10.9 Unspecified abdominal pain (principal); J44.9 Chronic obstructive pulmonary disease, unspecified; Z88.6 Allergy status to analgesic agent
CPT/HCPCS: 36415; 74177; 80053; 81003; 83690; 84443; 84484; 85025; 85610; 85730; 96374; 99284; J1885; Q9967

== ENCOUNTER 2019-06-20 08:03 | Emergency (ER) | payer MEDICAID, OTHER ==
[~2019-06-20] VITALS: Ht 165.1 cm; Wt 70.3 kg
[~2019-06-20 08:03] MED LIST changes: +COLACE100 MG ORAL; +DICYCLOMINE HCL10 MG ORAL; +OMEPRAZOLE20 M2 ORAL
--- NOTE | 2019-06-20 08:26 | Emergency Room Report ---
History of Present Illness General Chief Complaint: Asthma Source: Patient Present Illness HPI Patient is a 63-year-old female brought in by self after increased difficulty with breathing. She had prior history of asthma. She normally uses her nebulizer. She had run out of medications 2 days ago. She denies recent steroid use. She had been having some fever for the past few days. She reports being sick for a total of approximately 2 weeks. Denies any leg pain or swelling. She reports having some increased chest tightness. Had not been having any vomiting. Allergies: Coded Allergies: CODEINE (Verified Adverse Reaction, Intermediate, 10/25/18) N/V Patient History Last Menstrual Period: 2014 Now: No Reviewed Nursing Documentation: PMH: Agreed; PSxH: Agreed Nursing Documentation-PMH Past Medical History: No History, Except For Hx Hypertension: No Hx Pacemaker: No Hx Asthma: Yes Hx COPD: Yes Hx Diabetes: No Hx Cancer: No Hx Gastrointestinal Problems: Yes - hernia Hx Dialysis: No Hx Neurological Problems: No Hx Cerebrovascular Accident: No Hx Seizures: No Physical Exam Vital Signs Date Time Temp Pulse Resp B/P (MAP) Pulse Ox O2 Delivery O2 Flow Rate FiO2 06/20/19 08:10 98.4 72 16 150/76 (100) 96 Room Air Sp02 EP Interpretation: reviewed, normal General Appearance: normal inspection, well appearing, no apparent distress, alert, GCS 15, non-toxic Head: atraumatic ENT: normal ENT inspection, hearing grossly normal, normal voice Neck: normal inspection, full range of motion, supple, no bony tend Respiratory: normal inspection, no respiratory distress, no retraction, no wheezing, wheezing Cardiovascular #1: regular rate, rhythm, no edema Gastrointestinal: normal inspection, normal bowel sounds, non tender, soft, no guarding, no hernia Genitourinary: no CVA tenderness Musculoskeletal: normal inspection, back normal, normal range of motion Neurologic: normal inspection, alert, oriented x3, responsive, city planning engineer III-XII nml as tested, speech normal Psychiatric: normal inspection, judgement/insight normal, mood/affect normal Medical Decision Making Diagnostic Impression: Primary Impression: Asthma attack Last Vital Signs Date Time Temp Pulse Resp B/P (MAP) Pulse Ox O2 Delivery O2 Flow Rate FiO2 06/20/19 08:10 98.4 72 16 150/76 (100) 96 Room Air Status: improved Disposition: HOME, SELF-CARE Condition: Stable Scripts Prednisone* (PREDNISONE*) 20 Mg Tablet 60 MG ORAL DAILY, #12 TAB Prov: Kyle Epperson MD 06/20/19 Albuterol Sulfate* (ALBUTEROL SULFATE HHN*) 2.5 Mg/3 Ml Vial.neb 2.5 MG HHN Q4H PRN for Shortness of Breath, #25 VIAL Prov: Kyle Epperson MD 06/20/19 Kyle Epperson MD Jun 20, 2019 08:26
--- NOTE | 2019-06-20 08:28 | NUR ---
ED Nurse Note: Patient walked into ED from home c/o asthma exacerbation, patient reports she was running out of her asthma medication for 2 days. patient reports she has pain on her anterior chest radiating to her bilateral breasts. patient is alert awake x4 ambulatory steaday gait, blankets provided for the patient, Dr. Epperson at bedside, respiratory therapist called.
[2019-06-20] MEDS ORDERED: Albuterol/Ipratropium 3ml neb HHN ONE ×3 (08:30→10:15)
[2019-06-20] MEDS ORDERED: PREDNISONE20 MG ORAL (08:50)
[2019-06-20] MEDS ORDERED: ALBUTEROL2.5 MG/3 M HHN (08:50)
--- NOTE | 2019-06-20 09:00 | NUR ---
ED Nurse Note: patient suddenly reports lower abdominal pain, notified Dr Epperson
[2019-06-20 09:13] VITALS: BP 166/57
[2019-06-20] MEDS ORDERED: Ibuprofen Susp 100mg/5ml ORAL ONE (09:15)
[2019-06-20 09:21] VITALS: BP 141/68
--- NOTE | 2019-06-20 10:41 | Diagnostic Imaging Report ---
Indication: Dyspnea Comparison: 12/09/2018 A single view chest radiograph was obtained. Findings: Lungs are clear. Heart size is normal. Aorta is calcified. Bones are osteopenic. Costophrenic angles are sharp. No pleural effusion appreciated. Surgical clips noted in the right upper quadrant abdomen. Calcified granuloma noted at the right lung base. IMPRESSION: No acute cardiopulmonary disease. Old granulomatous disease. Atherosclerotic disease of aorta Status post cholecystectomy Osteopenia
[2019-06-20 10:45] VITALS: BP 150/50
--- NOTE | 2019-06-20 10:45 | NUR ---
ER DISCHARGE NOTE: Patient is cleared to be discharged per ERMD DR WHITLOCK, pt is aox4, on room air, with stable vital signs. pt was given dc and prescription instructions, pt was able to verbalize understanding, pt id band removed without complications. pt is able to ambulate with steady gait. pt took all belongings. patient reports she will be following up with her primary doctor.
== END 2019-06-20 10:45 | disposition home or self-care (01) ==
LOC: EMR 08:31
DX: J44.9 Chronic obstructive pulmonary disease, unspecified (principal); J45.901 Unspecified asthma with (acute) exacerbation; Z88.6 Allergy status to analgesic agent
CPT/HCPCS: 71045; 94640; 94664; J7512; Z7502; 99284; J7620

== ENCOUNTER 2019-06-26 10:15 | Emergency (ER) | payer MEDICAID ==
[~2019-06-26] VITALS: Ht 167.6 cm; Wt 65.8 kg
--- NOTE | 2019-06-26 10:20 | NUR ---
ED Nurse Note: Patient was brought in by ambulance from home RA 35. patient has been having cramping abdominal pain for 5 months and today it was worse. patient reports diffuse colicky pain on her abdominen. patient is alert awake x4 placed on a hopsital gown and surveillance monitor.
[2019-06-26 10:25] VITALS: BP 175/61
[2019-06-26] MEDS ORDERED: LORazepam Inj 2mg/ml 1ml IV ONE (10:45)
[2019-06-26] MEDS ORDERED: DiphenhydrAMINE 50mg/ml Inj IVP ONE (10:45)
[2019-06-26 11:26] LABS: ANION GAP 7 mmol/L (5-15); BLOOD UREA NITROGEN 13 mg/dL (7-18); CALCIUM 9.2 MG/DL (8.5-10.1); CARBON DIOXIDE 29 MMOL/L (21-32); CHLORIDE 104 MMOL/L (98-107); CREATININE 0.7 MG/DL (0.55-1.30); POTASSIUM 4.1 MMOL/L (3.5-5.1); SODIUM 140 MMOL/L (136-145)
[2019-06-26 11:34] LABS: BASOPHILS % (AUTO) 0.8 % (0.0-2.0); HEMATOCRIT 40.8 % (37.0-47.0); HEMOGLOBIN 13.9 G/DL (12.0-16.0); LYMPHOCYTES % (AUTO) 30.1 % (20.0-45.0); MEAN CORPUSCULAR VOLUME 90 FL (80-99); NEUTROPHILS % (AUTO) 60.1 % (45.0-75.0); PLATELET COUNT 263 K/UL (150-450); RED BLOOD COUNT 4.54 M/UL (4.20-5.40); RED CELL DISTRIBUTION WIDTH 11.8 % (11.6-14.8); WHITE BLOOD COUNT 8.7 K/UL (4.8-10.8)
[2019-06-26 11:36] LABS: ALANINE AMINOTRANSFERASE 44 U/L (12-78); ALKALINE PHOSPHATASE 84 U/L (46-116); ASPARTATE AMINO TRANSFERASE 34 U/L (15-37); BILIRUBIN,TOTAL 1.3 MG/DL (0.2-1.0)
[2019-06-26 11:39] LABS: BILIRUBIN,DIRECT 0.2 MG/DL (0.0-0.3)
[2019-06-26] MEDS ORDERED: PEPCID AC10 MG PO (11:55)
[2019-06-26 12:49] VITALS: BP 160/70
--- NOTE | 2019-06-26 12:50 | NUR ---
ED Nurse Note: Pt cleared by health care Provider for discharge. DC instructions/prescription was given and explained to pt and verbalized understanding of teachings. All medical deviecs such as ID band removed. Pt is AAO x4, ambulatory and left with all personal belongings.
--- NOTE | 2019-06-26 13:21 | Emergency Room Report ---
History of Present Illness General Chief Complaint: Abdominal Pain Source: Patient Present Illness HPI Patient presents with complaints of diffuse abdominal pain Reports that her primary physician is trying to get her to be seen by a general surgeon She cannot provide me specific diagnosis however reports that she does require surgery The abdominal pain has been ongoing for the past several months however today she complains of increased pain epigastric left upper quadrant Increased nausea as well denies any diarrhea denies any fevers or chills denies any other recent fall or trauma Allergies: Coded Allergies: CODEINE (Verified Adverse Reaction, Intermediate, 10/25/18) N/V Patient History Past Medical History: see triage record Reviewed Nursing Documentation: PMH: Agreed; PSxH: Agreed Nursing Documentation-PMH Hx Hypertension: No Hx Pacemaker: No Hx Asthma: Yes Hx COPD: Yes Hx Diabetes: No Hx Cancer: No Hx Gastrointestinal Problems: Yes - hernia Hx Dialysis: No Hx Neurological Problems: No Hx Cerebrovascular Accident: No Hx Seizures: No Review of Systems All Other Systems: negative except mentioned in HPI Physical Exam Vital Signs Date Time Temp Pulse Resp B/P (MAP) Pulse Ox O2 Delivery O2 Flow Rate FiO2 06/26/19 10:15 98.8 80 19 166/64 (98) 98 Room Air Sp02 EP Interpretation: reviewed, normal General Appearance: other - Initially presented somewhat histrionic Head: normocephalic, atraumatic Eyes: bilateral eye PERRL, bilateral eye EOMI ENT: hearing grossly normal, normal pharynx, TMs + canals normal, uvula midline Neck: full range of motion, supple, no meningismus, no bony tend Respiratory: lungs clear, normal breath sounds, no rhonchi, no respiratory distress, no retraction, no accessory muscle use Cardiovascular #1: normal peripheral pulses, regular rate, rhythm, no edema, no gallop, no JVD, no murmur Gastrointestinal: normal bowel sounds, non tender - On palpation however subjectively points to the epigastric and bilateral upper abdominal area for the pain, soft, no mass, no organomegaly, non-distended, no guarding, no hernia , no pulsatile mass, no rebound Genitourinary: no CVA tenderness Musculoskeletal: normal inspection Neurologic: oriented x3, responsive, manufacturing design engineer III-XII nml as tested, motor strength/ tone normal, sensory intact Psychiatric: mood/affect normal Skin: no rash Lymphatic: normal inspection, no adenopathy Medical Decision Making Diagnostic Impression: Primary Impression: abdominal pain Additional Impression: lung nodules ER Course With the history exam and presentation, multiple differentials considered, including but not limited to appendicitis, gastritis, cholecystitis, diverticulitis Patient's abdominal exam is soft however given her complaints extensive blood work is initiated patient has had several imaging studies in the past There was a CAT scan of the abdomen pelvis from late March patient does have secondary findings of nodules in the lower lobes These do require close outpatient follow-up A copy of her CT is provided to the patient She has notified of the need for close follow-up Her abdominal pain is improved and essentially resolved and stable for close outpatient follow-up Labs Test 06/26/19 10:45 White Blood Count 8.7 K/UL (4.8-10.8) Red Blood Count 4.54 M/UL (4.20-5.40) Hemoglobin 13.9 G/DL (12.0-16.0) Hematocrit 40.8 % (37.0-47.0) Mean Corpuscular Volume 90 FL (80-99) Mean Corpuscular Hemoglobin 30.6 PG (27.0-31.0) Mean Corpuscular Hemoglobin Concent 34.0 G/DL (32.0-36.0) Red Cell Distribution Width 11.8 % (11.6-14.8) Platelet Count 263 K/UL (150-450) Mean Platelet Volume 6.8 FL (6.5-10.1) Neutrophils (%) (Auto) 60.1 % (45.0-75.0) Lymphocytes (%) (Auto) 30.1 % (20.0-45.0) Monocytes (%) (Auto) 8.0 % (1.0-10.0) Eosinophils (%) (Auto) 1.0 % (0.0-3.0) Basophils (%) (Auto) 0.8 % (0.0-2.0) Sodium Level 140 MMOL/L (136-145) Potassium Level 4.1 MMOL/L (3.5-5.1) Chloride Level 104 MMOL/L (98-107) Carbon Dioxide Level 29 MMOL/L (21-32) Anion Gap 7 mmol/L (5-15) Blood Urea Nitrogen 13 mg/dL (7-18) Creatinine 0.7 MG/DL (0.55-1.30) Estimat Glomerular Filtration Rate > 60 mL/min (>60) Glucose Level 89 MG/DL (74-106) Calcium Level 9.2 MG/DL (8.5-10.1) Total Bilirubin 1.3 MG/DL (0.2-1.0) Direct Bilirubin 0.2 MG/DL (0.0-0.3) Aspartate Amino Transf (AST/SGOT) 34 U/L (15-37) Alanine Aminotransferase (ALT/SGPT) 44 U/L (12-78) Alkaline Phosphatase 84 U/L (46-116) Total Protein 7.9 G/DL (6.4-8.2) Albumin 4.0 G/DL (3.4-5.0) Globulin 3.9 g/dL Albumin/Globulin Ratio 1.0 (1.0-2.7) Lipase 83 U/L (73-393) Last Vital Signs Date Time Temp Pulse Resp B/P (MAP) Pulse Ox O2 Delivery O2 Flow Rate FiO2 06/26/19 12:49 98.5 97 13 160/70 99 Room Air Status: improved Disposition: HOME, SELF-CARE Condition: Improved Scripts Famotidine (PEPCID AC) 10 Mg Tablet 10 MG PO DAILY for 7 Days, TAB Prov: Esteban Thayer DO 06/26/19 Referrals: [facility],REFERRING (PCP) [facility] Patient Instructions: Pulmonary Nodule, Abdominal Pain, Adult Additional Instructions: Your CAT scan on previous presentation has shown nonspecific nodules in the lung area. Require close outpatient follow-up. Different possibilities such as a benign nodules, or as concerning as possible cancer need to be considered. And close follow-up by her primary physician is encouraged Patient is provided with the discharge instructions notified to follow up with primary doctor in the next 2-3 days otherwise return to the er with any worsening symptoms. Please note that this report is being documented using [employer] technology. This can lead to erroneous entry secondary to incorrect interpretation by the dictating instrument. Esteban Thayer DO Jun 26, 2019 13:21
== END 2019-06-26 12:50 | disposition home or self-care (01) ==
LOC: EDBD 10:15 → EMR 10:50
DX: R10.9 Unspecified abdominal pain (principal); R91.1 Solitary pulmonary nodule; Z88.6 Allergy status to analgesic agent; J44.9 Chronic obstructive pulmonary disease, unspecified
CPT/HCPCS: 36415; 80053; 82248; 83690; 85025; 96374; 96375; J1200; J7040; Z7502; 99284

== ENCOUNTER → 2019-08-16 | Emergency (ER) | payer MEDICAID ==
[~2019-08-16] VITALS: Ht 165.1 cm; Wt 68.0 kg
[~2019-08-16] MED LIST changes: +Acetaminophen 500mg (ES) tab ORAL ONE; +PEPCID AC10 MG PO; +PREDNISONE50 MG ORAL; +ZITHROMAX250 MG ORAL
[2019-08-16 14:00] VITALS: BP 148/72
--- NOTE | 2019-08-16 14:00 | NUR ---
ED Nurse Note: Pt ambulated to ED with the c/o Asthma exacerbation x 2 days. Pt is AOx4; calm and cooperative. Placed on bed. RT on bedside.
--- NOTE | 2019-08-16 14:14 | Emergency Room Report ---
History of Present Illness General Chief Complaint: Asthma Source: Patient Present Illness HPI 64-year-old female, history of COPD, asthma, no longer a smoker, was a former smoker presents with cough, congestion, fever/chills and shortness of breath started 2 days ago, with her viral syndrome, alleviated with albuterol aggravated by her URI, severity is moderate, constant patient has never been intubated never been placed in ICU, patient presents for evaluation Allergies: Coded Allergies: CODEINE (Verified Adverse Reaction, Intermediate, 10/25/18) N/V Patient History Past Medical History: see triage record Now: No Reviewed Nursing Documentation: PMH: Agreed; PSxH: Agreed Nursing Documentation-PMH Past Medical History: No History, Except For Hx Hypertension: No Hx Pacemaker: No Hx Asthma: Yes Hx COPD: Yes Hx Diabetes: No Hx Cancer: No Hx Gastrointestinal Problems: Yes - hernia Hx Dialysis: No Hx Neurological Problems: No Hx Cerebrovascular Accident: No Hx Seizures: No Review of Systems All Other Systems: negative except mentioned in HPI Physical Exam Vital Signs Date Time Temp Pulse Resp B/P (MAP) Pulse Ox O2 Delivery O2 Flow Rate FiO2 08/16/19 13:57 98.2 85 15 155/70 (98) 96 Room Air Sp02 EP Interpretation: reviewed, normal General Appearance: well appearing, no apparent distress, alert Head: normocephalic, atraumatic Eyes: bilateral eye PERRL, bilateral eye EOMI ENT: uvula midline, moist mucus membranes, nasal congestion Neck: supple, thyroid normal, supple/symm/no masses Respiratory: no accessory muscle use, decreased breath sounds, speaking full sentences, wheezing Cardiovascular #1: normal peripheral pulses, regular rate, rhythm, no edema, no gallop, no murmur Gastrointestinal: non tender, soft, no guarding, no rebound Musculoskeletal: normal inspection Neurologic: alert, oriented x3 Psychiatric: mood/affect normal Skin: no rash, warm/dry Medical Decision Making Diagnostic Impression: Primary Impression: Asthma attack Qualified Codes: J45.41 - Moderate persistent asthma with (acute) exacerbation Additional Impressions: COPD exacerbation Atypical pneumonia ER Course 64-year-old female history of smoking, most likely history of COPD presents with acute shortness of breath differential diagnosis includes pneumonia, URI causing exacerbation of COPD X-ray shows no acute infiltrative processes Patient given duo nebs, steroids with significant improvement Reeval 3:17pm patient improving with significant improvement in wheezing Dispo home w/ return precautions EKG Diagnostic Results EKG Time: 14:10 EP Interpretation: NSR, rate 75, QTc 455, no acute ST elevations, left axis deviation Chest X-Ray Diagnostic Results Chest X-Ray Diagnostic Results : Chest X-Ray Ordered: Yes # of Views/Limited/Complete: 1 View Indication: Shortness of Breath EP Interpretation: Yes Interpretation: no consolidation, no effusion, no pneumothorax, no acute cardiopulmonary disease Impression: No acute disease Electronically Signed by: Trent Parks MD Last Vital Signs Date Time Temp Pulse Resp B/P (MAP) Pulse Ox O2 Delivery O2 Flow Rate FiO2 08/16/19 13:57 98.2 85 15 155/70 (98) 96 Room Air Disposition: HOME, SELF-CARE Condition: Stable Scripts Azithromycin* (ZITHROMAX*) 250 Mg Tablet 250 MG ORAL DAILY, #6 TAB 0 Refills Take two tables once daily for 1 day, then one tablet once daily for 4 days. Prov: Trent Parks MD 08/16/19 Prednisone* (PREDNISONE*) 50 Mg Tablet 50 MG ORAL DAILY, #4 TAB 0 Refills Prov: Trent Parks MD 08/16/19 Albuterol Sulfate* (ALBUTEROL SULFATE MDI*) 8.5 Gm Hfa.aer.ad 2 PUFF INH Q4H PRN for cough/wheezing, #2 EA 0 Refills Prov: Trent Parks MD 08/16/19 Referrals: [facility] Patient Instructions: Asthma, Adult Additional Instructions: The patient was provided with discharge instructions, notified to follow-up with a primary care doctor and or specialist in the next 24-48 hours, and to return to the ED if they have worsening of their symptoms. Please note that this report is being documented using [employer] technology. This can lead to erroneous entry secondary to incorrect interpretation by the dictating instrument. Trent Parks MD Aug 16, 2019 14:14
[2019-08-16] MEDS: Albuterol ud Inhalation HHN SCH ×6 (14:27→14:38)
[2019-08-16] MEDS: Ipratropium 0.02% Inh Soln 2.5ml UD HHN SCH ×6 (14:27→14:38)
[2019-08-16 15:43] VITALS: BP 146/74
--- NOTE | 2019-08-16 15:43 | NUR ---
ER DISCHARGE NOTE: Pt is cleared to be discharged per ERMD, pt is aox4, on room air, VSS. pt was given dc and prescription instructions, pt was able to verbalize understanding, pt id band removed. pt is able to ambulate with steady gait. pt left with daughter.
--- NOTE | 2019-08-16 15:46 | Diagnostic Imaging Report ---
Indication: Cough Technique: XRAY Chest 1v Comparison: 06/20/2019 Findings: Heart size and mediastinal contours are within normal limits for AP technique and stable compared to the prior exam. Atherosclerotic calcifications again noted in the aorta. There is no focal airspace consolidation, pneumothorax or pleural effusion. Unchanged 5 mm calcified granuloma in the right lower lung. Surgical clips again noted in the upper abdomen suggesting prior cholecystectomy. A suture anchor projects over the left shoulder. Osseous structures demonstrate no acute abnormality. Impression: No radiographic evidence of acute cardiopulmonary disease. Incidental findings as above, not significantly changed compared to the prior exam.
== END | disposition home or self-care (01) ==
LOC: EMR 15:38
DX: J18.9 Pneumonia, unspecified organism (principal); J45.41 Moderate persistent asthma with (acute) exacerbation; J44.1 Chronic obstructive pulmonary disease with (acute) exacerbation; Z88.5 Allergy status to narcotic agent
CPT/HCPCS: 71045; 93005; J8540; Z7502; 99284

== ENCOUNTER 2020-02-06 22:04 | Inpatient (IN) | payer MEDICAID ==
[~2020-02-06] VITALS: Ht 165.1 cm; Wt 68.0 kg
[~2020-02-06 22:04] MED LIST changes: -Acetaminophen 500mg (ES) tab ORAL ONE
--- NOTE | 2020-02-06 22:04 | NUR ---
ED Nurse Note: PT BROUGHT IN BY [facility] FROM HOME C/O CP X30MIN. PT RECEIVED 2 SPRAYS OF NITRO AND ASA 325 MG EN ROUTE. PT REPORTS SLIGHT RELIEF FROM PAIN BUT C/O RADIATION TO LEFT NECK, ARM AND EAR. DENIES DIZZINESS OR NAUSEA. VSS, NAD, AAOX4, AMBULATORY WITH UNSTEADY GAIT. ERMD AT BEDSIDE. PT PRESENTS WITH LT FOREARM 20G LINE, PATENT AND INTACT
--- NOTE | 2020-02-06 22:14 | NUR ---
ED Nurse Note: BLOOD COLLECTED AND SENT TO LAB.
[2020-02-06] MEDS ORDERED: Morphine Sulfate 4mg/ml Inj (IV USE ONLY) IVP ONE ×2 (22:15→23:30)
--- NOTE | 2020-02-06 22:17 | Emergency Room Report ---
History of Present Illness General Chief Complaint: Chest Pain Source: Patient Present Illness HPI This is a 64-year-old female with a history of asthma. She presents with complaint of chest pain. Onset was about 30 minutes prior to arrival. She was in the shower when she got out developed epigastric and substernal chest pain. Pain is sharp. Radiate to her left arm. Worse with palpation. Pain is 8 out of 10. She called 911. EMS gave her aspirin nitroglycerin. She said it helped some. She still having pain. Worse with palpation and inspiration. Better with rest. Normally do not get pain. Allergies: Coded Allergies: CODEINE (Verified Adverse Reaction, Intermediate, 10/25/18) N/V COVID-19 Screening Contact w/high risk pt: No Recent Travel to affected area: No Experienced COVID-19 symptoms?: No COVID-19 Testing performed CLAM PICKER: No Patient History Past Medical History: see triage record, old chart reviewed, asthma Past Surgical History: other Pertinent Family History: none Social History: Denies: smoking Last Menstrual Period: NA : 3 Para: 3 Immunizations: other Reviewed Nursing Documentation: PMH: Agreed; PSxH: Agreed Nursing Documentation-PMH Past Medical History: No History, Except For Hx Hypertension: No Hx Pacemaker: No Hx Asthma: Yes Hx COPD: Yes Hx Diabetes: No Hx Cancer: No Hx Gastrointestinal Problems: Yes - hernia Hx Dialysis: No Hx Neurological Problems: No Hx Cerebrovascular Accident: No Hx Seizures: No Review of Systems Eye: Denies: eye pain, blurred vision ENT: Denies: ear pain, nose congestion, throat swelling Respiratory: Denies: cough, shortness of breath Cardiovascular: Reports: chest pain; Denies: palpitations Gastrointestinal: Denies: abdominal pain, diarrhea, nausea, vomiting Musculoskeletal: Denies: back pain, joint pain Skin: Denies: rash Neurological: Denies: headache, numbness Endocrine: Denies: increased thirst, increased urine Hematologic/Lymphatic: Denies: easy bruising All Other Systems: negative except mentioned in HPI Physical Exam Vital Signs Date Time Temp Pulse Resp B/P (MAP) Pulse Ox O2 Delivery O2 Flow Rate FiO2 02/06/20 21:58 98.6 88 18 172/85 (114) 97 Room Air Vitals with high blood pressure Sp02 EP Interpretation: reviewed, normal General Appearance: well appearing, no apparent distress, alert Head: normocephalic, atraumatic Eyes: bilateral eye PERRL, bilateral eye EOMI ENT: hearing grossly normal, normal pharynx Neck: full range of motion, supple, no meningismus Respiratory: lungs clear, normal breath sounds, other - Reproducible with palpation Cardiovascular #1: regular rate, rhythm, no murmur Gastrointestinal: normal bowel sounds, non tender, no mass, no organomegaly, no bruit, non-distended Musculoskeletal: back normal, normal range of motion, gait/station normal Psychiatric: anxious Medical Decision Making Diagnostic Impression: Primary Impression: Chest pain Qualified Codes: R07.9 - Chest pain, unspecified ER Course Patient presents with chest pain. EKG is normal. First set of troponin negative. Patient has mildly elevated d-dimer. Initially order CT scan with IV contrast to rule out PE but patient said that she is allergic to IV contrast. Last time she had it done she said she felt her throat swell up. I canceled the CT scan. We will give her a dose of Lovenox. She may need a VQ scan in the morning. I contacted Dr. Lara for admission. EKG Diagnostic Results Rate: normal Rhythm: NSR ST Segments: no acute changes Rhythm Strip Diag. Results EP Interpretation: yes Rate: 80 Rhythm: NSR, no PVC's, no ectopy Chest X-Ray Diagnostic Results Chest X-Ray Diagnostic Results : Chest X-Ray Ordered: Yes # of Views/Limited/Complete: 1 View Indication: Chest Pain EP Interpretation: Yes Interpretation: no consolidation, no effusion, no pneumothorax, no acute cardiopulmonary disease Impression: No acute disease Electronically Signed by: Everardo Luque MD Last Vital Signs Date Time Temp Pulse Resp B/P (MAP) Pulse Ox O2 Delivery O2 Flow Rate FiO2 02/06/20 21:58 98.6 88 18 172/85 (114) 97 Room Air Status: improved Disposition: ADMITTED INPATIENT Condition: Serious Evreardo Luque MD Feb 06, 2020 22:17
--- NOTE | 2020-02-06 22:24 | NUR ---
ED Nurse Note: XR AT BEDSIDE
[2020-02-06 22:25] VITALS: BP 153/70
[2020-02-06 22:39] LABS: BASOPHILS % (AUTO) 1.3 % (0.0-2.0); EOSINOPHILS % (AUTO) 6.8 % (0.0-3.0); HEMATOCRIT 41.4 % (37.0-47.0); HEMOGLOBIN 12.9 G/DL (12.0-16.0); LYMPHOCYTES % (AUTO) 38.9 % (20.0-45.0); MEAN CORPUSCULAR VOLUME 95 FL (80-99); MONOCYTES % (AUTO) 7.6 % (1.0-10.0); NEUTROPHILS % (AUTO) 45.4 % (45.0-75.0); PLATELET COUNT 246 K/UL (150-450); RED BLOOD COUNT 4.38 M/UL (4.20-5.40); RED CELL DISTRIBUTION WIDTH 13.9 % (11.6-14.8); WHITE BLOOD COUNT 9.5 K/UL (4.8-10.8)
[2020-02-06 22:47] LABS: ANION GAP 9 mmol/L (5-15); BLOOD UREA NITROGEN 13 mg/dL (7-18); CALCIUM 9.3 MG/DL (8.5-10.1); CARBON DIOXIDE 27 MMOL/L (21-32); CHLORIDE 104 MMOL/L (98-107); SODIUM 140 MMOL/L (136-145)
[2020-02-06 22:54] LABS: ALANINE AMINOTRANSFERASE 26 U/L (12-78); ALBUMIN 3.9 G/DL (3.4-5.0); ALKALINE PHOSPHATASE 96 U/L (46-116); ASPARTATE AMINO TRANSFERASE 21 U/L (15-37); BILIRUBIN,TOTAL 0.6 MG/DL (0.2-1.0)
--- NOTE | 2020-02-06 23:00 | NUR ---
ED Nurse Note: URINE COLLECTED AND SENT TO LAB
[2020-02-06 23:02] LABS: BILIRUBIN, URINE NEGATIVE (NEGATIVE); COLOR,URINE PALE YELLOW; GLUCOSE, URINE (UA) NEGATIVE (NEGATIVE); KETONES,URINE NEGATIVE (NEGATIVE); LEUKOCYTE ESTERASE ,URINE 1+ (NEGATIVE); NITRITE,URINE NEGATIVE (NEGATIVE); PH,URINE 5 (4.5-8.0); PROTEIN,URINE NEGATIVE (NEGATIVE); UROBILINOGEN,URINE NORMAL MG/DL (0.0-1.0)
[2020-02-06 23:11] LABS: APPEARANCE,URINE SLIGHTLY CLOUDY
[2020-02-06] MEDS ORDERED: Omnipaque-300 100ml vial INJ ONE (23:30)
--- NOTE | 2020-02-06 23:30 | NUR ---
ED Nurse Note: PT C/O 03/31 LEFT CP. ERMD MADE AWARE. WILL CARRY OUT ORDER
--- NOTE | 2020-02-06 23:30 | NUR ---
ED Nurse Note: PT CONSENT NOT SIGNED FOR CT-A, PATIENT STATES ALLERGY TO DYE. PT STATES HER THROAT SWELLS WHEN TAKING DYE IV. ERMD NOTIFIED.
[2020-02-06] MEDS ORDERED: Morphine Sulfate 4mg/ml Inj (IV USE ONLY) IVP PRN (23:45)
[2020-02-06] MEDS ORDERED: Enoxaparin 80mg Inj SUBQ ONE (23:45)
--- NOTE | 2020-02-06 23:45 | NUR ---
Note geovanni in ED - 02/07/20 at 0034 by [email or web address] TRANSFER TO FLOOR: Patient transferred to [facility] via [facility] in stable condition as ordered, per dr. Barrios. Report given to Genevieve Chanels sent with patient.
--- NOTE | 2020-02-06 23:45 | NUR ---
TRANSFER TO FLOOR: Patient transferred to [facility] via [facility] in stable condition as ordered, per dr. Barrios. Report given to Genevieve CORLEY. Belongings sent with patient.
[2020-02-06 23:50] VITALS: BP 151/82
[2020-02-07] VITALS: BP 160/63
--- NOTE | 2020-02-07 00:05 | NUR ---
TRANSFER TO FLOOR: Patient transferred to [facility] via [facility] in stable condition as ordered, per dr. Barrios. Report given to Genevieve CORLEY. Belongings sent with patient.
--- NOTE | 2020-02-07 00:10 | NUR ---
NURSE NOTES: Received report from Ck Reid, SENIOR ADMINISTRATIVE SERVICES OFFICER. Patient was transferred to Telemetry unit from ER via [facility] without incident. No signs of acute distress noted; complains of pain. AOx4; able to make needs known and reposition herself. Checked IV site; patent and flushed. No erythema, bleeding, or infiltration noted. Belongings list checked with patient and transferring RN. Skin assessment performed; skin is intact. No wounds noted. Bed at lowest position, brakes on, siderails up x2. Call light within reach. Will continue to monitor.
--- NOTE | 2020-02-07 00:49 | NUR ---
NURSE NOTES: Called Dr. Clemons regarding patient's complaint of severe chest pain radiating to her left side. Awaiting callback for further orders.
--- NOTE | 2020-02-07 00:53 | NUR ---
NURSE NOTES: Received order from Dr. Clemons for 12 lead EKG and that he will put in an order for breathing treatment. Noted and carried out.
--- NOTE | 2020-02-07 01:15 | NUR ---
NURSE NOTES: Informed Dr. Clemons that EKG result says normal sinus rhythm.
--- NOTE | 2020-02-07 02:50 | NUR ---
NURSE NOTES: Received callback from Dr. Clemons. No new orders at this time for stronger pain medication.
[2020-02-07 04:00] VITALS: BP 131/50
--- NOTE | 2020-02-07 04:20 | NUR ---
NURSE NOTES: Received order from Dr. Clemons for Troponin. Noted and carried out.
--- NOTE | 2020-02-07 04:58 | NUR ---
NURSE NOTES: Called Dr. Clemons regarding patient's request for chest pain medication and breathing treatment. Per patient, she would just rather sign AMA later in the morning if she does not receive her medications. Awaiting callback.
--- NOTE | 2020-02-07 06:21 | NUR ---
NURSE NOTES: Received new orders from Dr. Clemons including Morphine 2mg IVP ONCE. Noted and carried out.
[2020-02-07] MEDS ORDERED: Morphine Sulfate 2mg/ml Inj(IV/IM USE ONLY) IVP SCH (06:30)
[2020-02-07] MEDS ORDERED: Albuterol/Ipratropium 3ml neb HHN PRN (06:30)
[2020-02-07] MEDS ORDERED: Levothyroxine 125mcg tab ORAL SCH (06:30)
--- NOTE | 2020-02-07 07:35 | NUR ---
HAND-OFF: Report given to JORY Zamora. Patient is awake lying semi-goodwin's; resting comfortably. In stable condition.
[2020-02-07 08:00] VITALS: BP 163/64
--- NOTE | 2020-02-07 08:04 | NUR ---
NURSE NOTES: Received report from JORY Vallejo, Patient sitting up in bed, watching television, no c/o pain, no SOB, on 2 liters nasal cannula, bed in lowest position, call light within reach.
[2020-02-07] MEDS ORDERED: Albuterol 90mcg Inhaler 8gm INH PRN (08:15)
--- NOTE | 2020-02-07 08:36 | NUR ---
NURSE NOTES: Left message with Dr. Jak Archibald to requesting rapid Covid test.
--- NOTE | 2020-02-07 08:56 | NUR ---
*-* NO INSURANCE INFORMATION IN THE BAR UNABLE TO SEND CLINICALS OR REVIEWS *-*
[2020-02-07] MEDS: Solu-MEDROL 40mg Inj IVP SCH ×2 (09:15→15:50)
--- NOTE | 2020-02-07 09:30 | History and Physical Report ---
DATE OF ADMISSION: 02/06/2020 CHIEF COMPLAINT: Chest pain. HISTORY OF PRESENT ILLNESS: This is a 64-year-old female. She has a history of asthma and hypothyroidism. The patient presented with complaints of two days of intermittent chest pain. Per the patient, the pain has been sharp. It usually has been associated with movement or walking and it has been relieved by rest. It is somewhat reproducible with movement of her left arm that radiates to her neck and left shoulder. She denies any fevers or chills. She has had no cough. According to the patient, she was recently tested for COVID and it was negative. On evaluation in the emergency room, her troponin was negative. White count was normal. Chest x-ray was clear, but she is now admitted for further evaluation and care. PAST MEDICAL HISTORY: As above. PAST SURGICAL HISTORY: Includes cholecystectomy, hernia repair, appendectomy, hysterectomy, breast biopsy, and back surgery. CURRENT MEDICATIONS: Reconciled and reviewed. ALLERGIES: Include codeine. FAMILY HISTORY: Significant for heart disease. Her mother at 65 from heart attack. SOCIAL HISTORY: The patient has a 5-year pack history of smoking, but quit. No drugs or alcohol. REVIEW OF SYSTEMS: GENERAL: No fevers or chills. HEENT: CARDIOPULMONARY: Positive chest pain and shortness of breath. GASTROINTESTINAL: No nausea or vomiting. GENITOURINARY: No urgency or frequency. MUSCULOSKELETAL: No joint pain or swelling. NEUROLOGICAL: No history of seizures. PHYSICAL EXAMINATION: VITAL SIGNS: Temperature 98 degrees, pulse 77, respirations 19, and blood pressure 131/50. HEENT: The patient is well developed, in no apparent distress. HEART: Regular rate and rhythm. LUNGS: Significant for diffuse wheezes. ABDOMEN: Soft, nontender, and nondistended. EXTREMITIES: Without clubbing, cyanosis, or edema. LABORATORY AND DIAGNOSTIC DATA: Labs were reviewed. EKG showed sinus rhythm without any acute ST-T wave changes. ASSESSMENT: This is a 64-year-old female with a history of asthma and hypothyroidism, who presents with complaints of chest pain, suspected due to bronchospasm, but cannot rule out underlying acute coronary syndrome. PLAN: Followup V/Q scan. Check a venous duplex of the legs. IV steroids. The patient will be ordered MDIs. Respiratory therapist will not do a full breathing treatment until her COVID test is back. The patient will be maintained on DVT prophylaxis. Plan of care was discussed with the patient. Shamar Lara M.D. DR: DANNIELLE JOB#: [id number] CC:
--- NOTE | 2020-02-07 10:01 | Diagnostic Imaging Report ---
Procedure: XRAY Chest 1v Reason for study: Chest pain Comparison films: None. FINDINGS: A single one view chest is obtained. Vascularity is normal. Calcified granuloma noted at the right lung base. No acute alveolar process noted. Cardiac and mediastinal silhouette are within normal limits. CP angles are sharp. The bony thorax appear unremarkable. IMPRESSION: Right lung granuloma. No acute disease.
[2020-02-07 12:00] VITALS: BP 175/79
[2020-02-07] MEDS ORDERED: Enoxaparin 80mg Inj SUBQ SCH (12:00)
--- NOTE | 2020-02-07 12:15 | NUR ---
CASE MANAGEMENT:REVIEW 64YR OLD FEMALE BIBOtoniel FROM HOME CC: CHEST PAIN RADIATING TO LT ARM AND NECK SI: CHEST PAIN 98.6 88 18 172/85 97% ON RA TROPONIN(-) X2 IS: ASA PO GIVEN DELIVERY DRIVER NITRO SPRAY X2 DELIVERY DRIVER IV MORPHINE X1 IV ZOFRAN X1 CHEST XRAY URINE REFLEX : TO TELEMETRY PLAN: VENOUS DUPLEX VQ SCAN CONTINUOS CARDIAC MONITORING Addendum: 02/07/20 at 1444 by REFUGIO BEJARANO LVN LVN INTERQUAL CRITERIA MET
[2020-02-07] MEDS: Nitroglycerin Subl 0.4mg tab SL PRN ×3 (12:43→13:16)
[2020-02-07] MEDS ORDERED: Morphine Sulfate 2mg/ml Inj(IV/IM USE ONLY) IVP PRN (12:45)
[2020-02-07 16:00] VITALS: BP 135/75
--- NOTE | 2020-02-07 16:17 | NUR ---
*-* INSURANCE *-* ALL CLINICALS AND REVIEWS HAVE BEEN FAXED TO: [facility] [employer] Ref# [id number] Fax Clinicals: [phone]
--- NOTE | 2020-02-07 19:10 | NUR ---
NURSE NOTES: Patient signed out against medical advice. Discussed benefits and risks of not having treatment. Patient stated, "My daughter wanted me to come home."
--- NOTE | 2020-02-08 08:57 | NUR ---
NOTIFIED PT THAT SHE TESTED POSITIVE TO COVID-19. ENCOURAGED PATIENT TO NOTIFY PRIMARY CARE PHYSICIAN, AND FOLLOW CDC AND [facility] RECOMMENDATIONS BY VISITING THEIR WEBSITES. ENCOURAGED PATIENT TO SEEK MEDICAL ASSISTANCE IF ANY SYMPTOMS WORSEN. PT VERBALIZED NO SYMPTOMS AT THIS TIME.
--- NOTE | 2020-02-08 10:43 | NUR ---
*-* INSURANCE *-* UPDATED CLINICALS (NO DISCHARGE SUMMARY IN THE SYSTEM) HAVE BEEN FAXED TO: [facility] [employer] Ref# [id number] Fax Clinicals: [phone]
--- NOTE | 2020-02-09 11:00 | Discharge Summary ---
Discharge Summary Discharge Summary _ DATE OF ADMISSION: 02/06/2020 DATE OF DISCHARGE: 02/07/2020 Patient left AGAINST MEDICAL ADVICE REASON FOR ADMISSION: 64 years old female with past medical history of asthma, presented to ED with complaints of the chest pain. Onset occurred about 30 minutes prior to arrival. She was in the shower when she developed epigastric and substernal chest pain. Pain reported as sharp with radiation to the left arm , worse with palpation , 8 out of 10. Patient subsequently called paramedics . In route to the hospital she received aspirin and nitroglycerin with some help. Patient still reported pain upon presentation to ED , worse with palpation and inspiration and better with rest. Upon evaluation blood pressure was elevated 172/85, pulse oximetry was 97% on the room air. Laboratory work-up revealed no leukocytosis ,stable hemoglobin and hematocrit. Stable electrolytes and renal parameters . Troponin negative , d-dimer 0.77. EKG revealed normal sinus rhythm no acute ischemic changes. Urinalysis revealed no evidence of urinary tract infection. Patient was swabbed for COVID-19 . Chest x-ray demonstrated right lung granuloma, no acute disease. Patient subsequently admitted for work-up for chest pain. HOSPITAL COURSE: Patient admitted to telemetry floor. Serial troponin were negative, EKG revealed no acute ischemic changes . Patient was ruled out for acute NC. Venous duplex and VQ scan were ordered. Echocardiogram demonstrated preserved ejection fraction 55%. Mild left ventricular hypertrophy. No evidence of wall motion abnormality. Right ventricular systolic pressure of 9. Patient started on full anticoagulation with Lovenox. Patient also started on the IV steroids for probable asthma exacerbation. Supplemental oxygen provided and titrated to keep pulse oximetry above 90%. Pulmonary toilet provided with inhaler . Patient was in isolation. COVID 19 was detected. Pain management was addressed. Nitroglycerin provided as needed. Blood pressure was managed with antihypertensive to bring blood pressure under control. Levothyroxine continued. Patient decided to leave AGAINST MEDICAL ADVICE. The risks and consequences of signing AGAINST MEDICAL ADVICE were discussed with patient in detail. Patient verbalized understanding, nevertheless signed AMA form and left. Patient was encouraged to notify her primary care physician and follow-up CDC and [facility] recommendation by visiting their website in [facility] to confoirmed COVID 19 infection. Patient was encouraged to seek medical attention if symptoms worsen. Prior to signing AMA, pulse oximetry stable on room air , chest pain resolved, blood pressure stabilized. FINAL DIAGNOSES: Chest pain Confirmed COVID-19 infection Asthma , possible exacerbation Hypothyroidism I have been assigned to dictate discharge summary for this account. I was not involved in the patient's management. Carmita Smith NP Feb 09, 2020 11:00
--- NOTE | 2020-02-12 15:18 | NUR ---
*-* INSURANCE *-* DISCHARGE SUMMARY HAS BEEN FAXED TO: [facility] Ref# [id number] Fax Clinicals: [phone]
--- NOTE | 2020-02-12 15:18 | NUR ---
*-* INSURANCE *-* UPDATED CLINICALS (NO DISCHARGE SUMMARY IN THE SYSTEM) HAVE BEEN FAXED TO: [facility] Ref# [id number] Fax Clinicals: [phone]
--- NOTE | 2020-02-19 15:03 | Coder Physician Query ---
Clarification is required for compliance, coding accuracy, and to reflect severity of illness for this patient Dear Dr. JOLLEY Date: 02/19/20 Spun Paste Machine Operator/CDS' Name: MARTIR Pitts FINAL DIAGNOSES: Chest pain Confirmed COVID-19 infection Asthma , possible exacerbation Hypothyroidism HOSPITAL COURSE: Patient admitted to telemetry floor. Serial troponin were negative, EKG revealed no acute ischemic changes . Patient was ruled out for acute TN. Venous duplex and VQ scan were ordered. Echocardiogram demonstrated preserved ejection fraction 55%. Mild left ventricular hypertrophy. No evidence of wall motion abnormality. Right ventricular systolic pressure of 9. Patient started on full anticoagulation with Lovenox. Patient also started on the IV steroids for probable asthma exacerbation. Please document the suspected etiology of Chest Pain: [x] Acute Coronary Syndrome [] Pericarditis [] Anxiety [] Cancer [] Pneumonia [] Costochondritis [] Pneumothorax [] GERD/Esophagitis [] Pulmonary embolism [] Other: [] Unable to determine Physician signature Date Please also document in your Progress Notes and/or Discharge Summary and indicate if the condition was present on admission. JESUS
== END 2020-02-07 19:15 | disposition left against medical advice (07) | DRG 203 ==
LOC: EDBD 22:04 → EMR 22:30 → 2E 23:10 → EDBEDREQ 23:35 → 2E 02-07 06:16
DX: R07.9 Chest pain, unspecified (principal); J45.909 Unspecified asthma, uncomplicated; Z87.891 Personal history of nicotine dependence; Z88.6 Allergy status to analgesic agent; E03.9 Hypothyroidism, unspecified
CPT/HCPCS: 36415; 71045; 80053; 81003; 84484; 85025; 85379; 93005; 93306; 96374; 96375; 96376; 99285; J2405

== ENCOUNTER 2020-02-12 12:14 | Emergency (ER) | payer MEDICAID ==
[~2020-02-12] VITALS: Ht 165.1 cm; Wt 68.0 kg
[2020-02-12] MEDS ORDERED: Albuterol 90mcg Inhaler 8gm INH ONE (12:45)
[2020-02-12 13:00] VITALS: BP 160/78
[2020-02-12 13:25] LABS: BASOPHILS % (AUTO) 1.2 % (0.0-2.0); EOSINOPHILS % (AUTO) 5.8 % (0.0-3.0); HEMATOCRIT 43.8 % (37.0-47.0); HEMOGLOBIN 13.6 G/DL (12.0-16.0); LYMPHOCYTES % (AUTO) 41.4 % (20.0-45.0); MEAN CORPUSCULAR VOLUME 93 FL (80-99); MONOCYTES % (AUTO) 6.5 % (1.0-10.0); PLATELET COUNT 249 K/UL (150-450); RED BLOOD COUNT 4.68 M/UL (4.20-5.40); RED CELL DISTRIBUTION WIDTH 12.9 % (11.6-14.8); WHITE BLOOD COUNT 8.1 K/UL (4.8-10.8)
[2020-02-12 13:36] LABS: ANION GAP 10 mmol/L (5-15); BLOOD UREA NITROGEN 15 mg/dL (7-18); CALCIUM 9.2 MG/DL (8.5-10.1); CARBON DIOXIDE 26 MMOL/L (21-32); CHLORIDE 103 MMOL/L (98-107); CREATININE 0.7 MG/DL (0.55-1.30); POTASSIUM 3.9 MMOL/L (3.5-5.1); SODIUM 139 MMOL/L (136-145)
--- NOTE | 2020-02-12 13:38 | Diagnostic Imaging Report ---
Procedure: XRAY Chest 1v Reason for study: Chest pain Comparison films: 02/06/2020. FINDINGS: A single one view chest is obtained. Vascularity is normal. Granulomas in the left upper lobe and right lung base unchanged. Cardiac and mediastinal silhouette are within normal limits. CP angles are sharp. The bony thorax appear unremarkable. IMPRESSION: Bilateral granulomas. No acute disease.
[2020-02-12 13:47] LABS: ALANINE AMINOTRANSFERASE 21 U/L (12-78); ALBUMIN 3.8 G/DL (3.4-5.0); ALBUMIN/GLOBULIN RATIO 0.9 (1.0-2.7); ALKALINE PHOSPHATASE 100 U/L (46-116); ASPARTATE AMINO TRANSFERASE 29 U/L (15-37); BILIRUBIN,TOTAL 0.7 MG/DL (0.2-1.0)
[2020-02-12] MEDS ORDERED: VENTOLIN HFA18 GM INH (14:09)
[2020-02-12] MEDS ORDERED: ZITHROMAX250 MG ORAL (14:09)
[2020-02-12] MEDS ORDERED: PREDNISONE20 MG ORAL (14:09)
[2020-02-12 14:31] VITALS: BP 148/76
--- NOTE | 2020-02-13 15:24 | Emergency Room Report ---
History of Present Illness General Chief Complaint: Dyspnea/Respdistress Source: Patient Present Illness HPI 64-year-old female presents the ED for evaluation. States that she was admitted here recently and tested positive for COVID. States she left AMA few days ago. History of asthma. States she does not feel well. States she has chest tightness. Denies fevers or chills. Denies cough. No other aggravating relieving factors. Denies any other associated symptoms Allergies: Coded Allergies: CODEINE (Verified Adverse Reaction, Intermediate, 10/25/18) N/V Uncoded Allergies: SHELLFISH (Allergy, Unknown, 02/07/20) Patient does not recall her exact experience with shellfish, but she is willing to undergo procedures that require use of contrast. 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 COVID-19 Screening: Positive COVID-19 COVID-19 Testing Source: nasopharyngeal Patient History Pertinent Family History: none Social History: Denies: smoking, alcohol use, drug use Now: No Immunizations: UTD Reviewed Nursing Documentation: PMH: Agreed; PSxH: Agreed Nursing Documentation-PMH Past Medical History: No History, Except For Hx Hypertension: No Hx Pacemaker: No Hx Asthma: Yes Hx COPD: Yes Hx Diabetes: No Hx Cancer: No Hx Gastrointestinal Problems: Yes - hernia Hx Dialysis: No Hx Neurological Problems: No Hx Cerebrovascular Accident: No Hx Seizures: No Review of Systems All Other Systems: negative except mentioned in HPI Physical Exam Vital Signs Date Time Temp Pulse Resp B/P (MAP) Pulse Ox O2 Delivery O2 Flow Rate FiO2 02/12/20 12:50 99.0 80 20 206/80 (122) 92 Room Air 02/12/20 13:11 21 Sp02 EP Interpretation: reviewed, normal General Appearance: no apparent distress, alert, GCS 15, non-toxic Head: normocephalic, atraumatic Eyes: bilateral eye normal inspection, bilateral eye PERRL ENT: hearing grossly normal, normal pharynx, no angioedema, normal voice Neck: full range of motion, supple/symm/no masses Respiratory: chest non-tender, normal breath sounds, speaking full sentences, wheezing Cardiovascular #1: regular rate, rhythm, no edema Cardiovascular #2: 2+ carotid (R), 2+ carotid (L), 2+ radial (R), 2+ radial (L) , 2+ dorsalis pedis (R), 2+ dorsalis pedis (L) Gastrointestinal: normal bowel sounds, non tender, soft, non-distended, no guarding, no rebound Rectal: deferred Genitourinary: normal inspection, no CVA tenderness Musculoskeletal: back normal, normal range of motion, gait/station normal, non- tender Neurologic: alert, motor strength/tone normal, oriented x3, sensory intact, responsive, speech normal Psychiatric: judgement/insight normal, memory normal, mood/affect normal, no suicidal/homicidal ideation Reflexes: 3+ bicep (R), 3+ bicep (L), 3+ tricep (R), 3+ tricep (L), 3+ knee (R) , 3+ knee (L) Skin: no rash Lymphatic: no adenopathy Medical Decision Making Diagnostic Impression: Primary Impression: COVID-19 Additional Impression: Asthma exacerbation Qualified Codes: J45.901 - Unspecified asthma with (acute) exacerbation ER Course Hospital Course 64-year-old female presents with cough, chest tightness. Recent diagnosis of COVID Differential diagnoses include: URI, bronchitis, asthma/COPD, pneumonia Clinical course Patient placed on stretcher. Isolation. I wore full PPE. After initial history, physical exam reveals a female in no acute distress. Bilateral TM unremarkable. No pharyngeal erythema. No tonsillar exudates. No lymphadenopathy. Mild wheezing noted Labs reviewed- no leukocytosis, hemoglobin/hematocrit stable, electrolytes okay , troponin negative EKGnormal sinus rhythm no acute ischemic changes interpreted by me Chest x-ray no acute process, bilateral granulomas On reassessment patient symptoms improved. Wheezing resolved. Labs unremarkable. Vitals stable. No acute findings on chest x-ray. I do not believe patient requires admission at this time. Patient agrees. Safe for discharge for close outpatient follow-up Diagnosis -COVID 19, asthma exacerbation Stable and discharged home with prescriptions for albuterol, prednisone, zpack. Instructed to followup with PMD. Return to ED if symptoms recur or worsen Labs Test 02/12/20 13:00 White Blood Count 8.1 K/UL (4.8-10.8) Red Blood Count 4.68 M/UL (4.20-5.40) Hemoglobin 13.6 G/DL (12.0-16.0) Hematocrit 43.8 % (37.0-47.0) Mean Corpuscular Volume 93 FL (80-99) Mean Corpuscular Hemoglobin 29.1 PG (27.0-31.0) Mean Corpuscular Hemoglobin Concent 31.2 G/DL (32.0-36.0) Red Cell Distribution Width 12.9 % (11.6-14.8) Platelet Count 249 K/UL (150-450) Mean Platelet Volume 7.6 FL (6.5-10.1) Neutrophils (%) (Auto) 45.0 % (45.0-75.0) Lymphocytes (%) (Auto) 41.4 % (20.0-45.0) Monocytes (%) (Auto) 6.5 % (1.0-10.0) Eosinophils (%) (Auto) 5.8 % (0.0-3.0) Basophils (%) (Auto) 1.2 % (0.0-2.0) Sodium Level 139 MMOL/L (136-145) Potassium Level 3.9 MMOL/L (3.5-5.1) Chloride Level 103 MMOL/L (98-107) Carbon Dioxide Level 26 MMOL/L (21-32) Anion Gap 10 mmol/L (5-15) Blood Urea Nitrogen 15 mg/dL (7-18) Creatinine 0.7 MG/DL (0.55-1.30) Estimat Glomerular Filtration Rate > 60 mL/min (>60) Glucose Level 100 MG/DL (74-106) Calcium Level 9.2 MG/DL (8.5-10.1) Total Bilirubin 0.7 MG/DL (0.2-1.0) Aspartate Amino Transf (AST/SGOT) 29 U/L (15-37) Alanine Aminotransferase (ALT/SGPT) 21 U/L (12-78) Alkaline Phosphatase 100 U/L (46-116) Troponin I 0.000 ng/mL (0.000-0.056) Pro-B-Type Natriuretic Peptide 45 pg/mL (0-125) Total Protein 8.0 G/DL (6.4-8.2) Albumin 3.8 G/DL (3.4-5.0) Globulin 4.2 g/dL Albumin/Globulin Ratio 0.9 (1.0-2.7) EKG Diagnostic Results Rate: normal Rhythm: NSR ST Segments: no acute changes ASA given to the pt in ED: No Rhythm Strip Diag. Results EP Interpretation: yes Rhythm: NSR, no PVC's, no ectopy Chest X-Ray Diagnostic Results Chest X-Ray Diagnostic Results : Chest X-Ray Ordered: Yes # of Views/Limited/Complete: 1 View Indication: Shortness of Breath EP Interpretation: Yes Interpretation: no consolidation, no effusion, no pneumothorax, no acute cardiopulmonary disease Impression: Other - bilateral granulomas Electronically Signed by: Electronically signed by Chet Medina MD Last Vital Signs Date Time Temp Pulse Resp B/P (MAP) Pulse Ox O2 Delivery O2 Flow Rate FiO2 02/12/20 14:31 70 18 148/76 100 Room Air 21 02/12/20 13:00 98.9 Status: improved Disposition: HOME, SELF-CARE Condition: Stable Scripts Albuterol Sulfate (VENTOLIN HFA) 18 Gm Hfa.aer.ad 2 PUFFS INH EVERY 6 HOURS, #18 GM 0 Refills Prov: Chet Medina MD 02/12/20 Prednisone* (PREDNISONE*) 20 Mg Tablet 40 MG ORAL DAILY, #10 TAB Prov: Chet Medina MD 02/12/20 Azithromycin* (ZITHROMAX*) 250 Mg Tablet 250 MG ORAL DAILY, #6 TAB 0 Refills Take two tables once daily for 1 day, then one tablet once daily for 4 days. Prov: Chet Medina MD 02/12/20 Referrals: NON PHYSICIAN (PCP) Patient Instructions: Asthma, Adult, [id number] Chet Medina MD Feb 13, 2020 15:24
== END 2020-02-12 14:32 | disposition home or self-care (01) ==
LOC: EMR 12:30
DX: U07.1 COVID-19 (principal); J45.901 Unspecified asthma with (acute) exacerbation; Z88.6 Allergy status to analgesic agent; J44.9 Chronic obstructive pulmonary disease, unspecified
CPT/HCPCS: 36415; 71045; 80053; 83880; 84484; 85025; 93005; 94640; J7512; Z7502; 99284

== ENCOUNTER 2020-05-11 10:50 | Emergency (ER) | payer MEDICAID ==
[~2020-05-11] VITALS: Ht 165.1 cm; Wt 68.0 kg
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
--- NOTE | 2020-05-11 11:08 | NUR ---
ED Nurse Note:pt. came with c/o SOB and COPD exacerbation, pt. is 95% oxygen on RA, covid swab sent to labs, waiting foir results to give breathing treatment
[2020-05-11 11:09] VITALS: BP 148/70
--- NOTE | 2020-05-11 11:51 | Diagnostic Imaging Report ---
EXAM: XR Chest, 1 View CLINICAL HISTORY: ASTHMA TECHNIQUE: Frontal view of the chest. COMPARISON: Chest radiograph on 02/12/2020 FINDINGS: Hardware: None. Lungs/pleura: Stable probable small calcified granulomas bilaterally. No focal consolidation. No pleural effusion or pneumothorax. Heart/mediastinum: Atherosclerotic calcifications of the aorta. No cardiomegaly. Soft tissues: Unremarkable. Bones: No acute fracture. Upper abdomen: Normal. IMPRESSION: No acute disease identified.
[2020-05-11] MEDS ORDERED: MUCINEX600 MG PO (12:02)
[2020-05-11] MEDS ORDERED: PREDNISONE20 MG ORAL (12:02)
[2020-05-11] MEDS: Albuterol/Ipratropium 3ml neb HHN SCH ×2 (12:05→12:21)
[2020-05-11 13:01] VITALS: BP 148/70
--- NOTE | 2020-05-11 13:03 | NUR ---
discharged home with instrction and rx follow up with pmd . patient verbalize understanding of aci
== END 2020-05-11 13:04 | disposition home or self-care (01) ==
LOC: EMR 11:00
DX: J45.901 Unspecified asthma with (acute) exacerbation (principal); Z88.6 Allergy status to analgesic agent; Z91.013 Allergy to seafood; J44.9 Chronic obstructive pulmonary disease, unspecified
CPT/HCPCS: 71045; 94640; J7512; U0002; Z7502; 99284; J7620

== ENCOUNTER 2020-05-28 13:44 | Outpatient (CLI) | payer MEDICAID ==
[~2020-05-28 13:44] MED LIST changes: +MUCINEX600 MG PO
--- NOTE | 2020-05-28 19:00 | Consultation ---
DATE OF CONSULTATION: 05/28/2020 GASTROENTEROLOGY CONSULTATION CHIEF COMPLAINT: Abdominal pain. PAST MEDICAL HISTORY: 1. Asthma. 2. Hypothyroidism. PAST SURGICAL HISTORY: Left breast biopsy, laparoscopic abdominal examination, hernia repair x3, hysterectomy, and cholecystectomy. MEDICATIONS: Please see medication reconciliation list. FAMILY HISTORY: No family history of GI malignancies. SOCIAL HISTORY: The patient quit tobacco usage about 2 years ago. Denies any alcohol. Denies any IV drug abuse. ALLERGIES: To codeine. REVIEW OF SYSTEMS: See the following. PHYSICAL EXAMINATION: VITAL SIGNS: Temperature 97.7. Vital signs are stable. HEENT: Normocephalic and atraumatic. Sclerae anicteric. NECK: Supple. No evidence of obvious lymphadenopathy. CARDIOVASCULAR: Regular rate and rhythm. Plus S1, S2. LUNGS: Clear to auscultation bilaterally. ABDOMEN: Soft. There is tenderness to palpation in the left upper quadrant. No rebound. No guarding. No peritoneal sign. EXTREMITIES: No cyanosis. No clubbing. No edema. ASSESSMENT AND PLAN: This is a 64-year-old female who complained of abdominal pain for 5 years, had multiple evaluations according to her, had endoscopy and colonoscopy about 2 years ago, had a laparoscopic look also at the same time, and they did not find anything. Denies any constipation. Complained of having some loose stools. The abdominal pain is worse after having a bowel movement. She had no nausea, no vomiting, no dysphagia, no odynophagia, no melena, and no weight loss. The patient is crying in the office for abdominal pain, worried about cancer. She most probably does not have a cancer, if she did for [address] Her sign and symptoms were suspicious for either severe IBS versus SIBO, but given the patient's request, we are going to order CT scan of the abdomen and pelvis to rule out malignancy. We are going to start the patient on Augmentin 875 b.i.d. for 10 days for SIBO treatment and followed by Align 1 tablet p.o. daily for 2 months. The patient to come back after above. Vinh Nobles M.D. DR: OUMOU JOB#: [id number] CC:
== END 2020-05-28 15:44 | disposition home or self-care (01) ==
LOC: PAN 13:44
DX: R10.9 Unspecified abdominal pain (principal); E03.9 Hypothyroidism, unspecified; Z90.710 Acquired absence of both cervix and uterus; Z90.49 Acquired absence of other specified parts of digestive tract
CPT/HCPCS: G0463

== ENCOUNTER 2020-07-01 09:57 | Outpatient (CLI) | payer MEDICAID ==
--- NOTE | 2020-07-01 11:32 | General Progress Note ---
Subjective ROS Limited/Unobtainable: Yes Allergies: Coded Allergies: CODEINE (Verified Adverse Reaction, Intermediate, 10/25/18) N/V Uncoded Allergies: SHELLFISH (Allergy, Unknown, 02/07/20) Patient does not recall her exact experience with shellfish, but she is willing to undergo procedures that require use of contrast. Objective General Appearance: alert EENT: normal ENT inspection Neck: supple Cardiovascular: normal rate Respiratory/Chest: lungs clear Abdomen: normal bowel sounds, non tender, soft Extremities: non-tender Assessment/Plan Assessment/Plan: abd pain s/p CT>>>no acute intra abd pathology diverticulosis plan colonoscopy Vinh Nobles MD Jul 01, 2020 11:32
== END 2020-07-01 11:57 | disposition home or self-care (01) ==
LOC: PAN 09:57
DX: R10.9 Unspecified abdominal pain (principal); K57.90 Diverticulosis of intestine, part unspecified, without perforation or abscess without bleeding; Z88.6 Allergy status to analgesic agent; Z91.013 Allergy to seafood
CPT/HCPCS: 99212

== ENCOUNTER 2020-07-30 06:54 | Emergency (ER) | payer MEDICAID ==
[~2020-07-30] VITALS: Ht 165.1 cm; Wt 63.5 kg
[2020-07-30 07:20] VITALS: BP 143/82
--- NOTE | 2020-07-30 07:20 | NUR ---
ED Nurse Note: Pt walked into ED for lower back pain 10/10 for 2 days. She denies injury. Pt states she has a fever but temp is 98.5F oral in ED. She was COVID + in January but tested (-) 07/23. She is alert and orientedx4, ambulatory. She has been seen by ERMD. Blood, flu, and COVID sent to lab.
--- NOTE | 2020-07-30 07:31 | Emergency Room Report ---
History of Present Illness General Chief Complaint: Back Pain-No Injury Source: Patient Present Illness HPI This patient states she has a history of COPD. She has several inhalers that she has been using from her primary care physician. She states that she also has been on prednisone from her primary care physician. She states that she did see her primary care physician for the same symptoms. She states that about 3 days ago she developed cough, fever, body aches and a burning pain in her upper back. She states that she did have COVID-19 in January and has since tested negative on July 23 for COVID-19. However, she states that the symptoms feel similar to her COVID-19 infection at that time. She states she has had some mild burning with urination. She has been using Tylenol for fever. She did get the seasonal influenza vaccine. She denies nausea or vomiting. She denies neck pain. She denies shortness of breath. She denies abdominal pain. She has no other complaints. Allergies: Coded Allergies: CODEINE (Verified Adverse Reaction, Intermediate, 10/25/18) N/V Uncoded Allergies: SHELLFISH (Allergy, Unknown, 02/07/20) Patient does not recall her exact experience with shellfish, but she is willing to undergo procedures that require use of contrast. 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 COVID-19 Screening: Negative COVID-19 COVID-19 Testing Source: [employer] Patient History Past Medical History: see triage record, COPD, other - Hypothyroid Social History: Denies: smoking, alcohol use, drug use Reviewed Nursing Documentation: PMH: Agreed; PSxH: Agreed Nursing Documentation-PMH Past Medical History: No History, Except For Hx Cardiac Problems: No Hx Hypertension: No Hx Pacemaker: No Hx Asthma: Yes Hx COPD: Yes Hx Diabetes: No Hx Cancer: No Hx Gastrointestinal Problems: Yes - hernia Hx Dialysis: No Hx Neurological Problems: No Hx Cerebrovascular Accident: No Hx Seizures: No Review of Systems All Other Systems: negative except mentioned in HPI Physical Exam Vital Signs Date Time Temp Pulse Resp B/P (MAP) Pulse Ox O2 Delivery O2 Flow Rate FiO2 07/30/20 07:04 98.4 84 16 151/85 (107) 94 Room Air Sp02 EP Interpretation: reviewed, normal General Appearance: no apparent distress, alert, GCS 15, non-toxic Head: normocephalic, atraumatic Eyes: bilateral eye normal inspection, bilateral eye PERRL ENT: hearing grossly normal, normal pharynx, no angioedema, normal voice Neck: full range of motion, supple/symm/no masses Respiratory: chest non-tender, lungs clear, normal breath sounds, no respiratory distress, no retraction, no accessory muscle use, speaking full sentences Cardiovascular #1: regular rate, rhythm, no edema Gastrointestinal: normal bowel sounds, non tender, soft, non-distended, no guarding, no rebound Rectal: deferred Musculoskeletal: back normal, normal range of motion, gait/station normal, non- tender Neurologic: alert, motor strength/tone normal, oriented x3, sensory intact, responsive, speech normal Psychiatric: judgement/insight normal, memory normal, mood/affect normal, no suicidal/homicidal ideation Skin: no rash, normal color Medical Decision Making Diagnostic Impression: Primary Impression: COVID-19 ER Course This patient is found to be positive for COVID-19. The patient had a previous infection with COVID-19 but is about 6 months out from the initial infection. She is positive again today with symptoms consistent with COVID-19. Overall, the patient is well-appearing and nontoxic. Her oxygen saturation is 99% on room air and her lungs are clear. Chest x-ray is clear. The patient fits criteria for mild illness at this time does not need any treatment other than supportive care. She was educated on quarantine. Laboratory work-up is benign. No emergency medical condition is identified. The patient is given close return precautions and follow-up instructions. This patient was evaluated in the context of the global COVID-19 pandemic, which necessitated consideration that the patient might be at risk for infection with the [id number] virus that causes COVID-19. Institutional protocols and algorithms that pertain to the evaluation of patients at risk for COVID-19 and the state of rapid change based on information released by multiple regulatory bodies including the CDC and federal and state organizations. These policies and algorithms were followed during the patient's care in the ED. Laboratory Tests Test 07/30/20 07:30 White Blood Count 4.9 K/UL (4.8-10.8) Red Blood Count 4.98 M/UL (4.20-5.40) Hemoglobin 15.4 G/DL (12.0-16.0) Hematocrit 43.6 % (37.0-47.0) Mean Corpuscular Volume 88 FL (80-99) Mean Corpuscular Hemoglobin 30.9 PG (27.0-31.0) Mean Corpuscular Hemoglobin Concent 35.3 G/DL (32.0-36.0) Red Cell Distribution Width 15.8 % (11.6-14.8) H Platelet Count 198 K/UL (150-450) Mean Platelet Volume 7.6 FL (6.5-10.1) Neutrophils (%) (Auto) 44.4 % (45.0-75.0) L Lymphocytes (%) (Auto) 42.9 % (20.0-45.0) Monocytes (%) (Auto) 11.3 % (1.0-10.0) H Eosinophils (%) (Auto) 0.6 % (0.0-3.0) Basophils (%) (Auto) 0.8 % (0.0-2.0) Prothrombin Time 10.7 SEC (9.30-11.50) Prothrombin Time INR 1.0 (0.9-1.1) Activated Partial Thromboplast Time 30 SEC (23-33) Urine Color Yellow Urine Appearance Clear Urine pH 5 (4.5-8.0) Urine Specific [place] 1.020 (1.005-1.035) Urine Protein 1+ (NEGATIVE) H Urine Glucose (UA) Negative (NEGATIVE) Urine Ketones Negative (NEGATIVE) Urine Blood 4+ (NEGATIVE) H Urine Nitrite Negative (NEGATIVE) Urine Bilirubin Negative (NEGATIVE) Urine Urobilinogen Normal MG/DL (0.0-1.0) Urine Leukocyte Esterase Negative (NEGATIVE) Urine RBC 10-15 /HPF (0 - 2) H Urine WBC 0-2 /HPF (0 - 2) Urine Squamous Epithelial Cells Few /LPF (NONE/OCC) Urine Bacteria Few /HPF (NONE) Urine Mucus Moderate /LPF (NONE/OCC) H Sodium Level 139 MMOL/L (136-145) Potassium Level 3.7 MMOL/L (3.5-5.1) Chloride Level 102 MMOL/L (98-107) Carbon Dioxide Level 30 MMOL/L (21-32) Anion Gap 7 mmol/L (5-15) Blood Urea Nitrogen 14 mg/dL (7-18) Creatinine 0.8 MG/DL (0.55-1.30) Estimated Glomerular Filtration Rate > 60 mL/min (>60) Glucose Level 90 MG/DL (74-106) Lactic Acid Level 1.10 mmol/L (0.4-2.0) Calcium Level 9.1 MG/DL (8.5-10.1) Total Bilirubin 0.7 MG/DL (0.2-1.0) Aspartate Amino Transferase (AST) 30 U/L (15-37) Alanine Aminotransferase (ALT) 31 U/L (12-78) Alkaline Phosphatase 91 U/L (46-116) Total Creatine Kinase 91 U/L (26-308) Creatine Kinase MB 1.2 NG/ML (0.0-3.6) Creatine Kinase MB Relative Index 1.3 Troponin I 0.000 ng/mL (0.000-0.056) Total Protein 8.2 G/DL (6.4-8.2) Albumin 4.0 G/DL (3.4-5.0) Globulin 4.2 g/dL Albumin/Globulin Ratio 1.0 (1.0-2.7) Lipase 91 U/L (73-393) Free Thyroxine 1.24 NG/DL (0.76-1.46) Free Triiodothyronine 2.5 pg/mL (2.3-4.2) Microbiology Date/Time Source Procedure Growth Status 07/30/20 07:30 Nasal Nares - Final Complete 07/30/20 07:30 Nasal Nares - Final Complete 07/30/20 07:30 Nasopharynx SARS-CoV-2 RdRp Gene Assay - Final Complete EKG Diagnostic Results Rate: normal Rhythm: NSR ST Segments: no acute changes Rhythm Strip Diag. Results EP Interpretation: yes Rate: 70's Rhythm: NSR, no PVC's, no ectopy Chest X-Ray Diagnostic Results Chest X-Ray Diagnostic Results : Chest X-Ray Ordered: Yes # of Views/Limited/Complete: 1 View Indication: Other - cough/fever EP Interpretation: Yes Interpretation: no consolidation, no effusion, no pneumothorax, no acute cardiopulmonary disease Impression: No acute disease Electronically Signed by: Leonor Milian DO Last Vital Signs Date Time Temp Pulse Resp B/P (MAP) Pulse Ox O2 Delivery O2 Flow Rate FiO2 07/30/20 07:04 98.4 84 16 151/85 (107) 94 Room Air Status: improved Disposition: HOME, SELF-CARE Condition: Improved Leonor Milian DO Jul 30, 2020 07:31
[2020-07-30 08:01] LABS: BASOPHILS % (AUTO) 0.8 % (0.0-2.0); EOSINOPHILS % (AUTO) 0.6 % (0.0-3.0); HEMATOCRIT 43.6 % (37.0-47.0); HEMOGLOBIN 15.4 G/DL (12.0-16.0); LYMPHOCYTES % (AUTO) 42.9 % (20.0-45.0); MEAN CORPUSCULAR VOLUME 88 FL (80-99); MONOCYTES % (AUTO) 11.3 % (1.0-10.0); NEUTROPHILS % (AUTO) 44.4 % (45.0-75.0); PLATELET COUNT 198 K/UL (150-450); RED BLOOD COUNT 4.98 M/UL (4.20-5.40); RED CELL DISTRIBUTION WIDTH 15.8 % (11.6-14.8); WHITE BLOOD COUNT 4.9 K/UL (4.8-10.8)
[2020-07-30 08:13] LABS: ANION GAP 7 mmol/L (5-15); BLOOD UREA NITROGEN 14 mg/dL (7-18); CALCIUM 9.1 MG/DL (8.5-10.1); CARBON DIOXIDE 30 MMOL/L (21-32); CHLORIDE 102 MMOL/L (98-107); CREATININE 0.8 MG/DL (0.55-1.30); POTASSIUM 3.7 MMOL/L (3.5-5.1); SODIUM 139 MMOL/L (136-145)
[2020-07-30 08:17] LABS: APPEARANCE,URINE CLEAR; BILIRUBIN, URINE NEGATIVE (NEGATIVE); COLOR,URINE YELLOW; GLUCOSE, URINE (UA) NEGATIVE (NEGATIVE); KETONES,URINE NEGATIVE (NEGATIVE); LEUKOCYTE ESTERASE ,URINE NEGATIVE (NEGATIVE); NITRITE,URINE NEGATIVE (NEGATIVE); PH,URINE 5 (4.5-8.0); PROTEIN,URINE 1+ (NEGATIVE); UROBILINOGEN,URINE NORMAL MG/DL (0.0-1.0)
[2020-07-30 08:29] LABS: ALANINE AMINOTRANSFERASE 31 U/L (12-78); ALKALINE PHOSPHATASE 91 U/L (46-116); ASPARTATE AMINO TRANSFERASE 30 U/L (15-37); BILIRUBIN,TOTAL 0.7 MG/DL (0.2-1.0); CKMB 1.2 NG/ML (0.0-3.6); CREATINE KINASE 91 U/L (26-308)
[2020-07-30 09:10] VITALS: BP 137/80
--- NOTE | 2020-07-30 09:10 | NUR ---
ER DISCHARGE NOTE: Patient is cleared to be discharged per ERMD, pt is aox4, on room air, with stable vital signs. pt was given dc and prescription instructions, pt was able to verbalize understanding, pt id band and iv site removed without complications. pt is able to ambulate with steady gait. pt took all belongings. Pt educated on COVID instructions and precautions, she verbalized understanding.
--- NOTE | 2020-07-30 09:47 | Diagnostic Imaging Report ---
Indication: Chest pain Technique: XRAY Chest 1v Comparison: 05/11/2020 Findings: Heart size and mediastinal contours are within normal limits for AP technique stable compared to the prior exam. Atherosclerotic calcifications again noted in the aortic arch. There is no focal airspace consolidation, pneumothorax or pleural effusion. Calcified granulomas again noted in, larger at the right base and smaller at the left apex. Osseous structures demonstrate no acute abnormality. Surgical clips noted in the right upper quadrant. Impression: No radiographic evidence of acute cardiopulmonary disease.
== END 2020-07-30 09:10 | disposition home or self-care (01) ==
LOC: EMR 07:20
DX: U07.1 COVID-19 (principal); J44.9 Chronic obstructive pulmonary disease, unspecified; Z91.013 Allergy to seafood; Z88.5 Allergy status to narcotic agent
CPT/HCPCS: 36415; 71045; 80053; 81003; 82550; 82553; 83605; 83690; 84439; 84481; 84484; 85025; 85610; 85730; 86710; 93005; U0002; Z7502; 99284

== ENCOUNTER 2020-08-04 12:28 | Emergency (ER) | payer MEDICAID ==
[~2020-08-04] VITALS: Ht 162.6 cm; Wt 72.6 kg
[2020-08-04 12:50] VITALS: BP 176/94
[2020-08-04] MEDS ORDERED: LORazepam Inj 2mg/ml 1ml IV ONE (13:00)
--- NOTE | 2020-08-04 13:02 | Emergency Room Report ---
History of Present Illness General Chief Complaint: Dyspnea/Respdistress Source: Patient Present Illness HPI Disclaimer: Please note that this report is being documented using [employer] technology. This can lead to erroneous entry secondary to incorrect interpretation by the dictating instrument. HPI: 65-year-old female history of asthma and hypothyroidism presents for evaluation of shortness of breath and chest pain. Diagnosed with COVID-19 on 07/30. Chest x-ray is clear at that time. Has been using albuterol inhaler every 4-6 hours complaining of shortness of breath. Reports chest pain that is worse with coughing and bending and twisting motion. Feels like pressure in the center of her chest. Nonradiating. Patient is very scared that she is going to and arrives very anxious and agitated. She has been using Tylenol for control of fevers with good effect. Denies nausea or vomiting. Denies diarrhea. Denies sore throat or nasal congestion. PMH: Hypothyroidism, asthma PSH: Cholecystectomy, hysterectomy, spinal surgery Allergies: Codeine Social Hx: Non-smoker Allergies: Coded Allergies: CODEINE (Verified Adverse Reaction, Intermediate, 10/25/18) N/V Uncoded Allergies: SHELLFISH (Allergy, Unknown, 02/07/20) Patient does not recall her exact experience with shellfish, but she is willing to undergo procedures that require use of contrast. 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 EOMI. Cardiovascular: RRR. S1 and S2 normal. No murmur appreciated Resp: Normal work of breathing. No cough, wheezing or crackles appreciated Abdomen: Abdomen is soft, nondistended. Nontender Skin: Intact. No abrasions, laceration or rash over the exposed skin MSK: Normal tone and bulk. Moving all extremities. No obvious deformity. Neuro: Awake and alert. Mentating appropriately. Medical Decision Making Diagnostic Impression: Primary Impression: COVID-19 Additional Impression: Dyspnea ER Course 65-year-old female recently diagnosed with COVID-19 on 07/30 presents for evaluation of persistent shortness of breath, fevers, fatigue and chest pain. Differential includes was not limited to persistent viral syndrome, ACS, pneumonia, anxiety, new onset hypertension, hypertensive urgency, hypertensive emergency among others. Patient arrives afebrile, oxygenating well on room air. She is very anxious appearing and arrives hypertensive. Hydralazine and Ativan ordered. Chest x-ray unchanged from previous. EKG nonischemic. Labs otherwise unremarkable. Given the patient's risk factors and age she is a candidate for monoclonal antibody therapy. Discussed infusion of Bamlanivimab. Discussed with Dr. Ellison of infectious disease who agrees she is a candidate. Risk and benefits explained. Patient accepts. Will be monitored in the emergency department 1 hour after infusion to make sure no anaphylactic reaction develops. She is otherwise stable for outpatient follow-up and able to follow-up with her PMD. Laboratory Tests Test 08/04/20 13:30 White Blood Count 5.4 K/UL (4.8-10.8) Red Blood Count 4.52 M/UL (4.20-5.40) Hemoglobin 14.1 G/DL (12.0-16.0) Hematocrit 40.9 % (37.0-47.0) Mean Corpuscular Volume 90 FL (80-99) Mean Corpuscular Hemoglobin 31.2 PG (27.0-31.0) H Mean Corpuscular Hemoglobin Concent 34.5 G/DL (32.0-36.0) Red Cell Distribution Width 13.6 % (11.6-14.8) Platelet Count 156 K/UL (150-450) Mean Platelet Volume 7.8 FL (6.5-10.1) Neutrophils (%) (Auto) 51.3 % (45.0-75.0) Lymphocytes (%) (Auto) 36.1 % (20.0-45.0) Monocytes (%) (Auto) 11.9 % (1.0-10.0) H Eosinophils (%) (Auto) 0.4 % (0.0-3.0) Basophils (%) (Auto) 0.4 % (0.0-2.0) Sodium Level 139 MMOL/L (136-145) Potassium Level 3.4 MMOL/L (3.5-5.1) L Chloride Level 104 MMOL/L (98-107) Carbon Dioxide Level 26 MMOL/L (21-32) Anion Gap 9 mmol/L (5-15) Blood Urea Nitrogen 13 mg/dL (7-18) Creatinine 0.6 MG/DL (0.55-1.30) Estimated Glomerular Filtration Rate > 60 mL/min (>60) Glucose Level 93 MG/DL (74-106) Calcium Level 8.7 MG/DL (8.5-10.1) Total Bilirubin 0.6 MG/DL (0.2-1.0) Aspartate Amino Transferase (AST) 23 U/L (15-37) Alanine Aminotransferase (ALT) 17 U/L (12-78) Alkaline Phosphatase 72 U/L (46-116) Troponin I 0.002 ng/mL (0.000-0.056) Total Protein 7.6 G/DL (6.4-8.2) Albumin 3.7 G/DL (3.4-5.0) Globulin 3.9 g/dL Albumin/Globulin Ratio 0.9 (1.0-2.7) L EKG Diagnostic Results Troponin ordered: Yes When was troponin ordered?: Aug 04, 2020 EKG Time: 13:39 Rate: normal Rhythm: NSR ST Segments: no acute changes Other Impression Sinus rhythm, normal axis, slightly prolonged QTC at [address] segment changes. Rhythm Strip Diag. Results Rhythm Strip Time: 13:39 EP Interpretation: yes Rate: 80s Rhythm: NSR, no PVC's, no ectopy Chest X-Ray Diagnostic Results Chest X-Ray Diagnostic Results : Chest X-Ray Ordered: Yes # of Views/Limited/Complete: 1 View Indication: Shortness of Breath EP Interpretation: Yes Interpretation: no consolidation, no effusion, no pneumothorax, no acute cardiopulmonary disease Impression: No acute disease Electronically Signed by: Electronically signed by Dr. Raman Flores MD Last Vital Signs Date Time Temp Pulse Resp B/P (MAP) Pulse Ox O2 Delivery O2 Flow Rate FiO2 08/04/20 12:39 99.1 87 18 176/94 (121) 96 Room Air Disposition: HOME, SELF-CARE Condition: Stable Raman Flores MD Aug 04, 2020 13:02
[2020-08-04 13:41] LABS: BASOPHILS % (AUTO) 0.4 % (0.0-2.0); EOSINOPHILS % (AUTO) 0.4 % (0.0-3.0); HEMATOCRIT 40.9 % (37.0-47.0); HEMOGLOBIN 14.1 G/DL (12.0-16.0); LYMPHOCYTES % (AUTO) 36.1 % (20.0-45.0); MEAN CORPUSCULAR VOLUME 90 FL (80-99); MONOCYTES % (AUTO) 11.9 % (1.0-10.0); NEUTROPHILS % (AUTO) 51.3 % (45.0-75.0); PLATELET COUNT 156 K/UL (150-450); RED BLOOD COUNT 4.52 M/UL (4.20-5.40); RED CELL DISTRIBUTION WIDTH 13.6 % (11.6-14.8); WHITE BLOOD COUNT 5.4 K/UL (4.8-10.8)
[2020-08-04 14:11] LABS: ANION GAP 9 mmol/L (5-15); BLOOD UREA NITROGEN 13 mg/dL (7-18); CALCIUM 8.7 MG/DL (8.5-10.1); CARBON DIOXIDE 26 MMOL/L (21-32); CHLORIDE 104 MMOL/L (98-107); CREATININE 0.6 MG/DL (0.55-1.30); POTASSIUM 3.4 MMOL/L (3.5-5.1); SODIUM 139 MMOL/L (136-145)
[2020-08-04 14:16] LABS: ALANINE AMINOTRANSFERASE 17 U/L (12-78); ALBUMIN 3.7 G/DL (3.4-5.0); ALBUMIN/GLOBULIN RATIO 0.9 (1.0-2.7); ALKALINE PHOSPHATASE 72 U/L (46-116); ASPARTATE AMINO TRANSFERASE 23 U/L (15-37); BILIRUBIN,TOTAL 0.6 MG/DL (0.2-1.0)
[2020-08-04] MEDS ORDERED: Bamlanivimab 700 MG in NS 275 ML IVPB SCH (14:30)
[2020-08-04] MEDS ORDERED: Bamlanivimab Fact Sheet MISC ONE (14:30)
--- NOTE | 2020-08-04 17:21 | Diagnostic Imaging Report ---
Indication: Shortness of breath Technique: One view of the chest Comparison: 07/30/2020 Findings: No acute infiltrates, effusions, or congestion. Tortuous calcified aorta. Normal heart size. Upper mediastinum unremarkable. No significant change Impression: No acute process.
[2020-08-04 18:30] VITALS: BP 132/66
== END 2020-08-04 18:30 | disposition home or self-care (01) ==
LOC: EMR 13:11
DX: U07.1 COVID-19 (principal); R06.00 Dyspnea, unspecified; Z90.49 Acquired absence of other specified parts of digestive tract; Z90.710 Acquired absence of both cervix and uterus; E03.9 Hypothyroidism, unspecified; J45.909 Unspecified asthma, uncomplicated; Z88.5 Allergy status to narcotic agent; Z91.013 Allergy to seafood
CPT/HCPCS: 36415; 71045; 80053; 84484; 85025; 93005; 96365; 96375; J0360; J7050; Q0239; Z7502; 99284

== ENCOUNTER 2020-08-24 08:03 | Emergency (ER) | payer MEDICAID ==
[~2020-08-24] VITALS: Ht 165.1 cm; Wt 63.5 kg
[2020-08-24 08:24] VITALS: BP 147/79
--- NOTE | 2020-08-24 08:34 | NUR ---
ED Nurse Note: Patient from home and walked in due to flu symptoms of bodyaches and coughing. Patient tested covid positive on 08/20/20. Denies respiratory distress. Patient has been self isolating at home. patient is AAO x4, ambulatory with non labored breathing.
[2020-08-24] MEDS ORDERED: Albuterol ud Inhalation HHN ONE (08:45)
[2020-08-24] MEDS ORDERED: dexAMETHasone 10mg/ml Inj IV SCH (09:00)
--- NOTE | 2020-08-24 09:14 | NUR ---
ED Nurse Note: Collected blood specimen then sent.
--- NOTE | 2020-08-24 09:15 | NUR ---
ED Nurse Note: Isidro/RT at the bed side for breathing treatment.
[2020-08-24 09:35] LABS: BASOPHILS % (AUTO) 1.3 % (0.0-2.0); EOSINOPHILS % (AUTO) 3.1 % (0.0-3.0); HEMATOCRIT 40.5 % (37.0-47.0); HEMOGLOBIN 13.5 G/DL (12.0-16.0); LYMPHOCYTES % (AUTO) 34.7 % (20.0-45.0); MEAN CORPUSCULAR VOLUME 93 FL (80-99); MONOCYTES % (AUTO) 9.1 % (1.0-10.0); NEUTROPHILS % (AUTO) 51.9 % (45.0-75.0); PLATELET COUNT 192 K/UL (150-450); RED BLOOD COUNT 4.34 M/UL (4.20-5.40); RED CELL DISTRIBUTION WIDTH 14.9 % (11.6-14.8); WHITE BLOOD COUNT 7.2 K/UL (4.8-10.8)
[2020-08-24 09:44] LABS: ANION GAP 4 mmol/L (5-15); BLOOD UREA NITROGEN 17 mg/dL (7-18); CALCIUM 9.1 MG/DL (8.5-10.1); CARBON DIOXIDE 31 MMOL/L (21-32); CHLORIDE 103 MMOL/L (98-107); CREATININE 0.7 MG/DL (0.55-1.30); POTASSIUM 3.4 MMOL/L (3.5-5.1); SODIUM 138 MMOL/L (136-145)
[2020-08-24] MEDS ORDERED: Ketorolac 30mg Inj IV ONE (10:00)
[2020-08-24 10:03] LABS: ALANINE AMINOTRANSFERASE 21 U/L (12-78); ALBUMIN 3.7 G/DL (3.4-5.0); ALBUMIN/GLOBULIN RATIO 0.9 (1.0-2.7); ALKALINE PHOSPHATASE 94 U/L (46-116); ASPARTATE AMINO TRANSFERASE 22 U/L (15-37); BILIRUBIN,TOTAL 1.1 MG/DL (0.2-1.0)
[2020-08-24 10:11] LABS: BILIRUBIN,DIRECT 0.2 MG/DL (0.0-0.3)
[2020-08-24] MEDS ORDERED: PREDNISONE20 MG ORAL (10:49)
--- NOTE | 2020-08-24 10:54 | Emergency Room Report ---
History of Present Illness General Chief Complaint: Flu Like Symptoms Source: Patient Present Illness HPI Patient is a 65-year-old female who presents for increased generalized body discomfort as well as increased difficulty with breathing. Recent diagnosis of coronavirus infection approximately 4 weeks ago. She had previously been given antibody treatment. Denies any fever. Denies any current shortness of breath. Prior history of asthma. Denies any recent leg pain or swelling. Reports having some popping to the left ear. Allergies: Coded Allergies: CODEINE (Verified Adverse Reaction, Intermediate, 10/25/18) N/V Uncoded Allergies: SHELLFISH (Allergy, Unknown, 02/07/20) Patient does not recall her exact experience with shellfish, but she is willing to undergo procedures that require use of contrast. 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 COVID-19 Screening: Positive COVID-19 COVID-19 Testing Source: aug 20 Patient History Past Medical History: see triage record Reviewed Nursing Documentation: PMH: Agreed; PSxH: Agreed Nursing Documentation-PMH Past Medical History: No History, Except For Hx Cardiac Problems: No - covid + Hx Hypertension: No Hx Pacemaker: No Hx Asthma: Yes Hx COPD: Yes Hx Diabetes: No Hx Cancer: No Hx Gastrointestinal Problems: Yes - hernia Hx Dialysis: No Hx Neurological Problems: No Hx Cerebrovascular Accident: No Hx Seizures: No Review of Systems All Other Systems: negative except mentioned in HPI Physical Exam Vital Signs Date Time Temp Pulse Resp B/P (MAP) Pulse Ox O2 Delivery O2 Flow Rate FiO2 08/24/20 08:24 98.6 84 20 147/79 (101) 94 Room Air 08/24/20 09:28 21 Sp02 EP Interpretation: reviewed, normal General Appearance: normal inspection, well appearing, no apparent distress, alert, GCS 15, non-toxic Head: atraumatic ENT: normal ENT inspection, hearing grossly normal, normal voice Neck: normal inspection, full range of motion, supple, no bony tend Respiratory: normal inspection, normal breath sounds, no retraction, wheezing Cardiovascular #1: regular rate, rhythm, no edema Gastrointestinal: normal inspection, normal bowel sounds, non tender, soft, no guarding, no hernia Genitourinary: no CVA tenderness Musculoskeletal: normal inspection, back normal, normal range of motion Neurologic: alert, responsive, speech normal, normal inspection Psychiatric: normal inspection, judgement/insight normal, mood/affect normal Medical Decision Making Diagnostic Impression: Primary Impression: Asthma ER Course Presented for increased difficulty with breathing. Differential diagnosis include was not limited to asthma exacerbation, pneumonia, coronavirus infection, among others. Because of complexity of patient's case laboratory tests were ordered. Patient had recent coronavirus infection. EKG interpreted by me showed normal sinus rhythm with a rate of [address] or T wave changes noted. Patient does have some wheezing and prior history of asthma. She was given steroids as well as breathing treatment with improvement of symptoms. Laboratory testing was essentially unremarkable. Patient was noted to have a good oxygen saturation on room air and no respiratory distress at this time. Patient be discharged home. She was advised to return if she had a worsening of condition or other concerns patient is given prescription for prednisone. The patient is advised to follow up with primary care doctor in 1- 2 days. Patient is advised to return if any worsening condition or if any changes in status that are concerning. This report is dictated with [employer] managing consultant clinical professor software which may occasionally lead to discrepancies related to use of this software. Labs Test 08/24/20 09:12 White Blood Count 7.2 K/UL (4.8-10.8) Red Blood Count 4.34 M/UL (4.20-5.40) Hemoglobin 13.5 G/DL (12.0-16.0) Hematocrit 40.5 % (37.0-47.0) Mean Corpuscular Volume 93 FL (80-99) Mean Corpuscular Hemoglobin 31.2 PG (27.0-31.0) Mean Corpuscular Hemoglobin Concent 33.5 G/DL (32.0-36.0) Red Cell Distribution Width 14.9 % (11.6-14.8) Platelet Count 192 K/UL (150-450) Mean Platelet Volume 7.6 FL (6.5-10.1) Neutrophils (%) (Auto) 51.9 % (45.0-75.0) Lymphocytes (%) (Auto) 34.7 % (20.0-45.0) Monocytes (%) (Auto) 9.1 % (1.0-10.0) Eosinophils (%) (Auto) 3.1 % (0.0-3.0) Basophils (%) (Auto) 1.3 % (0.0-2.0) Prothrombin Time 10.8 SEC (9.30-11.50) Prothromb Time International Ratio 1.0 (0.9-1.1) Activated Partial Thromboplast Time 26 SEC (23-33) Sodium Level 138 MMOL/L (136-145) Potassium Level 3.4 MMOL/L (3.5-5.1) Chloride Level 103 MMOL/L (98-107) Carbon Dioxide Level 31 MMOL/L (21-32) Anion Gap 4 mmol/L (5-15) Blood Urea Nitrogen 17 mg/dL (7-18) Creatinine 0.7 MG/DL (0.55-1.30) Estimat Glomerular Filtration Rate > 60 mL/min (>60) Glucose Level 100 MG/DL (74-106) Calcium Level 9.1 MG/DL (8.5-10.1) Total Bilirubin 1.1 MG/DL (0.2-1.0) Direct Bilirubin 0.2 MG/DL (0.0-0.3) Aspartate Amino Transf (AST/SGOT) 22 U/L (15-37) Alanine Aminotransferase (ALT/SGPT) 21 U/L (12-78) Alkaline Phosphatase 94 U/L (46-116) Troponin I 0.000 ng/mL (0.000-0.056) Total Protein 7.8 G/DL (6.4-8.2) Albumin 3.7 G/DL (3.4-5.0) Globulin 4.1 g/dL Albumin/Globulin Ratio 0.9 (1.0-2.7) EKG Diagnostic Results Rate: normal Rhythm: NSR ST Segments: no acute changes Last Vital Signs Date Time Temp Pulse Resp B/P (MAP) Pulse Ox O2 Delivery O2 Flow Rate FiO2 08/24/20 09:28 102 18 100 Room Air 21 66 18 99 08/24/20 08:24 98.6 147/79 Status: improved Disposition: HOME, SELF-CARE Condition: Stable Scripts Prednisone* (PREDNISONE*) 20 Mg Tablet 40 MG ORAL DAILY, #10 TAB Prov: Kyle Epperson MD 08/24/20 Referrals: [facility],REFERR[facility] (PCP) Patient Instructions: Asthma, Adult Additional Instructions: Follow up with your doctor for recheck. Return if worse. Kyle Epperson MD Aug 24, 2020 10:53
[2020-08-24 11:09] VITALS: BP 135/70
--- NOTE | 2020-08-24 11:09 | NUR ---
ER DISCHARGE NOTE: Patient is cleared to be discharged per ERMD, pt is aox4, on room air, with stable vital signs. pt was given dc and prescription instructions, pt was able to verbalize understanding, pt id band and iv site removed without complications. pt is able to ambulate with steady gait. pt took all belongings.
--- NOTE | 2020-08-27 19:32 | Cardiology Report ---
APPROVED REPORT EKG Measurement Heart [id number] <Conclusion> Normal sinus rhythm Nonspecific ST abnormality Abnormal ECG
== END 2020-08-24 11:09 | disposition home or self-care (01) ==
LOC: EMR 08:41
DX: J45.909 Unspecified asthma, uncomplicated (principal); Z86.19 Personal history of other infectious and parasitic diseases; Z88.5 Allergy status to narcotic agent; Z91.013 Allergy to seafood
CPT/HCPCS: 36415; 80053; 82248; 84484; 85025; 85610; 85730; 93005; 94640; 96365; 96375; J1885; Z7502; 99284; J8499

== ENCOUNTER 2020-10-31 12:35 | Emergency (ER) | payer MEDICAID ==
[~2020-10-31] VITALS: Ht 165.1 cm; Wt 68.0 kg
--- NOTE | 2020-10-31 13:01 | Emergency Room Report ---
History of Present Illness General Chief Complaint: Asthma Source: Patient Present Illness HPI Disclaimer: Please note that this report is being documented using DRAGON technology. This can lead to erroneous entry secondary to incorrect interpretation by the dictating instrument. HPI: 65-year-old female history of thyroid dysfunction and asthma presents for shortness of breath. Symptoms began 2 days ago. Patient has been feeling tight and wheezy using her nebulizer several times a day. Former smoker who quit 4 years ago however yesterday had a cigarette with a friend after which her breathing became more labored. She feels increasingly tight and wheezy not getting the typical relief she does from her nebulizers or rescue inhaler. Has not been on steroids for some time. Denies chest pain but notes some pain in the left shoulder. She has had prior shoulder surgery there and states this is a chronic issue however is now extending somewhat over the back. Denies cough or sputum production. Denies fever chills. Tested positive for COVID-09 August 2020 and has persistently tested positive on all follow-up test. She denies changes in sense of smell or taste, no fever, no other symptoms aside from wheezing. PMH: Thyroid dysfunction, asthma PSH: Reviewed Allergies: Codeine Social Hx: Former smoker quit 4 years ago Allergies: Coded Allergies: CODEINE (Verified Adverse Reaction, Intermediate, 10/25/18) N/V Uncoded Allergies: SHELLFISH (Allergy, Unknown, 02/07/20) Patient does not recall her exact experience with shellfish, but she is willing to undergo procedures that require use of contrast. COVID-19 Screening Contact w/high risk pt: No Recent Travel to affected area: No Experienced COVID-19 symptoms?: No COVID-19 symptoms experienced: Shortness of Breath, Cough COVID-19 Testing performed [employer]: No Patient History Now: No Nursing Documentation-PMH Hx Cardiac Problems: No - covid + Hx Hypertension: No Hx Pacemaker: No Hx Asthma: Yes Hx COPD: Yes Hx Diabetes: No Hx Cancer: No - hyperthyroidism Hx Gastrointestinal Problems: Yes - hernia Hx Dialysis: No Hx Neurological Problems: No Hx Cerebrovascular Accident: No Hx Seizures: No Review of Systems All Other Systems: negative except mentioned in HPI Physical Exam Vital Signs Date Time Temp Pulse Resp B/P (MAP) Pulse Ox O2 Delivery O2 Flow Rate FiO2 10/31/20 12:40 98.4 70 16 157/75 (102) 95 Room Air General: Awake and alert, no acute distress HEENT: NC/AT. EOMI. Cardiovascular: RRR. S1 and S2 normal. No murmur appreciated Resp: Normal work of breathing. Nonlabored breathing. No cough. Mild inspiratory and expiratory wheezing. No crackles. Abdomen: Abdomen is soft, nondistended. Nontender Skin: Intact. No abrasions, laceration or rash over the exposed skin MSK: Normal tone and bulk. Moving all extremities. No obvious deformity. Tenderness palpation over the trapezius extending from the left side of the cervical spine paraspinal region over to the left shoulder and down the scapula to the mid back near the paraspinal region. Full range of motion in the upper extremities at the shoulders. Full range of motion in the cervical spine. Neuro: Awake and alert. Mentating appropriately. Medical Decision Making Diagnostic Impression: Primary Impression: Asthma exacerbation Additional Impression: Back strain ER Course 65-year-old female presents for wheezing. Differential includes is not limited to asthma exacerbation, COPD exacerbation, bronchitis, pneumonia, persistent symptoms of COVID-19, occult ischemia, pneumothorax among others. Patient is well-appearing and I do believe her symptoms are mostly related to asthma and smoking yesterday. She was given DuoNeb treatments and prednisone. Cardiac work-up was also initiated given the patient's complaint of upper back pain. Troponin labs unremarkable. Believe her left-sided shoulder pain is musculoskeletal in nature. Will prescribe Robaxin and lidocaine patch. She will follow up with her PMD. Continue steroids for 4 days. Breathing improved after treatments. Stable for outpatient follow-up. Instructed to return with new or worsening symptoms. Laboratory Tests Test 10/31/20 13:14 White Blood Count 11.0 K/UL (4.8-10.8) H Red Blood Count 4.40 M/UL (4.20-5.40) Hemoglobin 13.4 G/DL (12.0-16.0) Hematocrit 41.6 % (37.0-47.0) Mean Corpuscular Volume 95 FL (80-99) Mean Corpuscular Hemoglobin 30.5 PG (27.0-31.0) Mean Corpuscular Hemoglobin Concent 32.2 G/DL (32.0-36.0) Red Cell Distribution Width 13.6 % (11.6-14.8) Platelet Count 223 K/UL (150-450) Mean Platelet Volume 6.3 FL (6.5-10.1) L Neutrophils (%) (Auto) 52.3 % (45.0-75.0) Lymphocytes (%) (Auto) 40.2 % (20.0-45.0) Monocytes (%) (Auto) 6.2 % (1.0-10.0) Eosinophils (%) (Auto) 0.4 % (0.0-3.0) Basophils (%) (Auto) 1.0 % (0.0-2.0) Sodium Level 145 MMOL/L (136-145) Potassium Level 3.4 MMOL/L (3.5-5.1) L Chloride Level 105 MMOL/L (98-107) Carbon Dioxide Level 31 MMOL/L (21-32) Anion Gap 9 mmol/L (5-15) Blood Urea Nitrogen 16 mg/dL (7-18) Creatinine 0.9 MG/DL (0.55-1.30) Estimated Glomerular Filtration Rate > 60 mL/min (>60) Glucose Level 86 MG/DL (74-106) Calcium Level 9.5 MG/DL (8.5-10.1) Total Bilirubin 0.8 MG/DL (0.2-1.0) Aspartate Amino Transferase (AST) 19 U/L (15-37) Alanine Aminotransferase (ALT) 31 U/L (12-78) Alkaline Phosphatase 73 U/L (46-116) Troponin I 0.010 ng/mL (0.000-0.056) Total Protein 7.2 G/DL (6.4-8.2) Albumin 3.8 G/DL (3.4-5.0) Globulin 3.4 g/dL Albumin/Globulin Ratio 1.1 (1.0-2.7) EKG Diagnostic Results Troponin ordered: Yes When was troponin ordered?: Oct 31, 2020 EKG Time: 13:10 Rate: normal Rhythm: NSR ST Segments: no acute changes Other Impression Sinus rhythm, normal axis, normal intervals, no ST segment changes. Rhythm Strip Diag. Results Rhythm Strip Time: 13:10 EP Interpretation: yes Rate: 60s Rhythm: NSR, no PVC's, no ectopy Chest X-Ray Diagnostic Results Chest X-Ray Diagnostic Results : Chest X-Ray Ordered: Yes # of Views/Limited/Complete: 1 View Indication: Shortness of Breath EP Interpretation: Yes Interpretation: no consolidation, no effusion, no pneumothorax, no acute cardiopulmonary disease Impression: No acute disease Electronically Signed by: Electronically signed by Dr. Raman Flores MD Last Vital Signs Date Time Temp Pulse Resp B/P (MAP) Pulse Ox O2 Delivery O2 Flow Rate FiO2 10/31/20 12:40 98.4 70 16 157/75 (102) 95 Room Air Disposition: HOME, SELF-CARE Condition: Stable Scripts Lidocaine Patch* (Lidoderm Patch*) 1 Each Adh..patch 1 PATCH TOPIC DAILY, #30 PATCH Patch(es) may remain in place for up to 12 hours in any 24-hour period. Prov: Raman Flores MD 10/31/20 Methocarbamol* (ROBAXIN-750*) 750 Mg Tablet 750 MG PO QID, #28 TAB 0 Refills Prov: Raman Flores MD 10/31/20 Prednisone* (PREDNISONE*) 20 Mg Tablet 40 MG ORAL DAILY, #10 TAB Prov: Raman Flores MD 10/31/20 Raman Flores MD Oct 31, 2020 13:01
--- NOTE | 2020-10-31 13:22 | NUR ---
Per MD: 65-year-old female history of thyroid dysfunction and asthma presents for shortness of breath. Symptoms began 2 days ago. Patient has been feeling tight and wheezy using her nebulizer several times a day. Former smoker who quit 4 years ago however yesterday had a cigarette with a friend after which her breathing became more labored. She feels increasingly tight and wheezy not getting the typical relief she does from her nebulizers or rescue inhaler. Has not been on steroids for some time. Denies chest pain but notes some pain in the left shoulder. She has had prior shoulder surgery there and states this is a chronic issue however is now extending somewhat over the back. Denies cough or sputum production. Denies fever chills. Tested positive for COVID-09 August 2020 and has persistently tested positive on all follow-up test. She denies changes in sense of smell or taste, no fever, no other symptoms aside from wheezing.
[2020-10-31] MEDS ORDERED: LIDODERM700 M1 TOPIC (13:24)
[2020-10-31] MEDS ORDERED: ROBAXIN-750750 MG PO (13:24)
[2020-10-31] MEDS ORDERED: PREDNISONE20 MG ORAL (13:24)
--- NOTE | 2020-10-31 13:26 | NUR ---
Blood specimen collected and sent to lab
[2020-10-31] MEDS: Ipratropium 0.02% Inh Soln 2.5ml UD HHN SCH ×2 (13:30→14:20)
[2020-10-31] MEDS: Albuterol ud Inhalation HHN SCH ×3 (13:30→14:20)
[2020-10-31 13:46] LABS: EOSINOPHILS % (AUTO) 0.4 % (0.0-3.0); HEMATOCRIT 41.6 % (37.0-47.0); HEMOGLOBIN 13.4 G/DL (12.0-16.0); LYMPHOCYTES % (AUTO) 40.2 % (20.0-45.0); MEAN CORPUSCULAR VOLUME 95 FL (80-99); MONOCYTES % (AUTO) 6.2 % (1.0-10.0); NEUTROPHILS % (AUTO) 52.3 % (45.0-75.0); PLATELET COUNT 223 K/UL (150-450); RED CELL DISTRIBUTION WIDTH 13.6 % (11.6-14.8)
[2020-10-31 13:50] LABS: ANION GAP 9 mmol/L (5-15); BLOOD UREA NITROGEN 16 mg/dL (7-18); CALCIUM 9.5 MG/DL (8.5-10.1); CARBON DIOXIDE 31 MMOL/L (21-32); CHLORIDE 105 MMOL/L (98-107); CREATININE 0.9 MG/DL (0.55-1.30); POTASSIUM 3.4 MMOL/L (3.5-5.1); SODIUM 145 MMOL/L (136-145)
[2020-10-31 13:55] LABS: ALANINE AMINOTRANSFERASE 31 U/L (12-78); ALBUMIN 3.8 G/DL (3.4-5.0); ALBUMIN/GLOBULIN RATIO 1.1 (1.0-2.7); ALKALINE PHOSPHATASE 73 U/L (46-116); ASPARTATE AMINO TRANSFERASE 19 U/L (15-37); BILIRUBIN,TOTAL 0.8 MG/DL (0.2-1.0)
--- NOTE | 2020-10-31 14:05 | Diagnostic Imaging Report ---
Procedure: XRAY Chest 1v Reason for study: Reason For Exam: SOB Comparison films: 08/04/2020. FINDINGS: A single one view chest is obtained. Vascularity is normal. A few granulomas noted bilaterally. Cardiac and mediastinal silhouette are within normal limits. CP angles are sharp. The bony thorax appear unremarkable. IMPRESSION: A few scattered granulomas. No acute alveolar disease.
[2020-10-31 14:54] VITALS: BP 141/66
== END 2020-10-31 14:55 | disposition home or self-care (01) ==
LOC: EMR 13:11
DX: J45.901 Unspecified asthma with (acute) exacerbation (principal); S29.012A Strain of muscle and tendon of back wall of thorax, initial encounter; J44.9 Chronic obstructive pulmonary disease, unspecified; E05.90 Thyrotoxicosis, unspecified without thyrotoxic crisis or storm; X58.XXXA Exposure to other specified factors, initial encounter; Y93.9 Activity, unspecified; Y92.9 Unspecified place or not applicable; Z88.5 Allergy status to narcotic agent; Z91.013 Allergy to seafood; Z86.16 Personal history of COVID-19; Z79.51 Long term (current) use of inhaled steroids
CPT/HCPCS: 36415; 71045; 80053; 84484; 85025; 93005; 94640; J7512; Z7502; 99284